=== PATIENT | female | born 1940 | race Caucasian/White ===

== ENCOUNTER 2018-01-11 10:55 | Emergency (ER) | payer MEDICARE, BC ==
[~2018-01-11] VITALS: Ht 160 cm; Wt 69.4 kg
[~2018-01-11 10:55] MED LIST: ADVAIR 250-501 EACH INH; ADVAIR 500/501 EA INH; AMLODIPINE-VALSARTAN PO; ARAVA20 MG PO; AZOR 5-40 MG T1 EACH PO; BABY ASPIRIN81 MG PO; CALCIUM 1,0001 EACH PO; CRESTOR10 MG PO; CRESTOR20 MG PO; DIOVAN160 MG PO; HYDROCHLOROTH12.5 MG PO; LEFLUNOMIDE20 MG PO; MICROZIDE12.5 MG PO; SPIRIVA18 MCG INH; TOPROL XL100 MG PO; VITAMIN C500 M1 PO
--- OUTSIDE RECORDS SUMMARY | 2018-01-11 11:00 | XMS REPORT | Clinical Summary ---
Author Author [facility] Organization [facility] Address Unknown Phone Unavailable Care Team Providers Care Airworthiness Inspector Name Role Phone Jelena Cordova MD PCP Allergies Comments Active Allergy Reactions Severity Noted Date rash Penicillins Swelling 06/22/2016 rash Sulfa (Sulfonamide Swelling 06/22/2016 Antibiotics) Medications End Date Status Medication Sig Dispensed Refills Start Date Active rosuvastatin (CRESTOR) 10 Take 10 mg by 0 MG tablet mouth nightly. Active tiotropium (SPIRIVA) 18 Place 1 0 mcg per inhalation capsule into capsule inhaler and inhale once daily. Active cyanocobalamin, vitamin Take 1 tablet 0 B-12, 1,500 mcg by mouth tablet,disintegrating daily. Active insulin DETEMIR (LEVEMIR) Inject 12 15 mL 0 100 unit/mL (3 mL) Units under 7 insulin pen the skin daily before breakfast. 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 Active metoprolol tartrate Take 25 mg by 0 (LOPRESSOR) 25 mg tablet mouth 2 (two) times a day. Active ferrous sulfate (IRON, Take 1 tablet 180 tablet 0 FERROUS SULFATE,) 325 (65 (325 mg 8 FE) MG tablet total) by mouth 2 (two) times a day. Active ipratropium (ATROVENT) Take 2.5 mL 120 mL 0 0.02 % nebulizer solution (0.5 mg 8 total) by nebulization 2 (two) times a day. 12/26/2018 Active furosemide (LASIX) 40 mg Take 1 tablet 360 tablet 0 tablet (40 mg total) 8 by mouth 2 (two) times a day. Patient takes 2 tablets twice daily Active ONETOUCH VERIO strip test TEST 4-5 200 strip 5 strips TIMES A DAY 8 06/22/2017 Discontinued leflunomide (ARAVA) 20 MG Take 20 mg by 0 tablet mouth daily. 02/04/2017 Discontinued ferrous sulfate (IRON, Take 325 mg 0 FERROUS SULFATE,) 325 (65 by mouth FE) MG tablet daily with breakfast. 06/01/2017 Discontinued ipratropium (ATROVENT) Take 500 mcg 0 0.02 % nebulizer solution by nebulization every morning. 06/01/2017 Discontinued budesonide (PULMICORT) Take 0.25 mg 0 0.25 mg/2 mL nebulizer by solution nebulization every evening. 06/22/2017 Discontinued hydrALAZINE (APRESOLINE) Take 25 mg by 0 25 MG tablet mouth 3 (three) times a day. 12/27/2017 Discontinued blood sugar diagnostic Testing 4-5 x 200 strip 6 strips strip test strips daily DM Type 7 2 DX Code:E11.9 06/22/2017 Discontinued furosemide (LASIX) 40 mg 80 mg 2 (two) 0 tablet times a day. 7 06/22/2017 Discontinued metoprolol succinate XL Take 50 mg by 2 (TOPROL-XL) 50 mg 24 hr mouth once 7 tablet daily. 07/14/2017 Discontinued insulin ASPART (NovoLOG) Inject under 0 100 unit/mL injection the skin 3 (three) times a day before meals. 04/30/2017 Discontinued ferrous sulfate (IRON, Take 1 tablet 90 tablet 0 FERROUS SULFATE,) 325 (65 (325 mg 7 FE) MG tablet total) by mouth daily with breakfast. 10/17/2017 Discontinued ferrous sulfate (IRON, Take 1 tablet 180 tablet 0 FERROUS SULFATE,) 325 (65 (325 mg 8 FE) MG tablet total) by mouth 2 (two) times a day. 12/06/2017 Discontinued ipratropium (ATROVENT) Take 2.5 mL 120 mL 3 0.02 % nebulizer solution (0.5 mg 8 total) by nebulization 2 (two) times a day. 06/06/2017 Discontinued budesonide (PULMICORT) Take 2 mL 60 mL 3 0.25 mg/2 mL nebulizer (0.25 mg 8 solution total) by nebulization every evening for 90 days. 09/04/2017 budesonide (PULMICORT) Take 2 mL 180 mL 1 0.5 mg/2 mL nebulizer (0.5 mg 8 solution total) by nebulization once daily for 90 days. 07/06/2017 Discontinued propafenone (RYTHMOL) 150 Take 1 tablet 90 tablet 0 MG tablet (150 mg 8 total) by mouth every 8 (eight) hours for 30 days. 07/22/2017 hydrALAZINE (APRESOLINE) Take 1 tablet 90 tablet 0 50 MG tablet (50 mg total) 8 by mouth 3 (three) times a day for 30 days. 07/22/2017 apixaban (ELIQUIS) 2.5 mg Take 1 tablet 60 tablet 3 tablet (2.5 mg 8 total) by mouth 2 (two) times a day for 30 days. 07/06/2017 Discontinued furosemide (LASIX) 40 mg Take 1 tablet 30 tablet 3 tablet (40 mg total) 8 by mouth daily for 30 days. 07/22/2017 amLODIPine (NORVASC) 5 mg Take 1 tablet 60 tablet 0 tablet (5 mg total) 8 by mouth 2 (two) times a day for 30 days. 08/05/2017 propafenone (RYTHMOL) 225 Take 1 tablet 90 tablet 1 MG tablet (225 mg 8 total) by mouth every 8 (eight) hours for 30 days. 07/12/2017 predniSONE (DELTASONE) 10 Take 2 daily 9 tablet 0 mg tablet for 3 days, 1 8 daily for 3 days then d/c 08/05/2017 furosemide (LASIX) 40 mg Take 2 120 tablet 1 tablet tablets (80 8 mg total) by mouth 2 (two) times a day for 30 days. 07/14/2017 Discontinued leflunomide (ARAVA) 10 MG Take 10 mg by 0 tablet mouth daily. 10/12/2017 leflunomide (ARAVA) 10 MG Take 1 tablet 0 tablet (10 mg total) 8 by mouth daily for 90 days. 12/06/2017 Discontinued furosemide (LASIX) 40 mg Take 1 tablet 90 tablet 0 tablet (40 mg total) 8 by mouth 2 (two) times a day. 12/06/2017 Discontinued budesonide (PULMICORT) USE ONE VIAL 60 mL 2 0.25 mg/2 mL nebulizer VIA NEBULIZER 8 solution BY MOUTH EVERY EVENING 12/08/2017 Discontinued furosemide (LASIX) 40 mg Take 1 tablet 60 tablet 0 tablet (40 mg total) 8 by mouth 2 (two) times a day. 01/06/2018 budesonide (PULMICORT) Take 2 mL 60 mL 0 0.25 mg/2 mL nebulizer (0.25 mg 8 solution total) by nebulization once daily for 30 days. 12/26/2017 Discontinued furosemide (LASIX) 40 mg Take 1 tablet 180 tablet 0 tablet (40 mg total) 8 by mouth 2 (two) times a day. Active Problems Problem Noted Date COPD with acute exacerbation 07/01/2017 CAD (coronary artery disease) 06/19/2017 Fluid overload 06/18/2017 Atrial fibrillation with RVR 06/16/2017 Chest pain 06/14/2017 Anemia of chronic renal failure, stage 4 (severe) 05/02/2017 Hypoglycemia associated with type 2 diabetes mellitus 11/11/2016 Controlled type 2 diabetes mellitus with stage 3 chronic kidney disease, 11/01/2016 with long-term current use of insulin Steroid-induced diabetes mellitus (correct and properly administered) 09/20/2016 Mixed hyperlipidemia 09/20/2016 BMI 27.0-27.9,adult 09/20/2016 Symptomatic anemia 09/16/2016 Hypokalemia 09/16/2016 Iron deficiency anemia 09/16/2016 Rheumatoid arthritis 09/16/2016 Chronic diastolic heart failure 09/16/2016 COPD (chronic obstructive pulmonary disease) 06/23/2016 Essential hypertension 06/23/2016 CKD (chronic kidney disease) stage 3, GFR 30-59 ml/min 06/23/2016 Supplemental oxygen dependent Overview: 2 LNC PAH pap 46mmHg HTN Encounters Care Team Description Date Type Specialty Benny Ruiz MD Symptomatic anemia (Primary Dx) 01/03/2018 Nurse Only Oncology Gumaro Juárez Jr., MD Heart failure, unspecified HF chronicity, unspecified heart failure type (HCC) (Primary Dx) 01/02/2018 Lab Lab Emma Archer MD 12/27/2017 Refill Endocrinology Jelena Cordova MD 12/27/2017 Telephone Internal Medicine Jelena Cordova MD 12/26/2017 Telephone Internal Medicine Emma Archer MD 12/22/2017 Refill Endocrinology Benny Ruiz MD Symptomatic anemia (Primary Dx) 12/20/2017 Nurse Only Oncology Adeola Pitts MA 12/08/2017 Refill Internal Medicine Benny Ruiz MD Symptomatic anemia (Primary Dx) 12/06/2017 Nurse Only Oncology Jelena Cordova MD 12/06/2017 Refill Internal Medicine Jelena Cordova MD 12/06/2017 Refill Internal Medicine Benny Ruiz MD Symptomatic anemia (Primary Dx) 11/22/2017 Nurse Only Oncology Benny Ruiz MD Symptomatic anemia (Primary Dx) 11/08/2017 Nurse Only Oncology Jelena Cordova MD 11/02/2017 Refill Internal Medicine Benny Ruiz MD Symptomatic anemia (Primary Dx) 10/25/2017 Nurse Only Oncology Jelena Cordova MD 10/17/2017 Telephone Internal Medicine Benny Ruiz MD Hypertension, unspecified type (Primary Dx) 10/11/2017 Nurse Only Oncology Adeola Pitts MA 10/10/2017 Orders Only Internal Medicine Valente Biswas RN 10/10/2017 Orders Only Oncology Jelena Cordova MD 10/10/2017 Telephone Internal Medicine Gumaro Juárez Jr., MD Chronic kidney disease, stage III (moderate) (Primary Dx) 09/27/2017 Lab Lab Benny Ruiz MD Symptomatic anemia (Primary Dx) 09/27/2017 Nurse Only Oncology Valente Biswas RN 09/26/2017 Orders Only Oncology Benny Ruiz MD Symptomatic anemia (Primary Dx) 09/13/2017 Nurse Only Oncology Valente Biswas RN 09/12/2017 Orders Only Oncology Benny Ruiz MD Vick, Heather, RN Symptomatic anemia (Primary Dx) 08/30/2017 Nurse Only Oncology Valente Biswas RN 08/29/2017 Orders Only Oncology Benny Ruiz MD Vick, Heather, RN Symptomatic anemia (Primary Dx) 08/16/2017 Nurse Only Oncology Benny Ruiz MD Symptomatic anemia (Primary Dx) 08/03/2017 Nurse Only Oncology Ashanti Boraj, COMFORT 08/03/2017 Orders Only Oncology Benny Ruiz MD Symptomatic anemia (Primary Dx) 07/19/2017 Nurse Only Oncology Jelena Cordova MD Chronic diastolic heart failure (Primary Dx); Essential hypertension; Chronic obstructive pulmonary disease, unspecified COPD type; Supplemental oxygen dependent; Rheumatoid arthritis involving multiple sites, unspecified rheumatoid factor presence; CKD (chronic kidney disease) stage 3, GFR 30-59 ml/min; BMI 27.0-27.9,adult; Mixed hyperlipidemia; Encounter for long-term current use of medication; Hospital discharge follow-up; Controlled type 2 diabetes mellitus with stage 3 chronic kidney disease, with long-term current use of insulin 07/14/2017 Office Visit Internal Medicine Jelena Cordova MD 07/08/2017 Telephone Internal Medicine Jelena Cordova MD 07/06/2017 Telephone Internal Medicine Kahlil Boone MA Appointment 07/04/2017 Telephone Transplant Lisa Bangura MD Neason, Chau L., MD Tran, Tuan Q., MD COPD with acute exacerbation (Primary Dx); Hypoxia 06/30/2017 Hospital Cardiology - Encounter 07/06/2017 Davin Moffett NP Chronic diastolic heart failure (Primary Dx) 06/30/2017 Orders Only Transplant Jelena Cordova MD 06/27/2017 Telephone Internal Medicine Tevin Mukherjee MD Ep cardioversion [03184 (CPT)] 06/21/2017 Surgery Procedural Cardiology Tevin Mukherjee MD Cv selective coronary angiography [76275 (CPT)] 06/16/2017 Surgery Procedural Cardiology Michelet Barnhart MD Kumar, Anushree, MD Kumar, Varun, MD Chest pain, unspecified type (Primary Dx); Coronary artery disease involving platinum coronary artery of platinum heart without angina pectoris; CKD (chronic kidney disease) stage 3, GFR 30-59 ml/min; Atrial fibrillation with RVR; Essential hypertension 06/13/2017 Hospital Cardiology - Encounter 06/22/2017 Benny Ruiz MD Vick, Heather, RN Symptomatic anemia (Primary Dx) 06/07/2017 Nurse Only Oncology Jelena Cordova MD 06/06/2017 Telephone Internal Medicine Val Juarez MA 06/01/2017 Orders Only Internal Medicine Jelena Cordova MD 06/01/2017 Refill Internal Medicine Benny Ruiz MD Symptomatic anemia (Primary Dx) 05/24/2017 Nurse Only Oncology Benny Ruiz MD Symptomatic anemia (Primary Dx) 05/10/2017 Nurse Only Oncology Donna Montgomery PA 05/03/2017 Orders Only Oncology Sofia Black MD Controlled type 2 diabetes mellitus with hyperglycemia, with long-term current use of insulin; Other specified diseases of blood and blood-forming organs 05/02/2017 Lab Lab Benny Ruiz MD Anemia of chronic renal failure, stage 4 (severe) (Primary Dx) 05/02/2017 Office Visit Hematology Jelena Cordova MD 04/30/2017 Refill Internal Medicine Toshia Parks MA Other specified diseases of blood and blood-forming organs (Primary Dx) 04/28/2017 Orders Only Hematology Emma Archer MD Controlled type 2 diabetes mellitus with hyperglycemia, with long-term current use of insulin (Primary Dx); Essential hypertension; Mixed hyperlipidemia; Controlled type 1 diabetes mellitus with complication, with long-term current use of insulin; Chronic kidney disease, stage III (moderate) 03/01/2017 Office Visit Endocrinology Emma Archer MD Controlled type 2 diabetes mellitus with stage 3 chronic kidney disease, with long-term current use of insulin; Mixed hyperlipidemia 03/01/2017 Lab Lab José Miguel Jean-Baptiste MA 02/04/2017 Refill Internal Medicine after 01/10/2017 Family History Medical History Relation Name Comments Heart attack Father Heart attack Mother Relation Name Status Comments Father Mother Social History Date Tobacco Use Types Packs/Day Years Used Former Smoker Cigarettes Smokeless Tobacco: Never Used Comments: quit 33 years ago Alcohol Use Drinks/Week oz/Week Comments No Sex Assigned at Date Recorded Not on file Industry Job Start Date Occupation Not on file Not on file Not on file Travel End Travel History Travel Start No recent travel history available. Last Filed Vital Signs Time Taken Vital Sign Reading 01/03/2018 9:45 AM FLOW MANAGER Blood Pressure 127/58 01/03/2018 9:45 AM FLOW MANAGER Pulse 73 01/03/2018 9:45 AM FLOW MANAGER Temperature 35.8 C (96.5 F) 01/03/2018 9:45 AM FLOW MANAGER Respiratory Rate 18 01/03/2018 9:45 AM FLOW MANAGER Oxygen Saturation 92% - Inhaled Oxygen - Concentration 01/03/2018 9:45 AM FLOW MANAGER Weight 69.7 kg (153 lb 10.6 oz) 01/03/2018 9:45 AM FLOW MANAGER Height 160 cm (5' 3") 01/03/2018 9:45 AM FLOW MANAGER Body Mass Index 27.22 Plan of Treatment Care Team Description Date Type Specialty Benny Ruiz MD [address] [place] [id number] [phone] 01/17/2018 Nurse Only Oncology Benny Ruiz MD [address] [place] [address] [phone] 01/31/2018 Nurse Only Oncology Benny Ruiz MD [address] [place] [address] [phone] 02/15/2018 Nurse Only Oncology [facility] Ruiz [facility] [address] [facility] [address] [place] [address] [phone] 02/28/2018 Nurse Only Oncology Jelena Cordova MD [address] [facility] [address] [place] [address] [phone] 03/10/2018 Office Visit Internal Medicine Benny Ruiz MD [address] [place] [address] [phone] 03/14/2018 Nurse Only Oncology Health Maintenance Due Date Last Done Comments DIABETIC RETINAL EYE EXAM 1940 SHINGRIX VACCINE (1 of 2) 1990 ZOSTER VACCINE 2000 PNEUMOCOCCAL 2005 POLYSACCHARIDE VACCINE AGE 65 AND OVER PNEUMOCOCCAL-13 2005 INFLUENZA VACCINE 09/21/2017 DIABETIC FOOT EXAM 11/01/2017 11/01/2016, 11/01/2016 Goals Goal Patient Associated Recent Progress Patient-Stat Author Goal Type Problems ed? HM WM Nutrition General No Alona Oswald RD Note: 11/17/16 Active Eat no more than 30 grams carb per meal and 15 grams per snack. Procedures Comments Procedure Name Priority Date/Time Associated Diagnosis HEMOGLOBIN & HEMATOCRIT STAT 01/03/2018 Symptomatic anemia 10:06 AM FLOW MANAGER ESTIMATED GFR Routine 01/02/2018 10:55 AM FLOW MANAGER HC COMPLETE BLD COUNT Routine 01/02/2018 Heart failure, W/AUTO DIFF 10:55 AM FLOW MANAGER unspecified HF chronicity, unspecified heart failure type (HCC) COMPREHENSIVE METABOLIC Routine 01/02/2018 Heart failure, PANEL 10:55 AM FLOW MANAGER unspecified HF chronicity, unspecified heart failure type (HCC) HEMOGLOBIN & HEMATOCRIT STAT 12/20/2017 Symptomatic anemia 10:30 AM CDT HEMOGLOBIN & HEMATOCRIT STAT 12/06/2017 Symptomatic anemia 9:50 AM CDT HEMOGLOBIN & HEMATOCRIT STAT 11/22/2017 Symptomatic anemia 10:47 AM CDT HEMOGLOBIN & HEMATOCRIT STAT 11/08/2017 Symptomatic anemia 10:34 AM CDT HEMOGLOBIN & HEMATOCRIT STAT 10/25/2017 Symptomatic anemia 10:20 AM CDT HEMOGLOBIN & HEMATOCRIT STAT 10/11/2017 Hypertension, unspecified 10:15 AM CDT type ZZESTIMATED GFR Routine 09/27/2017 12:13 PM CDT HC COMPLETE BLD COUNT Routine 09/27/2017 Chronic kidney disease, W/AUTO DIFF 12:13 PM CDT stage III (moderate) COMPREHENSIVE METABOLIC Routine 09/27/2017 Chronic kidney disease, PANEL 12:13 PM CDT stage III (moderate) HEMOGLOBIN & HEMATOCRIT STAT 09/27/2017 Symptomatic anemia 10:15 AM CDT HEMOGLOBIN & HEMATOCRIT STAT 09/13/2017 Symptomatic anemia 10:15 AM CDT HEMOGLOBIN & HEMATOCRIT STAT 08/30/2017 Symptomatic anemia 10:06 AM CDT HEMOGLOBIN & HEMATOCRIT STAT 08/16/2017 Symptomatic anemia 10:07 AM CDT HEMOGLOBIN & HEMATOCRIT STAT 08/03/2017 Symptomatic anemia 10:13 AM CDT HEMOGLOBIN & HEMATOCRIT STAT 07/19/2017 Symptomatic anemia 10:11 AM CDT MAGNESIUM LEVEL Routine 07/14/2017 Chronic diastolic heart 11:24 AM CDT failure Essential hypertension Chronic obstructive pulmonary disease, unspecified COPD type Supplemental oxygen dependent Rheumatoid arthritis involving multiple sites, unspecified rheumatoid factor presence CKD (chronic kidney disease) stage 3, GFR 30-59 ml/min BMI 27.0-27.9,adult Mixed hyperlipidemia Encounter for long-term current use of medication Hospital discharge follow-up B NATRIURETIC PEPTIDE Routine 07/14/2017 Chronic diastolic heart 11:24 AM CDT failure Essential hypertension Chronic obstructive pulmonary disease, unspecified COPD type Supplemental oxygen dependent Rheumatoid arthritis involving multiple sites, unspecified rheumatoid factor presence CKD (chronic kidney disease) stage 3, GFR 30-59 ml/min BMI 27.0-27.9,adult Mixed hyperlipidemia Encounter for long-term current use of medication Hospital discharge follow-up COMPREHENSIVE METABOLIC Routine 07/14/2017 Chronic diastolic heart PANEL 11:24 AM CDT failure Essential hypertension Chronic obstructive pulmonary disease, unspecified COPD type Supplemental oxygen dependent Rheumatoid arthritis involving multiple sites, unspecified rheumatoid factor presence CKD (chronic kidney disease) stage 3, GFR 30-59 ml/min BMI 27.0-27.9,adult Mixed hyperlipidemia Encounter for long-term current use of medication Hospital discharge follow-up CBC WITH PLATELET AND Routine 07/14/2017 Chronic diastolic heart DIFFERENTIAL 11:24 AM CDT failure Essential hypertension Chronic obstructive pulmonary disease, unspecified COPD type Supplemental oxygen dependent Rheumatoid arthritis involving multiple sites, unspecified rheumatoid factor presence CKD (chronic kidney disease) stage 3, GFR 30-59 ml/min BMI 27.0-27.9,adult Mixed hyperlipidemia Encounter for long-term current use of medication Hospital discharge follow-up POC GLUCOSE Routine 07/06/2017 11:48 AM CDT POC GLUCOSE Routine 07/06/2017 7:51 AM CDT HC COMPLETE BLD COUNT Routine 07/06/2017 W/AUTO DIFF 4:56 AM CDT ZZESTIMATED GFR Routine 07/06/2017 4:00 AM CDT BASIC METABOLIC PANEL Routine 07/06/2017 4:00 AM CDT POC GLUCOSE Routine 07/05/2017 9:12 PM CDT POC GLUCOSE Routine 07/05/2017 5:49 PM CDT POC GLUCOSE Routine 07/05/2017 11:52 AM CDT POC GLUCOSE Routine 07/05/2017 7:45 AM CDT ZZESTIMATED GFR Routine 07/05/2017 5:57 AM CDT BASIC METABOLIC PANEL Routine 07/05/2017 5:57 AM CDT HC COMPLETE BLD COUNT Routine 07/05/2017 W/AUTO DIFF 5:57 AM CDT POC GLUCOSE Routine 07/04/2017 8:44 PM CDT POC GLUCOSE Routine 07/04/2017 5:49 PM CDT ECHOCARDIOGRAM 2D Routine 07/04/2017 COMPLETE W MMODE SPECTRAL 2:35 PM CDT COLOR DOPPLER (25282) POC GLUCOSE Routine 07/04/2017 12:04 PM CDT POC GLUCOSE Routine 07/04/2017 7:33 AM CDT HC COMPLETE BLD COUNT Routine 07/04/2017 W/AUTO DIFF 6:10 AM CDT ZZESTIMATED GFR Routine 07/04/2017 4:00 AM CDT BASIC METABOLIC PANEL Routine 07/04/2017 4:00 AM CDT POC GLUCOSE Routine 07/03/2017 9:13 PM CDT POC GLUCOSE Routine 07/03/2017 4:39 PM CDT POC GLUCOSE Routine 07/03/2017 11:56 AM CDT POC GLUCOSE Routine 07/03/2017 7:28 AM CDT ZZESTIMATED GFR Routine 07/03/2017 4:42 AM CDT BASIC METABOLIC PANEL Routine 07/03/2017 4:42 AM CDT HC COMPLETE BLD COUNT Routine 07/03/2017 W/AUTO DIFF 4:42 AM CDT POC GLUCOSE Routine 07/02/2017 9:11 PM CDT POC GLUCOSE Routine 07/02/2017 5:14 PM CDT POC GLUCOSE Routine 07/02/2017 12:16 PM CDT POC GLUCOSE Routine 07/02/2017 7:50 AM CDT HC COMPLETE BLD COUNT Routine 07/02/2017 W/AUTO DIFF 5:00 AM CDT ZZESTIMATED GFR Routine 07/02/2017 4:00 AM CDT BASIC METABOLIC PANEL Routine 07/02/2017 4:00 AM CDT POC GLUCOSE Routine 07/01/2017 9:13 PM CDT POC GLUCOSE Routine 07/01/2017 6:02 PM CDT GRAM STAIN Routine 07/01/2017 5:45 PM CDT SPUTUM CULTURE Routine 07/01/2017 5:45 PM CDT RESPIRATORY PATHOGEN Routine 07/01/2017 PANEL 5:45 PM CDT POC GLUCOSE Routine 07/01/2017 4:20 PM CDT US DUPLEX VENOUS LOWER Routine 07/01/2017 EXTREMITY BILATERAL 3:30 PM CDT NM LUNG VENTILATION Routine 07/01/2017 PERFUSION 1:31 PM CDT POC GLUCOSE Routine 07/01/2017 7:28 AM CDT HEMOGLOBIN A1C Routine 07/01/2017 5:20 AM CDT HC COMPLETE BLD COUNT Routine 07/01/2017 W/AUTO DIFF 5:20 AM CDT ZZESTIMATED GFR Routine 07/01/2017 4:00 AM CDT BASIC METABOLIC PANEL Routine 07/01/2017 4:00 AM CDT BLOOD CULTURE, AEROBIC & Routine 07/01/2017 ANAEROBIC 12:01 AM CDT BLOOD CULTURE, AEROBIC & Routine 07/01/2017 ANAEROBIC 12:00 AM CDT VENOUS BLOOD GAS STAT 06/30/2017 11:50 PM CDT MAGNESIUM LEVEL STAT 06/30/2017 11:25 PM CDT PHOSPHORUS LEVEL STAT 06/30/2017 11:25 PM CDT ECG ED PRELIMINARY Routine 06/30/2017 INTERPRETATION 11:19 PM CDT ZZESTIMATED GFR STAT 06/30/2017 8:30 PM CDT B NATRIURETIC PEPTIDE STAT 06/30/2017 8:30 PM CDT TROPONIN STAT 06/30/2017 8:30 PM CDT COMPREHENSIVE METABOLIC STAT 06/30/2017 PANEL 8:30 PM CDT HC COMPLETE BLD COUNT STAT 06/30/2017 W/AUTO DIFF 8:30 PM CDT XR CHEST 1 VW PORTABLE STAT 06/30/2017 8:10 PM CDT ECG 12-LEAD STAT 06/30/2017 7:39 PM CDT POC GLUCOSE Routine 06/22/2017 7:12 AM CDT ZZESTIMATED GFR Routine 06/22/2017 5:12 AM CDT HC COMPLETE BLD COUNT Routine 06/22/2017 W/AUTO DIFF 5:12 AM CDT BASIC METABOLIC PANEL Routine 06/22/2017 5:12 AM CDT POC GLUCOSE Routine 06/21/2017 9:31 PM CDT POC GLUCOSE Routine 06/21/2017 5:06 PM CDT POC GLUCOSE Routine 06/21/2017 3:29 PM CDT ECG 12-LEAD STAT 06/21/2017 2:17 PM CDT EP CARDIOVERSION Routine 06/21/2017 1:58 PM CDT POC GLUCOSE Routine 06/21/2017 11:55 AM CDT POC GLUCOSE Routine 06/21/2017 7:24 AM CDT ZZESTIMATED GFR Routine 06/21/2017 5:56 AM CDT BASIC METABOLIC PANEL Routine 06/21/2017 5:56 AM CDT POC GLUCOSE Routine 06/20/2017 5:25 PM CDT POC GLUCOSE Routine 06/20/2017 11:41 AM CDT POC GLUCOSE Routine 06/20/2017 7:15 AM CDT ZZESTIMATED GFR Routine 06/20/2017 4:00 AM CDT BASIC METABOLIC PANEL Routine 06/20/2017 4:00 AM CDT POC GLUCOSE Routine 06/19/2017 4:22 PM CDT POC GLUCOSE Routine 06/19/2017 12:55 PM CDT POC GLUCOSE Routine 06/19/2017 7:50 AM CDT BASIC METABOLIC PANEL Routine 06/19/2017 6:50 AM CDT ZZESTIMATED GFR Routine 06/19/2017 6:50 AM CDT ZZESTIMATED GFR Routine 06/19/2017 3:50 AM CDT BASIC METABOLIC PANEL Routine 06/19/2017 3:50 AM CDT POC GLUCOSE Routine 06/18/2017 9:46 PM CDT POC GLUCOSE Routine 06/18/2017 6:08 PM CDT POC GLUCOSE Routine 06/18/2017 11:54 AM CDT POC GLUCOSE Routine 06/18/2017 10:15 AM CDT POC GLUCOSE Routine 06/18/2017 8:01 AM CDT HC COMPLETE BLD COUNT Routine 06/18/2017 W/AUTO DIFF 5:45 AM CDT ZZESTIMATED GFR Routine 06/18/2017 4:00 AM CDT BASIC METABOLIC PANEL Routine 06/18/2017 4:00 AM CDT POC GLUCOSE Routine 06/17/2017 9:34 PM CDT POC GLUCOSE Routine 06/17/2017 5:05 PM CDT POC GLUCOSE Routine 06/17/2017 11:49 AM CDT POC GLUCOSE Routine 06/17/2017 7:27 AM CDT CBC WITH PLATELET AND Routine 06/17/2017 DIFFERENTIAL 5:35 AM CDT BASIC METABOLIC PANEL Routine 06/17/2017 4:00 AM CDT ZZESTIMATED GFR Routine 06/17/2017 4:00 AM CDT MAGNESIUM LEVEL Routine 06/17/2017 4:00 AM CDT POC GLUCOSE Routine 06/16/2017 8:53 PM CDT ECG 12-LEAD STAT 06/16/2017 6:39 PM CDT POC GLUCOSE Routine 06/16/2017 6:24 PM CDT POC GLUCOSE Routine 06/16/2017 3:19 PM CDT CV SELECTIVE CORONARY Routine 06/16/2017 Coronary artery disease ANGIOGRAPHY 2:45 PM CDT involving platinum coronary artery of platinum heart without angina pectoris POC GLUCOSE Routine 06/16/2017 1:24 PM CDT POC GLUCOSE Routine 06/16/2017 8:23 AM CDT PARTIAL THROMBOPLASTIN Routine 06/16/2017 TIME (PTT) 4:50 AM CDT PROTHROMBIN TIME WITH INR Routine 06/16/2017 4:50 AM CDT ZZESTIMATED GFR Routine 06/16/2017 4:50 AM CDT BASIC METABOLIC PANEL Routine 06/16/2017 4:50 AM CDT HC COMPLETE BLD COUNT Routine 06/16/2017 W/AUTO DIFF 4:50 AM CDT POC GLUCOSE Routine 06/15/2017 9:07 PM CDT POC GLUCOSE Routine 06/15/2017 5:21 PM CDT POC GLUCOSE Routine 06/15/2017 2:01 PM CDT CV STRESS TEST NUCLEAR Routine 06/15/2017 CARDIO 11:56 AM CDT NM MYOCARDIAL PERFUSION Routine 06/15/2017 STRESS REST 2 DAY 9:51 AM CDT ZZESTIMATED GFR Routine 06/15/2017 4:00 AM CDT HC COMPLETE BLD COUNT Routine 06/15/2017 W/AUTO DIFF 4:00 AM CDT BASIC METABOLIC PANEL Routine 06/15/2017 4:00 AM CDT POC GLUCOSE Routine 06/14/2017 8:45 PM CDT POC GLUCOSE Routine 06/14/2017 5:51 PM CDT ECHOCARDIOGRAM 2D Routine 06/14/2017 COMPLETE W MMODE SPECTRAL 2:21 PM CDT COLOR DOPPLER ([id number]) TROPONIN Routine 06/14/2017 4:35 AM CDT ZZESTIMATED GFR Routine 06/14/2017 4:35 AM CDT BASIC METABOLIC PANEL Routine 06/14/2017 4:35 AM CDT HC COMPLETE BLD COUNT Routine 06/14/2017 W/AUTO DIFF 4:35 AM CDT XR CHEST 1 VW STAT 06/13/2017 11:50 PM CDT ZZESTIMATED GFR STAT 06/13/2017 8:50 PM CDT B NATRIURETIC PEPTIDE STAT 06/13/2017 8:50 PM CDT TROPONIN STAT 06/13/2017 8:50 PM CDT COMPREHENSIVE METABOLIC STAT 06/13/2017 PANEL 8:50 PM CDT HC COMPLETE BLD COUNT STAT 06/13/2017 W/AUTO DIFF 8:50 PM CDT ECG 12-LEAD STAT 06/13/2017 8:22 PM CDT HEMOGLOBIN & HEMATOCRIT STAT 06/07/2017 Symptomatic anemia 10:35 AM CDT HEMOGLOBIN & HEMATOCRIT STAT 05/24/2017 Symptomatic anemia 10:15 AM CDT HEMOGLOBIN & HEMATOCRIT STAT 05/10/2017 Symptomatic anemia 8:08 AM CDT POC GLYCOSYLATED Routine 03/01/2017 Controlled type 2 HEMOGLOBIN (HGB A1C) 9:54 AM FLOW MANAGER diabetes mellitus with hyperglycemia, with long-term current use of insulin POC GLUCOSE Routine 03/01/2017 Controlled type 2 9:54 AM FLOW MANAGER diabetes mellitus with hyperglycemia, with long-term current use of insulin ZZESTIMATED GFR Routine 03/01/2017 8:07 AM FLOW MANAGER THYROID STIMULATING Routine 03/01/2017 Controlled type 2 HORMONE 8:07 AM FLOW MANAGER diabetes mellitus with stage 3 chronic kidney disease, with long-term current use of insulin T4, FREE Routine 03/01/2017 Controlled type 2 8:07 AM FLOW MANAGER diabetes mellitus with stage 3 chronic kidney disease, with long-term current use of insulin LIPID PANEL Routine 03/01/2017 Mixed hyperlipidemia 8:07 AM FLOW MANAGER CBC HEMOGRAM Routine 03/01/2017 Controlled type 2 8:07 AM FLOW MANAGER diabetes mellitus with stage 3 chronic kidney disease, with long-term current use of insulin COMPREHENSIVE METABOLIC Routine 03/01/2017 Controlled type 2 PANEL 8:07 AM FLOW MANAGER diabetes mellitus with stage 3 chronic kidney disease, with long-term current use of insulin HEMOGLOBIN A1C Routine 03/01/2017 Controlled type 2 8:07 AM FLOW MANAGER diabetes mellitus with stage 3 chronic kidney disease, with long-term current use of insulin after 01/10/2017 Results * Hemoglobin & hematocrit (01/03/2018 10:06 AM FLOW MANAGER) Only the most recent of 16 results within the time period is included. HGB 9.5 (L) 12.0 - 16.0 g/dL [facility] HCT 31.6 (L) 37.0 - 47.0 % [facility] Specimen Blood Performing Organization Address City/[facility]/Zipcode Phone Number [facility]PARTMENT OF [address] [place] [address] PATHOLOGY AND GENOMIC MEDICINE [facility] [address] * Estimated GFR (01/02/2018 10:55 AM FLOW MANAGER) Estimated GFR 24 (A) mL/min/1.73 m2 [facility] Comment: HOSPITAL CatergoryUnitsInte rpretation G1 >=90 Normal or high G2 60-89Mildly decreased [id number] Mildly to moderately decreased [id number] Moderately to severely decreased G4 15-29Severely decreased G5 <15Kidney failure The eGFR was calculated using the Chronic Kidney Disease Epidemiology Collaboration (CKD-EPI) equation. Interpretation is based on recommendations of the National Kidney Foundation-Kidney Disease Outcomes Quality Initiative (NKF-KDOQI) published in 2014. Specimen Plasma specimen Performing Organization Address City/[facility] Phone Number [facility] OF [address] [place] [address] PATHOLOGY AND GENOMIC MEDICINE [address] * CBC with platelet and differential (01/02/2018 10:55 AM FLOW MANAGER) Only the most recent of 17 results within the time period is included. WBC 6.51 4.50 - 11.00 k/uL [facility] RBC 3.37 (L) 4.20 - 5.50 m/uL [facility] HGB 9.8 (L) 12.0 - 16.0 g/dL [facility] HCT 33.4 (L) 37.0 - 47.0 % [facility] MCV 99.1 82.0 - 100.0 fL [facility] MCH 29.1 27.0 - 34.0 pg [facility] MCHC 29.3 (L) 31.0 - 37.0 g/dL [facility] RDW - SD 53.3 37.0 - 55.0 fL [facility] MPV 10.6 8.8 - 13.2 fL [facility] Platelet count 239 150 - 400 k/uL [facility] Nucleated RBC 0.00 /100 WBC [facility] Neutrophils 69.5 (H) 39.0 - 69.0 % [facility] Lymphocytes 17.4 (L) 25.0 - 45.0 % [facility] Monocytes 10.0 0.0 - 10.0 % [facility] Eosinophils 2.5 0.0 - 5.0 % [facility] Basophils 0.3 0.0 - 1.0 % [facility] Immature granulocytes 0.3Comment: "Immature 0.0 - 1.0 % [facility] granulocytes" (promyelocytes, HOSPITAL myelocytes, metamyelocytes) Specimen Blood Performing Organization Address City/State/Zipcode Phone Number [facility] DEPARTMENT OF [address] [place] [address] PATHOLOGY AND GENOMIC MEDICINE [address] * Comprehensive metabolic panel (01/02/2018 10:55 AM FLOW MANAGER) Only the most recent of 6 results within the time period is included. Sodium 142 135 - 148 mEq/L [facility] Potassium 4.4 3.5 - 5.0 mEq/L [facility] Chloride 98 98 - 112 mEq/L [facility] CO2 33 (H) 24 - 31 mEq/L [facility] Anion gap 11@ANIO 7 - 15 mEq/L [facility] BUN 68 (H) 8 - 23 mg/dL [facility] Creatinine 1.93 (H) 0.50 - 0.90 mg/dL [facility] Glucose 184 (H) 65 - 99 mg/dL [facility] Calcium 9.1 8.8 - 10.2 mg/dL [facility] Protein 6.8 6.3 - 8.3 g/dL [facility] Comment: HOSPITAL [place] 4.6-7.0 g/dL 1 week 4.4-7.6 g/dL 7 months-1year 5.1-7.3 g/dL 1-2 years5.6-7 .5 g/dL >3 years6.0-8 .0 g/dL 18-150 6.3-8.3 g/dL Albumin 3.2 (L) 3.5 - 5.0 g/dL [facility] A/G ratio 0.9 0.7 - 3.8 [facility] Alkaline phosphatase 68 35 - 104 U/L [facility] AST 17 10 - 35 U/L [facility] ALT 15 5 - 50 U/L [facility] Total bilirubin 0.3 0.0 - 1.2 mg/dL [facility] Specimen Plasma specimen Performing Organization Address City/State/[place] [address] PATHOLOGY AND GENOMIC MEDICINE [address] * Estimated GFR (09/27/2017 12:13 PM CDT) Only the most recent of 20 results within the time period is included. GFR Non Af Amer 23 (A) mL/min/1.73 m2 [facility] OF PATHOLOGY AND GENOMIC MEDICINE GFR Af Amer 28 (A) mL/min/1.73 m2 [facility] OF Comment: PATHOLOGY AND Chronic kidney disease: <60 GENOMIC MEDICINE mL/min/1.73m2 Kidney failure: <15 mL/min/1.73m2 The estimated GFR is calculated from the IDMS-traceable Modification of Diet in Renal Disease Equation. The accuracy of the calculation is poor when the creatinine is normal. Calculated values >90 mL/min/1.73m2 are not reported. This equation has not been validated in children (<18 years), women, the elderly (>70 years), or ethnic groups other than Caucasians and Americans. Specimen Plasma specimen Performing Organization Address City/[facility] [place] [address] PATHOLOGY AND GENOMIC MEDICINE * B natriuretic peptide (07/14/2017 11:24 AM CDT) Only the most recent of 3 results within the time period is included. BNP 395 (H) <100 pg/mL [facility] Comment: [place] BNP levels increase with age in the general population with the highest values seen in individuals greater than 75 years of age. Reference: J. Am. Darius. Cardiol. 2002; 40:976-982. Specimen Blood Resulting Agency Comment Performing Organization Information: Site ID: [id number] Name: [facility] Address: [address] [place] [id number] Director: Haley Phillips Performing Organization Address City/State/Zipcode Phone Number [email or web address] [place] [address] [place] [address] * Magnesium level (07/14/2017 11:24 AM CDT) Only the most recent of 3 results within the time period is included. Magnesium 2.4 1.5 - 2.5 mg/dL [facility] [place] Specimen Blood Resulting Agency Comment Performing Organization Information: Site ID: RGA Name: [facility] Address: [address] [place] [id number] Director: Haley Phillips Performing Organization Address [facility] Facility[facility] Phone Number [facility] [address] [place] [phone] * POC glucose (07/06/2017 11:48 AM CDT) Only the most recent of 54 results within the time period is included. POC glucose 165 (H) 65 - 99 mg/dL [facility] OF Comment: PATHOLOGY AND [facility] Notified RN GENOMIC MEDICINE Meter ID: [id number] Supervisor Electronics Assembly: Efraín Kitchen Performing Organization Address [facility] Facility[facility] Phone Number [facility] [address] [address] PATHOLOGY AND GENOMIC MEDICINE * Basic metabolic panel (07/06/2017 4:00 AM CDT) Only the most recent of 16 results within the time period is included. Sodium 145 135 - 148 mEq/L [facility] DE[facility]MENT OF PATHOLOGY AND GENOMIC MEDICINE Potassium 4.5 3.5 - 5.0 mEq/L [facility] OF PATHOLOGY AND GENOMIC MEDICINE Chloride 102 98 - 112 mEq/L [facility] DE[facility]MENT OF PATHOLOGY AND GENOMIC MEDICINE CO2 32 (H) 24 - 31 mEq/L [facility] DE[facility]MENT OF PATHOLOGY AND GENOMIC MEDICINE Anion gap 11@ANIO 7 - 15 mEq/L [facility] DEPARTMENT OF PATHOLOGY AND GENOMIC MEDICINE BUN 93 (H) 8 - 23 mg/dL [facility] DE[facility]MENT OF PATHOLOGY AND GENOMIC MEDICINE Creatinine 2.1 (H) 0.5 - 0.9 mg/dL [facility] DE[facility]MENT OF PATHOLOGY AND GENOMIC MEDICINE Glucose 114 (H) 65 - 99 mg/dL [facility] DE[facility]MENT OF PATHOLOGY AND GENOMIC MEDICINE Calcium 8.2 (L) 8.8 - 10.2 mg/dL [facility] DE[facility] OF PATHOLOGY AND GENOMIC MEDICINE Specimen Plasma specimen Performing Organization Address City/[facility]/Zipcode Phone Number [facility] DEPARTMENT OF [address] [place] [address] PATHOLOGY AND GENOMIC MEDICINE * Echocardiogram complete w contrast and 3D if needed (07/04/2017 2:35 PM CDT) Narrative Performed At [facility] Echocardiography Report [address] [place], [facility] [address], [place] [address] Pat.Name:JAMES BLANCHARD.ID:[id number] .Date: 07/04/2017 Refer.MD:AROLDO FRANK MD Exam Time: 2:09:00 PMStudy Type:Routine Echo Height:64.17in Weight:166lb BSA: 1.81 m2 DOBAge:1940,76Y Sex: FEMALEBP:148/67 HR:75 bpmSonogrphr: DEVYN Parker Pat. Stat.:Inpatient Room:[facility] Study Status:Final Echo Event ID:[id number] Order ID:[id number] Reason for Study:HF; initial eval with symptoms History / Clinical:Congestive Heart Failure, Hyperlipidemia, Hypertension Procedures:2D Echo, Colorflow Doppler Race:C SUMMARY: Combined AR and MR. Recommend CMR to better assess severity of both lesions. LV size is mildly enlarged. Estimated EF is 55-59%. LA volume is moderately enlarged. LV filling pressure is elevated. Estimated PA systolic pressure is 65 mmHg, assuming a mean RAP of 15 mmHg. FINDINGS: LV: LV size is mildly enlarged. LV EF is normal. Overall wall motionis lower limits of normal. Estimated EF is 55-59%. RV: RV size is normal. RV systolic function is normal. LA: LA volume is moderately enlarged. RA: RA size is normal. AO: Aortic root diameter is normal. CLIFF: No pericardial effusion. AV: Mild thickening and calcification of AV leaflets. Moderate aorticregurgitation. MV: Severe focal calcification of mitral leaflets. Mild mitral regurgitation. PV: No structural PV abnormalities noted. TV: No structural TV abnormalities noted. Mild tricuspid regurgitation Ramos: LV relaxation is impaired. LV filling pressure is elevated. Other:Estimated PA systolic pressure is 65 mmHg, assuming a mean RAPof 15 mmHg. MEASUREMENTS: 2D Parasternal [place] LVOT 2 cmLA Ds4.8 cm LVIDd5.8 cmIndex3.2 cm/m Ao An1.6 cm LVIDs3.8 cmAo Rtd 3.4 cm Index1.9 cm/m LV%fs 34.5 % LV Zthm492.4 g(87-129) IVSd 1.1 cmLVM Glghb575.9 g/m2 LVPWd1.2 cmRWT0.4 LA Sng Plane LA Area 26.6 cm2(8.8-23.4) LA Vol81.5 ml Index45 ml/m LA LngAx 6.9 cm RA Sng Plane RA Area 20.7 cm2(8.3-19.5) RA Vol57.9 ml Index32 ml/m RA LngAx 6.1 cm DOPPLER AV For Flow/REYNA AV pkVel 246.8 cm/s (100-170) AV AC/ET 0.2 AV mnVel 149.4 cm/Richy TVI52.8 cm AV pkPG 24.4 mmHgAVpkAcRt 8346.2 cm/s2 AV Mean G 11.4 mmHgAV LdBv548.8 cm/s2 AV AC 88 msec (83-118) AV Area1.8 cm2(3-5) AV ET354 msec AV Pressure Half Time AV P1/2t 294 msec LVOT For Flow LVOT Area3.1 cm2 LVOT SV 95.8 ml JKPCyvSmv501.1 cm/sHR61.5 bpm LVOTpkPG 6.9 mmHgLVOT CO5.9 l/min LVOTmnPG 3.2 mmHgLVOT CI3.3 l/m/m2 LVOT TVI30.5 cm Signed 07/04/2017 05:27 PM Randolph Chavez M.D. Procedure Note Interface, Radiology Results In - 07/04/2017 5:27 PM CDT Echocardiography Report [address] [place] [address] Pat.Name: JAMES BLANCHARD Pat.ID: [id number] .Date: 07/04/2017 Refer.MD: AROLDO FRANK MD Exam Time: 2:09:00 PM Study Type:Routine Echo Height: 64.17in Weight: 166lb BSA: 1.81 m2 Age: 7 1940,76Y Sex: FEMALE BP: 148/67 HR: 75 bpm Sonogrphr: DEVYN Parker Pat. Stat.:Inpatient Room: [facility] Study Status:Final Echo Event ID:[id number] Order ID: [id number] Reason for Study:HF; initial eval with symptoms History / Clinical:Congestive Heart Failure, Hyperlipidemia, Hypertension Procedures:2D Echo, Colorflow Doppler Race: C SUMMARY: Combined AR and MR. Recommend CMR to better assess severity of both lesions. LV size is mildly enlarged. Estimated EF is 55-59%. LA volume is moderately enlarged. LV filling pressure is elevated. Estimated PA systolic pressure is 65 mmHg, assuming a mean RAP of 15 mmHg. FINDINGS: LV: LV size is mildly enlarged. LV EF is normal. Overall wall motion is lower limits of normal. Estimated EF is 55-59%. RV: RV size is normal. RV systolic function is normal. LA: LA volume is moderately enlarged. RA: RA size is normal. AO: Aortic root diameter is normal. CLIFF: No pericardial effusion. AV: Mild thickening and calcification of AV leaflets. Moderate aortic regurgitation. MV: Severe focal calcification of mitral leaflets. Mild mitral regurgitation. PV: No structural PV abnormalities noted. TV: No structural TV abnormalities noted. Mild tricuspid regurgitation Ramos: LV relaxation is impaired. LV filling pressure is elevated. Other: Estimated PA systolic pressure is 65 mmHg, assuming a mean RAP of 15 mmHg. MEASUREMENTS: 2D Parasternal [place] LVOT 2 cm LA Ds 4.8 cm LVIDd 5.8 cm Index 3.2 cm/m Ao An 1.6 cm LVIDs 3.8 cm Ao Rtd 3.4 cm Index 1.9 cm/m LV%fs 34.5 % LV Mass 280.4 g (87-129) IVSd 1.1 cm LVM Index 154.9 g/m2 LVPWd 1.2 cm RWT 0.4 LA Sng Plane LA Area 26.6 cm2 (8.8-23.4) LA Vol 81.5 ml Index 45 ml/m LA LngAx 6.9 cm RA Sng Plane RA Area 20.7 cm2 (8.3-19.5) RA Vol 57.9 ml Index 32 ml/m RA LngAx 6.1 cm DOPPLER AV For Flow/REYNA AV pkVel 246.8 cm/s (100-170) AV AC/ET 0.2 AV mnVel 149.4 cm/s AV TVI 52.8 cm AV pkPG 24.4 mmHg AVpkAcRt 8346.2 cm/s2 AV Mean G 11.4 mmHg AV DeRt 697.8 cm/s2 AV AC 88 msec (83-118) AV Area 1.8 cm2 (3-5) AV ET 354 msec AV Pressure Half Time AV P1/2t 294 msec LVOT For Flow LVOT Area 3.1 cm2 LVOT SV 95.8 ml LVOTpkVel 131.1 cm/s HR 61.5 bpm LVOTpkPG 6.9 mmHg LVOT CO 5.9 l/min LVOTmnPG 3.2 mmHg LVOT CI 3.3 l/m/m2 LVOT TVI 30.5 cm Signed 07/04/2017 05:27 PM Randolph Chavez M.D. Performing Organization Address City/[facility] Phone Number [facility] [address] [place] [address] * Respiratory pathogen panel (07/01/2017 5:45 PM CDT) Respiratory pathogen Negative for all pathogens [facility] DEPARTMENT OF panel tested: PATHOLOGY AND Negative for Adenovirus GENOMIC MEDICINE Negative for Coronavirus HKU1 Negative for Coronavirus NL63 Negative for Coronavirus 229E Negative for Coronavirus OC43 Negative for Human Metapneumovirus Negative for Rhinovirus/Enterovirus Negative for Influenza A Negative for Influenza A/H1 Negative for Influenza A/H3 Negative for Influenza A/H1-2009 Negative for Influenza B Negative for Parainfluenza Virus 1 Negative for Parainfluenza Virus 2 Negative for Parainfluenza Virus 3 Negative for Parainfluenza Virus 4 Negative for Respiratory Syncytial Virus Negative for Bordetella pertussis Negative for Chlamydophila pneumoniae Negative for Mycoplasma pneumoniae This real-time PCR assay detects the presence of nucleic acids (RNA or DNA) for the respiratory pathogens listed. A result of "Not-detected" does not exclude the possibility of the presence of one or more pathogens at concentrations less than the detectable limits of the assay. Comment: Specimen Information Specimen Source: Nares Specimen Site: Not otherwise specified Specimen Nares - Not otherwise specified Performing Organization Address [facility] Phone Number [facility] DEPART[facility] OF [address] [place] [phone] PATHOLOGY AND GENOMIC MEDICINE * Sputum culture (07/01/2017 5:45 PM CDT) Sputum culture isolate Normal oral diane isolated. [facility] OF Comment: PATHOLOGY AND Specimen Information GENOMIC MEDICINE Specimen Source: Sputum Specimen Site: Expectorated Specimen Sputum - Expectorated Performing Organization Address [facility] Phone Number [facility] DE[facility] OF [address] [place] [phone] PATHOLOGY AND GENOMIC MEDICINE * Gram stain (07/01/2017 5:45 PM CDT) Gram stain isolate Few WBC's [facility] DE[facility] OF Few Gram positive rods PATHOLOGY AND Many Gram positive cocci in GENOMIC MEDICINE pairs Comment: Specimen Information Specimen Source: Sputum Specimen Site: Expectorated Specimen Sputum - Expectorated Performing Organization Address City/State/Zipcode Phone Number [facility] DEPARTMENT OF [address] [place] [address] PATHOLOGY AND GENOMIC MEDICINE * Pv duplex venous lower extremity (07/01/2017 3:30 PM CDT) Narrative Performed At [facility] Vascular Ultrasound Laboratory Lower Extremity Venous Report [address] [facility] [address], [place] [address] Pat.Name:JAMES BLANCHARD.ID:[id number] .Date: 07/01/2017 Refer.MD:AROLDO FRANK MD Exam Time: 3:01:00 PMStudy Type:LE Venous Height:64inDOBAge: [birth year][age]Y Sex: FEMALESonogrphr: Alejandro Ludwig RVT Pat. Stat.:Inpatient Room:[address] TapeVol: LEN, CPT - 4: [address] Echo Event ID:[id number] Order ID:[id number] Reason for Study:Bilateral leg swelling and acute hypoxemic respiratory failure Procedures:Colorflow, Grayscale/2D, Pulsed wave Doppler Race:C SUMMARY: DUPLEX SCAN OBSERVATIONS Deep VeinsSuperficial Veins RightLeft RightLeft GSV (prox) NormalNormal CFV Normal Normal (above knee) Femoral Normal Normal GSV (dist) Normal Normal Profunda Normal Normal (below knee) Popliteal Normal Normal PT (prox) Normal NormalSSV CalcificationCalcification PT (dist) Normal Normal Peroneal Normal Normal RIGHT: There is normal compressibility with no evidence of soft echogenic material noted within the lumen of the visualized veins. Colorflow and Doppler signals are pulsatile. LEFT: There is normal compressibility with no evidence of soft echogenic material noted within the lumen of the visualized veins. Colorflow and Doppler signals are pulsatile. PRELIMINARY FINDINGS 1. No evidence of thrombus in the visualized veins 2. Colorflow and Doppler signals are pulsatile. PHYSICIAN INTERPRETATION 1.Venous examination of the both lower extremities demonstrates no evidence of venous thrombosis. Signed 07/01/2017 04:17 PM Pravin Motley MD Procedure Note Interface, Radiology Results In - 07/01/2017 4:18 PM CDT Vascular Ultrasound Laboratory Lower Extremity Venous Report [address] [place] [address] Pat.Name: JAMES BLANCHARD Pat.ID: [id number] .Date: 07/01/2017 Refer.MD: AROLDO FRANK MD Exam Time: 3:01:00 PM Study Type:LE Venous Height: 64in Age: 7 1940,76Y Sex: FEMALE Sonogrphr: Alejandro Ludwig RVT Pat. Stat.:Inpatient Room: [address] Vol: , CPT - 4: [address] Echo Event ID:[id number] Order ID: [id number] Reason for Study:Bilateral leg swelling and acute hypoxemic respiratory failure Procedures:Colorflow, Grayscale/2D, Pulsed wave Doppler Race: C SUMMARY: DUPLEX SCAN OBSERVATIONS Deep Veins Superficial Veins Right Left Right Left GSV (prox) Normal Normal CFV Normal Normal (above knee) Femoral Normal Normal GSV (dist) Normal Normal Profunda Normal Normal (below knee) Popliteal Normal Normal PT (prox) Normal Normal SSV Calcification Calcification PT (dist) Normal Normal Peroneal Normal Normal RIGHT: There is normal compressibility with no evidence of soft echogenic material noted within the lumen of the visualized veins. Colorflow and Doppler signals are pulsatile. LEFT: There is normal compressibility with no evidence of soft echogenic material noted within the lumen of the visualized veins. Colorflow and Doppler signals are pulsatile. PRELIMINARY FINDINGS 1. No evidence of thrombus in the visualized veins 2. Colorflow and Doppler signals are pulsatile. PHYSICIAN INTERPRETATION 1. Venous examination of the both lower extremities demonstrates no evidence of venous thrombosis. Signed 07/01/2017 04:17 PM Pravin Motley MD Performing Organization Address [facility] Phone Number [facility] [address] [place] [address] * [place] Lung Ventilation Perfusion (07/01/2017 1:31 PM CDT) Narrative Performed At CLINICAL HISTORY: hypoxia RADIANT TECHNIQUE: The patient breathed 15-20 mCi of xenon-133 gas through a closed ventilation system while dynamic imaging of the lungs was performed in the posterior and anterior projections. The patient was then injected with 5 mCi of [id number] intravenously, followed by imaging of the lungs in anterior, posterior, and oblique projections. FINDINGS: Mildly heterogeneous perfusion bilaterally with attenuation artifacts on the oblique views. Mild, patchy air trapping on ventilation. IMPRESSION: Very Low Probability for pulmonary embolism. [facility]-[id number] Procedure Note Interface, Radiology Results Incoming - 07/01/2017 1:49 PM CDT CLINICAL HISTORY: hypoxia TECHNIQUE: The patient breathed 15-20 mCi of xenon-133 gas through a closed ventilation system while dynamic imaging of the lungs was performed in the posterior and anterior projections. The patient was then injected with 5 mCi of [id number] intravenously, followed by imaging of the lungs in anterior, posterior, and oblique projections. FINDINGS: Mildly heterogeneous perfusion bilaterally with attenuation artifacts on the oblique views. Mild, patchy air trapping on ventilation. IMPRESSION: Very Low Probability for pulmonary embolism. [facility]-[id number] Performing Organization Address [facility] Facility[facility] Phone Number [facility] [address] [place] [address] * Hemoglobin A1c (07/01/2017 5:20 AM CDT) Only the most recent of 2 results within the time period is included. Hemoglobin A1C 5.9 (H) 4.0 - 5.6 % [facility] OF Comment: PATHOLOGY AND HbA1c cutoffs for diagnosing GENOMIC MEDICINE diabetes: 4.0% - 5.6%=normal 5.7% - 6.4%=increased risk for diabetes (prediabetes) >=6.5%=diabetes Goals for glycemic control (ADA 2016) < 7.0%Target for non adults with diabetes. More or less stringent targets may be appropriate for individual patients. <7.5% Target for Children and adolescents with type 1 diabetes. Specimen Blood Performing Organization Address City/[facility]/[place] [address] PATHOLOGY AND GENOMIC MEDICINE * Blood culture, aerobic & anaerobic (07/01/2017 12:01 AM CDT) Only the most recent of 2 results within the time period is included. Blood culture isolate No growth after 5 days of [facility] DEPARTMENT OF incubation. PATHOLOGY AND Comment: GENOMIC MEDICINE Specimen Information Specimen Source: Blood Specimen Site: Unspecified Specimen Blood - Antecubital, left Performing Organization Address [facility] Facility[facility] Phone Number [place] [id number] PATHOLOGY AND GENOMIC MEDICINE * Venous blood gas (06/30/2017 11:50 PM CDT) pH, venous 7.36 7.32 - 7.42 [facility] DEPARTMENT OF PATHOLOGY AND GENOMIC MEDICINE pCO2, venous 64 (H) 45 - 51 mmHg [facility]PART[facility] OF PATHOLOGY AND GENOMIC MEDICINE pO2, venous 49 (H) 25 - 40 mmHg [facility] DEPARTMENT OF PATHOLOGY AND GENOMIC MEDICINE Base excess, venous 9 (H) -2 - 2 meq/L [facility] DEPARTMENT OF PATHOLOGY AND GENOMIC MEDICINE O2 saturation, venous 81 (H) 40 - 70 % [facility] DEPARTMENT OF PATHOLOGY AND GENOMIC MEDICINE Bicarbonate, venous 35.1 (H) 21.0 - 28.0 mmol/L [facility] DEPARTMENT OF PATHOLOGY AND GENOMIC MEDICINE Specimen Blood Performing Organization Address [facility] [place] [address] PATHOLOGY [facility] GENOMIC MEDICINE * Phosphorus level (06/30/2017 11:25 PM CDT) Phosphorus 4.3 2.4 - 4.5 mg/dL [facility] DEPARTMENT PATHOLOGY AND GENOMIC MEDICINE Specimen Plasma specimen Performing Organization Address City/[facility] [place] [address] PATHOLOGY AND GENOMIC MEDICINE * ECG ED Preliminary Interpretation - NOT AN ORDER (06/30/2017 11:19 PM CDT) Narrative Performed At iLsa Bangura MD 07/01/20179:30 AM ECG ED Preliminary Interpretation - Not an Order Performed by: LISA BANGURA Authorized by: LISA BANGURA ECG reviewed by ED Physician in the absence of a lpn instructor: yes Previous ECG: Previous ECG:Unavailable Interpretation: Interpretation: abnormal Rate: ECG rate:62 ECG rate assessment: normal Rhythm: Rhythm: sinus rhythm Ectopy: Ectopy: PAC QRS: QRS axis:Left QRS intervals:Normal Conduction: Conduction: normal ST segments: ST segments:Normal T waves: T waves: normal * Troponin (06/30/2017 8:30 PM CDT) Only the most recent of 3 results within the time period is included. Troponin <0.30 0.00 - 0.30 ng/mL [facility] DEPARTMENT OF Comment: PATHOLOGY AND 0.30 - 1.49 GENOMIC MEDICINE ng/mlMay indicate increased risk of acute coronary syndrome. >=1.5 ng/ml Consistent with acute myocardial infarction. The diagnostic value of a single normal or non-diagnostic result is questionable.Serial samples at 2-6 hour intervals are required to rule out acute myocardial injury. Specimen Plasma specimen Performing Organization Address City/State/Zipcode Phone Number [facility] DEPARTMENT OF [address] [place] [address] PATHOLOGY AND GENOMIC MEDICINE * XR Chest 1 Vw Portable (06/30/2017 8:10 PM CDT) Narrative Performed At EXAMINATION:XR CHEST 1 VW PORTABLE [facility] CLINICAL HISTORY:SHORTNESS OF BREATH COMPARISON:June 13, 2017 at 2343 hours IMPRESSION: Stable Mild cardiomegaly. Mitral annulus is heavily calcified. Aorta is tortuous. Stable diffuse interstitial prominence and left upper lobe perihilar scarring. Mild interval increase in size of the small right basal pleural effusion. There may be a tiny left basal pleural effusion as well. No pneumothorax. Bones are severely demineralized. Healed fracture deformity the left proximal humerus. [facility]-[id number] Procedure Note Interface, Radiology Results Incoming - 06/30/2017 8:31 PM CDT EXAMINATION: XR CHEST 1 VW PORTABLE CLINICAL HISTORY: SHORTNESS OF BREATH COMPARISON: June 13, 2017 at 2343 hours IMPRESSION: Stable Mild cardiomegaly. Mitral annulus is heavily calcified. Aorta is tortuous. Stable diffuse interstitial prominence and left upper lobe perihilar scarring. Mild interval increase in size of the small right basal pleural effusion. There may be a tiny left basal pleural effusion as well. No pneumothorax. Bones are severely demineralized. Healed fracture deformity the left proximal humerus. [facility]-[id number] Performing Organization Address [facility] Phone Number [facility] [address] [place] [address] * ECG 12 lead (06/30/2017 7:39 PM CDT) Only the most recent of 4 results within the time period is included. Ventricular rate 62 [facility] Atrial rate 62 [facility] MD interval 176 [facility] QRSD interval 118 [facility] QT interval 484 [facility] QTC interval 491 [facility] P axis 1 30 [facility] QRS axis 1 -16 [facility] T wave axis 50 [facility] EKG impression Sinus rhythm with premature [facility] atrial complexes with aberrant conduction-Incomplete right bundle branch block-Septal infarct , age undetermined-Abnormal ECG-In automated comparison with ECG of 30-JUN-2017 19:38,-Septal infarct is now present- Performing Organization Address [facility] Phone Number [facility] [address] [place] [address] * Cv electrophysiology procedure (06/21/2017 1:58 PM CDT) Narrative Performed At [facility] Successful cardioversion of atrial fibrillation to sinus rhythm with a single application of 300 Joules Performing Organization Address [facility] Phone Number [facility] [address] [place] [address] * Cv chemical lab technician procedure (06/16/2017 2:45 PM CDT) Narrative Performed At [facility] Mild coronary atherosclerosis Proximal LAD and mid RCA plaguing of 30% No LV done Performing Organization Address [facility] Phone Number [facility] [address] [place] [address] * Partial thromboplastin time, activated (06/16/2017 4:50 AM CDT) PTT 40.3 (H) 23.0 - 36.0 sec [facility] DEPARTMENT OF Comment: PATHOLOGY AND PTT therapeutic range for GENOMIC MEDICINE unfractionated heparin is 61.0-112.0 seconds which corresponds to Anti-Xa 0.3-0.7 U/ml. Specimen Blood Performing Organization Address [facility] Phone Number [facility] DEPARTMENT OF [address] [place] [address] PATHOLOGY AND GENOMIC MEDICINE * Prothrombin time with INR (06/16/2017 4:50 AM CDT) Prothrombin time 13.9 12.0 - 15.0 sec [facility] DEPARTMENT OF PATHOLOGY AND GENOMIC MEDICINE INR 1.1 [facility] DEPARTMENT OF Comment: PATHOLOGY AND The International Normalized GENOMIC MEDICINE Ratio (INR) is a therapeutic monitoring tool for patients who are stable on oral anticoagulant therapy. An INR of 2.0-3.0 is suggested for deep vein thrombosis/pulmonary embolism. Specimen Blood Performing Organization Address [facility] Phone Number [facility] DEPARTMENT OF [address] [place] [address] PATHOLOGY AND GENOMIC MEDICINE * CV stress test (06/15/2017 11:56 AM CDT) Resting HR 76 [facility] Resting BP 184 [facility] Peak MET Achieved 1.0 [facility] Protocol Name ALTAF [facility] Time in Exercise Phase 00:01:00 [facility] Max Systolic BP 184 [facility] Max Diastolic BP 76 [facility] Max Heart Rate 116 [facility] Max Predicted Heart Rate 144 [facility] Target HR Formula (220 - Age)*100% [facility] Test Indication SYMPTOMATIC WITH CHEST PAIN [facility] Stress Test Impression -Waveform interpreted in [facility] report associated with image study. No interpretation is provided as part of this Stress ECG report.-Electronically Signed By Yon TORREZ, Son Varghese ([id number]), movie editor Pam Ruiz ([id number]) on 06/14/2017 3:16:10 PM Target HR 122.40 bpm [facility] Performing Organization Address [facility] Phone Number [facility] [address] [place] [address] * Nm myocardial perfusion (06/15/2017 9:51 AM CDT) Narrative Performed At [facility] Card[facility] CT [address] [place] [address] Myocardial Perfusion Imaging Report Stress ECG tracings are available in MUSE, [facility] and [employer] Web All ECG interpretations are included in this report Pat.Name:JAMES BLANCHARD.ID:[id number] St.Date: 06/14/2017 Refer.MD:PHYSICIAN, EMERGENCY, Exam Time: 12:13:00 PM Study Type:Myocardial Perfusion Imaging Height:63inWeight:155lb BSA: 1.74 m2 DOBAge:1940,76Y Sex: FEMALEBP:187/76 HR:85 bpmHCT: 36.2 % Nuclear Tech:GUS MinorMT, ARRT/Betty WEBERMT,ARRT Pat. Stat.:Outpatient Room:[address] Event ID:[id number] Order ID:[id number] Reason for Study:Chest pain, unspecified* History / Clinical:Arrhythmia, PPM, AICD -PAF,, Congestive heart failure, COPD, Family history of premature CAD, Renal insufficiency/failure - CKD 3, RA, Cholecystectomy, Joint replacement, Chronic respiratory failure, Pulmonary hypertension, Former smoker Procedures:Single Day Stress / Rest Risk Factors:Family History Premature, Hyperlipidemia, Hypertension Clinical Symptoms:Regadenoson Physical Exam:S1, S2 Surgery: Troponin Negativex 1 - 06/13/17, Troponin Negativex 1 - 06/14/17, K+ - 3.9 - 06/14/17, Bun/Cr - 57/1.7 - 06/14/17 Medications:Cardura, Crestor, Hydralazine, Insulin, Lasix, Metoprolol, Atrovent, Spiriva, Pulmicort, Heparin SUMMARY: SCINTIGRAPHIC RESULTS Perfusion Defect Size (% LV) 5 % Total Left Ventricular Perfusion Results There is a mild apical perfusion defect during stress. Gated SPECT Results The post-stress left ventricular ejection fraction is 41 % with mild-moderate global hypokinesis.Left ventricular end-diastolic volume is 185 ml; end-systolic volume is109 ml. The left ventricle is severely enlarged at stress.The right ventricle is of normal size with normal wall motion. Moderate-severe left and right ventricular hypertrophy are present. Conclusion Abnormal regadenoson Tc-99m tetrofosmin myocardial perfusion study in the apex.The left ventricular ejection fraction is mild to moderately depressed with severe LV dilation. Comments The patient refused rest imaging, limiting accurate interpretation regarding the observed apical defect. Study Quality/Artifacts The study quality is poor. Comparison to Previous Study None available. STRESS: Baseline Vital Signs:Intervention: Regadenoson 0.4mg/5ml IV over 10 seconds followed by radiotracer injection and 5ml saline flush ECG: Normal Sinus Rhythm, Incomplete right bundle branch block, Left Beaver Deviation, Premature supraventricular complexes HR:85 BP:184/76 Stress Test Results: Target HR: 122 Symptoms and Complications: Arrhythmias: None Terminated: As per Regadenoson protocol Symptoms:Flushing, GI discomfort, Shortness of breath Complications: None Conclusions: Normal heart rate response to pharmacological stress, Normal blood pressure response to pharmacological stress Stress ECG Interp: No ischemic ST segment change occurred with stress. Signed 06/15/2017 01:32 PM Son Marvin MD Procedure Note Interface, Radiology Results In - 06/15/2017 1:32 PM CDT Nuclear Cardiology and Cardiac CT [address] [place] [address] Myocardial Perfusion Imaging Report Stress ECG tracings are available in [facility] [employer] [facility], [facility] and [employer] All ECG interpretations are included in this report Pat.Name: JAMES BLANCHARD Pat.ID: [id number] St.Date: 06/14/2017 Refer.MD: PHYSICIAN, EMERGENCY, MD Exam Time: 12:13:00 PM Study Type:Myocardial Perfusion Imaging Height: 63in Weight: 155lb BSA: 1.74 m2 Age: 7 1940,76Y Sex: FEMALE BP: 187/76 HR: 85 bpm HCT: 36.2 % Nuclear Tech:MORRIS Minor, ARRT/Betty CACERES,ARRT Pat. Stat.:Outpatient Room: [facility] Nuclear Event ID:[id number] Order ID: [id number] Reason for Study:Chest pain, unspecified* History / Clinical:Arrhythmia, PPM, AICD -PAF,, Congestive heart failure, COPD, Family history of premature CAD, Renal insufficiency/failure - CKD 3, RA, Cholecystectomy, Joint replacement, Chronic respiratory failure, Pulmonary hypertension, Former smoker Procedures:Single Day Stress / Rest Risk Factors:Family History Premature, Hyperlipidemia, Hypertension Clinical Symptoms:Regadenoson Physical Exam:S1, S2 Surgery: Troponin Negative x 1 - 06/13/17, Troponin Negative x - 06/14/17, K+ - 3.9 - 06/14/17, Bun/Cr - 57/1.7 - 06/14/17 Medications:Cardura, Crestor, Hydralazine, Insulin, Lasix, Metoprolol, Atrovent, Spiriva, Pulmicort, Heparin SUMMARY: SCINTIGRAPHIC RESULTS Perfusion Defect Size (% LV) 5 % Total Left Ventricular Perfusion Results There is a mild apical perfusion defect during stress. Gated SPECT Results The post-stress left ventricular ejection fraction is 41 % with mild-moderate global hypokinesis. Left ventricular end-diastolic volume is 185 ml; end-systolic volume is 109 ml. The left ventricle is severely enlarged at stress. The right ventricle is of normal size with normal wall motion. Moderate-severe left and right ventricular hypertrophy are present. Conclusion Abnormal regadenoson Tc-99m tetrofosmin myocardial perfusion study in the apex. The left ventricular ejection fraction is mild to moderately depressed with severe LV dilation. Comments The patient refused rest imaging, limiting accurate interpretation regarding the observed apical defect. Study Quality/Artifacts The study quality is poor. Comparison to Previous Study None available. STRESS: Baseline Vital Signs: Intervention: Regadenoson 0.4mg/5ml IV over 10 seconds followed by radiotracer injection and 5ml saline flush ECG: Normal Sinus Rhythm, Incomplete right bundle branch block, Left Beaver Deviation, Premature supraventricular complexes HR: 85 BP: 184/76 Stress Test Results: Target HR: 122 Symptoms and Complications: Arrhythmias: None Terminated: As per Regadenoson protocol Symptoms: Flushing, GI discomfort, Shortness of breath Complications: None Conclusions: Normal heart rate response to pharmacological stress, Normal blood pressure response to pharmacological stress Stress ECG Interp: No ischemic ST segment change occurred with stress. Signed 06/15/2017 01:32 PM Son Marvin MD Performing Organization Address City/State/Zipcode Phone Number [facility] [address] [place] [id number] * Echocardiogram complete w contrast and 3D if needed (06/14/2017 2:21 PM CDT) Narrative Performed At [facility] Echocardiography Report [address] [place] [address] Pat.Name:JAMES BLANCHARD.ID:[id number] .Date: 06/14/2017 Refer.MD:MICHELET BARNHART MD Exam Time: 1:31:00 PMStudy Type:Routine Echo Height:64.17in Weight:155lb BSA: 1.76 m2 DOBAge:1940,76Y Sex: FEMALEBP:184/76 HR:75 bpmSonogrphr: Bossman Glover RDCS Pat. Stat.:Inpatient Room:[address] Study Status:Final Echo Event ID:[id number] Order ID:[id number] Reason for Study:Chest Pain; chest pain/ syncope roule out CAD Procedures:2D Echo, Colorflow Doppler, Intravenous Definity Contrast Race:C SUMMARY: LV size is moderately enlarged. Estimated EF is 40-44%. LA volume is severely enlarged. Mild to moderate aortic regurgitation. LV filling pressure is elevated. Insufficient TR jet to estimate PA systolic pressure. FINDINGS: LV: LV size is moderately enlarged. LV EF is mild to moderately depressed.Estimated EF is 40-44%. RV: RV size is normal. RV systolic function is normal. LA: LA volume is severely enlarged. RA: RA size is normal. AO: Ascending aorta diameter is upper limits of normal. CLIFF: No pericardial effusion. AV: No structural AV abnormalities noted. Mild to moderate aorticregurgitation. MV: Severe mitral annular calcification. Mild mitral regurgitation. PV: No structural PV abnormalities noted. TV: No structural TV abnormalities noted. Ramos: LV relaxation is impaired. LV filling pressure is elevated. Other:Insufficient TR jet to estimate PA systolic pressure. MEASUREMENTS: 2D Parasternal Long Beaver Ao Rtd 3.3 cmIndex1.9 cm/m LA Ds5.1 cm LVIDd6.3 cmIndex3.6 cm/m LV Crhr648.3 g(87-129) LVIDs5.2 cmLVM Jlcsr499.8 g/m2 LV%fs 16.5 % RWT0.3 IVSd 1.3 cmLVOT 2 cm LVPWd0.9 cmAo An2.5 cm LA Sng Plane LA Area 26.6 cm2(8.8-23.4) LA Vol92.3 ml Index52.5 ml/m LA LngAx 6.5 cm RA Sng Plane RA Area 17.4 cm2(8.3-19.5) RA Vol50.2 ml Index28.5 ml/m RA LngAx 5.2 cm Ascending Aorta Asce Dim 3.8 cm DOPPLER LVOT For Flow LVOT Area3.1 cm2 LVOTmnPG 3 mmHg YPEAobHmo640.9 cm/sLVOT TVI28.3 cm LVOTpkPG 6.6 mmHgLVOT SV 88.8 ml RVOT Stroke Vol ann2.7 cmCO 6.4 l/min TVI 11.6 cmCI 3.6 l/m/m2 Tm 250 pxuiZN03 bpm SV67.2 ml WALL MOTION: RESTING WALL MOTION: Basal Inferior, Basal Inferolateral kinney are hypokinetic.Basal Anterior, Basal Anteroseptal, Basal Inferoseptal, Basal Anterolateral, Mid Anterior, Mid Anteroseptal, Mid Inferoseptal, Mid Inferior, Mid Inferolateral, Mid Anterolateral, Apical Anterior, Apical Septal, Apical Inferior, Apical Lateral, Apical kinney are mildly hypokinetic. Wall Index=1.6 Signed 06/14/2017 06:52 PM Randolph Chavez M.D. Procedure Note Interface, Radiology Results In - 06/14/2017 6:53 PM CDT Echocardiography Report [address] [place] [address] Pat.Name: JAMES BLANCAHRD Pat.ID: [id number] .Date: 06/14/2017 Refer.MD: MICHELET BARNHART MD Exam Time: 1:31:00 PM Study Type:Routine Echo Height: 64.17in Weight: 155lb BSA: 1.76 m2 Age: 7 1940,76Y Sex: FEMALE BP: 184/76 HR: 75 bpm Sonogrphr: Bossman Glover RDCS Pat. Stat.:Inpatient Room: [address] Study Status:Final Echo Event ID:[id number] Order ID: [id number] Reason for Study:Chest Pain; chest pain/ syncope roule out CAD Procedures:2D Echo, Colorflow Doppler, Intravenous Definity Contrast Race: C SUMMARY: LV size is moderately enlarged. Estimated EF is 40-44%. LA volume is severely enlarged. Mild to moderate aortic regurgitation. LV filling pressure is elevated. Insufficient TR jet to estimate PA systolic pressure. FINDINGS: LV: LV size is moderately enlarged. LV EF is mild to moderately depressed. Estimated EF is 40-44%. RV: RV size is normal. RV systolic function is normal. LA: LA volume is severely enlarged. RA: RA size is normal. AO: Ascending aorta diameter is upper limits of normal. CLIFF: No pericardial effusion. AV: No structural AV abnormalities noted. Mild to moderate aortic regurgitation. MV: Severe mitral annular calcification. Mild mitral regurgitation. PV: No structural PV abnormalities noted. TV: No structural TV abnormalities noted. Ramos: LV relaxation is impaired. LV filling pressure is elevated. Other: Insufficient TR jet to estimate PA systolic pressure. MEASUREMENTS: 2D Parasternal Long Beaver Ao Rtd 3.3 cm Index 1.9 cm/m LA Ds 5.1 cm LVIDd 6.3 cm Index 3.6 cm/m LV Mass 295.3 g (87-129) LVIDs 5.2 cm LVM Index 167.8 g/m2 LV%fs 16.5 % RWT 0.3 IVSd 1.3 cm LVOT 2 cm LVPWd 0.9 cm Ao An 2.5 cm LA Sng Plane LA Area 26.6 cm2 (8.8-23.4) LA Vol 92.3 ml Index 52.5 ml/m LA LngAx 6.5 cm RA Sng Plane RA Area 17.4 cm2 (8.3-19.5) RA Vol 50.2 ml Index 28.5 ml/m RA LngAx 5.2 cm Ascending Aorta Asce Dim 3.8 cm DOPPLER LVOT For Flow LVOT Area 3.1 cm2 LVOTmnPG 3 mmHg LVOTpkVel 128.9 cm/s LVOT TVI 28.3 cm LVOTpkPG 6.6 mmHg LVOT SV 88.8 ml RVOT Stroke Vol johnnie 2.7 cm CO 6.4 l/min TVI 11.6 cm CI 3.6 l/m/m2 Tm 250 msec HR 95 bpm SV 67.2 ml WALL MOTION: RESTING WALL MOTION: Basal Inferior, Basal Inferolateral kinney are hypokinetic. Basal Anterior, Basal Anteroseptal, Basal Inferoseptal, Basal Anterolateral, Mid Anterior, Mid Anteroseptal, Mid Inferoseptal, Mid Inferior, Mid Inferolateral, Mid Anterolateral, Apical Anterior, Apical Septal, Apical Inferior, Apical Lateral, Apical kinney are mildly hypokinetic. Wall Index=1.6 Signed 06/14/2017 06:52 PM Randolph Chavez M.D. Performing Organization Address City/State/Zipcode Phone Number [facility] [address] [place] [address] * XR Chest 1 Vw (06/13/2017 11:50 PM CDT) Narrative Performed At EXAMINATION: XR CHEST 1 VW [facility] CLINICAL HISTORY: Chest Pain COMPARISON:09/27/2016 chest x-ray. IMPRESSION: Mild vascular congestion. No focal consolidations. No pleural effusion or pneumothorax. Mildly enlarged cardiac silhouette. Tortuous thoracic aorta. No acute osseous abnormalities. Remote traumatic deformity of the left proximal humerus. [facility]-[id number] Procedure Note Interface, Radiology Results Incoming - 06/13/2017 11:57 PM CDT EXAMINATION: XR CHEST 1 VW CLINICAL HISTORY: Chest Pain COMPARISON: 09/27/2016 chest x-ray. IMPRESSION: Mild vascular congestion. No focal consolidations. No pleural effusion or pneumothorax. Mildly enlarged cardiac silhouette. Tortuous thoracic aorta. No acute osseous abnormalities. Remote traumatic deformity of the left proximal humerus. [facility]-[id number] Performing Organization Address [facility] Phone Number [address] [address] * POC glycosylated hemoglobin (Hb A1C) (03/01/2017 9:54 AM FLOW MANAGER) POC Hemoglobin A1C 5.6Comment: Non fasting % Specimen Blood * CBC hemogram (03/01/2017 8:07 AM FLOW MANAGER) WBC 6.22 4.50 - 11.00 k/uL [facility] DEPARTMENT OF PATHOLOGY AND GENOMIC MEDICINE RBC 3.21 (L) 4.20 - 5.50 m/uL [facility] DEPARTMENT OF PATHOLOGY AND GENOMIC MEDICINE HGB 9.1 (L) 12.0 - 16.0 g/dL [facility] DEPARTMENT OF PATHOLOGY AND GENOMIC MEDICINE HCT 30.5 (L) 37.0 - 47.0 % [facility] DEPARTMENT OF PATHOLOGY AND GENOMIC MEDICINE MCV 95.0 82.0 - 100.0 fL [facility] DEPARTMENT OF PATHOLOGY AND GENOMIC MEDICINE MCH 28.3 27.0 - 34.0 pg [facility] DEPARTMENT OF PATHOLOGY AND GENOMIC MEDICINE MCHC 29.8 (L) 31.0 - 37.0 g/dL [facility] DEPARTMENT OF PATHOLOGY AND GENOMIC MEDICINE RDW - SD 49.1 37.0 - 55.0 fL [facility] DEPARTMENT OF PATHOLOGY AND GENOMIC MEDICINE MPV 11.2 8.8 - 13.2 fL [facility] DEPARTMENT OF PATHOLOGY AND GENOMIC MEDICINE Platelet count 209 150 - 400 k/uL [facility] DEPARTMENT OF PATHOLOGY AND GENOMIC MEDICINE Nucleated RBC 0.00 /100 WBC [facility] DEPARTMENT OF PATHOLOGY AND GENOMIC MEDICINE Specimen Blood Performing Organization Address [facility] [place] [address] PATHOLOGY AND GENOMIC MEDICINE * Thyroid stimulating hormone (03/01/2017 8:07 AM FLOW MANAGER) TSH 3.61 0.27 - 4.20 uIU/mL [facility] DEPARTMENT OF PATHOLOGY AND GENOMIC MEDICINE Specimen Plasma specimen Performing Organization Address [facility] [place] [address] PATHOLOGY AND GENOMIC MEDICINE * T4, free (03/01/2017 8:07 AM FLOW MANAGER) T4, free 1.3 0.9 - 1.7 ng/dL [facility] DEPARTMENT OF PATHOLOGY AND GENOMIC MEDICINE Specimen Plasma specimen Performing Organization Address [facility]/Zipcode Phone Number [facility] DEPARTMENT OF [address] [place] [address] PATHOLOGY AND GENOMIC MEDICINE * Lipid panel (03/01/2017 8:07 AM FLOW MANAGER) Cholesterol 150 <200 mg/dL [facility] DEPARTMENT OF PATHOLOGY AND GENOMIC MEDICINE Triglycerides 100 <150 mg/dL [facility] DEPARTMENT OF PATHOLOGY AND GENOMIC MEDICINE HDL cholesterol 57 >40 mg/dL [facility] DEPARTMENT OF PATHOLOGY AND GENOMIC MEDICINE LDL cholesterol 73Comment: Result obtained by <100 mg/dL [facility] DEPARTMENT OF direct LDL measurement PATHOLOGY AND GENOMIC MEDICINE Lipid panel SeeBelow [facility] DEPARTMENT OF interpretation Comment: PATHOLOGY AND Total Cholesterol GENOMIC MEDICINE (mg/dL) <200 Desirable 200-239Borderline -high >=240High Triglycerides (mg/dL) <150 Normal 150-199Borderline -high 200-499High >=500Very high HDL Cholesterol (mg/dL) <40Low (male) <40Low (female) LDL Cholesterol (mg/dL) <100 Optimal 100-129Near or above optimal 130-159Borderline -high 160-189High >=190Very high Risk Catergories that modify LDL goals. Risk Catergories LDL goal (mg/dL) CHD and CHD risk equivalent<100 (10-year risk >20%) Multiple (2+) risk factors <130 (10-year risk=<20%) 0-1 risk factors <160 (<10-year risk) Defining levels of lipids in metabolic syndrome Triglycerides >=150 mg/dL HDL Cholesterol Men <40 mg/dL Women <40 mg/dL Non-HDL cholesterol is a second target for therapy in persons with high triglycerides (>=200 mg/dL) Specimen Plasma specimen Performing Organization Address [facility] Phone Number [facility] DEPARTMENT OF [address] [place] [address] PATHOLOGY AND GENOMIC MEDICINE after 01/10/2017 Insurance Payer Benefit Subscriber ID Type Phone Address Plan / Group MEDICARE MEDICARE xxxxxxxxxx Medicare [place] PART A AND B BCBS BCBS xxxxxxxxxxxx Indemnity PAR/TRAD PLAN Advance Directives Patient has advance care planning documents on file. For more information, kenny ruby contact: [place] [address] SinclairFormerly [place] [address]
--- OUTSIDE RECORDS SUMMARY | 2018-01-11 11:01 | XMS REPORT ---
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
--- OUTSIDE RECORDS SUMMARY | 2018-01-11 11:01 | XMS REPORT | Summary of Care ---
Author Author [facility] Organization [facility] Address Unknown Phone Unavailable Encounter MIGDALIA Barahona(TRISTIAN) [id number] Date(s): 08/09/16 - 09/02/16 [facility] [address] [place] [address]- [phone] Discharge Disposition: Home or Self Care Attending Physician: Priyanka Haq MD Admitting Physician: Priyanka Haq MD Vital Signs 1 2 3 Most recent to oldest [Reference Range]: 162.56 cm (08/09/16 5:44 PM) 162.56 cm (08/09/16 11:52 AM) Height 97.7 DegF (09/02/16 11:50 AM) 98.1 DegF (09/02/16 8:05 AM) 97.9 DegF (09/02/16 4:00 AM) Temperature Oral [96.4-99.1 DegF] 118/57 mmHg (09/02/16 11:50 AM) 134/62 mmHg (09/02/16 8:05 AM) 129/59 mmHg (09/02/16 4:00 AM) Blood Pressure [90-140/60-90 mmHg] 17 BRMIN (09/02/16 11:50 AM) 17 BRMIN (09/02/16 8:05 AM) 18 BRMIN (09/02/16 7:01 AM) Respiratory Rate [14-20 BRMIN] 78 bpm (09/02/16 11:50 AM) 70 bpm (09/02/16 8:05 AM) 70 bpm (09/02/16 4:00 AM) Peripheral Pulse Rate [60-100 bpm] 90 kg (08/09/16 5:44 PM) 86.364 kg (08/09/16 11:52 AM) Weight 34.06 m2 (08/09/16 5:44 PM) 32.68 m2 (08/09/16 11:52 AM) Body Mass Index Problem List Condition Effective Dates Status Health Status Informant Anemia(Confirmed) Active Chronic Active bronchitis(Confirmed ) Chronic respiratory Resolved failure with hypoxia(Confirmed) CKD (chronic kidney Active disease)(Confirmed) COPD (chronic Active obstructive pulmonary disease)(Confirmed) DM (diabetes Active mellitus)(Confirmed) Hyperlipemia(Confirm Active ed) HTN Active (hypertension)(Confi rmed) Proteus(Confirmed)1 Active RA (rheumatoid Active arthritis)(Confirmed ) 1Problem added by Discern Expert. Allergies, Adverse Reactions, Alerts Substance Reaction Severity Status penicillins Active sulfa drugs Active Medications acetaminophen-hydrocodone 325 mg-5 mg oral tablet 1 tab, Route: PO, Drug Form: TAB, Dosing Weight 86.364, kg, Q4H, PRN Pain Score 4-6, Start date: 08/09/16 16:54:00 CDT, Duration: 30 day, Stop date: 10/08/16 16 :53:00 CDT Notes: (Same as: [place] 325/5) Do not exceed 4gm/day of acetaminophen. Start Date: 08/09/16 Stop Date: 09/02/16 Status: Discontinued acetaZOLAMIDE 250 mg, Route: IVP, Drug form: PDR/INJ, BID, Dosing Weight 90, kg, Start date: 0 09/01/16 17:00:00 CDT, Duration: 30 day, Stop date: 10/01/16 9:00:00 CDT Notes: (Same as: Diamox) Start Date: 09/01/16 Stop Date: 09/02/16 Status: Discontinued acetaZOLAMIDE 250 mg, Route: IVP, Drug form: PDR/INJ, Daily, Dosing Weight 90, kg, Start date: 08/17/16 9:00:00 CDT, Duration: 30 day, Stop date: 09/15/16 9:00:00 CDT Notes: (Same as: Diamox) Start Date: 08/17/16 Stop Date: 09/01/16 Status: Discontinued acetylcysteine 20% inhalation solution 0.8 gm=4 mL, NEB, BID, 0 Refill(s) Start Date: 08/09/16 Stop Date: 09/02/16 Status: Discontinued acetylcysteine 20% inhalation solution 400 mg, 2 mL, Route: NEB, Drug Form: SOLN, Dosing Weight 90, kg, RBID, Start louise e: 08/19/16 9:30:00 CDT, Stop date: 09/18/16 8:00:00 CDT Start Date: 08/19/16 Stop Date: 08/21/16 Status: Discontinued albuterol 0.083% inhalation solution 2.49 mg, 3 mL, Route: INHALATION, Drug form: SOLN, PRN, Dosing Weight 90, kg, MO N Respiratory Protocol, Start date: 08/13/16 16:03:00 CDT, Duration: 30 day, Sto p date: 09/12/16 16:02:00 CDT Notes: SEE RT DOCUMENTATION (Same as: Andrew) Start Date: 08/13/16 Stop Date: 09/02/16 Status: Discontinued albuterol 0.083% inhalation solution 2.49 mg, 3 mL, Route: INHALATION, Drug form: SOLN, RQ4H, Dosing Weight 90, kg, S tart date: 08/10/16 19:00:00 CDT, Duration: 30 day, Stop date: 09/09/16 15:00:00 CDT Notes: SEE RT DOCUMENTATION (Same as: Andrew) Start Date: 08/10/16 Stop Date: 08/13/16 Status: Discontinued amLODIPine 10 mg, 2 tab, Route: PO, Drug form: TAB, Daily, Dosing Weight 90, kg, Start date : 08/10/16 9:00:00 CDT, Duration: 30 day, Stop date: 09/08/16 9:00:00 CDT Notes: (Same as: Sandy) Start Date: 08/10/16 Stop Date: 08/28/16 Status: Discontinued amLODIPine 10 mg oral tablet 10 mg=1 tab, PO, Daily, 0 Refill(s) Start Date: 08/09/16 Stop Date: 09/02/16 Status: Discontinued bisacodyl 10 mg, 2 tab, Route: PO, Drug form: ECTAB, Daily, Dosing Weight 90, kg, PRN Cons tipation, Start date: 08/09/16 19:08:00 CDT, Duration: 30 day, Stop date: 19:07:00 CDT Notes: (Same As: Dulcolax, Correctol) (Do Not Crush) "Do Not Crush" Start Date: 08/09/16 Stop Date: 09/02/16 Status: Discontinued bisacodyl 5 mg oral enteric coated tablet 10 mg=2 tab, PO, Daily, PRN Constipation, 0 Refill(s) Start Date: 08/09/16 Status: Ordered Brovana 15 microgram, 2 mL, Route: NEB, Drug form: SOLN, BID, Dosing Weight 90, kg, Star t date: 08/10/16 9:00:00 CDT, Duration: 30 day, Stop date: 09/08/16 17:00:00 CDT Start Date: 08/10/16 Stop Date: 08/10/16 Status: Deleted Brovana 15 mcg/2 mL inhalation solution 15 microgram=2 mL, NEB, BID, # 60 ea, 0 Refill(s) Start Date: 08/09/16 Stop Date: 09/02/16 Status: Discontinued Brovana 15 microgram neb Brovana 15 microgram neb, 15 microgram, 2 mL, Drug form: MISC, Route: NEB, BID, 08/10/16 9:00:00 CDT, Stop date: 08/18/16 20:00:00 CDT Start Date: 08/10/16 Stop Date: 08/18/16 Status: Completed budesonide 0.5 mg, 2 mL, Route: NEB, Drug form: SUSP, RBID, Dosing Weight 90, kg, Start louise e: 08/18/16 8:37:00 CDT, Duration: 30 day, Stop date: 09/17/16 8:00:00 CDT Notes: (Same As: Pulmicort) Start Date: 08/18/16 Stop Date: 08/21/16 Status: Discontinued budesonide 0.5 mg/2 mL inhalation suspension 0.5 mg, 2 mL, Route: NEB, Drug form: SUSP, BID, Dosing Weight 90, kg, Start date : 08/10/16 9:00:00 CDT, Stop date: 08/18/16 20:00:00 CDT Notes: (Same As: Pulmicort) Start Date: 08/10/16 Stop Date: 08/18/16 Status: Discontinued budesonide 0.5 mg/2 mL inhalation suspension 0.5 mg=2 mL, NEB, BID, 0 Refill(s) Start Date: 08/09/16 Stop Date: 09/02/16 Status: Discontinued budesonide-formoterol 160 mcg-4.5 mcg/inh inhalation aerosol with adapter 2 inhalation, INHALATION, BID, 0 Refill(s) Start Date: 09/02/16 Status: Ordered budesonide-formoterol 160 mcg-4.5 mcg/inh inhalation aerosol with adapter 2 inhalation, Route: INHALATION, Drug Form: AERO/A, BID, Start date: 08/19/16 9: 00:00 CDT, Duration: 30 day, Stop date: 09/17/16 17:00:00 CDT Notes: (Same as: Symbicort)WASTE: Aerosol - Return to Pharmacy Start Date: 08/19/16 Stop Date: 09/02/16 Status: Discontinued calcium gluconate + sodium chloride 0.9% INJ 100 mL 2 gm, 20 mL, Route: IVPB, PRN, Dosing Weight 90, kg, PRN Abnormal Lab Result, Fo r NON-ICU Patients Only., Start date: 08/28/16 8:14:00 CDT, Duration: 30 day, St op date: 09/27/16 8:13:00 CDT Notes: WASTE: F/P - Sink; E - Municipal Trash Bin Start Date: 08/28/16 Stop Date: 09/02/16 Status: Discontinued calcium gluconate + sodium chloride 0.9% INJ 100 mL 3 gm, 30 mL, Route: IVPB, PRN, Dosing Weight 90, kg, PRN Abnormal Lab Result, Fo r NON-ICU Patients Only., Start date: 08/28/16 8:14:00 CDT, Duration: 30 day, St op date: 09/27/16 8:13:00 CDT Notes: WASTE: F/P - Sink; E - Municipal Trash Bin Start Date: 08/28/16 Stop Date: 09/02/16 Status: Discontinued Crestor 10 mg, 2 tab, Route: PO, Drug form: TAB, Bedtime, Dosing Weight 90, kg, Start da te: 08/09/16 21:00:00 CDT, Duration: 30 day, Stop date: 10/07/16 21:00:00 CDT Notes: Same as Crestor Start Date: 08/09/16 Stop Date: 09/02/16 Status: Discontinued Crestor 10 mg oral tablet 10 mg=1 tab, PO, Bedtime, 0 Refill(s) Start Date: 08/09/16 Status: Ordered cyanocobalamin 1,500 microgram, 3 tab, Route: PO, Drug form: TAB, Daily, Dosing Weight 90, kg, Start date: 08/10/16 9:00:00 CDT, Duration: 30 day, Stop date: 10/08/16 9:00:00 CDT Notes: (Same As: Vitamin B12) Start Date: 08/10/16 Stop Date: 09/02/16 Status: Discontinued cyanocobalamin 1000 mcg sublingual tablet 1,500 microgram=1.5 tab, SL, Daily, 0 Refill(s) Start Date: 08/09/16 Status: Ordered cyanocobalamin 500 mcg sublingual tablet 500 microgram=1 tab, SL, Daily, 0 Refill(s) Start Date: 08/09/16 Stop Date: 08/09/16 Status: Deleted d50 syringe 25 gm, 50 mL, Route: INJ, Drug Form: INJ, Dosing Weight 90, kg, ONCE, Start date : 08/13/16 19:56:00 CDT, Stop date: 08/13/16 19:56:00 CDT Start Date: 08/13/16 Stop Date: 08/13/16 Status: Completed Dextrose 50% Syringe 12.5 gm, 25 mL, Route: IVP, Drug Form: INJ, Dosing Weight 90, kg, PRN, PRN Blood Glucose Results, Start date: 08/09/16 19:50:00 CDT, Duration: 30 day, Stop date: 10/08/16 19:49:00 CDT Start Date: 08/09/16 Stop Date: 09/02/16 Status: Discontinued Dextrose 50% Syringe 25 gm, 50 mL, Route: IVP, Drug Form: INJ, Dosing Weight 90, kg, PRN, PRN Blood G lucose Results, Start date: 08/09/16 19:50:00 CDT, Duration: 30 day, Stop date: 10/08/16 19:49:00 CDT Start Date: 08/09/16 Stop Date: 09/02/16 Status: Discontinued diltiazem 30 mg, 1 tab, Route: PO, Drug form: TAB, Q8H, Dosing Weight 90, kg, Start date: 08/27/16 0:00:00 CDT, Duration: 30 day, Stop date: 09/25/16 16:00:00 CDT Notes: (Same as: Cardizem) Before meals Start Date: 08/27/16 Stop Date: 09/02/16 Status: Discontinued diltiazem 30 mg oral tablet 30 mg=1 tab, PO, Q8H, 0 Refill(s) Start Date: 09/02/16 Status: Ordered diltiazem INJ 125 mg + sodium chloride 0.9% INJ 100 mL 125 mg, 25 mL, Rate: Titrate, Start Dose: 5 mg/hr, Titration: 5 mg/hr every hour , Goal(s): Maintain HR < 100, Max Dose: 15 mg/hr, Route: IV, Dosing Weight 90 kg, Total Volume: 125, Start date: 08/26/16 8:42:00 CDT, Duration: 30 day, Stop date: ... Notes: (Same as: Cardizem) Start Date: 08/26/16 Stop Date: 08/28/16 Status: Discontinued Diovan 160 mg, 1 tab, Route: PO, Drug form: TAB, Daily, Dosing Weight 90, kg, Start louise e: 08/10/16 9:00:00 CDT, Duration: 30 day, Stop date: 09/08/16 9:00:00 CDT Notes: Same as Diovan Start Date: 08/10/16 Stop Date: 08/13/16 Status: Discontinued Diovan 160 mg oral tablet 160 mg=1 tab, PO, Daily, 0 Refill(s) Start Date: 08/09/16 Stop Date: 09/02/16 Status: Discontinued doxazosin 2 mg, 2 tab, Route: PO, Drug form: TAB, Daily, Dosing Weight 90, kg, Start date: 08/10/16 9:00:00 CDT, Duration: 30 day, Stop date: 10/08/16 9:00:00 CDT Notes: (Same as: Lola) Start Date: 08/10/16 Stop Date: 09/02/16 Status: Discontinued doxazosin 2 mg oral tablet 2 mg=1 tab, PO, Daily, 0 Refill(s) Start Date: 08/09/16 Status: Ordered DuoNeb inhalation solution 3 mL, NEB, PRN, PRN Respiratory Protocol, 0 Refill(s) Start Date: 09/02/16 Status: Ordered DuoNeb inhalation solution 3 ml, Route: NEB, Drug Form: SOLN, Dosing Weight 90, kg, PRN, PRN Respiratory Pr otocol, Start date: 08/10/16 1:19:00 CDT, Duration: 30 day, Stop date: 10/09/16 1:18:00 CDT Notes: (Same as: Duoneb) Start Date: 08/10/16 Stop Date: 09/02/16 Status: Discontinued ertapenem + sodium chloride 0.9% INJ 100 mL 500 mg, Route: IVPB, [id number], Dosing Weight 90, kg, Start date: 08/17/16 22:00:0 0 CDT, Duration: 7 day, Stop date: 08/23/16 22:00:00 CDT, ABX Indication: Urinar y Tract Infection Notes: (Same as: Claudia) Refrigerate. NOT COMPATIBLE WITH D5W.Stable in refrige rator for 24 hours MEDICATION WASTE Product Size: 1000 mgProduct Wasted : ___ mg Start Date: 08/17/16 Stop Date: 08/23/16 Status: Completed Florastor 250 mg oral capsule 250 mg=1 cap, PO, Daily, PRN for loose stool, 0 Refill(s) Start Date: 08/09/16 Stop Date: 09/02/16 Status: Discontinued furosemide 40 mg oral tablet 80 mg=2 tab, PO, Q12H, 0 Refill(s) Start Date: 09/02/16 Status: Ordered furosemide 40 mg oral tablet 80 mg, 2 tab, Route: PO, Drug form: TAB, Q12H, Dosing Weight 90, kg, Start date: 08/26/16 21:00:00 CDT, Duration: 30 day, Stop date: 09/25/16 9:00:00 CDT Notes: (Same as: Lasix) May cause GI upset. Give with food or milk. Start Date: 08/26/16 Stop Date: 09/02/16 Status: Discontinued glucagon 1 mg, Route: IM, Drug form: PDR/INJ, PRN, Dosing Weight 90, kg, PRN Blood Glucos e Results, Start date: 08/09/16 19:50:00 CDT, Duration: 30 day, Stop date: 10/08 19:49:00 CDT Start Date: 08/09/16 Stop Date: 09/02/16 Status: Discontinued heparin 5,000 unit, 1 mL, Route: SUB-Q, Drug form: INJ, Q12H, Dosing Weight 90, kg, Star t date: 08/16/16 21:00:00 CDT, Duration: 30 day, Stop date: 09/15/16 9:00:00 CDT Notes: porcine heparin Start Date: 08/16/16 Stop Date: 08/24/16 Status: Discontinued Humalog 100 units/mL 1 unit, SUB-Q, Daily, 0 Refill(s) Start Date: 08/09/16 Stop Date: 09/02/16 Status: Discontinued insulin aspart 4 unit, SUB-Q, TID-Before Meals, 0 Refill(s) Start Date: 09/02/16 Status: Ordered insulin aspart 15 unit, SUB-Q, TID-Before Meals, PRN Blood Glucose Results, 0 Refill(s) Start Date: 09/02/16 Status: Ordered insulin aspart 12 unit, SUB-Q, TID-Before Meals, PRN Blood Glucose Results, 0 Refill(s) Start Date: 09/02/16 Status: Ordered insulin aspart 9 unit, SUB-Q, TID-Before Meals, PRN Blood Glucose Results, 0 Refill(s) Start Date: 09/02/16 Status: Ordered insulin aspart 6 unit, SUB-Q, TID-Before Meals, PRN Blood Glucose Results, 0 Refill(s) Start Date: 09/02/16 Status: Ordered insulin aspart 3 unit, SUB-Q, TID-Before Meals, PRN Blood Glucose Results, 0 Refill(s) Start Date: 09/02/16 Status: Ordered insulin aspart 4 unit, SUB-Q, Bedtime, PRN Blood Glucose Results, 0 Refill(s) Start Date: 09/02/16 Status: Ordered insulin aspart 3 unit, SUB-Q, Bedtime, PRN Blood Glucose Results, 0 Refill(s) Start Date: 09/02/16 Status: Ordered insulin aspart 2 unit, SUB-Q, Bedtime, PRN Blood Glucose Results, 0 Refill(s) Start Date: 09/02/16 Status: Ordered insulin aspart 1 unit, SUB-Q, Bedtime, PRN Blood Glucose Results, 0 Refill(s) Start Date: 09/02/16 Status: Ordered insulin aspart 15 unit, 0.15 mL, Route: SUB-Q, Drug form: SOLN, TID-Before Meals, Dosing Weight 90, kg, PRN Blood Glucose Results, Start date: 08/11/16 15:02:00 CDT, Duration: 30 day, Stop date: 09/10/16 15:01:00 CDT Notes: Roll in palms of hands gently; Do not shake vigorously. (Same as: Jodie Wolf)"single patient use only"WASTE: F/P - Black; E - Municipal Trash Bin Stable f or 28 days at room temperature.Expires in days from Date Start Date: 08/11/16 Stop Date: 09/02/16 Status: Discontinued insulin aspart 12 unit, 0.12 mL, Route: SUB-Q, Drug form: SOLN, TID-Before Meals, Dosing Weight 90, kg, PRN Blood Glucose Results, Start date: 08/11/16 15:02:00 CDT, Duration: 30 day, Stop date: 09/10/16 15:01:00 CDT Notes: Roll in palms of hands gently; Do not shake vigorously. (Same as: Jodie Wolf)"single patient use only"WASTE: F/P - Black; E - Municipal Trash Bin Stable f or 28 days at room temperature.Expires in days from Date Start Date: 08/11/16 Stop Date: 09/02/16 Status: Discontinued insulin aspart 9 unit, 0.09 mL, Route: SUB-Q, Drug form: SOLN, TID-Before Meals, Dosing Weight 90, kg, PRN Blood Glucose Results, Start date: 08/11/16 15:02:00 CDT, Duration: 30 day, Stop date: 09/10/16 15:01:00 CDT Notes: Roll in palms of hands gently; Do not shake vigorously. (Same as: Jodie Wolf)"single patient use only"WASTE: F/P - Black; E - Municipal Trash Bin Stable f or 28 days at room temperature.Expires in days from Date Start Date: 08/11/16 Stop Date: 09/02/16 Status: Discontinued insulin aspart 6 unit, 0.06 mL, Route: SUB-Q, Drug form: SOLN, TID-Before Meals, Dosing Weight 90, kg, PRN Blood Glucose Results, Start date: 08/11/16 15:02:00 CDT, Duration: 30 day, Stop date: 09/10/16 15:01:00 CDT Notes: Roll in palms of hands gently; Do not shake vigorously. (Same as: Jodie Wolf)"single patient use only"WASTE: F/P - Black; E - Municipal Trash Bin Stable f or 28 days at room temperature.Expires in days from Date Start Date: 08/11/16 Stop Date: 09/02/16 Status: Discontinued insulin aspart 3 unit, 0.03 mL, Route: SUB-Q, Drug form: SOLN, TID-Before Meals, Dosing Weight 90, kg, PRN Blood Glucose Results, Start date: 08/11/16 15:02:00 CDT, Duration: 30 day, Stop date: 09/10/16 15:01:00 CDT Notes: Roll in palms of hands gently; Do not shake vigorously. (Same as: Jodie Wolf)"single patient use only"WASTE: F/P - Black; E - Municipal Trash Bin Stable f or 28 days at room temperature.Expires in days from Date Start Date: 08/11/16 Stop Date: 09/02/16 Status: Discontinued insulin aspart 4 unit, 0.04 mL, Route: SUB-Q, Drug form: SOLN, Bedtime, Dosing Weight 90, kg, P RN Blood Glucose Results, Start date: 08/09/16 19:50:00 CDT, Duration: 30 day, S top date: 10/08/16 19:49:00 CDT Notes: Roll in palms of hands gently; Do not shake vigorously. (Same as: NovoCOY Wolf)"single patient use only"WASTE: F/P - Black; E - Municipal Trash Bin Stable f or 28 days at room temperature.Expires in days from Date Start Date: 08/09/16 Stop Date: 09/02/16 Status: Discontinued insulin aspart 1 unit, 0.01 mL, Route: SUB-Q, Drug form: SOLN, Bedtime, Dosing Weight 90, kg, P RN Blood Glucose Results, Start date: 08/09/16 19:50:00 CDT, Duration: 30 day, S top date: 10/08/16 19:49:00 CDT Notes: Roll in palms of hands gently; Do not shake vigorously. (Same as: NovoCOY Wolf)"single patient use only"WASTE: F/P - Black; E - Municipal Trash Bin Stable f or 28 days at room temperature.Expires in days from Date Start Date: 08/09/16 Stop Date: 09/02/16 Status: Discontinued insulin aspart 2 unit, 0.02 mL, Route: SUB-Q, Drug form: SOLN, Bedtime, Dosing Weight 90, kg, P RN Blood Glucose Results, Start date: 08/09/16 19:50:00 CDT, Duration: 30 day, S top date: 10/08/16 19:49:00 CDT Notes: Roll in palms of hands gently; Do not shake vigorously. (Same as: Jodie Wolf)"single patient use only"WASTE: F/P - Black; E - Municipal Trash Bin Stable f or 28 days at room temperature.Expires in days from Date Start Date: 08/09/16 Stop Date: 09/02/16 Status: Discontinued insulin aspart 3 unit, 0.03 mL, Route: SUB-Q, Drug form: SOLN, Bedtime, Dosing Weight 90, kg, P RN Blood Glucose Results, Start date: 08/09/16 19:50:00 CDT, Duration: 30 day, S top date: 10/08/16 19:49:00 CDT Notes: Roll in palms of hands gently; Do not shake vigorously. (Same as: NovoCOY Wolf)"single patient use only"WASTE: F/P - Black; E - Municipal Trash Bin Stable f or 28 days at room temperature.Expires in days from Date Start Date: 08/09/16 Stop Date: 09/02/16 Status: Discontinued insulin aspart 4 unit, 0.04 mL, Route: SUB-Q, Drug form: SOLN, TID-Before Meals, Dosing Weight 90, kg, PRN Blood Glucose Results, Start date: 08/09/16 19:50:00 CDT, Duration: 30 day, Stop date: 09/08/16 19:49:00 CDT Notes: Roll in palms of hands gently; Do not shake vigorously. (Same as: Jodie Wolf)"single patient use only"WASTE: F/P - Black; E - Municipal Trash Bin Stable f or 28 days at room temperature.Expires in days from Date Start Date: 08/09/16 Stop Date: 08/11/16 Status: Discontinued insulin aspart 2 unit, 0.02 mL, Route: SUB-Q, Drug form: SOLN, TID-Before Meals, Dosing Weight 90, kg, PRN Blood Glucose Results, Start date: 08/09/16 19:50:00 CDT, Duration: 30 day, Stop date: 09/08/16 19:49:00 CDT Notes: Roll in palms of hands gently; Do not shake vigorously. (Same as: NovoCOY Wolf)"single patient use only"WASTE: F/P - Black; E - Municipal Trash Bin Stable f or 28 days at room temperature.Expires in days from Date Start Date: 08/09/16 Stop Date: 08/11/16 Status: Discontinued insulin aspart 8 unit, 0.08 mL, Route: SUB-Q, Drug form: SOLN, TID-Before Meals, Dosing Weight 90, kg, PRN Blood Glucose Results, Start date: 08/09/16 19:50:00 CDT, Duration: 30 day, Stop date: 09/08/16 19:49:00 CDT Notes: Roll in palms of hands gently; Do not shake vigorously. (Same as: Jodie Wolf)"single patient use only"WASTE: F/P - Black; E - Municipal Trash Bin Stable f or 28 days at room temperature.Expires in days from Date Start Date: 08/09/16 Stop Date: 08/11/16 Status: Discontinued insulin aspart 10 unit, 0.1 mL, Route: SUB-Q, Drug form: SOLN, TID-Before Meals, Dosing Weight 90, kg, PRN Blood Glucose Results, Start date: 08/09/16 19:50:00 CDT, Duration: 30 day, Stop date: 09/08/16 19:49:00 CDT Notes: Roll in palms of hands gently; Do not shake vigorously. (Same as: Jodie Wolf)"single patient use only"WASTE: F/P - Black; E - Municipal Trash Bin Stable f or 28 days at room temperature.Expires in days from Date Start Date: 08/09/16 Stop Date: 08/11/16 Status: Discontinued insulin aspart 6 unit, 0.06 mL, Route: SUB-Q, Drug form: SOLN, TID-Before Meals, Dosing Weight 90, kg, PRN Blood Glucose Results, Start date: 08/09/16 19:50:00 CDT, Duration: 30 day, Stop date: 09/08/16 19:49:00 CDT Notes: Roll in palms of hands gently; Do not shake vigorously. (Same as: Jodie Wolf)"single patient use only"WASTE: F/P - Black; E - Municipal Trash Bin Stable f or 28 days at room temperature.Expires in days from Date Start Date: 08/09/16 Stop Date: 08/11/16 Status: Discontinued insulin detemir 25 unit, 0.25 mL, Route: SUB-Q, Drug form: SOLN, Daily, Start date: 08/10/16 9:0 0:00 CDT, Duration: 30 day, Stop date: 10/08/16 9:00:00 CDT Notes: Same as LevemirDo not hold insulin without contacting prescriberWASTE: F/ P - Black; E - Municipal Trash Bin "single patient use only" Start Date: 08/10/16 Stop Date: 09/02/16 Status: Discontinued insulin detemir 100 units/mL subcutaneous solution 25 unit, SUB-Q, Daily, 0 Refill(s) Start Date: 09/02/16 Status: Ordered Insulin regular 5 unit, 0.05 mL, Route: IV, Drug form: INJ, ONCE, Dosing Weight 90, kg, Start da te: 08/13/16 19:55:00 CDT, Stop date: 08/13/16 19:55:00 CDT Notes: (Same as: Humulin R and NovoLIN R)WASTE: F/P - Black; E - Municipal Trash Bin (Do not shake) Start Date: 08/13/16 Stop Date: 08/13/16 Status: Completed ipratropium 0.02% inhalation solution 500 microgram, 2.5 mL, Route: NEB, Drug form: SOLN, QID, Dosing Weight 90, kg, P RN Wheezing, Start date: 08/09/16 19:08:00 CDT, Duration: 30 day, Stop date: 19:07:00 CDT Notes: SEE RT DOCUMENTATION(Same as:Atrovent) Start Date: 08/09/16 Stop Date: 09/02/16 Status: Discontinued ipratropium 0.02% inhalation solution 500 microgram=2.5 mL, NEB, QID, PRN Wheezing, 0 Refill(s) Start Date: 08/09/16 Status: Ordered Kayexalate 30 gm, 120 mL, Route: PO, Drug form: SUSP, ONCE, Dosing Weight 90, kg, Priority: STAT, Start date: 08/13/16 15:35:00 CDT, Stop date: 08/13/16 15:35:00 CDT Notes: (sodium polystyrene sulfonate 15 gm/60 ml TIMOTHY) Shake well before use. (Same as: Kayexalate, SPS) Start Date: 08/13/16 Stop Date: 08/13/16 Status: Completed lactulose 10 g/15 mL oral syrup 10 gm, 15 mL, Route: PO, Drug form: SYRP, BID, Dosing Weight 90, kg, Priority: S TAT, Start date: 08/24/16 13:28:00 CDT, Duration: 30 day, Stop date: 09/23/16 9: 00:00 CDT Notes: (Same as:Chronulac) Start Date: 08/24/16 Stop Date: 08/25/16 Status: Discontinued Lantus Solostar Pen 100 units/mL subcutaneous solution 20 unit, Route: SUB-Q, Drug form: SOLN, Daily, Dosing Weight 90, kg, Start date: 08/10/16 9:00:00 CDT, Duration: 30 day, Stop date: 09/08/16 9:00:00 CDT Start Date: 08/10/16 Stop Date: 08/09/16 Status: Deleted Lantus Solostar Pen 100 units/mL subcutaneous solution 20 unit, SUB-Q, Daily, 0 Refill(s) Start Date: 08/09/16 Stop Date: 09/02/16 Status: Discontinued Lasix 20 mg, 2 mL, Route: IVP, Drug form: INJ, Daily, Dosing Weight 90, kg, Start date : 08/09/16 20:54:00 CDT, Stop date: 09/08/16 23:00:00 CDT Notes: (Same as: Lasix) Start Date: 08/09/16 Stop Date: 08/16/16 Status: Discontinued Lasix 20 mg, 2 mL, Route: IVP, Drug form: INJ, ONCE, Dosing Weight 90, kg, Start date: 08/10/16 1:19:00 CDT, Stop date: 08/10/16 1:19:00 CDT Notes: (Same as: Lasix) Start Date: 08/10/16 Stop Date: 08/10/16 Status: Completed Lasix 80 mg, 8 mL, Route: IV, Drug form: INJ, Q8H, Dosing Weight 90, kg, Start date: 0 08/23/16 16:00:00 CDT, Duration: 30 day, Stop date: 09/22/16 8:00:00 CDT Notes: (Same as: Lasix) MEDICATION WASTE Product Size: 40 mgProduct Was valdez: ___ mg Start Date: 08/23/16 Stop Date: 08/26/16 Status: Discontinued Lasix 20 mg, 2 mL, Route: IVP, Drug form: INJ, Daily, Dosing Weight 90, kg, Start date : 08/16/16 9:29:00 CDT, Duration: 30 day, Stop date: 09/15/16 9:00:00 CDT Notes: (Same as: Lasix) Start Date: 08/16/16 Stop Date: 08/26/16 Status: Voided With Results leflunomide 20 mg, Route: PO, Drug form: TAB, Daily, Dosing Weight 90, kg, Start date: 08/10 9:00:00 CDT, Duration: 30 day, Stop date: 09/08/16 9:00:00 CDT Start Date: 08/10/16 Stop Date: 08/10/16 Status: Deleted leflunomide 20 mg oral tablet 20 mg=1 tab, PO, Daily, 0 Refill(s) Start Date: 08/09/16 Stop Date: 09/02/16 Status: Discontinued Leflunomide 20mg Leflunomide 20mg, 1 tab, Drug form: MISC, Route: PO, Daily, 08/10/16 9:00:00 CDT , Duration: 30 day, Stop date: 10/08/16 9:00:00 CDT Start Date: 08/10/16 Stop Date: 09/02/16 Status: Discontinued LORazepam 0.25 mg, 0.5 tab, Route: PO, Drug form: TAB, Q8H, Dosing Weight 90, kg, PRN Anxi ety, Start date: 08/10/16 20:54:00 CDT, Stop date: 09/09/16 20:53:00 CDT Notes: (Same as: Ativan) Start Date: 08/10/16 Stop Date: 09/02/16 Status: Discontinued magnesium oxide 800 mg, 2 tab, Route: PO, Drug form: TAB, PRN, Dosing Weight 90, kg, PRN Abnorma l Lab Result, For NON-ICU Patients Only., Start date: 08/28/16 8:14:00 CDT, Dura tion: 30 day, Stop date: 09/27/16 8:13:00 CDT Notes: (Same as: Mag-Ox 400)Magnesium oxide [id number] elemental magnesiumDose= ____mg magnesium oxide (___mg elemental magnesium) Start Date: 08/28/16 Stop Date: 09/02/16 Status: Discontinued magnesium sulfate 1 gm, 100 mL, Route: IVPB, Drug form: INJ, PRN, Dosing Weight 90, kg, PRN Abnorm al Lab Result, For NON-ICU Patients Only., Start date: 08/28/16 8:14:00 CDT, Dur ation: 30 day, Stop date: 09/27/16 8:13:00 CDT Notes: WASTE: F/P - Sink; E - Municipal Trash Bin Start Date: 08/28/16 Stop Date: 09/02/16 Status: Discontinued magnesium sulfate 2 gm, 50 mL, Route: IVPB, Drug form: INJ, PRN, Dosing Weight 90, kg, PRN Abnorma l Lab Result, For NON-ICU Patients Only., Start date: 08/28/16 8:14:00 CDT, Dura tion: 30 day, Stop date: 09/27/16 8:13:00 CDT Notes: WASTE: F/P - Sink; E - Municipal Trash Bin Start Date: 08/28/16 Stop Date: 09/02/16 Status: Discontinued meropenem + sodium chloride 0.9% INJ 100 mL 500 mg, Route: IVPB, ABXQ8H, Dosing Weight 90, kg, CrCL=26 -49 ml/min, Extended infusion, infuse over 3 hours, Start date: 08/17/16 9:00:00 CDT, Duration: 7 da y, Stop date: 08/24/16 1:00:00 CDT, ABX Indication: Urinary Tract Infection Notes: Same as Merrem MEDICATION WASTE Product Size: 500 mgProduct Wast ed: _0__ mg Start Date: 08/17/16 Stop Date: 08/17/16 Status: Discontinued Merrem + sodium chloride 0.9% INJ 100 mL 500 mg, Route: IVPB, Drug form: PDR/INJ, ABXQ8H, Dosing Weight 90, kg, CrCL > =50ml/min, Extended infusion, infuse over 3 hours, Start date: 08/27/16 10:00:00 CDT, Duration: 10 day, Stop date: 09/06/16 2:00:00 CDT, ABX Indication: Pneumon ia Notes: Same as Merrem MEDICATION WASTE Product Size: 500 mgProduct Wast ed: ___ mg Start Date: 08/27/16 Stop Date: 08/30/16 Status: Discontinued metoprolol 100 mg oral tablet, extended release 100 mg=1 tab, PO, Daily, 0 Refill(s) Start Date: 08/09/16 Status: Ordered Microzide 12.5 mg oral capsule 12.5 mg=1 cap, PO, Daily, 0 Refill(s) Start Date: 08/09/16 Stop Date: 09/02/16 Status: Discontinued NovoLOG 4 unit, 0.04 mL, Route: SUB-Q, Drug form: SOLN, TID-Before Meals, Dosing Weight 90, kg, Start date: 08/12/16 11:30:00 CDT, Duration: 30 day, Stop date: 09/11/16 7:30:00 CDT Notes: Roll in palms of hands gently; Do not shake vigorously. (Same as: Jodie Wolf)"single patient use only"WASTE: F/P - Black; E - Municipal Trash Bin Stable f or 28 days at room temperature.Expires in days from Date Start Date: 08/12/16 Stop Date: 09/02/16 Status: Discontinued pantoprazole 40 mg, 1 tab, Route: PO, Drug form: ECTAB, BID, Dosing Weight 90, kg, Start date : 08/13/16 9:00:00 CDT, Duration: 30 day, Stop date: 09/11/16 17:00:00 CDT Notes: Tablet should not be chewed or crushed.(Same as: Protonix) Start Date: 08/13/16 Stop Date: 09/02/16 Status: Discontinued pantoprazole 40 mg oral granule =1 Pack, PO, Bedtime, # 30 ea, 0 Refill(s) Start Date: 08/09/16 Stop Date: 08/09/16 Status: Deleted potassium chloride 40 mEq, 2 tab, Route: PO, Drug form: ERTAB, ONCE, Dosing Weight 90, kg, Start da te: 09/02/16 7:24:00 CDT, Stop date: 09/02/16 7:24:00 CDT Notes: (Same as: K-Dur 20)"Do Not Crush" With food and full glass of water Start Date: 09/02/16 Stop Date: 09/02/16 Status: Completed potassium chloride 10 mEq, 100 mL, Route: IVPB, Drug form: INJ, PRN, Dosing Weight 90, kg, PRN Abno rmal Lab Result, For NON-ICU Patients Only, Start date: 08/28/16 8:14:00 CDT, Du ration: 30 day, Stop date: 09/27/16 8:13:00 CDT Notes: Infuse at a rate of 10 mEq/hr.(Same as: KCL) Start Date: 08/28/16 Stop Date: 09/02/16 Status: Discontinued potassium chloride 20 mEq, 1 tab, Route: PO, Drug form: ERTAB, PRN, Dosing Weight 90, kg, PRN Abnor mal Lab Result, For NON-ICU Patients Only, Start date: 08/28/16 8:14:00 CDT, Dur ation: 30 day, Stop date: 09/27/16 8:13:00 CDT Notes: (Same as: K-Dur 20)"Do Not Crush" With food and full glass of water Start Date: 08/28/16 Stop Date: 09/02/16 Status: Discontinued potassium chloride 20 mEq, 1 tab, Route: NJ, Drug form: ERTAB, PRN, Dosing Weight 90, kg, PRN Abnor mal Lab Result, For NON-ICU Patients Only, Start date: 08/28/16 8:14:00 CDT, Dur ation: 30 day, Stop date: 09/27/16 8:13:00 CDT Notes: (Same as: K-Dur 20)"Do Not Crush" With food and full glass of water Start Date: 08/28/16 Stop Date: 09/02/16 Status: Discontinued potassium chloride 40 mEq, 2 tab, Route: PO, Drug form: ERTAB, ONCE, Dosing Weight 90, kg, Start da te: 08/09/16 21:31:00 CDT, Stop date: 08/09/16 21:31:00 CDT Notes: (Same as: K-Dur 20)"Do Not Crush" With food and full glass of water Start Date: 08/09/16 Stop Date: 08/09/16 Status: Discontinued potassium phosphate + sodium chloride 0.9% INJ 250 mL 30 mmol, 10 mL, Route: IVPB, PRN, Dosing Weight 90, kg, PRN Abnormal Lab Result, For NON-ICU Patients Only., Start date: 08/28/16 8:14:00 CDT, Duration: 30 day, Stop date: 09/27/16 8:13:00 CDT Notes: (Same as: K Phosphate.) 1 mMol phoshate has 1.47 mEq potassium Infuse o bill 4 hours Start Date: 08/28/16 Stop Date: 09/02/16 Status: Discontinued potassium phosphate + sodium chloride 0.9% INJ 250 mL 15 mmol, 5 mL, Route: IVPB, PRN, Dosing Weight 90, kg, PRN Abnormal Lab Result, For NON-ICU Patients Only., Start date: 08/28/16 8:14:00 CDT, Duration: 30 day, Stop date: 09/27/16 8:13:00 CDT Notes: (Same as: K Phosphate.) 1 mMol phoshate has 1.47 mEq potassium Infuse o bill 4 hours Start Date: 08/28/16 Stop Date: 09/02/16 Status: Discontinued potassium phosphate-sodium phosphate 250 mg-280 mg-160 mg oral powder for recons titution 2 pkt, Route: PO, Drug Form: PDR/REC, Dosing Weight 90, kg, PRN, PRN Abnormal La b Result, For NON-ICU Patients Only, Start date: 08/28/16 8:14:00 CDT, Duration: 30 day, Stop date: 09/27/16 8:13:00 CDT Notes: (Same as: Phos-NaK) Each 1.5 gm pkt has 250mg phosphorous. Mix w/2.5oz w ater and stir. Start Date: 08/28/16 Stop Date: 09/02/16 Status: Discontinued predniSONE 20 mg, 1 tab, Route: PO, Drug form: TAB, Daily, Dosing Weight 90, kg, Start date : 08/22/16 9:00:00 CDT, Duration: 30 day, Stop date: 09/20/16 9:00:00 CDT Notes: Take with food. Start Date: 08/22/16 Stop Date: 09/02/16 Status: Discontinued predniSONE 20 mg oral tablet 20 mg=1 tab, PO, Daily, 0 Refill(s) Start Date: 09/02/16 Status: Ordered Protonix 40 mg, 1 tab, Route: PO, Drug form: ECTAB, Bedtime, Dosing Weight 90, kg, Start date: 08/09/16 21:00:00 CDT, Duration: 30 day, Stop date: 09/07/16 21:00:00 CDT Notes: Tablet should not be chewed or crushed.(Same as: Protonix) Start Date: 08/09/16 Stop Date: 08/10/16 Status: Discontinued Protonix 40 mg, 1 tab, Route: PO, Drug form: ECTAB, Before Dinner, Dosing Weight 90, kg, Start date: 08/10/16 16:30:00 CDT, Duration: 30 day, Stop date: 09/08/16 16:30:0 0 CDT Notes: Tablet should not be chewed or crushed.(Same as: Protonix) Start Date: 08/10/16 Stop Date: 08/12/16 Status: Discontinued Protonix 40 mg, Route: IVP, Drug form: INJ, BID, Dosing Weight 90, kg, Start date: 9:00:00 CDT, Duration: 30 day, Stop date: 09/11/16 17:00:00 CDT Notes: For IV push reconstitute with 10 ml 0.9% sodium chloride and push over 2 minutes. (Same as: Protonix) Start Date: 08/13/16 Stop Date: 08/13/16 Status: Canceled Protonix 40 mg oral enteric coated tablet 40 mg=1 tab, PO, Bedtime, 0 Refill(s) Start Date: 08/09/16 Status: Ordered Saline Flush 0.9% 10 ml, Route: IVP, Drug Form: INJ, Dosing Weight 86.364, kg, PRN, PRN Line Flush , Start date: 08/09/16 16:54:00 CDT, Duration: 30 day, Stop date: 10/08/16 16:53 :00 CDT Notes: (Same as: BD Posiflush) Start Date: 08/09/16 Stop Date: 09/02/16 Status: Discontinued sodium chloride 0.9% INJ 250 mL 250 mL, Rate: Service Desk Analyst for use with blood product administration., Dosing Weight 86.364, kg, Route: IV, Total Volume: 250, Priority: Routine, Start Date: 7 16:05:00 CDT, Duration: 30 day, Stop date: 09/08/16 16:04:00 CDT, Replace Ever y: 24 hr Start Date: 08/09/16 Stop Date: 08/12/16 Status: Discontinued Sodium Chloride 0.9% IV 1000 mL 1,000 mL, Rate: 25 ml/hr, Infuse over: 40 hr, Route: IV, Dosing Weight 90 kg, To ingrid Volume: 1,000, Start date: 08/10/16 11:57:00 CDT, Duration: 30 day, Stop louise e: 09/09/16 11:56:00 CDT Start Date: 08/10/16 Stop Date: 08/10/16 Status: Discontinued sodium phosphate + D5W 250 mL 15 mmol, 5 mL, Route: IVPB, PRN, Dosing Weight 90, kg, PRN Abnormal Lab Result, For NON-ICU Patients Only., Start date: 08/28/16 8:14:00 CDT, Duration: 30 day, Stop date: 09/27/16 8:13:00 CDT Start Date: 08/28/16 Stop Date: 09/02/16 Status: Discontinued sodium phosphate + D5W 250 mL 30 mmol, 10 mL, Route: IVPB, PRN, Dosing Weight 90, kg, PRN Abnormal Lab Result, For NON-ICU Patients Only., Start date: 08/28/16 8:14:00 CDT, Duration: 30 day, Stop date: 09/27/16 8:13:00 CDT Start Date: 08/28/16 Stop Date: 09/02/16 Status: Discontinued Solu-MEDROL 40 mg, 1 mL, Route: IVP, Drug form: INJ, Q12H, Dosing Weight 90, kg, Start date: 08/17/16 9:00:00 CDT, Duration: 30 day, Stop date: 09/15/16 21:00:00 CDT Notes: (Same as:Solu-MEDROL, A-Methapred) Start Date: 08/17/16 Stop Date: 08/21/16 Status: Discontinued Solu-MEDROL 40 mg, 1 mL, Route: IVP, Drug form: INJ, Q8H, Dosing Weight 90, kg, Priority: ST AT, Start date: 08/10/16 17:13:00 CDT, Duration: 30 day, Stop date: 09/09/16 16: 00:00 CDT Notes: (Same as:Solu-MEDROL, A-Methapred) Start Date: 08/10/16 Stop Date: 08/17/16 Status: Discontinued Spiriva 18 mcg inhalation capsule 18 microgram, 1 inhalation, Route: INHALATION, Drug form: CAP, Daily, Dosing Yoandy ght 90, kg, Start date: 08/10/16 9:00:00 CDT, Duration: 30 day, Stop date: 10/08 9:00:00 CDT Notes: (Same As: Spiriva). Start Date: 08/10/16 Stop Date: 09/02/16 Status: Discontinued Spiriva 18 mcg inhalation capsule 18 microgram=1 cap, INHALATION, Daily, 0 Refill(s) Start Date: 08/09/16 Status: Ordered sterile water Route: IV, Drug Form: INJ, Daily, Start date: 08/17/16 9:00:00 CDT, Duration: 30 day, Stop date: 09/15/16 9:00:00 CDT Notes: For reconstitution of drugs only Start Date: 08/17/16 Stop Date: 08/17/16 Status: Discontinued sterile water 5 mL, Route: MISC, Drug Form: INJ, Daily, Start date: 08/17/16 9:00:00 CDT, Dura tion: 30 day, Stop date: 09/15/16 9:00:00 CDT Notes: For reconstitution of drugs only Start Date: 08/17/16 Stop Date: 09/02/16 Status: Discontinued sucralfate 1 gm, 1 tab, Route: PO, Drug form: TAB, QID, Dosing Weight 90, kg, Start date: 0 08/12/16 21:00:00 CDT, Duration: 30 day, Stop date: 09/11/16 17:00:00 CDT Notes: May interfere w/enteral feeds - Take 1 hr before or 2 hr after antacids, dairy pdt, meals & minerals - On empty stomach.For patients unable to swallow tablet, dissolve in 10mL - 30mL of water or juice and stir before giving. (Same As: Carafate) Start Date: 08/12/16 Stop Date: 09/02/16 Status: Discontinued Toprol-XL 100 mg oral tablet, extended release 100 mg, 1 tab, Route: PO, Drug form: ERTAB, Daily, Start date: 08/10/16 9:00:00 CDT, Duration: 30 day, Stop date: 10/08/16 9:00:00 CDT Notes: (Same as: Toprol XL) May split tab, but do not crush. Start Date: 08/10/16 Stop Date: 09/02/16 Status: Discontinued Zofran 4 mg, 2 mL, Route: IV, Drug form: INJ, Q6H, Dosing Weight 90, kg, PRN Nausea & Vomiting, Start date: 08/26/16 6:27:00 CDT, Duration: 30 day, Stop date: 6:26:00 CDT Notes: (Same as: Zofran) MEDICATION WASTE Product Size: 4 mgProduct Was valdez: ___ mg Start Date: 08/26/16 Stop Date: 09/02/16 Status: Discontinued Results BLOOD BANK RESULTS 1 2 3 Most recent to oldest [Reference Range]: B POS *Unknown* (08/09/16 2:03 PM) ABO/Rh Negative (08/09/16 2:03 PM) Antibody Scrn Product available 1 (08/09/16 4:05 PM) RBC product 1Result Comment: 08/09/2016 16:55 [id number] KLS notified Lisseth 08/09/2016 16:55 ELECTROLYTES 1 2 3 Most recent to oldest [Reference Range]: 143 mEq/L (09/02/16 3:56 AM) 143 mEq/L (09/01/16 6:27 AM) 141 mEq/L (08/29/16 11:36 AM) Sodium Lvl [135-145 mEq/L] 3.0 mEq/L 1 *CRIT* (09/02/16 3:56 AM) 3.5 mEq/L (09/01/16 6:27 AM) 3.8 mEq/L (08/29/16 11:36 AM) Potassium Lvl [3.5-5.1 mEq/L] 91 mEq/L *LOW* (09/02/16 3:56 AM) 91 mEq/L *LOW* (09/01/16 6:27 AM) 91 mEq/L *LOW* (08/29/16 11:36 AM) Chloride Lvl [95-109 mEq/L] >45 mEq/L 2 *CRIT* (09/02/16 3:56 AM) >45 mEq/L 3 *CRIT* (09/01/16 6:27 AM) >45 mEq/L 4 *CRIT* (08/29/16 11:36 AM) CO2 [24-32 mEq/L] 5.2 mEq/L *LOW* (08/24/16 4:00 PM) 6.3 mEq/L *LOW* (08/22/16 4:21 AM) 7.8 mEq/L *LOW* (08/19/16 5:49 AM) AGAP [10.0-20.0 mEq/L] 1Result Comment: Critical Result(s) called to _mase ty at 09/02/2016 05:06 by hp. Read back OK. 2Result Comment: Critical Result(s) called to _mase ty at 09/02/2016 05:06 by hp. Read back OK. 3Result Comment: Critical Result(s) called to Kaur Louise at 09/01/2016 09:13 by yue. Read back OK. 4Result Comment: Critical Result(s) called to Tiesha Curry at 08/29/2016 12:40 by Nilda Allred. Read back OK. CHEM PANEL 1 2 3 Most recent to oldest [Reference Range]: 1.50 mg/dL *HI* (09/02/16 3:56 AM) 1.50 mg/dL *HI* (09/01/16 6:27 AM) 1.40 mg/dL (08/29/16 11:36 AM) Creatinine Lvl [0.50-1.40 mg/dL] 34 mL/min/1.73m2 1 *NA* (09/02/16 3:56 AM) 34 mL/min/1.73m2 2 *NA* (09/01/16 6:27 AM) 37 mL/min/1.73m2 3 *NA* (08/29/16 11:36 AM) eGFR 76 mg/dL *HI* (09/02/16 3:56 AM) 74 mg/dL *HI* (09/01/16 6:27 AM) 60 mg/dL *HI* (08/29/16 11:36 AM) BUN [7-22 mg/dL] 41 *HI* (08/24/16 4:00 PM) 25 (08/11/16 4:03 AM) 24 (08/09/16 2:03 PM) B/C Ratio [6-25] 94 mg/dL (09/02/16 3:56 AM) 100 mg/dL *HI* (09/01/16 6:27 AM) 170 mg/dL *HI* (08/29/16 11:36 AM) Glucose Lvl [70-99 mg/dL] 5.4 g/dL *LOW* (08/24/16 4:00 PM) 5.9 g/dL *LOW* (08/11/16 4:03 AM) 6.3 g/dL *LOW* (08/09/16 2:03 PM) Total Protein [6.4-8.4 g/dL] 2.6 g/dL *LOW* (08/24/16 4:00 PM) 2.4 g/dL *LOW* (08/11/16 4:03 AM) 2.8 g/dL *LOW* (08/09/16 2:03 PM) Albumin Lvl [3.5-5.0 g/dL] 2.8 g/dL (08/24/16 4:00 PM) 3.5 g/dL (08/11/16 4:03 AM) 3.5 g/dL (08/09/16 2:03 PM) Globulin [2.7-4.2 g/dL] 0.9 (08/24/16 4:00 PM) 0.7 (08/11/16 4:03 AM) 0.8 (08/09/16 2:03 PM) A/G Ratio [0.7-1.6] 8.1 mg/dL *LOW* (09/02/16 3:56 AM) 8.5 mg/dL (09/01/16 6:27 AM) 8.2 mg/dL *LOW* (08/29/16 11:36 AM) Calcium Lvl [8.5-10.5 mg/dL] 3.8 mg/dL (08/24/16 4:00 PM) 3.2 mg/dL (08/16/16 4:13 AM) 3.4 mg/dL (08/12/16 9:49 AM) Phosphorus [2.5-4.5 mg/dL] 2.0 mg/dL (08/29/16 11:36 AM) 2.2 mg/dL (08/24/16 4:00 PM) 2.3 mg/dL (08/19/16 5:49 AM) Magnesium Lvl [1.8-2.4 mg/dL] 23 unit/L (08/24/16 4:00 PM) 13 unit/L (08/11/16 4:03 AM) 12 unit/L (08/09/16 2:03 PM) ALT [0-65 unit/L] 17 unit/L (08/24/16 4:00 PM) 13 unit/L (08/11/16 4:03 AM) 14 unit/L (08/09/16 2:03 PM) AST [0-37 unit/L] 41 unit/L (08/24/16 4:00 PM) 50 unit/L (08/11/16 4:03 AM) 55 unit/L (08/09/16 2:03 PM) Alk Phos [39-136 unit/L] 0.4 mg/dL (08/24/16 4:00 PM) 0.4 mg/dL (08/11/16 4:03 AM) 0.2 mg/dL (08/09/16 2:03 PM) Bili Total [0.2-1.3 mg/dL] 60 unit/L *LOW* (08/09/16 2:03 PM) Lipase Lvl [73-393 unit/L] 34.0 uMol/L (08/24/16 4:00 PM) Ammonia [<=45.0 uMol/L] 1Result Comment: The eGFR is calculated using the CKD-EPI formula. In most young, healthy individuals the eGFR will be >90 mL/min/1.73m2. The eGFR declines with age. An eGFR of 60-89 may be normal in some populations, particularly the elderly, for whom the CKD-EPI formula has not been extensively validated. Use of the eGFR is not recommended in the following populations: Individuals with unstable creatinine concentrations, including patients and those with serious co-morbid conditions. Patients with extremes in muscle mass or diet. The data above are obtained from the National Kid[employer] Disease Education Program ( [employer]) which additionally recommends that when the eGFR is used in patients with extremes of body mass index for purposes of drug dosing, the eGFR should be mul tiplied by the estimated BMI. 2Result Comment: The eGFR is calculated using the CKD-EPI formula. In most young, healthy individuals the eGFR will be >90 mL/min/1.73m2. The eGFR declines with age. An eGFR of 60-89 may be normal in some populations, particularly the elderly, for whom the CKD-EPI formula has not been extensively validated. Use of the eGFR is not recommended in the following populations: Individuals with unstable creatinine concentrations, including patients and those with serious co-morbid conditions. Patients with extremes in muscle mass or diet. The data above are obtained from the National Kid[employer] Disease Education Program ( [employer]) which additionally recommends that when the eGFR is used in patients with extremes of body mass index for purposes of drug dosing, the eGFR should be mul tiplied by the estimated BMI. 3Result Comment: The eGFR is calculated using the CKD-EPI formula. In most young, healthy individuals the eGFR will be >90 mL/min/1.73m2. The eGFR declines with age. An eGFR of 60-89 may be normal in some populations, particularly the elderly, for whom the CKD-EPI formula has not been extensively validated. Use of the eGFR is not recommended in the following populations: Individuals with unstable creatinine concentrations, including patients and those with serious co-morbid conditions. Patients with extremes in muscle mass or diet. The data above are obtained from the National Kid[employer] Disease Education Program ( [employer]) which additionally recommends that when the eGFR is used in patients with extremes of body mass index for purposes of drug dosing, the eGFR should be mul tiplied by the estimated BMI. CARDIAC ENZYMES 1 2 3 Most recent to oldest [Reference Range]: 41 unit/L (08/26/16 10:38 AM) 58 unit/L (08/09/16 2:03 PM) Total CK [12-191 unit/L] 2.0 ng/mL (08/12/16 4:24 AM) 1.0 ng/mL (08/09/16 2:03 PM) CK MB [0.5-3.6 ng/mL] 1.7 (08/09/16 2:03 PM) CK MB Index [0.0-2.5] 0.23 ng/mL (08/26/16 10:38 AM) 0.03 ng/mL (08/12/16 4:24 AM) 0.03 ng/mL (08/09/16 2:03 PM) Troponin-I [0.00-0.40 ng/mL] 244 pg/mL *HI* (08/15/16 7:18 AM) 198 pg/mL *HI* (08/09/16 2:03 PM) BNP [<=100 pg/mL] ANEMIA STUDY 1 2 3 Most recent to oldest [Reference Range]: 34 ug/dl (08/10/16 8:02 AM) Iron [30-160 ug/dl] 334 ng/mL *HI* (08/10/16 8:02 AM) Ferritin Lvl [5-204 ng/mL] 13 % (08/10/16 8:02 AM) % Satur Fe [12-57 %] 231 ug/dl (08/10/16 8:02 AM) UIBC [110-370 ug/dl] 265 ug/dl (08/10/16 8:02 AM) TIBC [228-428 ug/dl] URINE CHEM 1 2 3 Most recent to oldest [Reference Range]: 52.00 mg/dL *NA* (08/14/16 9:08 PM) U Creatinine 83.0 mg/dL *NA* (08/14/16 9:08 PM) U Protein 1.6 *NA* (08/14/16 9:08 PM) U Prot/Creat 638 mg/dL *NA* (08/14/16 9:08 PM) U Urea 6 mEq/L *NA* (08/14/16 9:08 PM) U Sodium None Seen (08/14/16 9:08 PM) U Eos [None Seen] URINE AND STOOL 1 2 3 Most recent to oldest [Reference Range]: Clear (08/12/16 8:55 PM) Clear (08/09/16 2:03 PM) UA Turbidity [Clear] Yellow *NA* (08/12/16 8:55 PM) UA Color [Yellow] Ltyellow *NA* (08/09/16 2:03 PM) UA Color 6.0 (08/12/16 8:55 PM) UA pH [5.0-8.0] 6.0 (08/09/16 2:03 PM) UA pH [5.0-8.0] 1.020 (08/12/16 8:55 PM) UA Spec Grav [<=1.030] 1.010 (08/09/16 2:03 PM) UA Spec Grav [<=1.030] Negative (08/12/16 8:55 PM) UA Glucose [Negative] Negative mg/dL *NA* (08/09/16 2:03 PM) UA Glucose [Negative mg/dL] Small *ABN* (08/12/16 8:55 PM) Negative (08/09/16 2:03 PM) UA Blood [Negative] Negative *NA* (08/12/16 8:55 PM) UA Ketones [Negative] Negative mg/dL *NA* (08/09/16 2:03 PM) UA Ketones [Negative mg/dL] 100 mg/dL *ABN* (08/12/16 8:55 PM) 100 mg/dL *ABN* (08/09/16 2:03 PM) UA Protein [Negative mg/dL] 0.2 EU/dL (08/12/16 8:55 PM) UA Urobilinogen [0.1-1.0 EU/dL] <=1.0 mg/dL *NA* (08/09/16 2:03 PM) UA Urobilinogen [0.1-1.0 mg/dL] Negative *NA* (08/12/16 8:55 PM) Negative *NA* (08/09/16 2:03 PM) UA Bili [Negative] Negative (08/12/16 8:55 PM) Negative (08/09/16 2:03 PM) UA Leuk Est [Negative] Negative (08/12/16 8:55 PM) Negative (08/09/16 2:03 PM) UA Nitrite [Negative] 1 /HPF (08/09/16 2:03 PM) UA WBC [0-5 /HPF] 3 /HPF *HI* (08/09/16 2:03 PM) UA RBC [0-2 /HPF] Occasional /HPF *NA* (08/09/16 2:03 PM) UA Bacteria [None Seen /HPF] Occasional /LPF *NA* (08/09/16 2:03 PM) UA Sq Epi [Few /LPF] 4 /LPF *HI* (08/09/16 2:03 PM) UA Hyal Cast [0-2 /LPF] Negative (08/11/16 3:14 PM) Occult Bld Stl [Negative] HEMATOLOGY 1 2 3 Most recent to oldest [Reference Range]: 5.8 K/CMM (09/02/16 3:56 AM) 5.5 K/CMM (09/01/16 6:27 AM) 7.9 K/CMM (08/28/16 5:10 AM) WBC [3.7-10.4 K/CMM] 2.84 M/CMM *LOW* (09/02/16 3:56 AM) 2.88 M/CMM *LOW* (09/01/16 6:27 AM) 2.84 M/CMM *LOW* (08/28/16 5:10 AM) RBC [4.20-5.40 M/CMM] 8.5 g/dL *LOW* (09/02/16 3:56 AM) 8.5 g/dL *LOW* (09/01/16 6:27 AM) 8.4 g/dL *LOW* (08/28/16 5:10 AM) Hgb [12.0-16.0 g/dL] 26.1 % *LOW* (09/02/16 3:56 AM) 26.6 % *LOW* (09/01/16 6:27 AM) 26.7 % *LOW* (08/28/16 5:10 AM) Hct [36.0-48.0 %] 92.1 fL (09/02/16 3:56 AM) 92.3 fL (09/01/16 6:27 AM) 94.1 fL (08/28/16 5:10 AM) MCV [80.0-98.0 fL] 29.8 pg (09/02/16 3:56 AM) 29.6 pg (09/01/16 6:27 AM) 29.5 pg (08/28/16 5:10 AM) MCH [27.0-31.0 pg] 32.3 g/dL (09/02/16 3:56 AM) 32.1 g/dL (09/01/16 6:27 AM) 31.4 g/dL *LOW* (08/28/16 5:10 AM) MCHC [32.0-36.0 g/dL] 14.8 % *HI* (09/02/16 3:56 AM) 14.8 % *HI* (09/01/16 6:27 AM) 14.7 % *HI* (08/28/16 5:10 AM) RDW [11.5-14.5 %] 128 K/CMM *LOW* (09/02/16 3:56 AM) 129 K/CMM *LOW* (09/01/16 6:27 AM) 95 K/CMM *LOW* (08/28/16 5:10 AM) Platelet [133-450 K/CMM] 9.5 fL (09/02/16 3:56 AM) 9.6 fL (09/01/16 6:27 AM) 11.2 fL *HI* (08/28/16 5:10 AM) MPV [7.4-10.4 fL] 71.8 % (09/01/16 6:27 AM) 78.1 % *HI* (08/28/16 5:10 AM) 85.1 % *HI* (08/27/16 5:27 AM) Segs [45.0-75.0 %] 17.3 % *LOW* (09/01/16 6:27 AM) 10.4 % *LOW* (08/28/16 5:10 AM) 5.8 % *LOW* (08/27/16 5:27 AM) Lymphocytes [20.0-40.0 %] 8.2 % (09/01/16 6:27 AM) 9.6 % (08/28/16 5:10 AM) 8.1 % (08/27/16 5:27 AM) Monocytes [2.0-12.0 %] 2.4 % (09/01/16 6:27 AM) 1.5 % (08/28/16 5:10 AM) 0.8 % (08/27/16 5:27 AM) Eosinophils [0.0-4.0 %] 0.3 % (09/01/16 6:27 AM) 0.4 % (08/28/16 5:10 AM) 0.2 % (08/27/16 5:27 AM) Basophils [0.0-1.0 %] 3.9 K/CMM (09/01/16 6:27 AM) 6.2 K/CMM (08/28/16 5:10 AM) 11.9 K/CMM *HI* (08/27/16 5:27 AM) Segs-Bands # [1.5-8.1 K/CMM] 0.9 K/CMM *LOW* (09/01/16 6:27 AM) 0.8 K/CMM *LOW* (08/28/16 5:10 AM) 0.8 K/CMM *LOW* (08/27/16 5:27 AM) Lymphocytes # [1.0-5.5 K/CMM] 0.4 K/CMM (09/01/16 6:27 AM) 0.8 K/CMM (08/28/16 5:10 AM) 1.1 K/CMM *HI* (08/27/16 5:27 AM) Monocytes # [0.0-0.8 K/CMM] 0.1 K/CMM (09/01/16 6:27 AM) 0.1 K/CMM (08/28/16 5:10 AM) 0.1 K/CMM (08/27/16 5:27 AM) Eosinophils # [0.0-0.5 K/CMM] 1+ *ABN* (08/12/16 9:49 AM) Anisocyte [None Seen] 1+ (08/24/16 4:00 PM) 1+ (08/12/16 9:49 AM) Hypochrom [None Seen] Moderate *ABN* (08/12/16 9:49 AM) Baso Stipplin [None Seen] Moderate *ABN* (08/24/16 4:00 PM) Moderate *ABN* (08/12/16 9:49 AM) Stomatocyte [None Seen] Clumped (08/24/16 4:00 PM) Normal (08/12/16 9:49 AM) Plt Morph 14.3 seconds (08/11/16 4:03 AM) 13.2 seconds (08/09/16 2:03 PM) PT [12.0-14.7 seconds] 1.09 (08/11/16 4:03 AM) 0.98 (08/09/16 2:03 PM) INR [0.85-1.17] 41.0 seconds *HI* (08/11/16 4:03 AM) PTT [22.9-35.8 seconds] Negative (08/27/16 5:27 AM) Heparin Ab(CESARIO) [Negative] .072 *NA* (08/27/16 5:27 AM) Pat Od Value .448 *NA* (08/27/16 5:27 AM) Pos CO Value Immunizations No data available for this section Procedures Procedure Date Related Diagnosis Body Site section Cholecystectomy Procedure on knee1 1Total knee replacement 2009 Social History Social History Type Response Substance Abuse Use: None. Alcohol Never Smoking Status Former smoker; Exposure to Tobacco Smoke None; Cigarette Smoking Last 365 Days No; Reg Smoking Cessation Counseling No Assessment and Plan Extracted from: Title: Clinical Document Author: Sarah Mackay MD Date: 09/02/16 Progress Note [facility] Sarah Mackay M.D. [facility] SUBJECTIVE better OBJECTIVE Vitals and Temp: VitalsTmp(F)[id number] 09/02 11:[id number]--- 09/02 08:[id number]--- 09/02 07:01 1896 3.0L/m 09/02 04:[id number]--- 09/02 02:19 98 50% 24 Hr Tmax: 98.2F (36.78c) at 09/01 19:37Vital Signs are the last 5 in the past 48 hours. Labs (Last four charted values) WBC 5.8(SEP 02)5.5(SEP 01)7.9(AUG 28)H 14.0(AUG 27) Hgb L 8.5(SEP 02)L 8.5(SEP 01)L 8.4(AUG 28)L 8.2(AUG 27) Hct L 26.1(SEP 02)L 26.6(SEP 01)L 26.7(AUG 28)L 25.9(AUG 27) Plt L 128(SEP 02)L 129(SEP 01)L 95(AUG 28)L 97(AUG 27) Na 143(SEP 02)143(SEP 01)141(AUG 29)139(AUG 28) K C 3.0(SEP 02)3.5(SEP 01)3.8(AUG 29)4.6(AUG 28) CO2 C >45(SEP 02)C >45(SEP 01)C >45(AUG 29)C >45(AUG 28) Cl L 91(SEP 02)L 91(SEP 01)L 91(AUG 29)L 88(AUG 28) Cr H 1.50(SEP 02)H 1.50(SEP 01)1.40(AUG 29)1.30(AUG 28) BUN H 76(SEP 02)H 74(SEP 01)H 60(AUG 29)H 63(AUG 28) Glucose Random 94(SEP 02)H 100(SEP 01)H 170(AUG 29)75(AUG 28) Mg 2.0(AUG 29)2.2(AUG 24)2.3(AUG 19)2.4(AUG 17) Phos 3.8(AUG 24)3.2(AUG 16)3.4(AUG 12)3.3(AUG 09) Ca L 8.1(SEP 02)8.5(SEP 01)L 8.2(AUG 29)L 8.1(AUG 28) PT 14.3(AUG 11)13.2(AUG 09) INR 1.09(AUG 11)0.98(AUG 09) PTT H 41.0(AUG 11) Troponin 0.23(AUG 26)0.03(AUG 12)0.03(AUG 09) CK MB 2.0(AUG 12)1.0(AUG 09) Total CK 41(AUG 26)58(AUG 09) Medications Scheduled Meds (16):acetaZOLAMIDE, budesonide-formoterol (budesonide-formoterol 160 mcg-4.5 mcg/inh inhalation aerosol with adapter), cyanocobalamin, diltiazem, doxazosin, furosemide (furosemide 40 mg oral tablet), insulin aspart (NovoLOG), insulin detemir, metoprolol (Toprol-XL 100 mg oral tablet, extended release), non-formulary (Leflunomide 20mg), pantoprazole, predniSONE, rosuvastatin (Crestor), sterile water, sucralfate, tiotropium (Spiriva 18 mcg inhalation capsule) Unscheduled Meds: None PRN Meds (33):Dextrose 50% in Water IV (Dextrose 50% Syringe), Dextrose 50% in Water IV (Dextrose 50% Syringe), LORazepam, acetaminophen-hydrocodone (acetaminophen-hydrocodone 325 mg-5 mg oral tablet), albuterol-ipratropium (DuoNeb inhalation solution), albuterol (albuterol 0.083% inhalation solution), bisacodyl, calcium gluconate + sodium chloride 0.9% INJ 100 mL, calcium gluconate + sodium chloride 0.9% INJ 100 mL, glucagon, insulin aspart, insulin aspart, insulin aspart, insulin aspart, insulin aspart, insulin aspart, insulin aspart, insulin aspart, insulin aspart, ipratropium (ipratropium 0.02% inhalation solution), magnesium oxide, magnesium sulfate, magnesium sulfate, ondansetron (Zofran), potassium chloride, potassium chloride, potassium chloride, potassium phosphate + sodium chloride 0.9% INJ 250 mL, potassium phosphate + sodium chloride 0.9% INJ 250 mL, potassium phosphate-sodium phosphate (potassium phosphate-sodium phosphate 250 mg-280 mg-160 mg oral powder for reconstitution), sodium chloride (Saline Flush 0.9%), sodium phosphate + D5W 250 mL, sodium phosphate + D5W 250 mL One Time Meds (1):(Completed) potassium chloride Continuous Infusions: None Head: normocephalic and atraumatic Neck: no carotid bruit; no JVD CV: Irregular; -S3; no significant murmurs Lungs: Clear; no wheezing; good air entry Abd: soft; + bowel sounds Ext: No edema Neuro: No focal neuro deficit Tele: SR, PACs occ pVC AFib convereted to SR Echo EF 50% ASSESSMENT: Parox AFib now in SR SOB possibly Ramos CHF COPD Ch anemia Rhd arthitis PLAN: Not a candidate for therapeutic anticoagulation because of severe anemia Cardiac stable DC home Extracted from: Title: Clinical Document Author: Sarah Mackay MD Date: 08/26/16 Cardiology Consult [facility] Malcom Mackay M.D. [facility] HPI Pt went in to AFib RVR and SOB with drop in O 2 sta; Was placed on Bipap and moed to ICU I saw pt in ICU Now in SR, with freq PACs and is on Cardiazem drip at 10 mg/ Hr Daughter, nurse at bed side Now HR stabel Less SOB Sats 98% PMH PMHx: anemia, COPD, HTN, HLD, DM, RA PSHx: C sec, cholecystectomy FHx: breast CA SocHx: former smoker, no etoh or drugs Meds/allergies: all reviewed and documented ROS 14 pt ROS done h/o Chronic anemia Pt [facility] in [facility] for about 2 months OBJECTIVE Vitals and Temp: VitalsTmp(F)[id number] 08/26 11:38 97 30% 08/26 11:30----[id number]--- 08/26 11:00----[id number]--- 08/26 10:30----[id number]--- 08/26 10:00----147-----[id number]--- 24 Hr Tmax: 98.3F (36.83c) at 08/26 08:35Vital Signs are the last 5 in the past 48 hours. Labs (Last four charted values) WBC 9.6(AUG 25)H 13.5(AUG 24)9.1(AUG 17)6.9(AUG 16) Hgb L 9.1(AUG 25)L 9.0(AUG 24)L 10.3(AUG 17)L 9.7(AUG 16) Hct L 28.6(AUG 25)L 29.7(AUG 24)L 31.8(AUG 17)L 30.2(AUG 16) Plt L 88(AUG 25)L 89(AUG 24)244(AUG 17)241(AUG 16) Na 142(AUG 25)140(AUG 24)140(AUG 22)140(AUG 19) K 3.8(AUG 25)4.2(AUG 24)4.3(AUG 22)4.8(AUG 19) CO2 C >45(AUG 25)C 45(AUG 24)H 39(AUG 22)C 40(AUG 19) Cl L 93(AUG 25)L 94(AUG 24)99(AUG 22)97(AUG 19) Cr 1.40(AUG 25)H 1.50(AUG 24)H 1.50(AUG 22)H 1.60(AUG 19) BUN H 64(AUG 25)H 61(AUG 24)H 76(AUG 22)H 74(AUG 19) Glucose Random H 100(AUG 25)H 186(AUG 24)H 129(AUG 22)H 202(AUG 19) Mg 2.2(AUG 24)2.3(AUG 19)2.4(AUG 17)2.4(AUG 16) Phos 3.8(AUG 24)3.2(AUG 16)3.4(AUG 12)3.3(AUG 09) Ca 8.9(AUG 25)8.8(AUG 24)L 8.3(AUG 22)L 8.2(AUG 19) PT 14.3(AUG 11)13.2(AUG 09) INR 1.09(AUG 11)0.98(AUG 09) PTT H 41.0(AUG 11) Troponin 0.23(AUG 26)0.03(AUG 12)0.03(AUG 09) CK MB 2.0(AUG 12)1.0(AUG 09) Total CK 41(AUG 26)58(AUG 09) Medications Scheduled Meds (16):acetaZOLAMIDE, amLODIPine, budesonide-formoterol (budesonide-formoterol 160 mcg-4.5 mcg/inh inhalation aerosol with adapter), cyanocobalamin, doxazosin, furosemide (Lasix), insulin aspart (NovoLOG), insulin detemir, metoprolol (Toprol-XL 100 mg oral tablet, extended release), non- formulary (Leflunomide 20mg), pantoprazole, predniSONE, rosuvastatin (Crestor), sterile water, sucralfate, tiotropium (Spiriva 18 mcg inhalation capsule) Unscheduled Meds: None PRN Meds (20):Dextrose 50% in Water IV (Dextrose 50% Syringe), Dextrose 50% in Water IV (Dextrose 50% Syringe), LORazepam, acetaminophen-hydrocodone (acetaminophen-hydrocodone 325 mg-5 mg oral tablet), albuterol-ipratropium (DuoNeb inhalation solution), albuterol (albuterol 0.083% inhalation solution), bisacodyl, glucagon, insulin aspart, insulin aspart, insulin aspart, insulin aspart, insulin aspart, insulin aspart, insulin aspart, insulin aspart, insulin aspart, ipratropium (ipratropium 0.02% inhalation solution), ondansetron (Zofran), sodium chloride (Saline Flush 0.9%) One Time Meds: None Continuous Infusions (1):diltiazem INJ 125 mg + sodium chloride 0.9% INJ 100 mL EXAM: Head: normocephalic and atraumatic Neck: no carotid bruit; no JVD CV: Irregular; -S3; no significant murmurs Lungs: Clear; no wheezing; good air entry Abd: soft; + bowel sounds Ext: No edema Neuro: No focal neuro deficit Tele: SR, PACs occ pVC Earlier AFib RVR convereted to SR ASSESSMENT: Parox AFib SOB possibly Ramos CHF COPD Ch anemia Rhd arthitis PLAN: Not a candidate for therapeutic anticoagulation because of severe anemia Check Echo IV Cardizem for now will wean off as tolerated d/w nurse and daughter
--- OUTSIDE RECORDS SUMMARY | 2018-01-11 11:01 | XMS REPORT ---
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
--- OUTSIDE RECORDS SUMMARY | 2018-01-11 11:01 | XMS REPORT | Continuity of Care Document ---
Author Author [facility] Interface Address Unknown Phone Unavailable Problems Problem Status Onset Date Classification Date Reported Comments Source ABNORMAL LABS Active 08/09/2016 [facility] SYMPTOMATIC ANEMAI Active 08/09/2016 [facility] Anemia Active Problem 09/05/2016 [facility] Chronic bronchitis Active Problem 09/05/2016 [facility] Chronic respiratory failure with hypoxia Resolved Problem 09/05/2016 [facility] CKD (<span ID="[id number]">Confirmed</span>) Active Problem 09/05/2016 [facility] COPD (<span ID="[id number]">Confirmed</span>) Active Problem 09/05/2016 [facility] DM (<span ID="[id number]">Confirmed</span>) Active Problem 09/05/2016 [facility] Hyperlipemia Active Problem 09/05/2016 [facility] HTN (<span ID="[id number]">Confirmed</span>) Active Problem 09/05/2016 [facility] Proteus<sup>1</sup> Active Problem 09/05/2016 Problem added by Discern Expert. 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 07/01/2017 Jose Rojas Osteopenia Active Problem 07/01/2017 Jose Rojas Rheumatoid arthritis 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 factor Active Problem 07/01/2017 Jose Rojas ANEMIA, UNSPECIFIED Active [facility] Medications Medication Details Route Status Patient Instructions Ordering Provider Order Date Source Leflunomide 1 tablet Orally Active 20 MG Orally Once a day Rojas 06/06/2017 Josekiet Rojas Insulin, Aspart, Human 4 unit, SUB-Q, TID-Before Meals, 0 Refill(s) Active 09/02/2016 [facility] Furosemide 40 MG Oral Tablet 80 mg=2 tab, PO, Q12H, 0 Refill(s) Active 09/02/2016 [facility] diltiazem 30 mg oral tablet 30 mg=1 tab, PO, Q8H, 0 Refill(s) Active 09/02/2016 [facility] Budesonide 0.16 MG/ACTUAT / formoterol fumarate 0.0045 MG/ACTUAT Metered Dose Inhaler 2 inhalation, INHALATION, BID, 0 Refill(s) Active 09/02/2016 [facility] Albuterol 0.833 MG/ML / Ipratropium Upper Tract 0.167 MG/ML Inhalant Solution [DuoNeb] 3 mL, NEB, PRN, PRN Respiratory Protocol, 0 Refill(s) Active 09/02/2016 [facility] predniSONE 20 mg oral tablet 20 mg=1 tab, PO, Daily, 0 Refill(s) Active 09/02/2016 [facility] insulin detemir 100 units/mL subcutaneous solution 25 unit, SUB-Q, Daily, 0 Refill(s) Active 09/02/2016 [facility] potassium chloride 40 mEq, 2 tab, Route: PO, Drug form: ERTAB, ONCE, Dosing Weight 90, kg, Start date: 09/02/16 7:24:00 CDT, Stop date: 09/02/16 7:24:00 CDTNotes: (Same as: K-Dur 20) "Do Not Crush" With food and full glass of water Inactive 09/02/2016 [facility] Acetazolamide 250 mg, Route: IVP, Drug form: PDR/INJ, BID, Dosing Weight 90, kg, Start date: 09/01/16 17:00:00 CDT, Duration: 30 day, Stop date: 10/01/16 9:00:00 CDTNotes: (Same as: Diamox) No Longer Active 09/01/2016 [facility] Magnesium Sulfate 1 gm, 100 mL, Route: IVPB, Drug form: INJ, PRN, Dosing Weight 90, kg, PRN Abnormal Lab Result, For NON-ICU Patients Only., Start date: 08/28/16 8:14:00 CDT, Duration: 30 day, Stop date: 09/27/16 8:13:00 CDTNotes: WASTE: F/P - Sink; E - Municipal Trash Bin No Longer Active 08/28/2016 [facility] Calcium Gluconate 2 gm, 20 mL, Route: IVPB, PRN, Dosing Weight 90, kg, PRN Abnormal Lab Result, For NON-ICU Patients Only., Start date: 08/28/16 8:14:00 CDT, Duration: 30 day, Stop date: 09/27/16 8:13:00 CDTNotes: WASTE: F/P - Sink; E - Municipal Trash Bin No Longer Active 08/28/2016 [facility] Magnesium Oxide 800 mg, 2 tab, Route: PO, Drug form: TAB, PRN, Dosing Weight 90, kg, PRN Abnormal Lab Result, For NON-ICU Patients Only., Start date: 08/28/16 8:14:00 CDT, Duration: 30 day, Stop date: 09/27/16 8:13:00 CDTNotes: (Same as: Mag-Ox 400) Magnesium oxide [id number] elemental magnesium Dose=____mg magnesium oxide (___mg elemental magnesium) No Longer Active 08/28/2016 [facility] potassium chloride 10 mEq, 100 mL, Route: IVPB, Drug form: INJ, PRN, Dosing Weight 90, kg, PRN Abnormal Lab Result, For NON-ICU Patients Only, Start date: 08/28/16 8:14:00 CDT, Duration: 30 day, Stop date: 09/27/16 8:13:00 CDTNotes: Infuse at a rate of 10 mEq/hr. (Same as: KCL) No Longer Active 08/28/2016 [facility] potassium phosphate + sodium chloride 0.9% INJ 250 mL 30 mmol, 10 mL, Route: IVPB, PRN, Dosing Weight 90, kg, PRN Abnormal Lab Result, For NON-ICU Patients Only., Start date: 08/28/16 8:14:00 CDT, Duration: 30 day, Stop date: 09/27/16 8:13:00 CDTNotes: (Same as: K Phosphate.) 1 mMol phoshate has 1.47 mEq potassium Infuse over 4 hours No Longer Active 08/28/2016 [facility] sodium phosphate + D5W 250 mL 15 mmol, 5 mL, Route: IVPB, PRN, Dosing Weight 90, kg, PRN Abnormal Lab Result, For NON-ICU Patients Only., Start date: 08/28/16 8:14:00 CDT, Duration: 30 day, Stop date: 09/27/16 8:13:00 CDT No Longer Active 08/28/2016 [facility] potassium phosphate-sodium phosphate 250 mg-280 mg-160 mg oral powder for reconstitution 2 pkt, Route: PO, Drug Form: PDR/REC, Dosing Weight 90, kg, PRN, PRN Abnormal Lab Result, For NON-ICU Patients Only, Start date: 08/28/16 8:14:00 CDT, Duration: 30 day, Stop date: 09/27/16 8:13:00 CDTNotes: (Same as: Phos-NaK) Each 1.5 gm pkt has 250mg phosphorous. Mix w/2.5oz water and stir. No Longer Active 08/28/2016 [facility] Merrem 500 mg, Route: IVPB, Drug form: PDR/INJ, ABXQ8H, Dosing Weight 90, kg, CrCL >=50ml/min, Extended infusion, infuse over 3 hours, Start date: 08/27/16 10:00:00 CDT, Duration: 10 day, Stop date: 09/06/16 2:00:00 CDT, ABX Indication: PneumoniaNotes: Same as Merrem MEDICATION WASTE Product Size: 500 mg Product Wasted: ___ mg No Longer Active 08/27/2016 [facility] Diltiazem 30 mg, 1 tab, Route: PO, Drug form: TAB, Q8H, Dosing Weight 90, kg, Start date: 08/27/16 0:00:00 CDT, Duration: 30 day, Stop date: 09/25/16 16:00:00 CDTNotes: (Same as: Cardizem) Before meals No Longer Active 08/27/2016 [facility] Furosemide 40 MG Oral Tablet 80 mg, 2 tab, Route: PO, Drug form: TAB, Q12H, Dosing Weight 90, kg, Start date: 08/26/16 21:00:00 CDT, Duration: 30 day, Stop date: 09/25/16 9:00:00 CDTNotes: (Same as: Lasix) May cause GI upset. Give with food or milk. No Longer Active 08/27/2016 [facility] Diltiazem 125 mg, 25 mL, Rate: Titrate, Start Dose: 5 mg/hr, Titration: 5 mg/hr every hour, Goal(s): Maintain HR Notes: (Same as: Cardizem) No Longer Active 08/26/2016 [facility] Zofran 4 mg, 2 mL, Route: IV, Drug form: INJ, Q6H, Dosing Weight 90, kg, PRN Nausea & Vomiting, Start date: 08/26/16 6:27:00 CDT, Duration: 30 day, Stop date: 09/25/16 6:26:00 CDTNotes: (Same as: Zofran) MEDICATION WASTE Product Size: 4 mg Product Wasted: ___ mg No Longer Active 08/26/2016 [facility] Lactulose 667 MG/ML Oral Solution 10 gm, 15 mL, Route: PO, Drug form: SYRP, BID, Dosing Weight 90, kg, Priority: STAT, Start date: 08/24/16 13:28:00 CDT, Duration: 30 day, Stop date: 09/23/16 9:00:00 CDTNotes: (Same as:Chronulac) No Longer Active 08/24/2016 [facility] Lasix 80 mg, 8 mL, Route: IV, Drug form: INJ, Q8H, Dosing Weight 90, kg, Start date: 08/23/16 16:00:00 CDT, Duration: 30 day, Stop date: 09/22/16 8:00:00 CDTNotes: (Same as: Lasix) MEDICATION WASTE Product Size: 40 mg Product Wasted: ___ mg No Longer Active 08/23/2016 [facility] Prednisone 20 mg, 1 tab, Route: PO, Drug form: TAB, Daily, Dosing Weight 90, kg, Start date: 08/22/16 9:00:00 CDT, Duration: 30 day, Stop date: 09/20/16 9:00:00 CDTNotes: Take with food. No Longer Active 08/22/2016 [facility] Acetylcysteine 200 MG/ML Inhalant Solution 400 mg, 2 mL, Route: NEB, Drug Form: SOLN, Dosing Weight 90, kg, RBID, Start date: 08/19/16 9:30:00 CDT, Stop date: 09/18/16 8:00:00 CDT No Longer Active 08/19/2016 [facility] budesonide-formoterol 160 mcg-4.5 mcg/inh inhalation aerosol with adapter 2 inhalation, Route: INHALATION, Drug Form: AERO/A, BID, Start date: 08/19/16 9:00:00 CDT, Duration: 30 day, Stop date: 09/17/16 17:00:00 CDTNotes: (Same as: Symbicort) WASTE: Aerosol - Return to Pharmacy No Longer Active 08/19/2016 [facility] Budesonide 0.5 mg, 2 mL, Route: NEB, Drug form: SUSP, RBID, Dosing Weight 90, kg, Start date: 08/18/16 8:37:00 CDT, Duration: 30 day, Stop date: 09/17/16 8:00:00 CDTNotes: (Same As: Pulmicort) No Longer Active 08/18/2016 [facility] ertapenem 500 mg, Route: IVPB, [id number], Dosing Weight 90, kg, Start date: 08/17/16 22:00:00 CDT, Duration: 7 day, Stop date: 08/23/16 22:00:00 CDT, ABX Indication: Urinary Tract InfectionNotes: (Same as: INVanz) Refrigerate. NOT COMPATIBLE WITH D5W. Stable in refrigerator for 24 hours MEDICATION WASTE Product Size: 1000 mg Product Wasted: ___ mg No Longer Active 08/18/2016 [facility] meropenem 500 mg, Route: IVPB, ABXQ8H, Dosing Weight 90, kg, CrCL=26 -49 ml/min, Extended infusion, infuse over 3 hours, Start date: 08/17/16 9:00:00 CDT, Duration: 7 day, Stop date: 08/24/16 1:00:00 CDT, ABX In dication: Urinary Tract InfectionNotes: Same as Merrem MEDICATION WASTE Product Size: 500 mg Product Wasted: _0__ mg Inactive 08/17/2016 [facility] sterile water Route: IV, Drug Form: INJ, Daily, Start date: 08/17/16 9:00:00 CDT, Duration: 30 day, Stop date: 09/15/16 9:00:00 CDTNotes: For reconstitution of drugs only Inactive 08/17/2016 [facility] Solu-Medrol 40 mg, 1 mL, Route: IVP, Drug form: INJ, Q12H, Dosing Weight 90, kg, Start date: 08/17/16 9:00:00 CDT, Duration: 30 day, Stop date: 09/15/16 21:00:00 CDTNotes: (Same as:Solu-MEDROL, A-Methapred) No Longer Active 08/17/2016 [facility] Acetazolamide 250 mg, Route: IVP, Drug form: PDR/INJ, Daily, Dosing Weight 90, kg, Start date: 08/17/16 9:00:00 CDT, Duration: 30 day, Stop date: 09/15/16 9:00:00 CDTNotes: (Same as: Diamox) No Longer Active 08/17/2016 [facility] heparin 5,000 unit, 1 mL, Route: SUB-Q, Drug form: INJ, Q12H, Dosing Weight 90, kg, Start date: 08/16/16 21:00:00 CDT, Duration: 30 day, Stop date: 09/15/16 9:00:00 CDTNotes: porcine heparin No Longer Active 08/17/2016 [facility] Lasix 20 mg, 2 mL, Route: IVP, Drug form: INJ, Daily, Dosing Weight 90, kg, Start date: 08/16/16 9:29:00 CDT, Duration: 30 day, Stop date: 09/15/16 9:00:00 CDTNotes: (Same as: Lasix) No Longer Active 08/16/2016 [facility] d50 syringe 25 gm, 50 mL, Route: INJ, Drug Form: INJ, Dosing Weight 90, kg, ONCE, Start date: 08/13/16 19:56:00 CDT, Stop date: 08/13/16 19:56:00 CDT Inactive 08/14/2016 [facility] Insulin regular 5 unit, 0.05 mL, Route: IV, Drug form: INJ, ONCE, Dosing Weight 90, kg, Start date: 08/13/16 19:55:00 CDT, Stop date: 08/13/16 19:55:00 CDTNotes: (Same as: Humulin R and NovoLIN R) WASTE: F/P - Black; E - Municipal Trash Bin (Do not shake) Inactive 08/14/2016 [facility] Albuterol 0.83 MG/ML Inhalant Solution 2.49 mg, 3 mL, Route: INHALATION, Drug form: SOLN, PRN, Dosing Weight 90, kg, PRN Respiratory Protocol, Start date: 08/13/16 16:03:00 CDT, Duration: 30 day, Stop date: 09/12/16 16:02:00 CDTNotes: SEE RT DOCUMENTATION (Same as: Proventil) No Longer Active 08/13/2016 [facility] Kayexalate 30 gm, 120 mL, Route: PO, Drug form: SUSP, ONCE, Dosing Weight 90, kg, Priority: STAT, Start date: 08/13/16 15:35:00 CDT, Stop date: 08/13/16 15:35:00 CDTNotes: (sodium polystyrene sulfonate 15 gm/60 ml TIMOTHY) Shake well before use. (Same as: Kayexalate, SPS) Inactive 08/13/2016 [facility] pantoprazole 40 mg, 1 tab, Route: PO, Drug form: ECTAB, BID, Dosing Weight 90, kg, Start date: 08/13/16 9:00:00 CDT, Duration: 30 day, Stop date: 09/11/16 17:00:00 CDTNotes: Tablet should not be chewed or crushed. (Same as: Protonix) No Longer Active 08/13/2016 [facility] Protonix 40 mg, Route: IVP, Drug form: INJ, BID, Dosing Weight 90, kg, Start date: 08/13/16 9:00:00 CDT, Duration: 30 day, Stop date: 09/11/16 17:00:00 CDTNotes: For IV push reconstitute with 10 ml 0.9% sodium c hloride and push over 2 minutes. (Same as: Protonix) Inactive 08/13/2016 [facility] Sucralfate 100 MG/ML Oral Suspension [Carafate] 1 gm, 1 tab, Route: PO, Drug form: TAB, QID, Dosing Weight 90, kg, Start date: 08/12/16 21:00:00 CDT, Duration: 30 day, Stop date: 09/11/16 17:00:00 CDTNotes: May interfere w/enteral feeds - Take 1 hr before or 2 hr after antacids, dairy pdt, meals & minerals - On empty stomach. For patients unable to swallow tablet, dissolve in 10mL - 30mL of water or juice and stir before giving. (Same As: Vishal jung) No Longer Active 08/13/2016 [facility] NovoLog 4 unit, 0.04 mL, Route: SUB-Q, Drug form: SOLN, TID-Before Meals, Dosing Weight 90, kg, Start date: 08/12/16 11:30:00 CDT, Duration: 30 day, Stop date: 09/11/16 7:30:00 CDTNotes: Roll in palms of hands gently; Do not shake vigorously. (Same as: NovoLOG) "single patient use only" WASTE: F/P - Black; E - Municipal Trash Bin Stable for 28 days at room temperature. Expires in days from Date No Longer Active 08/12/2016 [facility] Insulin, Aspart, Human 15 unit, 0.15 mL, Route: SUB-Q, Drug form: SOLN, TID-Before Meals, Dosing Weight 90, kg, PRN Blood Glucose Results, Start date: 08/11/16 15:02:00 CDT, Duration: 30 day, Stop date: 09/10/16 15:01:00 CDTNotes: Roll in palms of hands gently; Do not shake vigorously. (Same as: NovoLOG) "single patient use only" WASTE: F/P - Black; E - Municipal Trash Bin Stable for 28 days at room temperature. Expires in days from Date No Longer Active 08/11/2016 [facility] Lorazepam 0.25 mg, 0.5 tab, Route: PO, Drug form: TAB, Q8H, Dosing Weight 90, kg, PRN Anxiety, Start date: 08/10/16 20:54:00 CDT, Stop date: 09/09/16 20:53:00 CDTNotes: (Same as: Ativan) No Longer Active 08/11/2016 [facility] Albuterol 0.83 MG/ML Inhalant Solution 2.49 mg, 3 mL, Route: INHALATION, Drug form: SOLN, RQ4H, Dosing Weight 90, kg, Start date: 08/10/16 19:00:00 CDT, Duration: 30 day, Stop date: 09/09/16 15:00:00 CDTNotes: SEE RT DOCUMENTATION (Same as: Proventil) No Longer Active 08/11/2016 [facility] Solu-Medrol 40 mg, 1 mL, Route: IVP, Drug form: INJ, Q8H, Dosing Weight 90, kg, Priority: STAT, Start date: 08/10/16 17:13:00 CDT, Duration: 30 day, Stop date: 09/09/16 16:00:00 CDTNotes: (Same as:Solu-MEDROL, A -Methapred) No Longer Active 08/10/2016 [facility] Protonix 40 mg, 1 tab, Route: PO, Drug form: ECTAB, Before Dinner, Dosing Weight 90, kg, Start date: 08/10/16 16:30:00 CDT, Duration: 30 day, Stop date: 09/08/16 16:30:00 CDTNotes: Tablet should not be chewed or crushed. (Same as: Protonix) No Longer Active 08/10/2016 [facility] Sodium Chloride 0.154 MEQ/ML Injectable Solution 1,000 mL, Rate: 25 ml/hr, Infuse over: 40 hr, Route: IV, Dosing Weight 90 kg, Total Volume: 1,000, Start date: 08/10/16 11:57:00 CDT, Duration: 30 day, Stop date: 09/09/16 11:56:00 CDT Inactive 08/10/2016 [facility] tiotropium 0.018 MG/ACTUAT Inhalant Powder [Spiriva] 18 microgram, 1 inhalation, Route: INHALATION, Drug form: CAP, Daily, Dosing Weight 90, kg, Start date: 08/10/16 9:00:00 CDT, Duration: 30 day, Stop date: 10/08/16 9:00:00 CDTNotes: (Same As: Spiriva). No Longer Active 08/10/2016 [facility] Diovan 160 mg, 1 tab, Route: PO, Drug form: TAB, Daily, Dosing Weight 90, kg, Start date: 08/10/16 9:00:00 CDT, Duration: 30 day, Stop date: 09/08/16 9:00:00 CDTNotes: Same as Diovan No Longer Active 08/10/2016 [facility] Brovana 15 microgram neb Brovana 15 microgram neb, 15 microgram, 2 mL, Drug form: MISC, Route: NEB, BID, 08/10/16 9:00:00 CDT, Stop date: 08/18/16 20:00:00 CDT No Longer Active 08/10/2016 [facility] 24 HR Metoprolol Tartrate 100 MG Extended Release Tablet [Toprol] 100 mg, 1 tab, Route: PO, Drug form: ERTAB, Daily, Start date: 08/10/16 9:00:00 CDT, Duration: 30 day, Stop date: 10/08/16 9:00:00 CDTNotes: (Same as: Toprol XL) May split tab, but do not crush. No Longer Active 08/10/2016 [facility] insulin detemir 25 unit, 0.25 mL, Route: SUB-Q, Drug form: SOLN, Daily, Start date: 08/10/16 9:00:00 CDT, Duration: 30 day, Stop date: 10/08/16 9:00:00 CDTNotes: Same as Levemir Do not hold insulin without contactin g prescriber WASTE: F/P - Black; E - Municipal Trash Bin "single patient use only" No Longer Active 08/10/2016 [facility] 3 ML Insulin Glargine 100 UNT/ML Prefilled Syringe [Lantus] 20 unit, Route: SUB-Q, Drug form: SOLN, Daily, Dosing Weight 90, kg, Start date: 08/10/16 9:00:00 CDT, Duration: 30 day, Stop date: 09/08/16 9:00:00 CDT No Longer Active 08/10/2016 [facility] Doxazosin 2 mg, 2 tab, Route: PO, Drug form: TAB, Daily, Dosing Weight 90, kg, Start date: 08/10/16 9:00:00 CDT, Duration: 30 day, Stop date: 10/08/16 9:00:00 CDTNotes: (Same as: Cardura) No Longer Active 08/10/2016 [facility] Budesonide 0.25 MG/ML Inhalant Solution 0.5 mg, 2 mL, Route: NEB, Drug form: SUSP, BID, Dosing Weight 90, kg, Start date: 08/10/16 9:00:00 CDT, Stop date: 08/18/16 20:00:00 CDTNotes: (Same As: Pulmicort) No Longer Active 08/10/2016 [facility] Vitamin B 12 1,500 microgram, 3 tab, Route: PO, Drug form: TAB, Daily, Dosing Weight 90, kg, Start date: 08/10/16 9:00:00 CDT, Duration: 30 day, Stop date: 10/08/16 9:00:00 CDTNotes: (Same As: Vitamin B12) No Longer Active 08/10/2016 [facility] Brovana 15 microgram, 2 mL, Route: NEB, Drug form: SOLN, BID, Dosing Weight 90, kg, Start date: 08/10/16 9:00:00 CDT, Duration: 30 day, Stop date: 09/08/16 17:00:00 CDT Inactive 08/10/2016 [facility] Amlodipine 10 mg, 2 tab, Route: PO, Drug form: TAB, Daily, Dosing Weight 90, kg, Start date: 08/10/16 9:00:00 CDT, Duration: 30 day, Stop date: 09/08/16 9:00:00 CDTNotes: (Same as: Norvasc) No Longer Active 08/10/2016 [facility] Leflunomide 20mg Leflunomide 20mg, 1 tab, Drug form: MISC, Route: PO, Daily, 08/10/16 9:00:00 CDT, Duration: 30 day, Stop date: 10/08/16 9:00:00 CDT No Longer Active 08/10/2016 [facility] leflunomide 20 mg, Route: PO, Drug form: TAB, Daily, Dosing Weight 90, kg, Start date: 08/10/16 9:00:00 CDT, Duration: 30 day, Stop date: 09/08/16 9:00:00 CDT Inactive 08/10/2016 [facility] Albuterol 0.833 MG/ML / Ipratropium Upper Tract 0.167 MG/ML Inhalant Solution [DuoNeb] 3 ml, Route: NEB, Drug Form: SOLN, Dosing Weight 90, kg, PRN, PRN Respiratory Protocol, Start date: 08/10/16 1:19:00 CDT, Duration: 30 day, Stop date: 10/09/16 1:18:00 CDTNotes: (Same as: Duoneb) No Longer Active 08/10/2016 [facility] Lasix 20 mg, 2 mL, Route: IVP, Drug form: INJ, ONCE, Dosing Weight 90, kg, Start date: 08/10/16 1:19:00 CDT, Stop date: 08/10/16 1:19:00 CDTNotes: (Same as: Lasix) Inactive 08/10/2016 [facility] potassium chloride 40 mEq, 2 tab, Route: PO, Drug form: ERTAB, ONCE, Dosing Weight 90, kg, Start date: 08/09/16 21:31:00 CDT, Stop date: 08/09/16 21:31:00 CDTNotes: (Same as: K-Dur 20) "Do Not Crush" With food and full glass of water Inactive 08/10/2016 [facility] Protonix 40 mg, 1 tab, Route: PO, Drug form: ECTAB, Bedtime, Dosing Weight 90, kg, Start date: 08/09/16 21:00:00 CDT, Duration: 30 day, Stop date: 09/07/16 21:00:00 CDTNotes: Tablet should not be chewed or crushed. (Same as: Protonix) No Longer Active 08/10/2016 [facility] Crestor 10 mg, 2 tab, Route: PO, Drug form: TAB, Bedtime, Dosing Weight 90, kg, Start date: 08/09/16 21:00:00 CDT, Duration: 30 day, Stop date: 10/07/16 21:00:00 CDTNotes: Same as Crestor No Longer Active 08/10/2016 [facility] Lasix 20 mg, 2 mL, Route: IVP, Drug form: INJ, Daily, Dosing Weight 90, kg, Start date: 08/09/16 20:54:00 CDT, Stop date: 09/08/16 23:00:00 CDTNotes: (Same as: Lasix) No Longer Active 08/10/2016 [facility] Insulin, Aspart, Human 4 unit, 0.04 mL, Route: SUB-Q, Drug form: SOLN, Bedtime, Dosing Weight 90, kg, PRN Blood Glucose Results, Start date: 08/09/16 19:50:00 CDT, Duration: 30 day, Stop date: 10/08/16 19:49:00 CDTNotes: Roll in palms of hands gently; Do not shake vigorously. (Same as: NovoLOG) "single patient use only" WASTE: F/P - Black; E - Municipal Trash Bin Stable for 28 days at room temperature. Expires in days from Date No Longer Active 08/10/2016 [facility] Glucagon 1 mg, Route: IM, Drug form: PDR/INJ, PRN, Dosing Weight 90, kg, PRN Blood Glucose Results, Start date: 08/09/16 19:50:00 CDT, Duration: 30 day, Stop date: 10/08/16 19:49:00 CDT No Longer Active 08/10/2016 [facility] Dextrose 50% Syringe 12.5 gm, 25 mL, Route: IVP, Drug Form: INJ, Dosing Weight 90, kg, PRN, PRN Blood Glucose Results, Start date: 08/09/16 19:50:00 CDT, Duration: 30 day, Stop date: 10/08/16 19:49:00 CDT No Longer Active 08/10/2016 [facility] Ipratropium Upper Tract 0.2 MG/ML Inhalant Solution 500 microgram, 2.5 mL, Route: NEB, Drug form: SOLN, QID, Dosing Weight 90, kg, PRN Wheezing, Start date: 08/09/16 19:08:00 CDT, Duration: 30 day, Stop date: 10/08/16 19:07:00 CDTNotes: SEE RT DOCUMENTATION (Same as:Atrovent) No Longer Active 08/10/2016 [facility] Bisacodyl 10 mg, 2 tab, Route: PO, Drug form: ECTAB, Daily, Dosing Weight 90, kg, PRN Constipation, Start date: 08/09/16 19:08:00 CDT, Duration: 30 day, Stop date: 10/08/16 19:07:00 CDTNotes: (Same As: Dulcolax, Correctol) (Do Not Crush) "Do Not Crush" No Longer Active 08/10/2016 [facility] pantoprazole 40 MG Enteric Coated Tablet [Protonix] 40 mg=1 tab, PO, Bedtime, 0 Refill(s) Active 08/09/2016 [facility] Acetylcysteine 200 MG/ML Inhalant Solution 0.8 gm=4 mL, NEB, BID, 0 Refill(s) No Longer Active 08/09/2016 [facility] valsartan 160 MG Oral Tablet [Diovan] 160 mg=1 tab, PO, Daily, 0 Refill(s) No Longer Active 08/09/2016 [facility] Hydrochlorothiazide 12.5 MG Oral Capsule [Microzide] 12.5 mg=1 cap, PO, Daily, 0 Refill(s) No Longer Active 08/09/2016 [facility] leflunomide 20 mg oral tablet 20 mg=1 tab, PO, Daily, 0 Refill(s) No Longer Active 08/09/2016 [facility] 3 ML Insulin Glargine 100 UNT/ML Prefilled Syringe [Lantus] 20 unit, SUB-Q, Daily, 0 Refill(s) No Longer Active 08/09/2016 [facility] Ipratropium Upper Tract 0.2 MG/ML Inhalant Solution 500 microgram=2.5 mL, NEB, QID, PRN Wheezing, 0 Refill(s) Active 08/09/2016 [facility] pantoprazole 40 mg oral granule =1 Pack, PO, Bedtime, # 30 ea, 0 Refill(s) Inactive 08/09/2016 [facility] Humalog 100 units/mL 1 unit, SUB-Q, Daily, 0 Refill(s) No Longer Active 08/09/2016 [facility] Budesonide 0.25 MG/ML Inhalant Solution 0.5 mg=2 mL, NEB, BID, 0 Refill(s) No Longer Active 08/09/2016 [facility] bisacodyl 5 mg oral enteric coated tablet 10 mg=2 tab, PO, Daily, PRN Constipation, 0 Refill(s) Active 08/09/2016 [facility] arformoterol 0.0075 MG/ML Inhalant Solution [Brovana] 15 microgram=2 mL, NEB, BID, # 60 ea, 0 Refill(s) No Longer Active 08/09/2016 [facility] Rosuvastatin calcium 10 MG Oral Tablet [Crestor] 10 mg=1 tab, PO, Bedtime, 0 Refill(s) Active 08/09/2016 [facility] Saccharomyces boulardii lyo 250 MG Oral Capsule [Florastor] 250 mg=1 cap, PO, Daily, PRN for loose stool, 0 Refill(s) No Longer Active 08/09/2016 [facility] metoprolol 100 mg oral tablet, extended release 100 mg=1 tab, PO, Daily, 0 Refill(s) Active 08/09/2016 [facility] cyanocobalamin 500 mcg sublingual tablet 500 microgram=1 tab, SL, Daily, 0 Refill(s) Inactive 08/09/2016 [facility] cyanocobalamin 1000 mcg sublingual tablet 1,500 microgram=1.5 tab, SL, Daily, 0 Refill(s) Active 08/09/2016 [facility] tiotropium 0.018 MG/ACTUAT Inhalant Powder [Spiriva] 18 microgram=1 cap, INHALATION, Daily, 0 Refill(s) Active 08/09/2016 [facility] doxazosin 2 mg oral tablet 2 mg=1 tab, PO, Daily, 0 Refill(s) Active 08/09/2016 [facility] amLODIPine 10 mg oral tablet 10 mg=1 tab, PO, Daily, 0 Refill(s) No Longer Active 08/09/2016 [facility] Saline Flush 0.9% 10 ml, Route: IVP, Drug Form: INJ, Dosing Weight 86.364, kg, PRN, PRN Line Flush, Start date: 08/09/16 16:54:00 CDT, Duration: 30 day, Stop date: 10/08/16 16:53:00 CDTNotes: (Same as: BD Posiflush) No Longer Active 08/09/2016 [facility] Acetaminophen 325 MG / Hydrocodone Bitartrate 5 MG Oral Tablet 1 tab, Route: PO, Drug Form: TAB, Dosing Weight 86.364, kg, Q4H, PRN Pain Score 4-6, Start date: 08/09/16 16:54:00 CDT, Duration: 30 day, Stop date: 10/08/16 16:53:00 CDTNotes: (Same as: Edwards 325/5) Do not exceed 4gm/day of acetaminophen. No Longer Active 08/09/2016 [facility] sodium chloride 0.9% INJ 250 mL 250 mL, Rate: Clinical Project Coordinator for use with blood product administration., Dosing Weight 86.364, kg, Route: IV, Total Volume: 250, Priority: Routine, Start Date: 08/09/16 16:05:00 CDT, Duration: 30 day, Stop date: 09/08/16 16:04:00 CDT, Replace Every: 24 hr No Longer Active 08/09/2016 [facility] Aranesp (Albumin Free) 1 ml Injection Active 300 MCG/ML Injection [place] [facility] Rojas Multivitamins 1 Tablet Orally Active Orally Once a day [place] Jose Rojas Crestor 1 tablet Orally Active 10 MG Orally Once a day [facility] Jose Rojas Spiriva HandiHaler 1 capsule by mouth Inhalation Active 18 MCG Inhalation Once a day [facility] Jose Rojas Vitamin B12 1 tablet Orally Active 100 MCG Orally Once a day Rojas Joes Rojas Rosuvastatin Calcium 1 tablet Orally Active 10 MG Orally Once a day [facility] Jose Rojas Iron 1 tablet Orally Active 25 MG Orally once a day [facility] Jose Rojas Ipratropium-Albuterol 1 puff Inhalation Active 500 mcg Inhalation Four times a day Ro[facility] Jose Rojas Metoprolol & Diet Manage Prod 1 Tablet Orally Active 100 MG Orally Once a day [facility] Jose Rojas Levemir as directed Subcutaneous Active 100 UNIT/ML Subcutaneous [place] Jose Rojas Humalog as directed Subcutaneous Active 100 UNIT/ML Subcutaneous once a day [facility] Jose Rojas Ferrous Sulfate as directed Orally Active 325 MG Orally twice a day [facility] Jose Rojas Furosemide 1 tablet Orally Active 40 MG Orally Once a day [facility] Jose Rojas Amlodipine Besylate-Valsartan 1 tablet Orally Active 5-160 MG Orally Once a day [facility] Jose Rojas Vitamin C 1 Tablet Orally Active 500 MG Orally Once a day Rojas Jose Rjoas Budesonide-Formoterol Fumarate 2 puffs Inhalation Active 0.25- 2ml Inhalation Twice a day [facility] Jose Rojas HydrALAZINE HCl 1 tablet with food Orally Active 25 MG Orally Three times a day Ro[facility] Jose Rojas Advair Diskus 1 puff Inhalation Active 100-50 MCG/DOSE Inhalation every 12 hrs [facility] Jose Rojas Baby Aspirin 1 tablet Orally Active 81 MG Orally Once a day [facility] Jose Rojas Doxazosin Mesylate 1 tablet Orally Active 4 MG Orally Once a day Crystal Rojas Allergies, Adverse Reactions, Alerts Substance Category Reaction Severity Reaction type Status Date Reported Comments Source sulfa Adverse Reaction hives and swelling Adverse Reaction Active 06/06/2017 [facility] penicillin Adverse Reaction hives and swelling Adverse Reaction Active 06/06/2017 [facility] enbrel Adverse Reaction rash Adverse Reaction Active 06/06/2017 [facility] vioxx other anti-inflammatories Adverse Reaction not effective Adverse Reaction Active 06/06/2017 [facility] Methotrexate Adverse Reaction not effective Adverse Reaction Active 06/06/2017 [facility] penicillins Assertion Drug allergy Active [facility] sulfa drugs Assertion Drug allergy Active [facility] Immunizations Immunization Date Given Site Status Last Updated Comments Source Results Order Name Results Value Reference Range Date Interpretation Comments Source CHEM PANEL eGFR 34 mL/min/1.73m2 09/02/2016 Result Comment: The eGFR is calculated using the [...] from the National Kidney Disease Education Program (NKDEP) which additionally recommends that when the eGFR is used in patients with extremes of body mass index for purposes of drug dosing, the eGFR should be multiplied by the estimated BMI. [facility] CHEM PANEL Potassium Lvl 3.0 meq/L 3.5 - 5.1 09/02/2016 Result Comment: Critical Result(s) called to _mase ty at 09/02/2016 05:06 by hp. Read back OK. [facility] CHEM PANEL Chloride Lvl 91 meq/L 95 - 109 09/02/2016 [facility] CHEM PANEL CO2 >45 mEq/L 24 - 32 09/02/2016 Result Comment: Critical Result(s) called to _mase ty at 09/02/2016 05:06 by hp. Read back OK. [facility] CHEM PANEL Calcium Lvl 8.1 mg/dL 8.5 - 10.5 09/02/2016 [facility] CHEM PANEL Creatinine Lvl 1.50 mg/dL 0.50 - 1.40 09/02/2016 [facility] CHEM PANEL Sodium Lvl 143 meq/L 135 - 145 09/02/2016 [facility] CHEM PANEL BUN 76 mg/dL 7 - 22 09/02/2016 [facility] CHEM PANEL Glucose Lvl 94 mg/dL 70 - 99 09/02/2016 [facility] HEMATOLOGY MPV 9.5 fL 7.4 - 10.4 09/02/2016 [facility] HEMATOLOGY Platelet 128 K/CMM 133 - 450 09/02/2016 [facility] HEMATOLOGY RDW 14.8 % 11.5 - 14.5 09/02/2016 [facility] HEMATOLOGY MCHC 32.3 g/dL 32.0 - 36.0 09/02/[address] [facility] MCH 29.8 pg 27.0 - 31.0 09/02/[address] [facility] MCV 92.1 fL 80.0 - 98.0 09/02/[address] [facility] Hct 26.1 % 36.0 - 48.0 09/02/[address] [facility] Hgb 8.5 g/dL 12.0 - 16.0 09/02/[address] [facility] RBC 2.84 M/CMM 4.20 - 5.40 09/02/2016 [facility] HEMATOLOGY WBC 5.8 K/CMM 3.7 - 10.4 09/02/2016 [facility] ELECTROLYTES CO2 >45 mEq/L 24 - 32 09/01/2016 Result Comment: Critical Result(s) called to Kaur Louise at 09/01/2016 09:13 by ka. Read back OK. [facility] ELECTROLYTES eGFR 34 mL/min/1.73m2 09/01/2016 Result Comment: The eGFR is calculated using the [...] from the National Kidney Disease Education Program (NKDEP) which additionally recommends that when the eGFR is used in patients with extremes of body mass index for purposes of drug dosing, the eGFR should be multiplied by the estimated BMI. [facility] ELECTROLYTES Calcium Lvl 8.5 mg/dL 8.5 - 10.5 09/01/2016 [facility] ELECTROLYTES Chloride Lvl 91 meq/L 95 - 109 09/01/2016 [facility] ELECTROLYTES Potassium Lvl 3.5 meq/L 3.5 - 5.1 09/01/2016 [facility] ELECTROLYTES Sodium Lvl 143 meq/L 135 - 145 09/01/2016 [facility] ELECTROLYTES Creatinine Lvl 1.50 mg/dL 0.50 - 1.40 09/01/2016 [facility] ELECTROLYTES BUN 74 mg/dL 7 - 22 09/01/2016 [facility] ELECTROLYTES Glucose Lvl 100 mg/dL 70 - 99 09/01/[address] [facility] MPV 9.6 fL 7.4 - 10.4 09/01/[address] [facility] RBC 2.88 M/CMM 4.20 - 5.40 09/01/[address] [facility] Hct 26.6 % 36.0 - 48.0 09/01/[address] [facility] Hgb 8.5 g/dL 12.0 - 16.0 09/01/[address] [facility] MCHC 32.1 g/dL 32.0 - 36.0 09/01/[address] [facility] MCH 29.6 pg 27.0 - 31.0 09/01/[address] [facility] MCV 92.3 fL 80.0 - 98.0 09/01/[address] [facility] RDW 14.8 % 11.5 - 14.5 09/01/[address] [facility] Platelet 129 K/CMM 133 - 450 09/01/[address] [facility] WBC 5.5 K/CMM 3.7 - 10.4 09/01/[address] [facility] Segs-Bands # 3.9 K/CMM 1.5 - 8.1 09/01/[address] [facility] Basophils 0.3 % 0.0 - 1.0 09/01/[address] [facility] Lymphocytes # 0.9 K/CMM 1.0 - 5.5 09/01/[address] [facility] Segs 71.8 % 45.0 - 75.0 09/01/[address] [facility] Eosinophils 2.4 % 0.0 - 4.0 09/01/[address] [facility] Monocytes 8.2 % 2.0 - 12.0 09/01/2016 [facility] HEMATOLOGY Monocytes # 0.4 K/CMM 0.0 - 0.8 09/01/2016 [facility] HEMATOLOGY Lymphocytes 17.3 % 20.0 - 40.0 09/01/2016 [facility] HEMATOLOGY Eosinophils # 0.1 K/CMM 0.0 - 0.5 09/01/2016 [facility] CHEM PANEL eGFR 37 mL/min/1.73m2 08/29/2016 Result Comment: The eGFR is calculated using the [...] from the National Kidney Disease Education Program (NKDEP) which additionally recommends that when the eGFR is used in patients with extremes of body mass index for purposes of drug dosing, the eGFR should be multiplied by the estimated BMI. [facility] CHEM PANEL Chloride Lvl 91 meq/L 95 - 109 08/29/2016 [facility] CHEM PANEL Potassium Lvl 3.8 meq/L 3.5 - 5.1 08/29/2016 [facility] CHEM PANEL Calcium Lvl 8.2 mg/dL 8.5 - 10.5 08/29/2016 [facility] CHEM PANEL Creatinine Lvl 1.40 mg/dL 0.50 - 1.40 08/29/2016 [facility] CHEM PANEL Sodium Lvl 141 meq/L 135 - 145 08/29/2016 [facility] CHEM PANEL Glucose Lvl 170 mg/dL 70 - 99 08/29/2016 [facility] CHEM PANEL BUN 60 mg/dL 7 - 22 08/29/2016 [facility] CHEM PANEL CO2 >45 mEq/L 24 - 32 08/29/2016 Result Comment: Critical Result(s) called to Tiesha Curry at 08/29/2016 12:40 by Nilda Allred. Read back OK. [facility] CHEM PANEL Magnesium Lvl 2.0 mg/dL 1.8 - 2.4 08/29/2016 [facility] HEMATOLOGY RDW 14.7 % 11.5 - 14.5 08/28/2016 [facility] HEMATOLOGY MPV 11.2 fL 7.4 - 10.4 08/28/2016 [facility] HEMATOLOGY Platelet 95 K/CMM 133 - 450 08/28/2016 [facility] HEMATOLOGY RBC 2.84 M/CMM 4.20 - 5.40 08/28/[address] [facility] MCHC 31.4 g/dL 32.0 - 36.0 08/28/[address] [facility] MCH 29.5 pg 27.0 - 31.0 08/28/[address] [facility] Hgb 8.4 g/dL 12.0 - 16.0 08/28/[address] [facility] MCV 94.1 fL 80.0 - 98.0 08/28/2016 [facility] HEMATOLOGY Hct 26.7 % 36.0 - 48.0 08/28/2016 [facility] HEMATOLOGY WBC 7.9 K/CMM 3.7 - 10.4 08/28/2016 [facility] HEMATOLOGY Eosinophils 1.5 % 0.0 - 4.0 08/28/2016 [facility] HEMATOLOGY Basophils 0.4 % 0.0 - 1.0 08/28/2016 [facility] HEMATOLOGY Monocytes 9.6 % 2.0 - 12.0 08/28/[address] [facility] Monocytes # 0.8 K/CMM 0.0 - 0.8 08/28/2016 [facility] HEMATOLOGY Lymphocytes # 0.8 K/CMM 1.0 - 5.5 08/28/2016 [facility] HEMATOLOGY Segs-Bands # 6.2 K/CMM 1.5 - 8.1 08/28/[address] [facility] Eosinophils # 0.1 K/CMM 0.0 - 0.5 08/28/2016 [facility] HEMATOLOGY Segs 78.1 % 45.0 - 75.0 08/28/2016 [facility] HEMATOLOGY Lymphocytes 10.4 % 20.0 - 40.0 08/28/2016 [facility] HEMATOLOGY Lymphocytes 5.8 % 20.0 - 40.0 08/27/2016 [facility] HEMATOLOGY Segs 85.1 % 45.0 - 75.0 08/27/2016 [facility] HEMATOLOGY Segs-Bands # 11.9 K/CMM 1.5 - 8.1 08/27/2016 [facility] HEMATOLOGY Monocytes # 1.1 K/CMM 0.0 - 0.8 08/27/2016 [facility] HEMATOLOGY Lymphocytes # 0.8 K/CMM 1.0 - 5.5 08/27/2016 [facility] HEMATOLOGY Basophils 0.2 % 0.0 - 1.0 08/27/2016 [facility] HEMATOLOGY Eosinophils 0.8 % 0.0 - 4.0 08/27/2016 [facility] HEMATOLOGY Monocytes 8.1 % 2.0 - 12.0 08/27/[address] [facility] Eosinophils # 0.1 K/CMM 0.0 - 0.5 08/27/[address] [facility] Heparin Ab(CESARIO) Negative (08/27/16 5:27 AM) Negative 08/27/2016 [facility] HEMATOLOGY Pos CO Value 0.448 08/27/[address] [facility] Pat Od Value 0.072 08/27/2016 [facility] CARDIAC ENZYMES Total CK 41 unit/L 12 - 191 08/26/2016 [facility] CARDIAC ENZYMES Troponin-I 0.23 ng/mL 0.00 - 0.40 08/26/2016 [facility] CHEM PANEL Phosphorus 3.8 mg/dL 2.5 - 4.5 08/24/2016 [facility] CHEM PANEL Magnesium Lvl 2.2 mg/dL 1.8 - 2.4 08/24/2016 [facility] CHEM PANEL Alk Phos 41 unit/L 39 - 136 08/24/2016 [facility] CHEM PANEL AST 17 unit/L 0 - 37 08/24/2016 [facility] CHEM PANEL ALT 23 unit/L 0 - 65 08/24/2016 [facility] CHEM PANEL A/G Ratio 0.9 0.7 - 1.6 08/24/2016 [facility] CHEM PANEL Globulin 2.8 g/dL 2.7 - 4.2 08/24/2016 [facility] CHEM PANEL Bili Total 0.4 mg/dL 0.2 - 1.3 08/24/2016 [facility] CHEM PANEL Total Protein 5.4 g/dL 6.4 - 8.4 08/24/2016 [facility] CHEM PANEL Albumin Lvl 2.6 g/dL 3.5 - 5.0 08/24/2016 [facility] CHEM PANEL B/C Ratio 41 6 - 25 08/24/2016 [facility] CHEM PANEL AGAP 5.2 meq/L 10.0 - 20.0 08/24/2016 [facility] CHEM PANEL Ammonia 34.0 umol/L <=45.0 uMol/L 08/24/[address] [facility] Stomatocyte Moderate *ABN* (08/24/16 4:00 PM) None Seen 08/24/2016 [facility] HEMATOLOGY Hypochrom 1+ (08/24/16 4:00 PM) None Seen 08/24/2016 [facility] HEMATOLOGY Plt Morph Clumped (08/24/16 4:00 PM) 08/24/2016 [facility] Chest wo contrast CT Chest wo contrast CT EXAM: CT chest HISTORY: Worsening hypoxemia COMPARISON: Chest radiograph 08/23/2016 TECHNIQUE: Axial images of the chest with sagittal and coronal reformats. No contrast. DLP: [id number] FINDINGS: Motion artifact. Patchy airspace disease throughout both lungs may reflect pulmonary edema or pneumonia. Small - moderate pleural effusion on the right and small effusion on the left with compressive atelectasis of the adjacent lower lungs. Moderate cardiomegaly, coronary artery calcifications and calcification of the mitral annulus. Correlate for heart failure. Few mildly prominent mediastinal lymph nodes are nonspecific. SL: [id number] 08/23/2016 - - Read by: Boogie Maldonado MD Dictated Date/time: 08/23/16 13:07 Electronically Signed by: Boogie Maldonado MD 08/23/16 13:19 FINAL REPORT [facility] Chest 1view DX Chest 1view DX PROCEDURE: Chest, 1 view on 08/23/2016 at 0945 hours. INDICATION: Absent breath sounds. Hypoxemia. COMPARISON: Chest radiographs dated 08/18/2016 and 08/13/2016. FINDINGS: Minimal left pleural effusion. Small right pleural effusion. Minimal left pleural effusion appears stable and small right pleural effusion has increased since most recent chest radiograph. Right basilar density has increased. There is diffuse interstitial prominence. Interstitial density is most prominent in the right perihilar midlung and left base. There is mixed interstitial alveolar density in the right lower chest. Pulmonary opacities have progressed. Linear left perihilar atelectasis has developed. Cardiac silhouette is enlarged. Mild aortic calcifications. IMPRESSION: 1. Stable enlarged cardiac silhouette with progression of bilateral interstitial and alveolar pulmonary opacities and progression of pleural effusions, more so on the right side. The appearance and distribution is most compatible with progression of pulmonary edema. Acute infiltrates not excluded. SL: [id number] 08/23/2016 - - Read by: Zeferino Montero MD Dictated Date/time: 08/23/16 10:05 Electronically Signed by: Zeferino Montero MD 08/23/16 10:07 FINAL REPORT [facility] ELECTROLYTES AGAP 6.3 meq/L 10.0 - 20.0 08/22/2016 [facility] CHEM PANEL Magnesium Lvl 2.3 mg/dL 1.8 - 2.4 08/19/2016 [facility] ELECTROLYTES AGAP 7.8 meq/L 10.0 - 20.0 08/19/2016 [facility] Chest 1view DX Chest 1view DX Patient Name: JAMES BLANCHARD : 1940; Age: 75 years y/o Female MR: [id number] * CHEST, portable, 1 view HISTORY: Hypoxia. COMPARISON: 08/13/2016. Studies of 08/10/2016 and 02/24/2007 were reviewed. IMPRESSION: 1. Slightly improved aeration in the lung bases, otherwise, no significant change the prior study. 2. Mild to moderate cardiomegaly and mild pulmonary vascular redistribution, probable mild congestive changes. 3. Mild bibasilar atelectasis and probable very small pleural effusions. 4. The regional skeleton is unremarkable. SL: [id number] 08/18/2016 - - Read by: Jesus Paulino MD Dictated Date/time: 08/18/16 08:56 Electronically Signed by: Jesus Paulino MD 08/18/16 08:58 FINAL REPORT [facility] CHEM PANEL Phosphorus 3.2 mg/dL 2.5 - 4.5 08/16/2016 [facility] CARDIAC ENZYMES BNP 244 pg/mL <=100 pg/mL 08/15/2016 [facility] URINE CHEM U Sodium 6 meq/L 08/15/2016 [facility] URINE CHEM U Urea 638 mg/dL 08/15/2016 [facility] URINE CHEM U Prot/Creat 1.6 08/15/2016 [facility] URINE CHEM U Eos None Seen (08/14/16 9:08 PM) None Seen 08/15/2016 [facility] URINE CHEM U Creatinine 52.00 mg/dL 08/15/2016 [facility] URINE CHEM U Protein 83.0 mg/dL 08/15/2016 [facility] Retroperitoneal Complete US Retroperitoneal Complete US BILATERAL RENAL ULTRASOUND: HISTORY: Acute kidney injury. FINDINGS: The right kidney is 10.2 cm in length and 4.2 x 4.2 cm in transverse dimension. The left kidney is 9.5 cm in length and 5.2 x 5.0 cm in transverse dimension. There is normal thickness and echogenicity of the renal parenchyma. There is a 1.5 cm cyst in the lower pole of the right kidney. Mild perinephric edema is noted. There is no evidence of mass, hydronephrosis, or calculi. Satisfactory qualitative color-flow is demonstrated bilaterally. There is small volume urine in the bladder with mild thickening of the bladder wall. IMPRESSION: 1. Mild perinephric edema. 2. No other significant ultrasound abnormalities of the kidneys. [id number] 08/13/2016 - - Read by: Fred Saab MD Dictated Date/time: 08/13/16 15:54 Electronically Signed by: Fred Saab MD 08/13/16 15:57 FINAL REPORT [facility] Chest 1view DX Chest 1view DX Portable chest: The cardiac silhouette is enlarged. The pulmonary vasculature appears normal. There are stable nonspecific interstitial changes in the lungs and left suprahilar subsegmental atelectasis or scarring, unchanged from the recent exams. There is mild right basilar subsegmental atelectasis or fluid. There are no other significant pleural abnormalities. There is no other significant change. [id number] 08/13/2016 - - Read by: Fred Saab MD Dictated Date/time: 08/13/16 07:36 Electronically Signed by: Fred Saab MD 08/13/16 07:37 FINAL REPORT [facility] URINE AND STOOL UA Leuk Est Negative (08/12/16 8:55 PM) Negative 08/13/2016 [facility] URINE AND STOOL UA Urobilinogen 0.2 EU/dL 0.1 - 1.0 08/13/2016 [facility] URINE AND STOOL UA Nitrite Negative (08/12/16 8:55 PM) Negative 08/13/2016 [facility] URINE AND STOOL UA Blood Small *ABN* (08/12/16 8:55 PM) Negative 08/13/2016 [facility] URINE AND STOOL UA Bili Negative *NA* (08/12/16 8:55 PM) Negative 08/13/2016 [facility] URINE AND STOOL UA Glucose Negative (08/12/16 8:55 PM) Negative 08/13/2016 [facility] URINE AND STOOL UA Protein 100 mg/dL Negative mg/dL 08/13/2016 [facility] URINE AND STOOL UA pH 6.0 5.0 - 8.0 08/13/2016 [facility] URINE AND STOOL UA Spec Grav 1.020 <=1.030 08/13/2016 [facility] URINE AND STOOL UA Ketones Negative *NA* (08/12/16 8:55 PM) Negative 08/13/2016 [facility] URINE AND STOOL UA Color Yellow *NA* (08/12/16 8:55 PM) Yellow 08/13/2016 [facility] URINE AND STOOL UA Turbidity Clear (08/12/16 8:55 PM) Clear 08/13/2016 [facility] CHEM PANEL Phosphorus 3.4 mg/dL 2.5 - 4.5 08/12/2016 [facility] HEMATOLOGY Baso Stipplin Moderate *ABN* (08/12/16 9:49 AM) None Seen 08/12/2016 [facility] HEMATOLOGY Stomatocyte Moderate *ABN* (08/12/16 9:49 AM) None Seen 08/12/2016 [facility] HEMATOLOGY Anisocyte 1+ *ABN* (08/12/16 9:49 AM) None Seen 08/12/2016 [facility] HEMATOLOGY Plt Morph Normal (08/12/16 9:49 AM) 08/12/2016 [facility] HEMATOLOGY Hypochrom 1+ (08/12/16 9:49 AM) None Seen 08/12/2016 [facility] CARDIAC ENZYMES Troponin-I 0.03 ng/mL 0.00 - 0.40 08/12/2016 [facility] CARDIAC ENZYMES CK MB 2.0 ng/mL 0.5 - 3.6 08/12/2016 [facility] Chest 1view DX Chest 1view DX Study: Chest 1view DX Clinical Indication: Heart failure - respiartory distress Comparison: Chest x-ray from 08/10/2016 FINDINGS: Cardiac silhouette is mildly enlarged. Left suprahilar scarring is stable. Coarse interstitial markings throughout the remaining lungs are again seen. Trace pleural effusions are suspected. No pneumothorax is noted. The osseous structures are unremarkable. IMPRESSION: Stable exam of the chest SL: [id number] 08/12/2016 - - Read by: Michelet Padgett MD Dictated Date/time: 08/12/16 09:57 Electronically Signed by: Michelet Padgett MD 08/12/16 09:58 FINAL REPORT [facility] URINE AND STOOL Occult Bld Stl Negative (08/11/16 3:14 PM) Negative 08/11/2016 [facility] CHEM PANEL Globulin 3.5 g/dL 2.7 - 4.2 08/11/2016 [facility] CHEM PANEL Total Protein 5.9 g/dL 6.4 - 8.4 08/11/2016 [facility] CHEM PANEL Albumin Lvl 2.4 g/dL 3.5 - 5.0 08/11/2016 [facility] CHEM PANEL Bili Total 0.4 mg/dL 0.2 - 1.3 08/11/2016 [facility] CHEM PANEL Alk Phos 50 unit/L 39 - 136 08/11/2016 [facility] CHEM PANEL AST 13 unit/L 0 - 37 08/11/2016 [facility] CHEM PANEL A/G Ratio 0.7 0.7 - 1.6 08/11/2016 [facility] CHEM PANEL ALT 13 unit/L 0 - 65 08/11/2016 [facility] CHEM PANEL B/C Ratio 25 6 - 25 08/11/2016 [facility] HEMATOLOGY PT 14.3 s 12.0 - 14.7 08/11/2016 [facility] HEMATOLOGY PTT 41.0 s 22.9 - 35.8 08/11/2016 [facility] HEMATOLOGY INR 1.09 0.85 - 1.17 08/11/2016 [facility] Chest 1view DX Chest 1view DX Chest 1view DX CLINICAL HISTORY: - [facility] - dyspnea COMPARISON: [id number] FINDINGS/IMPRESSION: Limited AP portable study. Support Lines/Devices: none Lungs: There is mild increase in reticular opacities throughout both lungs more prominent at the lung bases. There is likely superimposed bibasilar scarring and/or atelectasis. There is mild blunting of the costophrenic sulci unchanged from previous study. No large effusion is present on either side. Cardiomediastinum: Stable enlargement of cardiac silhouette. Bone and Soft Tissues: No acute bony abnormality is evident. Multiple EKG leads and other wires project over the patient's chest. SL: [id number] 08/10/2016 - - Read by: Robby Magdaleno MD Dictated Date/time: 08/10/16 17:54 Electronically Signed by: Robby Magdaleno MD 08/10/16 17:56 FINAL REPORT [facility] ANEMIA STUDY UIBC 231 ug/dl 110 - 370 08/10/2016 [facility] ANEMIA STUDY % [place] Fe 13 % 12 - 57 08/10/2016 [facility] ANEMIA STUDY Iron 34 ug/dl 30 - 160 08/10/2016 [facility] ANEMIA STUDY TIBC 265 ug/dl 228 - 428 08/10/2016 [facility] ANEMIA STUDY Ferritin Lvl 334 ng/mL 5 - 204 08/10/2016 [facility] BLOOD BANK RESULTS RBC product Product available 1 (08/09/16 4:05 PM) 08/09/2016 Result Comment: 08/09/2016 16:55 [id number] KLS notified Lisseth 08/09/2016 16:55 [facility] BLOOD BANK RESULTS ABO/Rh B POS 08/09/2016 [facility] BLOOD BANK RESULTS Antibody Scrn Negative (08/09/16 2:03 PM) 08/09/2016 [facility] CARDIAC ENZYMES CK MB Index 1.7 0.0 - 2.5 08/09/2016 [facility] CARDIAC ENZYMES BNP 198 pg/mL <=100 pg/mL 08/09/2016 [facility] CARDIAC ENZYMES CK MB 1.0 ng/mL 0.5 - 3.6 08/09/2016 [facility] CARDIAC ENZYMES Troponin-I 0.03 ng/mL 0.00 - 0.40 08/09/2016 [facility] CARDIAC ENZYMES Total CK 58 unit/L 12 - 191 08/09/2016 [facility] CHEM PANEL Lipase Lvl 60 unit/L 73 - 393 08/09/2016 [facility] CHEM PANEL Albumin Lvl 2.8 g/dL 3.5 - 5.0 08/09/2016 [facility] CHEM PANEL AST 14 unit/L 0 - 37 08/09/2016 [facility] CHEM PANEL Bili Total 0.2 mg/dL 0.2 - 1.3 08/09/2016 [facility] CHEM PANEL Alk Phos 55 unit/L 39 - 136 08/09/2016 [facility] CHEM PANEL Total Protein 6.3 g/dL 6.4 - 8.4 08/09/2016 [facility] CHEM PANEL ALT 12 unit/L 0 - 65 08/09/2016 [facility] CHEM PANEL A/G Ratio 0.8 0.7 - 1.6 08/09/2016 [facility] CHEM PANEL Globulin 3.5 g/dL 2.7 - 4.2 08/09/2016 [facility] CHEM PANEL B/C Ratio 24 6 - 25 08/09/2016 [facility] HEMATOLOGY INR 0.98 0.85 - 1.17 08/09/2016 [facility] HEMATOLOGY PT 13.2 s 12.0 - 14.7 08/09/2016 [facility] URINE AND STOOL UA Urobilinogen <=1.0 mg/dL 0.1 - 1.0 08/09/2016 [facility] URINE AND STOOL UA Color Ltyellow 08/09/2016 [facility] URINE AND STOOL UA Sq Epi Occasional /LPF Few /LPF 08/09/2016 [facility] URINE AND STOOL UA RBC 3 /HPF 0 - 2 08/09/2016 [facility] URINE AND STOOL UA WBC 1 /HPF 0 - 5 08/09/2016 [facility] URINE AND STOOL UA Hyal Cast 4 /LPF 0 - 2 08/09/2016 [facility] URINE AND STOOL UA Bacteria Occasional /HPF None Seen /HPF 08/09/2016 [facility] URINE AND STOOL UA Leuk Est Negative (08/09/16 2:03 PM) Negative 08/09/2016 [facility] URINE AND STOOL UA Nitrite Negative (08/09/16 2:03 PM) Negative 08/09/2016 [facility] URINE AND STOOL UA Ketones Negative mg/dL Negative mg/dL 08/09/2016 [facility] URINE AND STOOL UA Blood Negative (08/09/16 2:03 PM) Negative 08/09/2016 [facility] URINE AND STOOL UA Bili Negative *NA* (08/09/16 2:03 PM) Negative 08/09/2016 [facility] URINE AND STOOL UA Glucose Negative mg/dL Negative mg/dL 08/09/2016 [facility] URINE AND STOOL UA Protein 100 mg/dL Negative mg/dL 08/09/2016 [facility] URINE AND STOOL UA Turbidity Clear (08/09/16 2:03 PM) Clear 08/09/2016 [facility] URINE AND STOOL UA Spec Grav 1.010 <=1.030 08/09/2016 [facility] URINE AND STOOL UA pH 6.0 5.0 - 8.0 08/09/2016 [facility] Chest 1view DX Chest 1view DX Chest 1view DX CLINICAL HISTORY: - weak COMPARISON: 02/24/2007 FINDINGS/IMPRESSION: Limited AP portable study. Support Lines/Devices: none Lungs: Mild pulmonary hyperinflation. Generalized prominence of the interstitium. Bibasilar scarring. No consolidation. Blunting of right costophrenic sulcus is likely related to pleural parenchymal scarring. No large effusion is evident on either side. Cardiomediastinum: Mild enlargement of cardiac silhouette. No pulmonary edema. Bone and Soft Tissues: No acute bony abnormality is evident. Multiple EKG leads and other wires project over the patient's chest. SL: [id number] 08/09/2016 - - Read by: Robby Magdaleno MD Dictated Date/time: 08/09/16 14:27 Electronically Signed by: Robby Magdaleno MD 08/09/16 14:29 FINAL REPORT [facility] Vital Signs Vital Sign Value Date Comments Source Weight 155 06/06/2017 [facility] Height 63 06/06/2017 [facility] Temperature Oral (F) 98.1 F 06/06/2017 [facility] Heart Rate 72 06/06/2017 [facility] Diastolic (mm Hg) 68 06/06/2017 [facility] Systolic (mm Hg) 130 06/06/2017 [facility] Temperature Oral (F) 97.7 F 09/02/2016 [facility] Respitory Rate 17 09/02/2016 [facility] Heart Rate 78 09/02/2016 [facility] Systolic (mm Hg) 118 09/02/2016 [facility] Diastolic (mm Hg) 57 09/02/2016 [facility] Respitory Rate 17 09/02/2016 [facility] Temperature Oral (F) 98.1 F 09/02/2016 [facility] Heart Rate 70 09/02/2016 [facility] Systolic (mm Hg) 134 09/02/2016 [facility] Diastolic (mm Hg) 62 09/02/2016 [facility] Respitory Rate 18 09/02/2016 [facility] Temperature Oral (F) 97.9 F 09/02/2016 [facility] Heart Rate 70 09/02/2016 [facility] Systolic (mm Hg) 129 09/02/2016 [facility] Diastolic (mm Hg) 59 09/02/2016 [facility] BMI Calculated 34.06 08/09/2016 [facility] Weight 90 08/09/2016 [facility] Height 162.56 cm 08/09/2016 [facility] Weight 86.364 08/09/2016 [facility] BMI Calculated 32.68 08/09/2016 [facility] Height 162.56 cm 08/09/2016 [facility] Encounters Location Location Details Encounter Type Encounter Number Reason For Visit Attending Provider ADM Date DC Date Status Source [facility] Inpatient [id number] Priyanka Mcdonalddaniele 08/09/2016 09/02/2016 [facility] Procedures Procedure Code Date Perfomer Comments Source section [id number] [facility] Cholecystectomy [id number] [facility] Procedure on knee<sup>1</sup> [id number] Total knee replacement 2009 [facility]
--- OUTSIDE RECORDS SUMMARY | 2018-01-11 11:01 | XMS REPORT ---
Author Lencho Reyes [facility] [place] eClinicalWorks Address Unknown Phone Unavailable Care Team Providers Care Manager People Name Role Phone Lencho Rojas CP Unavailable Allergies, Adverse Reactions, Alerts Substance Reaction Event Type sulfa hives and swelling Drug Allergy penicillin hives and swelling Drug Allergy enbrel rash Non Drug Allergy vioxx other anti-inflammatories not effective Non Drug Allergy Methotrexate not effective Non Drug Allergy Problems Problem Type Condition Code Onset Dates Condition Status Assessment Chronic respiratory failure with hypoxia J96.11 Active Assessment Other assisted (current) drug therapy Z79.899 Active Assessment Chronic obstructive pulmonary disease, unspecified COPD type J44.9 Active Problem Chronic obstructive pulmonary disease, unspecified COPD type J44.9 Active Problem Trochanteric bursitis of right hip M70.61 Active Problem Chronic respiratory failure with hypoxia J96.11 Active Problem 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.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 Active Assessment 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 Active Problem Osteopenia M85.80 Active Problem 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 Active Medications Medication Code System Code Instructions Start Date End Date Status Dosage Aranesp (Albumin Free) [facility] 03782036758 300 MCG/ML Injection Active 1 ml Multivitamins [facility] 68896908779 Orally Once a day Active 1 Tablet Crestor [facility] 96458383779 10 MG Orally Once a day Active 1 tablet Spiriva HandiHaler [facility] 56153897885 18 MCG Inhalation Once a day Active 1 capsule by mouth Vitamin B12 [facility] 26545770432 100 MCG Orally Once a day Active 1 tablet Leflunomide [facility] 79660510002 20 MG Orally Once a day June 06, 2017 Active 1 tablet Rosuvastatin Calcium [facility] 46435739054 10 MG Orally Once a day Active 1 tablet Iron [facility] [address]-37 25 MG Orally once a day Active 1 tablet Ipratropium-Albuterol [facility] [address]-98 500 mcg Inhalation Four times a day Active 1 puff Metoprolol & Diet Manage Prod NDC 0 100 MG Orally Once a day Active 1 Tablet Levemir [facility] 28998202974 100 UNIT/ML Subcutaneous Active as directed Humalog [facility] 93452209517 100 UNIT/ML Subcutaneous once a day Active as directed Ferrous Sulfate [facility] [address]-41 325 MG Orally twice a day Active as directed Furosemide [facility] 40076831865 40 MG Orally Once a day Active 1 tablet Amlodipine Besylate-Valsartan [facility] 49864621100 5-160 MG Orally Once a day Active 1 tablet Vitamin C [facility] 70377811781 500 MG Orally Once a day Active 1 Tablet Budesonide-Formoterol Fumarate [facility] [address]-32 0.25-2ml Inhalation Twice a day Active 2 puffs HydrALAZINE HCl [facility] 28615448013 25 MG Orally Three times a day Active 1 tablet with food Advair Diskus [facility] 45961213819 100-50 MCG/DOSE Inhalation every 12 hrs Active 1 puff Baby Aspirin [facility] 43264100605 81 MG Orally Once a day Active 1 tablet Doxazosin Mesylate [facility] 19445478826 4 MG Orally Once a day Active 1 tablet Vital Signs Date/Time: June 06, 2017 BMI 27.45 Index Weight 155 lbs Height 63 in Temperature 98.1 F Cardiac Monitoring Heart Rate 72 /min Blood Pressure Diastolic 68 mm Hg Blood Pressure Systolic 130 mm Hg Results No Known Results Summary Purpose eClinicalWorks Submission
--- NOTE | 2018-01-11 11:22 | Diagnostic Imaging Report ---
PROCEDURE:FINGER LT - HOPD COMPARISON:None. INDICATIONS:s/p fall, deformity FINDINGS:Complete dorsal dislocation of the fifth proximal interphalangeal joint. No associated displaced fracture. Remaining osseous structures are intact. Overlying soft tissue swelling. CONCLUSION: Acute dorsal dislocation fifth proximal interphalangeal joint. Dictated by: Fred De Santiago M.D. on 01/11/2018 at 11:31 Electronically approved by: Fred De Santiago M.D. on 01/11/2018 at 11:31
--- NOTE | 2018-01-11 12:05 | Diagnostic Imaging Report ---
Radiographs of the left fifth finger - 3 views 01/11/2018 at 1142 hours HISTORY: Pain. Status post reduction. COMPARISON: 01/11/2018 at 1107 hours FINDINGS: Bones: Questionable punctate avulsion fracture along the proximal palmar side of the left fifth finger middle phalanx. Osseous alignment is within normal limits. Status post reduction of the previously seen left fifth finger dislocation at the proximal interphalangeal joint. Joints: Scattered degenerative change. No osseous erosion. Soft tissues: Soft tissue swelling about the left fifth finger. IMPRESSION: Status post reduction of the previously seen left fifth finger dislocation at the proximal interphalangeal joint. Questionable punctate avulsion fracture along the proximal palmar side of the left fifth finger middle phalanx. Signed by: Dr. Pernell Szymanski M.D. on 01/11/2018 12:01 PM
[2018-01-11 12:12] VITALS: BP 140/70
== END 2018-01-11 12:14 | disposition home or self-care (01) ==
LOC: FSED 10:55
DX: S63.287A Dislocation of proximal interphalangeal joint of left little finger, initial encounter (principal); W01.0XXA Fall on same level from slipping, tripping and stumbling without subsequent striking against object, initial encounter; E11.9 Type 2 diabetes mellitus without complications; I10 Essential (primary) hypertension; J44.9 Chronic obstructive pulmonary disease, unspecified; Z99.81 Dependence on supplemental oxygen
CPT/HCPCS: 99283

== ENCOUNTER 2018-03-02 12:23 | Emergency (ER) | payer MEDICARE, BC ==
[~2018-03-02] VITALS: Ht 160 cm; Wt 64.0 kg
--- OUTSIDE RECORDS SUMMARY | 2018-03-02 12:28 | XMS REPORT | Continuity of Care Document ---
Author Author [facility] Interface Address Unknown Phone Unavailable Problems Problem Status Onset Date Classification Date Reported Comments Source ABNORMAL LABS Active 08/09/2016 [facility] SYMPTOMATIC ANEMAI Active 08/09/2016 [facility] Anemia Active Problem 09/05/2016 [facility] Chronic bronchitis Active Problem 09/05/2016 [facility] Chronic respiratory failure with hypoxia Resolved Problem 09/05/2016 [facility] CKD (<span [id number]">Confirmed</span>) Active Problem 09/05/2016 [facility] COPD (<span ID="[id number]">Confirmed</span>) Active Problem 09/05/2016 [facility] DM (<span ID="[id number]">Confirmed</span>) Active Problem 09/05/2016 [facility] Hyperlipemia Active Problem 09/05/2016 [facility] HTN (<span ID="[id number]">Confirmed</span>) Active Problem 09/05/2016 [facility] Proteus<sup>1</sup> Active Problem 09/05/2016 Problem added by Discern Expert. [facility] RA (<span ID="[id number]">Confirmed</span>) Active Problem 09/05/2016 [facility] Chronic obstructive pulmonary disease, unspecified COPD type Active Diagnosis 02/02/2018 Jose Rojas Trochanteric bursitis of right hip Active Problem 02/02/2018 Jose Rojas Chronic respiratory failure with hypoxia Active Problem 02/02/2018 Jose Rojas Other special procedures nurse drug therapy Active Diagnosis 02/02/2018 Jose Rojas Osteopenia Active Problem 02/02/2018 Jose Rojas Rheumatoid arthritis 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 factor Active Diagnosis 02/02/2018 Jose Rojas Age-related osteoporosis without current pathological fracture Active Diagnosis 02/02/2018 Jose Rojas ANEMIA, UNSPECIFIED Active [facility] Medications Medication Details Route Status Patient Instructions Ordering Provider Order Date Source Leflunomide 1 tablet Orally Active 20 MG Orally Once a day Rojas 06/06/2017 Jose Rojas Insulin, Aspart, Human 4 unit, SUB-Q, TID-Before Meals, 0 Refill(s) Active 09/02/2016 [facility] Furosemide 40 MG Oral Tablet 80 mg=2 tab, PO, Q12H, 0 Refill(s) Active 09/02/2016 [facility] diltiazem 30 mg oral tablet 30 mg=1 tab, PO, Q8H, 0 Refill(s) Active 09/02/2016 [facility] Budesonide 0.16 MG/ACTUAT / formoterol fumarate 0.0045 MG/ACTUAT Metered Dose Inhaler 2 inhalation, INHALATION, BID, 0 Refill(s) Active 09/02/2016 [facility] Albuterol 0.833 MG/ML / Ipratropium [place] 0.167 MG/ML Inhalant Solution [DuoNeb] 3 mL, NEB, PRN, PRN Respiratory Protocol, 0 Refill(s) Active 09/02/2016 [facility] predniSONE 20 mg oral tablet 20 mg=1 tab, PO, Daily, 0 Refill(s) Active 09/02/2016 [facility] insulin detemir 100 units/mL subcutaneous solution 25 unit, SUB-Q, Daily, 0 Refill(s) Active 09/02/2016 [facility] potassium chloride 40 mEq, 2 tab, Route: PO, Drug form: ERTAB, ONCE, Dosing Weight 90, kg, Start date: 09/02/16 7:24:00 CDT, Stop date: 09/02/16 7:24:00 CDTNotes: (Same as: K-Dur 20) "Do Not Crush" With food and full glass of water Inactive 09/02/2016 [facility] Acetazolamide 250 mg, Route: IVP, Drug form: PDR/INJ, BID, Dosing Weight 90, kg, Start date: 09/01/16 17:00:00 CDT, Duration: 30 day, Stop date: 10/01/16 9:00:00 CDTNotes: (Same as: Diamox) No Longer Active 09/01/2016 [facility] Magnesium Sulfate 1 gm, 100 mL, Route: IVPB, Drug form: INJ, PRN, Dosing Weight 90, kg, PRN Abnormal Lab Result, For NON-ICU Patients Only., Start date: 08/28/16 8:14:00 CDT, Duration: 30 day, Stop date: 09/27/16 8:13:00 CDTNotes: WASTE: F/P - Sink; E - Municipal Trash Bin No Longer Active 08/28/2016 [facility] Calcium Gluconate 2 gm, 20 mL, Route: IVPB, PRN, Dosing Weight 90, kg, PRN Abnormal Lab Result, For NON-ICU Patients Only., Start date: 08/28/16 8:14:00 CDT, Duration: 30 day, Stop date: 09/27/16 8:13:00 CDTNotes: WASTE: F/P - Sink; E - Municipal Trash Bin No Longer Active 08/28/2016 [facility] Magnesium Oxide 800 mg, 2 tab, Route: PO, Drug form: TAB, PRN, Dosing Weight 90, kg, PRN Abnormal Lab Result, For NON-ICU Patients Only., Start date: 08/28/16 8:14:00 CDT, Duration: 30 day, Stop date: 09/27/16 8:13:00 CDTNotes: (Same as: Mag-Ox 400) Magnesium oxide [id number] elemental magnesium Dose=____mg magnesium oxide (___mg elemental magnesium) No Longer Active 08/28/2016 [facility] potassium chloride 10 mEq, 100 mL, Route: IVPB, Drug form: INJ, PRN, Dosing Weight 90, kg, PRN Abnormal Lab Result, For NON-ICU Patients Only, Start date: 08/28/16 8:14:00 CDT, Duration: 30 day, Stop date: 09/27/16 8:13:00 CDTNotes: Infuse at a rate of 10 mEq/hr. (Same as: KCL) No Longer Active 08/28/2016 [facility] potassium phosphate + sodium chloride 0.9% INJ 250 mL 30 mmol, 10 mL, Route: IVPB, PRN, Dosing Weight 90, kg, PRN Abnormal Lab Result, For NON-ICU Patients Only., Start date: 08/28/16 8:14:00 CDT, Duration: 30 day, Stop date: 09/27/16 8:13:00 CDTNotes: (Same as: K Phosphate.) 1 mMol phoshate has 1.47 mEq potassium Infuse over 4 hours No Longer Active 08/28/2016 [facility] sodium phosphate + D5W 250 mL 15 mmol, 5 mL, Route: IVPB, PRN, Dosing Weight 90, kg, PRN Abnormal Lab Result, For NON-ICU Patients Only., Start date: 08/28/16 8:14:00 CDT, Duration: 30 day, Stop date: 09/27/16 8:13:00 CDT No Longer Active 08/28/2016 [facility] potassium phosphate-sodium phosphate 250 mg-280 mg-160 [...] water and stir. No Longer Active 08/28/2016 [facility] Merrem 500 mg, Route: IVPB, Drug form: PDR/INJ, ABXQ8H, Dosing Weight 90, kg, CrCL >=50ml/min, Extended infusion, infuse over 3 hours, Start date: 08/27/16 10:00:00 CDT, Duration: 10 day, Stop date: 09/06/16 2:00:00 CDT, ABX Indication: PneumoniaNotes: Same as Merrem MEDICATION WASTE Product Size: 500 mg Product Wasted: ___ mg No Longer Active 08/27/2016 [facility] Diltiazem 30 mg, 1 tab, Route: PO, Drug form: TAB, Q8H, Dosing Weight 90, kg, Start date: 08/27/16 0:00:00 CDT, Duration: 30 day, Stop date: 09/25/16 16:00:00 CDTNotes: (Same as: Cardizem) Before meals No Longer Active 08/27/2016 [facility] Furosemide 40 MG Oral Tablet 80 mg, 2 tab, Route: PO, Drug form: TAB, Q12H, Dosing Weight 90, kg, Start date: 08/26/16 21:00:00 CDT, Duration: 30 day, Stop date: 09/25/16 9:00:00 CDTNotes: (Same as: Lasix) May cause GI upset. Give with food or milk. No Longer Active 08/27/2016 [facility] Diltiazem 125 mg, 25 mL, Rate: Titrate, Start Dose: 5 mg/hr, Titration: 5 mg/hr every hour, Goal(s): Maintain HR Notes: (Same as: Cardizem) No Longer Active 08/26/2016 [facility] Zofran 4 mg, 2 mL, Route: IV, Drug form: INJ, Q6H, Dosing Weight 90, kg, PRN Nausea & Vomiting, Start date: 08/26/16 6:27:00 CDT, Duration: 30 day, Stop date: 09/25/16 6:26:00 CDTNotes: (Same as: Zofran) MEDICATION WASTE Product Size: 4 mg Product Wasted: ___ mg No Longer Active 08/26/2016 [facility] Lactulose 667 MG/ML Oral Solution 10 gm, 15 mL, Route: PO, Drug form: SYRP, BID, Dosing Weight 90, kg, Priority: STAT, Start date: 08/24/16 13:28:00 CDT, Duration: 30 day, Stop date: 09/23/16 9:00:00 CDTNotes: (Same as:Chronulac) No Longer Active 08/24/2016 [facility] Lasix 80 mg, 8 mL, Route: IV, Drug form: INJ, Q8H, Dosing Weight 90, kg, Start date: 08/23/16 16:00:00 CDT, Duration: 30 day, Stop date: 09/22/16 8:00:00 CDTNotes: (Same as: Lasix) MEDICATION WASTE Product Size: 40 mg Product Wasted: ___ mg No Longer Active 08/23/2016 [facility] Prednisone 20 mg, 1 tab, Route: PO, Drug form: TAB, Daily, Dosing Weight 90, kg, Start date: 08/22/16 9:00:00 CDT, Duration: 30 day, Stop date: 09/20/16 9:00:00 CDTNotes: Take with food. No Longer Active 08/22/2016 [facility] Acetylcysteine 200 MG/ML Inhalant Solution 400 mg, 2 mL, Route: NEB, Drug Form: SOLN, Dosing Weight 90, kg, RBID, Start date: 08/19/16 9:30:00 CDT, Stop date: 09/18/16 8:00:00 CDT No Longer Active 08/19/2016 [facility] budesonide-formoterol 160 mcg-4.5 mcg/inh inhalation aerosol with adapter 2 inhalation, Route: INHALATION, Drug Form: AERO/A, BID, Start date: 08/19/16 9:00:00 CDT, Duration: 30 day, Stop date: 09/17/16 17:00:00 CDTNotes: (Same as: Symbicort) WASTE: Aerosol - Return to Pharmacy No Longer Active 08/19/2016 [facility] Budesonide 0.5 mg, 2 mL, Route: NEB, Drug form: SUSP, RBID, Dosing Weight 90, kg, Start date: 08/18/16 8:37:00 CDT, Duration: 30 day, Stop date: 09/17/16 8:00:00 CDTNotes: (Same As: Pulmicort) No Longer Active 08/18/2016 [facility] ertapenem 500 mg, Route: IVPB, [id number], Dosing Weight 90, kg, Start date: 08/17/16 22:00:00 CDT, Duration: 7 day, Stop date: 08/23/16 22:00:00 CDT, ABX Indication: Urinary Tract InfectionNotes: (Same as: INVanz) Refrigerate. NOT COMPATIBLE WITH D5W. Stable in refrigerator for 24 hours MEDICATION WASTE Product Size: 1000 mg Product Wasted: ___ mg No Longer Active 08/18/2016 [facility] meropenem 500 mg, Route: IVPB, ABXQ8H, Dosing Weight 90, kg, CrCL=26 -49 ml/min, Extended infusion, infuse over 3 hours, Start date: 08/17/16 9:00:00 CDT, Duration: 7 day, Stop date: 08/24/16 1:00:00 CDT, ABX In dication: Urinary Tract InfectionNotes: Same as Merrem MEDICATION WASTE Product Size: 500 mg Product Wasted: _0__ mg Inactive 08/17/2016 [facility] sterile water Route: IV, Drug Form: INJ, Daily, Start date: 08/17/16 9:00:00 CDT, Duration: 30 day, Stop date: 09/15/16 9:00:00 CDTNotes: For reconstitution of drugs only Inactive 08/17/2016 [facility] Solu-Medrol 40 mg, 1 mL, Route: IVP, Drug form: INJ, Q12H, Dosing Weight 90, kg, Start date: 08/17/16 9:00:00 CDT, Duration: 30 day, Stop date: 09/15/16 21:00:00 CDTNotes: (Same as:Solu-MEDROL, A-Methapred) No Longer Active 08/17/2016 [facility] Acetazolamide 250 mg, Route: IVP, Drug form: PDR/INJ, Daily, Dosing Weight 90, kg, Start date: 08/17/16 9:00:00 CDT, Duration: 30 day, Stop date: 09/15/16 9:00:00 CDTNotes: (Same as: Diamox) No Longer Active 08/17/2016 [facility] heparin 5,000 unit, 1 mL, Route: SUB-Q, Drug form: INJ, Q12H, Dosing Weight 90, kg, Start date: 08/16/16 21:00:00 CDT, Duration: 30 day, Stop date: 09/15/16 9:00:00 CDTNotes: porcine heparin No Longer Active 08/17/2016 [facility] Lasix 20 mg, 2 mL, Route: IVP, Drug form: INJ, Daily, Dosing Weight 90, kg, Start date: 08/16/16 9:29:00 CDT, Duration: 30 day, Stop date: 09/15/16 9:00:00 CDTNotes: (Same as: Lasix) No Longer Active 08/16/2016 [facility] d50 syringe 25 gm, 50 mL, Route: INJ, Drug Form: INJ, Dosing Weight 90, kg, ONCE, Start date: 08/13/16 19:56:00 CDT, Stop date: 08/13/16 19:56:00 CDT Inactive 08/14/2016 [facility] Insulin regular 5 unit, 0.05 mL, Route: IV, Drug form: INJ, ONCE, Dosing Weight 90, kg, Start date: 08/13/16 19:55:00 CDT, Stop date: 08/13/16 19:55:00 CDTNotes: (Same as: Humulin R and NovoLIN R) WASTE: F/P - Black; E - Municipal Trash Bin (Do not shake) Inactive 08/14/2016 [facility] Albuterol 0.83 MG/ML Inhalant Solution 2.49 mg, 3 mL, Route: INHALATION, Drug form: SOLN, PRN, Dosing Weight 90, kg, PRN Respiratory Protocol, Start date: 08/13/16 16:03:00 CDT, Duration: 30 day, Stop date: 09/12/16 16:02:00 CDTNotes: SEE RT DOCUMENTATION (Same as: Proventil) No Longer Active 08/13/2016 [facility] Kayexalate 30 gm, 120 mL, Route: PO, Drug form: SUSP, ONCE, Dosing Weight 90, kg, Priority: STAT, Start date: 08/13/16 15:35:00 CDT, Stop date: 08/13/16 15:35:00 CDTNotes: (sodium polystyrene sulfonate 15 gm/60 ml TIMOTHY) Shake well before use. (Same as: Kayexalate, SPS) Inactive 08/13/2016 [facility] pantoprazole 40 mg, 1 tab, Route: PO, Drug form: ECTAB, BID, Dosing Weight 90, kg, Start date: 08/13/16 9:00:00 CDT, Duration: 30 day, Stop date: 09/11/16 17:00:00 CDTNotes: Tablet should not be chewed or crushed. (Same as: Protonix) No Longer Active 08/13/2016 [facility] Protonix 40 mg, Route: IVP, Drug form: INJ, BID, Dosing Weight 90, kg, Start date: 08/13/16 9:00:00 CDT, Duration: 30 day, Stop date: 09/11/16 17:00:00 CDTNotes: For IV push reconstitute with 10 ml 0.9% sodium c hloride and push over 2 minutes. (Same as: Protonix) Inactive 08/13/2016 [facility] Sucralfate 100 MG/ML Oral Suspension [Carafate] [...] As: Vishal jung) No Longer Active 08/13/2016 [facility] NovoLog 4 unit, 0.04 mL, Route: [...] days from Date No Longer Active 08/12/2016 [facility] Insulin, Aspart, Human 15 unit, 0.15 [...] days from Date No Longer Active 08/11/2016 [facility] Lorazepam 0.25 mg, 0.5 tab, Route: PO, Drug form: TAB, Q8H, Dosing Weight 90, kg, PRN Anxiety, Start date: 08/10/16 20:54:00 CDT, Stop date: 09/09/16 20:53:00 CDTNotes: (Same as: Ativan) No Longer Active 08/11/2016 [facility] Albuterol 0.83 MG/ML Inhalant Solution 2.49 mg, 3 mL, Route: INHALATION, Drug form: SOLN, RQ4H, Dosing Weight 90, kg, Start date: 08/10/16 19:00:00 CDT, Duration: 30 day, Stop date: 09/09/16 15:00:00 CDTNotes: SEE RT DOCUMENTATION (Same as: Proventil) No Longer Active 08/11/2016 [facility] Solu-Medrol 40 mg, 1 mL, Route: IVP, Drug form: INJ, Q8H, Dosing Weight 90, kg, Priority: STAT, Start date: 08/10/16 17:13:00 CDT, Duration: 30 day, Stop date: 09/09/16 16:00:00 CDTNotes: (Same as:Solu-MEDROL, A -Methapred) No Longer Active 08/10/2016 [facility] Protonix 40 mg, 1 tab, Route: PO, Drug form: ECTAB, Before Dinner, Dosing Weight 90, kg, Start date: 08/10/16 16:30:00 CDT, Duration: 30 day, Stop date: 09/08/16 16:30:00 CDTNotes: Tablet should not be chewed or crushed. (Same as: Protonix) No Longer Active 08/10/2016 [facility] Sodium Chloride 0.154 MEQ/ML Injectable Solution 1,000 mL, Rate: 25 ml/hr, Infuse over: 40 hr, Route: IV, Dosing Weight 90 kg, Total Volume: 1,000, Start date: 08/10/16 11:57:00 CDT, Duration: 30 day, Stop date: 09/09/16 11:56:00 CDT Inactive 08/10/2016 [facility] tiotropium 0.018 MG/ACTUAT Inhalant Powder [Spiriva] 18 microgram, 1 inhalation, Route: INHALATION, Drug form: CAP, Daily, Dosing Weight 90, kg, Start date: 08/10/16 9:00:00 CDT, Duration: 30 day, Stop date: 10/08/16 9:00:00 CDTNotes: (Same As: Spiriva). No Longer Active 08/10/2016 [facility] Diovan 160 mg, 1 tab, Route: PO, Drug form: TAB, Daily, Dosing Weight 90, kg, Start date: 08/10/16 9:00:00 CDT, Duration: 30 day, Stop date: 09/08/16 9:00:00 CDTNotes: Same as Diovan No Longer Active 08/10/2016 [facility] Brovana 15 microgram neb Brovana 15 microgram neb, 15 microgram, 2 mL, Drug form: MISC, Route: NEB, BID, 08/10/16 9:00:00 CDT, Stop date: 08/18/16 20:00:00 CDT No Longer Active 08/10/2016 [facility] 24 HR Metoprolol Tartrate 100 MG Extended Release Tablet [Toprol] 100 mg, 1 tab, Route: PO, Drug form: ERTAB, Daily, Start date: 08/10/16 9:00:00 CDT, Duration: 30 day, Stop date: 10/08/16 9:00:00 CDTNotes: (Same as: Toprol XL) May split tab, but do not crush. No Longer Active 08/10/2016 [facility] insulin detemir 25 unit, 0.25 mL, Route: SUB-Q, Drug form: SOLN, Daily, Start date: 08/10/16 9:00:00 CDT, Duration: 30 day, Stop date: 10/08/16 9:00:00 CDTNotes: Same as Levemir Do not hold insulin without contactin g prescriber WASTE: F/P - Black; E - Municipal Trash Bin "single patient use only" No Longer Active 08/10/2016 [facility] 3 ML Insulin Glargine 100 UNT/ML Prefilled Syringe [Lantus] 20 unit, Route: SUB-Q, Drug form: SOLN, Daily, Dosing Weight 90, kg, Start date: 08/10/16 9:00:00 CDT, Duration: 30 day, Stop date: 09/08/16 9:00:00 CDT No Longer Active 08/10/2016 [facility] Doxazosin 2 mg, 2 tab, Route: PO, Drug form: TAB, Daily, Dosing Weight 90, kg, Start date: 08/10/16 9:00:00 CDT, Duration: 30 day, Stop date: 10/08/16 9:00:00 CDTNotes: (Same as: Cardura) No Longer Active 08/10/2016 [facility] Budesonide 0.25 MG/ML Inhalant Solution 0.5 mg, 2 mL, Route: NEB, Drug form: SUSP, BID, Dosing Weight 90, kg, Start date: 08/10/16 9:00:00 CDT, Stop date: 08/18/16 20:00:00 CDTNotes: (Same As: Pulmicort) No Longer Active 08/10/2016 [facility] Vitamin B 12 1,500 microgram, 3 tab, Route: PO, Drug form: TAB, Daily, Dosing Weight 90, kg, Start date: 08/10/16 9:00:00 CDT, Duration: 30 day, Stop date: 10/08/16 9:00:00 CDTNotes: (Same As: Vitamin B12) No Longer Active 08/10/2016 [facility] Brovana 15 microgram, 2 mL, Route: NEB, Drug form: SOLN, BID, Dosing Weight 90, kg, Start date: 08/10/16 9:00:00 CDT, Duration: 30 day, Stop date: 09/08/16 17:00:00 CDT Inactive 08/10/2016 [facility] Amlodipine 10 mg, 2 tab, Route: PO, Drug form: TAB, Daily, Dosing Weight 90, kg, Start date: 08/10/16 9:00:00 CDT, Duration: 30 day, Stop date: 09/08/16 9:00:00 CDTNotes: (Same as: Norvasc) No Longer Active 08/10/2016 [facility] Leflunomide 20mg Leflunomide 20mg, 1 tab, Drug form: MISC, Route: PO, Daily, 08/10/16 9:00:00 CDT, Duration: 30 day, Stop date: 10/08/16 9:00:00 CDT No Longer Active 08/10/2016 [facility] leflunomide 20 mg, Route: PO, Drug form: TAB, Daily, Dosing Weight 90, kg, Start date: 08/10/16 9:00:00 CDT, Duration: 30 day, Stop date: 09/08/16 9:00:00 CDT Inactive 08/10/2016 [facility] Albuterol 0.833 MG/ML / Ipratropium [place] 0.167 MG/ML Inhalant Solution [DuoNeb] 3 ml, Route: NEB, Drug Form: SOLN, Dosing Weight 90, kg, PRN, PRN Respiratory Protocol, Start date: 08/10/16 1:19:00 CDT, Duration: 30 day, Stop date: 10/09/16 1:18:00 CDTNotes: (Same as: Duoneb) No Longer Active 08/10/2016 [facility] Lasix 20 mg, 2 mL, Route: IVP, Drug form: INJ, ONCE, Dosing Weight 90, kg, Start date: 08/10/16 1:19:00 CDT, Stop date: 08/10/16 1:19:00 CDTNotes: (Same as: Lasix) Inactive 08/10/2016 [facility] potassium chloride 40 mEq, 2 tab, Route: PO, Drug form: ERTAB, ONCE, Dosing Weight 90, kg, Start date: 08/09/16 21:31:00 CDT, Stop date: 08/09/16 21:31:00 CDTNotes: (Same as: K-Dur 20) "Do Not Crush" With food and full glass of water Inactive 08/10/2016 [facility] Protonix 40 mg, 1 tab, Route: PO, Drug form: ECTAB, Bedtime, Dosing Weight 90, kg, Start date: 08/09/16 21:00:00 CDT, Duration: 30 day, Stop date: 09/07/16 21:00:00 CDTNotes: Tablet should not be chewed or crushed. (Same as: Protonix) No Longer Active 08/10/2016 [facility] Crestor 10 mg, 2 tab, Route: PO, Drug form: TAB, Bedtime, Dosing Weight 90, kg, Start date: 08/09/16 21:00:00 CDT, Duration: 30 day, Stop date: 10/07/16 21:00:00 CDTNotes: Same as Crestor No Longer Active 08/10/2016 [facility] Lasix 20 mg, 2 mL, Route: IVP, Drug form: INJ, Daily, Dosing Weight 90, kg, Start date: 08/09/16 20:54:00 CDT, Stop date: 09/08/16 23:00:00 CDTNotes: (Same as: Lasix) No Longer Active 08/10/2016 [facility] Insulin, Aspart, Human 4 unit, 0.04 [...] days from Date No Longer Active 08/10/2016 [facility] Glucagon 1 mg, Route: IM, Drug form: PDR/INJ, PRN, Dosing Weight 90, kg, PRN Blood Glucose Results, Start date: 08/09/16 19:50:00 CDT, Duration: 30 day, Stop date: 10/08/16 19:49:00 CDT No Longer Active 08/10/2016 [facility] Dextrose 50% Syringe 12.5 gm, 25 mL, Route: IVP, Drug Form: INJ, Dosing Weight 90, kg, PRN, PRN Blood Glucose Results, Start date: 08/09/16 19:50:00 CDT, Duration: 30 day, Stop date: 10/08/16 19:49:00 CDT No Longer Active 08/10/2016 [facility] Ipratropium [place] 0.2 MG/ML Inhalant Solution 500 microgram, 2.5 mL, Route: NEB, Drug form: SOLN, QID, Dosing Weight 90, kg, PRN Wheezing, Start date: 08/09/16 19:08:00 CDT, Duration: 30 day, Stop date: 10/08/16 19:07:00 CDTNotes: SEE RT DOCUMENTATION (Same as:Atrovent) No Longer Active 08/10/2016 [facility] Bisacodyl 10 mg, 2 tab, Route: PO, Drug form: ECTAB, Daily, Dosing Weight 90, kg, PRN Constipation, Start date: 08/09/16 19:08:00 CDT, Duration: 30 day, Stop date: 08/18/17 19:07:00 CDTNotes: (Same As: Dulcolax, Correctol) (Do Not Crush) "Do Not Crush" No Longer Active 08/10/2016 [facility] pantoprazole 40 MG Enteric Coated Tablet [Protonix] 40 mg=1 tab, PO, Bedtime, 0 Refill(s) Active 08/09/2016 [facility] Acetylcysteine 200 MG/ML Inhalant Solution 0.8 gm=4 mL, NEB, BID, 0 Refill(s) No Longer Active 08/09/2016 [facility] valsartan 160 MG Oral Tablet [Diovan] 160 mg=1 tab, PO, Daily, 0 Refill(s) No Longer Active 08/09/2016 [facility] Hydrochlorothiazide 12.5 MG Oral Capsule [Microzide] 12.5 mg=1 cap, PO, Daily, 0 Refill(s) No Longer Active 08/09/2016 [facility] leflunomide 20 mg oral tablet 20 mg=1 tab, PO, Daily, 0 Refill(s) No Longer Active 08/09/2016 [facility] 3 ML Insulin Glargine 100 UNT/ML Prefilled Syringe [Lantus] 20 unit, SUB-Q, Daily, 0 Refill(s) No Longer Active 08/09/2016 [facility] Ipratropium [place] 0.2 MG/ML Inhalant Solution 500 microgram=2.5 mL, NEB, QID, PRN Wheezing, 0 Refill(s) Active 08/09/2016 [facility] pantoprazole 40 mg oral granule =1 Pack, PO, Bedtime, # 30 ea, 0 Refill(s) Inactive 08/09/2016 [facility] Humalog 100 units/mL 1 unit, SUB-Q, Daily, 0 Refill(s) No Longer Active 08/09/2016 [facility] Budesonide 0.25 MG/ML Inhalant Solution 0.5 mg=2 mL, NEB, BID, 0 Refill(s) No Longer Active 08/09/2016 [facility] bisacodyl 5 mg oral enteric coated tablet 10 mg=2 tab, PO, Daily, PRN Constipation, 0 Refill(s) Active 08/09/2016 [facility] arformoterol 0.0075 MG/ML Inhalant Solution [Brovana] 15 microgram=2 mL, NEB, BID, # 60 ea, 0 Refill(s) No Longer Active 08/09/2016 [facility] Rosuvastatin calcium 10 MG Oral Tablet [Crestor] 10 mg=1 tab, PO, Bedtime, 0 Refill(s) Active 08/09/2016 [facility] Saccharomyces boulardii lyo 250 MG Oral Capsule [Florastor] 250 mg=1 cap, PO, Daily, PRN for loose stool, 0 Refill(s) No Longer Active 08/09/2016 [facility] metoprolol 100 mg oral tablet, extended release 100 mg=1 tab, PO, Daily, 0 Refill(s) Active 08/09/2016 [facility] cyanocobalamin 500 mcg sublingual tablet 500 microgram=1 tab, SL, Daily, 0 Refill(s) Inactive 08/09/2016 [facility] cyanocobalamin 1000 mcg sublingual tablet 1,500 microgram=1.5 tab, SL, Daily, 0 Refill(s) Active 08/09/2016 [facility] tiotropium 0.018 MG/ACTUAT Inhalant Powder [Spiriva] 18 microgram=1 cap, INHALATION, Daily, 0 Refill(s) Active 08/09/2016 [facility] doxazosin 2 mg oral tablet 2 mg=1 tab, PO, Daily, 0 Refill(s) Active 08/09/2016 [facility] amLODIPine 10 mg oral tablet 10 mg=1 tab, PO, Daily, 0 Refill(s) No Longer Active 08/09/2016 [facility] Saline Flush 0.9% 10 ml, Route: IVP, Drug Form: INJ, Dosing Weight 86.364, kg, PRN, PRN Line Flush, Start date: 08/09/16 16:54:00 CDT, Duration: 30 day, Stop date: 10/08/16 16:53:00 CDTNotes: (Same as: BD Posiflush) No Longer Active 08/09/2016 [facility] Acetaminophen 325 MG / Hydrocodone Bitartrate 5 MG Oral Tablet 1 tab, Route: PO, Drug Form: TAB, Dosing Weight 86.364, kg, Q4H, PRN Pain Score 4-6, Start date: 08/09/16 16:54:00 CDT, Duration: 30 day, Stop date: 10/08/16 16:53:00 CDTNotes: (Same as: [place] 325/5) Do not exceed 4gm/day of acetaminophen. No Longer Active 08/09/2016 [facility] sodium chloride 0.9% INJ 250 mL 250 mL, Rate: [employer] for use with blood product administration., Dosing Weight 86.364, kg, Route: IV, Total Volume: 250, Priority: Routine, Start Date: 08/09/16 16:05:00 CDT, Duration: 30 day, Stop date: 09/08/16 16:04:00 CDT, Replace Every: 24 hr No Longer Active 08/09/2016 [facility] Eliquis as directed Orally Active 2.5 MG Orally [place] [facility] Amlodipine Besylate-Valsartan 1 tablet Orally Active 5-160 MG Orally Once a day [place] [facility] Vitamin B12 1 tablet Orally Active 100 MCG Orally Once a day [place] [facility] Humalog as directed Subcutaneous Active 100 UNIT/ML Subcutaneous once a day [place] [facility] Budesonide-Formoterol Fumarate 2 puffs Inhalation Active 0.25- 2ml Inhalation Twice a day [place] [facility] Aranesp (Albumin Free) 1 ml Injection Active 300 MCG/ML Injection [place] [facility] Ipratropium-Albuterol 1 puff Inhalation Active 500 mcg Inhalation Four times a day [facility] Multivitamins 1 Tablet Orally Active Orally Once a day [facility] Levemir as directed Subcutaneous Active 100 UNIT/ML Subcutaneous [facility]jas HydrALAZINE HCl 1 tablet with food Orally Active 25 MG Orally Three times a day Rojas Jose Rojas Doxazosin Mesylate 1 tablet Orally Active 4 MG Orally Once a day [facility]ppa Jose Rojas Spiriva HandiHaler 1 capsule by mouth Inhalation Active 18 MCG Inhalation Once a day Joppa Jose Rojas Crestor 1 tablet Orally Active 10 MG Orally Once a day [facility]ppa Jose Rojas Ferrous Sulfate as directed Orally Active 325 MG Orally twice a day Rojas Jose Rojas Rosuvastatin Calcium 1 tablet Orally Active 10 MG Orally Once a day Rojas Jose Rojas Metoprolol & Diet Manage Prod 1 Tablet Orally Active 100 MG Orally Once a day Rojas Jose Rojas Iron 1 tablet Orally Active 25 MG Orally once a day [facility]ppa Jose Rojas Furosemide 1 tablet Orally Active 40 MG Orally Once a day [facility]ppa Jose Rojas Ferrous Sulfate as directed Orally Active 325 MG Orally twice a day [facility]ppa Jose Rojas Vitamin C 1 Tablet Orally Active 500 MG Orally Once a day Joppa Jose Rojas Advair Diskus 1 puff Inhalation Active 100-50 MCG/DOSE Inhalation every 12 hrs [facility]ppa Jose Rojas Baby Aspirin 1 tablet Orally Active 81 MG Orally Once a day [facility] Rojas Allergies, Adverse Reactions, Alerts Substance Category Reaction Severity Reaction type Status Date Reported Comments Source sulfa Adverse Reaction hives and swelling Adverse Reaction Active 01/16/2018 [facility] penicillin Adverse Reaction hives and swelling Adverse Reaction Active 01/16/2018 [facility] enbrel Adverse Reaction rash Adverse Reaction Active 01/16/2018 [facility] vioxx other anti-inflammatories Adverse Reaction not effective Adverse Reaction Active 01/16/2018 [facility] Methotrexate Adverse Reaction not effective Adverse Reaction Active 01/16/2018 [facility] Rojas penicillins Assertion Drug allergy Active [facility] sulfa drugs Assertion Drug allergy Active [facility] Immunizations Immunization Date Given Site Status [...] should be multiplied by the estimated BMI. [facility] CHEM PANEL Potassium Lvl 3.0 meq/L 3.5 - 5.1 09/02/2016 Result Comment: Critical Result(s) called to yumiko burciaga at 09/02/2016 05:06 by . Read back OK. [facility] CHEM PANEL Chloride Lvl 91 meq/L 95 - 109 09/02/2016 [facility] CHEM PANEL CO2 >45 mEq/L 24 - 32 09/02/2016 Result Comment: Critical Result(s) called to yumiko burciaga at 09/02/2016 05:06 by hp. Read back OK. [facility] CHEM PANEL Calcium Lvl 8.1 mg/dL 8.5 - 10.5 09/02/2016 [facility] CHEM PANEL Creatinine Lvl 1.50 mg/dL 0.50 - 1.40 09/02/2016 [facility] CHEM PANEL Sodium Lvl 143 meq/L 135 - 145 09/02/2016 [facility] CHEM PANEL BUN 76 mg/dL 7 - 22 09/02/2016 [facility] CHEM PANEL Glucose Lvl 94 mg/dL 70 - 99 09/02/2016 [facility] HEMATOLOGY MPV 9.5 fL 7.4 - 10.4 09/02/2016 [facility] HEMATOLOGY Platelet 128 K/CMM 133 - 450 09/02/2016 [facility] HEMATOLOGY RDW 14.8 % 11.5 - 14.5 09/02/2016 [facility] HEMATOLOGY MCHC 32.3 g/dL 32.0 - 36.0 09/02/2016 [facility] MCH 29.8 pg 27.0 - 31.0 09/02/2016 [facility] MCV 92.1 fL 80.0 - 98.0 09/02/2016 [facility] HEMATOLOGY Hct 26.1 % 36.0 - 48.0 09/02/2016 [facility] HEMATOLOGY Hgb 8.5 g/dL 12.0 - 16.0 09/02/2016 [facility] HEMATOLOGY RBC 2.84 M/CMM 4.20 - 5.40 09/02/2016 [facility] HEMATOLOGY WBC 5.8 K/CMM 3.7 - 10.4 09/02/2016 [facility] ELECTROLYTES CO2 >45 mEq/L 24 - 32 09/01/2016 Result Comment: Critical Result(s) called to Kaur Louise at 09/01/2016 09:13 by yue. Read back OK. [facility] ELECTROLYTES eGFR 34 mL/min/1.73m2 09/01/2016 Result Comment: [...] should be multiplied by the estimated BMI. [facility] ELECTROLYTES Calcium Lvl 8.5 mg/dL 8.5 - 10.5 09/01/2016 [facility] ELECTROLYTES Chloride Lvl 91 meq/L 95 - 109 09/01/2016 [facility] ELECTROLYTES Potassium Lvl 3.5 meq/L 3.5 - 5.1 09/01/2016 [facility] ELECTROLYTES Sodium Lvl 143 meq/L 135 - 145 09/01/2016 [facility] ELECTROLYTES Creatinine Lvl 1.50 mg/dL 0.50 - 1.40 09/01/2016 [facility] ELECTROLYTES BUN 74 mg/dL 7 - 22 09/01/2016 [facility] ELECTROLYTES Glucose Lvl 100 mg/dL 70 - 99 09/01/2016 [facility] MPV 9.6 fL 7.4 - 10.4 09/01/2016 [facility] RBC 2.88 M/CMM 4.20 - 5.40 09/01/2016 [facility] Hct 26.6 % 36.0 - 48.0 09/01/2016 [facility] Hgb 8.5 g/dL 12.0 - 16.0 09/01/2016 [facility] MCHC 32.1 g/dL 32.0 - 36.0 09/01/2016 [facility] MCH 29.6 pg 27.0 - 31.0 09/01/2016 [facility] MCV 92.3 fL 80.0 - 98.0 09/01/2016 [facility] RDW 14.8 % 11.5 - 14.5 09/01/2016 [facility] Platelet 129 K/CMM 133 - 450 09/01/2016 [facility] WBC 5.5 K/CMM 3.7 - 10.4 09/01/2016 [facility] Segs-Bands # 3.9 K/CMM 1.5 - 8.1 09/01/2016 [facility] Basophils 0.3 % 0.0 - 1.0 09/01/2016 [facility] Lymphocytes # 0.9 K/CMM 1.0 - 5.5 09/01/2016 [facility] HEMATOLOGY Segs 71.8 % 45.0 - 75.0 09/01/2016 [facility] HEMATOLOGY Eosinophils 2.4 % 0.0 - 4.0 09/01/2016 [facility] HEMATOLOGY Monocytes 8.2 % 2.0 - 12.0 09/01/2016 [facility] HEMATOLOGY Monocytes # 0.4 K/CMM 0.0 - 0.8 09/01/2016 [facility] HEMATOLOGY Lymphocytes 17.3 % 20.0 - 40.0 09/01/2016 [facility] HEMATOLOGY Eosinophils # 0.1 K/CMM 0.0 - 0.5 09/01/2016 [facility] CHEM PANEL eGFR 37 mL/min/1.73m2 08/29/2016 Result [...] should be multiplied by the estimated BMI. [facility] CHEM PANEL Chloride Lvl 91 meq/L 95 - 109 08/29/2016 [facility] CHEM PANEL Potassium Lvl 3.8 meq/L 3.5 - 5.1 08/29/2016 [facility] CHEM PANEL Calcium Lvl 8.2 mg/dL 8.5 - 10.5 08/29/2016 [facility] CHEM PANEL Creatinine Lvl 1.40 mg/dL 0.50 - 1.40 08/29/2016 [facility] CHEM PANEL Sodium Lvl 141 meq/L 135 - 145 08/29/2016 [facility] CHEM PANEL Glucose Lvl 170 mg/dL 70 - 99 08/29/2016 [facility] CHEM PANEL BUN 60 mg/dL 7 - 22 08/29/2016 [facility] CHEM PANEL CO2 >45 mEq/L 24 - 32 08/29/2016 Result Comment: Critical Result(s) called to Tiesha Curry at 08/29/2016 12:40 by Nilda Allred. Read back OK. [facility] CHEM PANEL Magnesium Lvl 2.0 mg/dL 1.8 - 2.4 08/29/2016 [facility] HEMATOLOGY RDW 14.7 % 11.5 - 14.5 08/28/2016 [facility] HEMATOLOGY MPV 11.2 fL 7.4 - 10.4 08/28/2016 [facility] HEMATOLOGY Platelet 95 K/CMM 133 - 450 08/28/2016 [facility] HEMATOLOGY RBC 2.84 M/CMM 4.20 - 5.40 08/28/2016 [facility] HEMATOLOGY MCHC 31.4 g/dL 32.0 - 36.0 08/28/2016 [facility] MCH 29.5 pg 27.0 - 31.0 08/28/2016 [facility] HEMATOLOGY Hgb 8.4 g/dL 12.0 - 16.0 08/28/2016 [facility] HEMATOLOGY MCV 94.1 fL 80.0 - 98.0 08/28/2016 [facility] HEMATOLOGY Hct 26.7 % 36.0 - 48.0 08/28/2016 [facility] HEMATOLOGY WBC 7.9 K/CMM 3.7 - 10.4 08/28/2016 [facility] HEMATOLOGY Eosinophils 1.5 % 0.0 - 4.0 08/28/2016 [facility] HEMATOLOGY Basophils 0.4 % 0.0 - 1.0 08/28/2016 [facility] HEMATOLOGY Monocytes 9.6 % 2.0 - 12.0 08/28/2016 [facility] HEMATOLOGY Monocytes # 0.8 K/CMM 0.0 - 0.8 08/28/2016 [facility] HEMATOLOGY Lymphocytes # 0.8 K/CMM 1.0 - 5.5 08/28/2016 [facility] HEMATOLOGY Segs-Bands # 6.2 K/CMM 1.5 - 8.1 08/28/2016 [facility] HEMATOLOGY Eosinophils # 0.1 K/CMM 0.0 - 0.5 08/28/2016 [facility] HEMATOLOGY Segs 78.1 % 45.0 - 75.0 08/28/2016 [facility] HEMATOLOGY Lymphocytes 10.4 % 20.0 - 40.0 08/28/2016 [facility] HEMATOLOGY Lymphocytes 5.8 % 20.0 - 40.0 08/27/2016 [facility] HEMATOLOGY Segs 85.1 % 45.0 - 75.0 08/27/2016 [facility] HEMATOLOGY Segs-Bands # 11.9 K/CMM 1.5 - 8.1 08/27/2016 [facility] HEMATOLOGY Monocytes # 1.1 K/CMM 0.0 - 0.8 08/27/2016 [facility] HEMATOLOGY Lymphocytes # 0.8 K/CMM 1.0 - 5.5 08/27/2016 [facility] HEMATOLOGY Basophils 0.2 % 0.0 - 1.0 08/27/2016 [facility] HEMATOLOGY Eosinophils 0.8 % 0.0 - 4.0 08/27/2016 [facility] HEMATOLOGY Monocytes 8.1 % 2.0 - 12.0 08/27/2016 [facility] HEMATOLOGY Eosinophils # 0.1 K/CMM 0.0 - 0.5 08/27/2016 [facility] HEMATOLOGY Heparin Ab(CESARIO) Negative (08/27/16 5:27 AM) Negative 08/27/2016 [facility] HEMATOLOGY Pos CO Value 0.448 08/27/2016 [facility] HEMATOLOGY Pat Od Value 0.072 08/27/2016 [facility] CARDIAC ENZYMES Total CK 41 unit/L 12 - 191 08/26/2016 [facility] CARDIAC ENZYMES Troponin-I 0.23 ng/mL 0.00 - 0.40 08/26/2016 [facility] CHEM PANEL Phosphorus 3.8 mg/dL 2.5 - 4.5 08/24/2016 [facility] CHEM PANEL Magnesium Lvl 2.2 mg/dL 1.8 - 2.4 08/24/2016 [facility] CHEM PANEL Alk Phos 41 unit/L 39 - 136 08/24/2016 [facility] CHEM PANEL AST 17 unit/L 0 - 37 08/24/2016 [facility] CHEM PANEL ALT 23 unit/L 0 - 65 08/24/2016 [facility] CHEM PANEL A/G Ratio 0.9 0.7 - 1.6 08/24/2016 [facility] CHEM PANEL Globulin 2.8 g/dL 2.7 - 4.2 08/24/2016 [facility] CHEM PANEL Bili Total 0.4 mg/dL 0.2 - 1.3 08/24/2016 [facility] CHEM PANEL Total Protein 5.4 g/dL 6.4 - 8.4 08/24/2016 [facility] CHEM PANEL Albumin Lvl 2.6 g/dL 3.5 - 5.0 08/24/2016 [facility] CHEM PANEL B/C Ratio 41 6 - 25 08/24/2016 [facility] CHEM PANEL AGAP 5.2 meq/L 10.0 - 20.0 08/24/2016 [facility] CHEM PANEL Ammonia 34.0 umol/L <=45.0 uMol/L 08/24/2016 [facility] HEMATOLOGY Stomatocyte Moderate *ABN* (08/24/16 4:00 PM) None Seen 08/24/2016 [facility] HEMATOLOGY Hypochrom 1+ (08/24/16 4:00 PM) None Seen 08/24/2016 [facility] HEMATOLOGY Plt Morph Clumped (08/24/16 4:00 PM) 08/24/2016 [facility] Chest wo contrast CT Chest wo [...] prominent mediastinal lymph nodes are nonspecific. SL: [id number] 08/23/2016 - - Read by: Boogie Maldonado MD Dictated Date/time: 08/23/16 13:07 Electronically Signed by: Boogie Maldonado MD 08/23/16 13:19 FINAL REPORT [facility] Chest 1view DX Chest 1view DX [...] pulmonary edema. Acute infiltrates not excluded. SL: [id number] 08/23/2016 - - Read by: Zeferino Montero MD Dictated Date/time: 08/23/16 10:05 Electronically Signed by: Zeferino Montero MD 08/23/16 10:07 FINAL REPORT [facility] ELECTROLYTES AGAP 6.3 meq/L 10.0 - 20.0 08/22/2016 [facility] CHEM PANEL Magnesium Lvl 2.3 mg/dL 1.8 - 2.4 08/19/2016 [facility] ELECTROLYTES AGAP 7.8 meq/L 10.0 - 20.0 08/19/2016 [facility] Chest 1view DX Chest 1view DX Patient Name: JAMES BLANCHARD : 1940; Age: 75 years y/o Female MR: [id number] * CHEST, portable, 1 view HISTORY: Hypoxia. COMPARISON: 08/13/2016. Studies of 08/10/2016 and 02/24/2007 were reviewed. IMPRESSION: 1. Slightly improved aeration in the lung bases, otherwise, no significant change the prior study. 2. Mild to moderate cardiomegaly and mild pulmonary vascular redistribution, probable mild congestive changes. 3. Mild bibasilar atelectasis and probable very small pleural effusions. 4. The regional skeleton is unremarkable. SL: [id number] 08/18/2016 - - Read by: Jesus Paulino MD Dictated Date/time: 08/18/16 08:56 Electronically Signed by: Jesus Paulino MD 08/18/16 08:58 FINAL REPORT [facility] CHEM PANEL Phosphorus 3.2 mg/dL 2.5 - 4.5 08/16/2016 [facility] CARDIAC ENZYMES BNP 244 pg/mL <=100 pg/mL 08/15/2016 [facility] URINE CHEM U Sodium 6 meq/L 08/15/2016 [facility] URINE CHEM U Urea 638 mg/dL 08/15/2016 [facility] URINE CHEM U Prot/Creat 1.6 08/15/2016 [facility] URINE CHEM U Eos None Seen (08/14/16 9:08 PM) None Seen 08/15/2016 [facility] URINE CHEM U Creatinine 52.00 mg/dL 08/15/2016 [facility] URINE CHEM U Protein 83.0 mg/dL 08/15/2016 [facility] Retroperitoneal Complete US Retroperitoneal Complete US [...] other significant ultrasound abnormalities of the kidneys. [id number] 08/13/2016 - - Read by: Fred Saab MD Dictated Date/time: 08/13/16 15:54 Electronically Signed by: Fred Saab MD 08/13/16 15:57 FINAL REPORT [facility] Chest 1view DX Chest 1view DX Portable chest: The cardiac silhouette is enlarged. The pulmonary vasculature appears normal. There are stable nonspecific interstitial changes in the lungs and left suprahilar subsegmental atelectasis or scarring, unchanged from the recent exams. There is mild right basilar subsegmental atelectasis or fluid. There are no other significant pleural abnormalities. There is no other significant change. [id number] 08/13/2016 - - Read by: Fred Saab MD Dictated Date/time: 08/13/16 07:36 Electronically Signed by: Fred Saab MD 08/13/16 07:37 FINAL REPORT [facility] URINE AND STOOL UA Leuk Est Negative (08/12/16 8:55 PM) Negative 08/13/2016 [facility] URINE AND STOOL UA Urobilinogen 0.2 EU/dL 0.1 - 1.0 08/13/2016 [facility] URINE AND STOOL UA Nitrite Negative (08/12/16 8:55 PM) Negative 08/13/2016 [facility] URINE AND STOOL UA Blood Small *ABN* (08/12/16 8:55 PM) Negative 08/13/2016 [facility] URINE AND STOOL UA Bili Negative *NA* (08/12/16 8:55 PM) Negative 08/13/2016 [facility] URINE AND STOOL UA Glucose Negative (08/12/16 8:55 PM) Negative 08/13/2016 [facility] URINE AND STOOL UA Protein 100 mg/dL Negative mg/dL 08/13/2016 [facility] URINE AND STOOL UA pH 6.0 5.0 - 8.0 08/13/2016 [facility] URINE AND STOOL UA Spec Grav 1.020 <=1.030 08/13/2016 [facility] URINE AND STOOL UA Ketones Negative *NA* (08/12/16 8:55 PM) Negative 08/13/2016 [facility] URINE AND STOOL UA Color Yellow *NA* (08/12/16 8:55 PM) Yellow 08/13/2016 [facility] URINE AND STOOL UA Turbidity Clear (08/12/16 8:55 PM) Clear 08/13/2016 [facility] CHEM PANEL Phosphorus 3.4 mg/dL 2.5 - 4.5 08/12/2016 [facility] HEMATOLOGY Baso Stipplin Moderate *ABN* (08/12/16 9:49 AM) None Seen 08/12/2016 [facility] HEMATOLOGY Stomatocyte Moderate *ABN* (08/12/16 9:49 AM) None Seen 08/12/2016 [facility] HEMATOLOGY Anisocyte 1+ *ABN* (08/12/16 9:49 AM) None Seen 08/12/2016 [facility] HEMATOLOGY Plt Morph Normal (08/12/16 9:49 AM) 08/12/2016 [facility] HEMATOLOGY Hypochrom 1+ (08/12/16 9:49 AM) None Seen 08/12/2016 [facility] CARDIAC ENZYMES Troponin-I 0.03 ng/mL 0.00 - 0.40 08/12/2016 [facility] CARDIAC ENZYMES CK MB 2.0 ng/mL 0.5 - 3.6 08/12/2016 [facility] Chest 1view DX Chest 1view DX [...] IMPRESSION: Stable exam of the chest SL: [id number] 08/12/2016 - - Read by: Michelet Padgett MD Dictated Date/time: 08/12/16 09:57 Electronically Signed by: Michelet Padgett MD 08/12/16 09:58 FINAL REPORT [facility] URINE AND STOOL Occult Bld Stl Negative (08/11/16 3:14 PM) Negative 08/11/2016 [facility] CHEM PANEL Globulin 3.5 g/dL 2.7 - 4.2 08/11/2016 [facility] CHEM PANEL Total Protein 5.9 g/dL 6.4 - 8.4 08/11/2016 [facility] CHEM PANEL Albumin Lvl 2.4 g/dL 3.5 - 5.0 08/11/2016 [facility] CHEM PANEL Bili Total 0.4 mg/dL 0.2 - 1.3 08/11/2016 [facility] CHEM PANEL Alk Phos 50 unit/L 39 - 136 08/11/2016 [facility] CHEM PANEL AST 13 unit/L 0 - 37 08/11/2016 [facility] CHEM PANEL A/G Ratio 0.7 0.7 - 1.6 08/11/2016 [facility] CHEM PANEL ALT 13 unit/L 0 - 65 08/11/2016 [facility] CHEM PANEL B/C Ratio 25 6 - 25 08/11/2016 [facility] HEMATOLOGY PT 14.3 s 12.0 - 14.7 08/11/2016 [facility] HEMATOLOGY PTT 41.0 s 22.9 - 35.8 08/11/2016 [facility] HEMATOLOGY INR 1.09 0.85 - 1.17 08/11/2016 [facility] Chest 1view DX Chest 1view DX Chest 1view DX 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 MARY: LIZY-ALTA 08/10/2016 - - Read by: Robby Magdaleno MD Dictated Date/time: 08/10/16 17:54 Electronically Signed by: Robby Magdaleno MD 08/10/16 17:56 FINAL REPORT [facility] ANEMIA STUDY UIBC 231 ug/dl 110 - 370 08/10/2016 [facility] ANEMIA STUDY % Satur Fe 13 % 12 - 57 08/10/2016 [facility] ANEMIA STUDY Iron 34 ug/dl 30 - 160 08/10/2016 [facility] ANEMIA STUDY TIBC 265 ug/dl 228 - 428 08/10/2016 [facility] ANEMIA STUDY Ferritin Lvl 334 ng/mL 5 - 204 08/10/2016 [facility] BLOOD BANK RESULTS RBC product Product available 1 (08/09/16 4:05 PM) 08/09/2016 Result Comment: 08/09/2016 16:55 [id number] KLS notified Lisseth 08/09/2016 16:55 [facility] BLOOD BANK RESULTS ABO/Rh B POS 08/09/2016 [facility] BLOOD BANK RESULTS Antibody Scrn Negative (08/09/16 2:03 PM) 08/09/2016 [facility] CARDIAC ENZYMES CK MB Index 1.7 0.0 - 2.5 08/09/2016 [facility] CARDIAC ENZYMES BNP 198 pg/mL <=100 pg/mL 08/09/2016 [facility] CARDIAC ENZYMES CK MB 1.0 ng/mL 0.5 - 3.6 08/09/2016 [facility] CARDIAC ENZYMES Troponin-I 0.03 ng/mL 0.00 - 0.40 08/09/2016 [facility] CARDIAC ENZYMES Total CK 58 unit/L 12 - 191 08/09/2016 [facility] CHEM PANEL Lipase Lvl 60 unit/L 73 - 393 08/09/2016 [facility] CHEM PANEL Albumin Lvl 2.8 g/dL 3.5 - 5.0 08/09/2016 [facility] CHEM PANEL AST 14 unit/L 0 - 37 08/09/2016 [facility] CHEM PANEL Bili Total 0.2 mg/dL 0.2 - 1.3 08/09/2016 [facility] CHEM PANEL Alk Phos 55 unit/L 39 - 136 08/09/2016 [facility] CHEM PANEL Total Protein 6.3 g/dL 6.4 - 8.4 08/09/2016 [facility] CHEM PANEL ALT 12 unit/L 0 - 65 08/09/2016 [facility] CHEM PANEL A/G Ratio 0.8 0.7 - 1.6 08/09/2016 [facility] CHEM PANEL Globulin 3.5 g/dL 2.7 - 4.2 08/09/2016 [facility] CHEM PANEL B/C Ratio 24 6 - 25 08/09/2016 [facility] HEMATOLOGY INR 0.98 0.85 - 1.17 08/09/2016 [facility] HEMATOLOGY PT 13.2 s 12.0 - 14.7 08/09/2016 [facility] URINE AND STOOL UA Urobilinogen <=1.0 mg/dL 0.1 - 1.0 08/09/2016 [facility] URINE AND STOOL UA Color Ltyellow 08/09/2016 [facility] URINE AND STOOL UA Sq Epi Occasional /LPF Few /LPF 08/09/2016 [facility] URINE AND STOOL UA RBC 3 /HPF 0 - 2 08/09/2016 [facility] URINE AND STOOL UA WBC 1 /HPF 0 - 5 08/09/2016 [facility] URINE AND STOOL UA Hyal Cast 4 /LPF 0 - 2 08/09/2016 [facility] URINE AND STOOL UA Bacteria Occasional /HPF None Seen /HPF 08/09/2016 [facility] URINE AND STOOL UA Leuk Est Negative (08/09/16 2:03 PM) Negative 08/09/2016 [facility] URINE AND STOOL UA Nitrite Negative (08/09/16 2:03 PM) Negative 08/09/2016 [facility] URINE AND STOOL UA Ketones Negative mg/dL Negative mg/dL 08/09/2016 [facility] URINE AND STOOL UA Blood Negative (08/09/16 2:03 PM) Negative 08/09/2016 [facility] URINE AND STOOL UA Bili Negative *NA* (08/09/16 2:03 PM) Negative 08/09/2016 [facility] URINE AND STOOL UA Glucose Negative mg/dL Negative mg/dL 08/09/2016 [facility] URINE AND STOOL UA Protein 100 mg/dL Negative mg/dL 08/09/2016 [facility] URINE AND STOOL UA Turbidity Clear (08/09/16 2:03 PM) Clear 08/09/2016 [facility] URINE AND STOOL UA Spec Grav 1.010 <=1.030 08/09/2016 [facility] URINE AND STOOL UA pH 6.0 5.0 - 8.0 08/09/2016 [facility] Chest 1view DX Chest 1view DX [...] wires project over the patient's chest. SL: [id number] 08/09/2016 - - Read by: Robby Magdaleno MD Dictated Date/time: 08/09/16 14:27 Electronically Signed by: Robby Magdaleno MD 08/09/16 14:29 FINAL REPORT [facility] Vital Signs Vital Sign Value Date Comments Source Weight 155.1 01/16/2018 [facility] Height 63 01/16/2018 [facility] Temperature Oral (F) 98.0 F 01/16/2018 [facility] Heart Rate 74 01/16/2018 [facility] Diastolic (mm Hg) 40 01/16/2018 [facility] Systolic (mm Hg) 110 01/16/2018 [facility] Weight 155 06/06/2017 [facility] Height 63 06/06/2017 [facility] Temperature Oral (F) 98.1 F 06/06/2017 [facility] Heart Rate 72 06/06/2017 [facility] Diastolic (mm Hg) 68 06/06/2017 [facility] Systolic (mm Hg) 130 06/06/2017 [facility] Temperature Oral (F) 97.7 F 09/02/2016 [facility] Respitory Rate 17 09/02/2016 [facility] Heart Rate 78 09/02/2016 [facility] Systolic (mm Hg) 118 09/02/2016 [facility] Diastolic (mm Hg) 57 09/02/2016 [facility] Respitory Rate 17 09/02/2016 [facility] Temperature Oral (F) 98.1 F 09/02/2016 [facility] Heart Rate 70 09/02/2016 [facility] Systolic (mm Hg) 134 09/02/2016 [facility] Diastolic (mm Hg) 62 09/02/2016 [facility] Respitory Rate 18 09/02/2016 [facility] Temperature Oral (F) 97.9 F 09/02/2016 [facility] Heart Rate 70 09/02/2016 [facility] Systolic (mm Hg) 129 09/02/2016 [facility] Diastolic (mm Hg) 59 09/02/2016 [facility] BMI Calculated 34.06 08/09/2016 [facility] Weight 90 08/09/2016 [facility] Height 162.56 cm 08/09/2016 [facility] Weight 86.364 08/09/2016 [facility] BMI Calculated 32.68 08/09/2016 [facility] Height 162.56 cm 08/09/2016 [facility] Encounters Location Location Details Encounter Type Encounter Number Reason For Visit Attending Provider ADM Date DC Date Status Source [facility] Inpatient [id number] Priyanka Mcdonalddaniele 08/09/2016 09/02/2016 [facility] Procedures Procedure Code Date Perfomer Comments Source section [id number] [facility] Cholecystectomy [id number] [facility] Procedure on knee<sup>1</sup> [id number] Total knee replacement 2009 [facility]
--- OUTSIDE RECORDS SUMMARY | 2018-03-02 12:28 | XMS REPORT ---
Author Author [facility] Address Unknown Phone Unavailable Care Team Providers Care Ethanol Operator Name Role Phone Sisi BEJARANO Unavailable Unavailable Problems This patient has no known problems. Allergies, Adverse Reactions, Alerts This patient has no known allergies or adverse reactions. Medications This patient has no known medications. Results Test Description Test Time Test Comments Text Results Atomic Results Result Comments FINGER LT - HOPD 2018-01-11 11:57:00 [place] [id number] Patient Name: JAMES BLANCHARD MR #: [id number] : 1940 Age/Sex: 77/F Req #: [id number] Adm Physician: Ordered by: KIMBERLY BEJARANO MD Report #: [id number] Location: [facility] Room/Bed: Procedure: [id number] HOPD/FINGER LT - HOPD Exam Date: 01/11/18 Exam Time: 1140 REPORT STATUS: Signed Radiographs of the left fifth finger - 3 views 01/11/2018 at 1142 hours HISTORY: Pain. Status post reduction. COMPARISON: 01/11/2018 at 1107 hours FINDINGS: Bones: Questionable punctate avulsion fracture along the proximal palmar side of the left fifth finger middle phalanx. Osseous alignment is within normal limits. Status post reduction of the previously seen left fifth finger dislocation at the proximal interphalangeal joint. Joints: Scattered degenerative change. No osseous erosion. Soft tissues: Soft tissue swelling about the left fifth finger. IMPRESSION: Status post reduction of the previously seen left fifth finger dislocation at the proximal interphalangeal joint. Questionable punctate avulsion fracture along the proximal palmar side of the left fifth finger middle phalanx. Signed by: Dr. Pernell Szymanski M.D. on 01/11/2018 12:01 PM Dictated By: PERNELL SZYMANSKI MD, MD 120 Transcribed By: OJ on 01/11/18 120 COPY TO: KIMBERLY BEJARANO MD FINGER LT - HOPD 2018-01-11 11:31:00 [place] [id number] Patient Name: JAMES BLANCHARD MR #: [id number] : 1940 Age/Sex: 77/F Req #: [id number] Adm Physician: Ordered by: KIMBERLY BEJARANO MD Report #: [id number] Location: [facility] Room/Bed: Procedure: [id number] HOPD/FINGER LT - HOPD Exam Date: 01/11/18 Exam Time: 1110 REPORT STATUS: Signed PROCEDURE: FINGER LT - HOPD COMPARISON: None. INDICATIONS: s/p fall, deformity FINDINGS: Complete dorsal dislocation of the fifth proximal interphalangeal joint. No associated displaced fracture. Remaining osseous structures are intact. Overlying soft tissue swelling. CONCLUSION: Acute dorsal dislocation fifth proximal interphalangeal joint. Dictated by: Gerald Rodriguez M.D. on 01/11/2018 at 11:31 Electronically approved by: Gerald Rodriguez M.D. on 01/11/2018 at 11:31 Dictated By: GERALD RODRIGUEZ MD 113 Transcribed By: DANNY on 01/11/18 113 COPY TO: KIMBERLY BEJARANO MD
--- OUTSIDE RECORDS SUMMARY | 2018-03-02 12:28 | XMS REPORT ---
Author Lencho Reyes [facility] e[employer] Address Unknown Phone Unavailable Care Team Providers Care Oracle Adf Consultant Name Role Phone Lencho Rojas Unavailable Allergies, Adverse Reactions, Alerts Substance Reaction Event Type sulfa hives and swelling Drug Allergy penicillin hives and swelling Drug Allergy enbrel rash Non Drug Allergy vioxx other anti-inflammatories not effective Non Drug Allergy Methotrexate not effective Non Drug Allergy Problems Problem Type Condition Code Onset Dates Condition Status Assessment Chronic obstructive pulmonary disease, unspecified COPD type J44.9 Active Assessment 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 Active Assessment Other oysterman (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) drug therapy Z79.899 Active Assessment Age-related osteoporosis without current pathological fracture M81.0 Active Problem Chronic respiratory failure with hypoxia J96.11 Active Problem Chronic obstructive pulmonary disease, unspecified COPD type J44.9 Active Problem Age-related osteoporosis without current pathological fracture M81.0 Active Problem 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 Active Problem Other senior living (current) drug therapy Z79.899 Active Problem Trochanteric bursitis of right hip M70.61 Active Problem Osteopenia M85.80 Active Medications Medication Code System Code Instructions Start Date End Date Status Dosage Eliquis [facility] [place] 15198416617 2.5 MG Orally Active as directed Amlodipine Besylate-Valsartan [facility] [place] 01288547313 5-160 MG Orally Once a day Active 1 tablet Vitamin B12 [facility] [place] 03803651794 100 MCG Orally Once a day Active 1 tablet Humalog [facility] [place] 48919136569 100 UNIT/ML Subcutaneous once a day Active as directed Budesonide-Formoterol Fumarate [facility] [place] [address]-22 0.25-2ml Inhalation Twice a day Active 2 puffs Aranesp (Albumin Free) [facility] [place] 42075722979 300 MCG/ML Injection Active 1 ml Ipratropium-Albuterol [facility] [place] [address]-76 500 mcg Inhalation Four times a day Active 1 puff Multivitamins [facility] [place] 05190226651 Orally Once a day Active 1 Tablet Levemir [facility] [place] 77868365128 100 UNIT/ML Subcutaneous Active as directed HydrALAZINE HCl ND 01608804668 25 MG Orally Three times a day Active 1 tablet with food Doxazosin Mesylate [facility] [place] 41512509155 4 MG Orally Once a day Active 1 tablet Spiriva HandiHaler [facility] [place] 13038622167 18 MCG Inhalation Once a day Active 1 capsule by mouth Leflunomide [facility] [place] 89314837085 20 MG Orally Once a day June 06, 2017 July 15, 2018 Active 1 tablet Crestor [facility] [place] 20575832721 10 MG Orally Once a day Active 1 tablet Ferrous Sulfate [facility] [place] [address]-81 325 MG Orally twice a day Active as directed Rosuvastatin Calcium [facility] [place] 34671408094 10 MG Orally Once a day Active 1 tablet Metoprolol & Diet Manage Prod NDC 0 100 MG Orally Once a day Active 1 Tablet Iron [facility] [place] [address]-87 25 MG Orally once a day Active 1 tablet Furosemide [facility] [place] 45045268798 40 MG Orally Once a day Active 1 tablet Vital Signs Date/Time: Jan 16, 2018 BMI 27.47 Index Weight 155.1 lbs Height 63 in Temperature 98.0 F Cardiac Monitoring Heart Rate 74 /min Blood Pressure Diastolic 40 mm Hg Blood Pressure Systolic 110 mm Hg Results No Known Results Summary Purpose eClinicalWorks Submission
[2018-03-02] MEDS ORDERED: MORPHINE SULFATE INJ 4 MG/ML INJ IV STA (12:39)
[2018-03-02] MEDS ORDERED: SODIUM CHLORIDE 0.9% 500ML 500 ML IV STA (12:39)
[2018-03-02] MEDS ORDERED: ONDANSETRON HCL INJ 2 MG/ML VIAL IV ONE (12:45)
[2018-03-02] MEDS ORDERED: FAMOTIDINE 20 MG/2 ML VIAL IV ONE (12:45)
--- NOTE | 2018-03-02 13:49 | Diagnostic Imaging Report ---
EXAMINATION: CT of the abdomen and pelvis without contrast. TECHNIQUE: Spiral CT images of the abdomen and pelvis were performed from the lung bases to the lesser trochanters. No intravenous contrast was given per ordering physician request. Coronal and sagittal reformatted images were obtained. COMPARISON: None. CLINICAL HISTORY:Abdominal pain, mid abdominal DISCUSSION: ABSENCE OF INTRAVENOUS CONTRAST DECREASES SENSITIVITY FOR DETECTION OF FOCAL LESIONS AND VASCULAR PATHOLOGY. ABDOMEN/PELVIS: LOWER THORAX: Linear opacity in the right middle lobe and bilateral lower lobes compatible with scar or subsegmental atelectasis. Mild aneurysmal dilatation of the descending thoracic aorta to a caliber of 3.4 cm. HEPATOBILIARY:No focal hepatic lesion or intrahepatic biliary dilatation. Status post cholecystectomy with metallic clips in the gallbladder fossa. SPLEEN: No splenomegaly. PANCREAS: No focal masses or ductal dilatation. ADRENALS: Fullness of the bilateral adrenal glands without discrete nodule. KIDNEYS/URETERS: 1.6 cm exophytic cyst projecting from the lower pole of the right kidney. Punctate right renal cortical calcifications in the upper pole. Lobulated bilateral renal contours may be congenital or postinflammatory. Punctate nonobstructing calculus in the lower pole of the left kidney seen on series 2 image 34. No hydronephrosis. No gross mass lesion. PELVIC ORGANS/BLADDER: The urinary bladder is incompletely distended but otherwise unremarkable. The uterus is neutral in position and appears normal. No adnexal mass. PERITONEUM/RETROPERITONEUM: No free air or fluid. LYMPH NODES: No pelvic sidewall, retroperitoneal, or mesenteric lymphadenopathy. VESSELS: Extensive atherosclerotic calcification of the abdominal aorta. Borderline aneurysmal dilatation of the infrarenal abdominal aorta (2.9 cm) as seen on series 2 image 33. Evaluation is otherwise limited in the absence of intravenous contrast. GI TRACT: The large bowel shows no evidence of distention or wall thickening. There are scattered sigmoid diverticula without wall thickening or inflammatory change. No small bowel dilatation to suggest obstruction. BONES AND SOFT TISSUES: No focal soft tissue abnormalities.. 2.7 cm hemangioma in the T11 vertebral body. No osseous destructive lesions. IMPRESSION: No acute intra-abdominal or pelvic CT abnormality. Punctate nonobstructing left lower pole renal calculus. Advanced atherosclerotic vascular disease with mild aneurysmal dilatation (3.4 cm) of the descending thoracic aorta and borderline aneurysmal dilatation (2.9 cm) of the infrarenal abdominal aorta. Sigmoid diverticulosis without findings of diverticulitis. Signed by: Dr. Fred De Santiago M.D. on 03/02/2018 1:45 PM
[2018-03-02 14:25] VITALS: BP 129/64
== END 2018-03-02 14:30 | disposition home or self-care (01) ==
LOC: FSED 12:23
DX: R10.33 Periumbilical pain (principal); R10.13 Epigastric pain; R11.0 Nausea; K29.00 Acute gastritis without bleeding
CPT/HCPCS: 36415; 74176; 80048; 80076; 81003; 83690; 85025; 99284; J2270; J2405; J7040

== ENCOUNTER 2018-04-09 08:14 | Emergency (ER) | payer MEDICARE, BC ==
[~2018-04-09] VITALS: Ht 160 cm; Wt 65.3 kg
--- OUTSIDE RECORDS SUMMARY | 2018-04-09 08:19 | XMS REPORT | Continuity of Care Document ---
Author Author [facility] Interface Address Unknown Phone Unavailable Problems Problem Status Onset Date Classification Date Reported Comments Source ABNORMAL LABS Active 08/09/2016 [facility] SYMPTOMATIC ANEMAI Active 08/09/2016 [facility] Anemia Active Problem 09/05/2016 [facility] Chronic bronchitis Active Problem 09/05/2016 [facility] Chronic respiratory failure with hypoxia Resolved Problem 09/05/2016 [facility] CKD (<span ID="[id number]">Confirmed</span>) Active Problem 09/05/2016 [facility] COPD (<span [id number]">Confirmed</span>) Active Problem 09/05/2016 [facility] DM (<span ID="[id number]">Confirmed</span>) Active Problem 09/05/2016 [facility] Hyperlipemia Active Problem 09/05/2016 [facility] HTN (<span [id number]">Confirmed</span>) Active Problem 09/05/2016 [facility] Proteus<sup>1</sup> Active Problem 09/05/2016 Problem added by Discern Expert. 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 02/02/2018 Jose Rojas Osteopenia Active Problem 02/02/2018 Jose Rojas Rheumatoid arthritis 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 factor Active Diagnosis 02/02/2018 Jose Rojas Age-related osteoporosis without current pathological fracture Active Diagnosis 02/02/2018 Jose Rojas ANEMIA, UNSPECIFIED Active [facility] Medications Medication Details Route Status Patient Instructions Ordering Provider Order Date Source Leflunomide 1 tablet Orally Active 20 MG Orally Once a day Rojas 06/06/2017 Jose Orjas Insulin, Aspart, Human 4 unit, SUB-Q, TID-Before Meals, 0 Refill(s) Active 09/02/2016 [facility] Furosemide 40 MG Oral Tablet 80 mg=2 tab, PO, Q12H, 0 Refill(s) Active 09/02/2016 [facility] diltiazem 30 mg oral tablet 30 mg=1 tab, PO, Q8H, 0 Refill(s) Active 09/02/2016 [facility] Budesonide 0.16 MG/ACTUAT / formoterol fumarate 0.0045 MG/ACTUAT Metered Dose Inhaler 2 inhalation, INHALATION, BID, 0 Refill(s) Active 09/02/2016 [facility] Albuterol 0.833 MG/ML / Ipratropium Pomer[place] 0.167 MG/ML Inhalant Solution [DuoNeb] 3 mL, NEB, PRN, PRN Respiratory Protocol, 0 Refill(s) Active 09/02/2016 [facility] predniSONE 20 mg oral tablet 20 mg=1 tab, PO, Daily, 0 Refill(s) Active 09/02/2016 [facility] insulin detemir 100 units/mL subcutaneous solution 25 unit, SUB-Q, Daily, 0 Refill(s) Active 09/02/2016 [facility] potassium chloride 40 mEq, 2 tab, Route: PO, Drug form: ERTAB, ONCE, Dosing Weight 90, kg, Start date: 09/02/16 7:24:00 CDT, Stop date: 09/02/16 7:24:00 CDTNotes: (Same as: K-Dur 20) "Do Not Crush" With food and full glass of water Inactive 09/02/2016 [facility] Acetazolamide 250 mg, Route: IVP, Drug form: PDR/INJ, BID, Dosing Weight 90, kg, Start date: 09/01/16 17:00:00 CDT, Duration: 30 day, Stop date: 10/01/16 9:00:00 CDTNotes: (Same as: Diamox) No Longer Active 09/01/2016 [facility] Magnesium Sulfate 1 gm, 100 mL, Route: IVPB, Drug form: INJ, PRN, Dosing Weight 90, kg, PRN Abnormal Lab Result, For NON-ICU Patients Only., Start date: 08/28/16 8:14:00 CDT, Duration: 30 day, Stop date: 09/27/16 8:13:00 CDTNotes: WASTE: F/P - Sink; E - Municipal Trash Bin No Longer Active 08/28/2016 [facility] Calcium Gluconate 2 gm, 20 mL, Route: IVPB, PRN, Dosing Weight 90, kg, PRN Abnormal Lab Result, For NON-ICU Patients Only., Start date: 08/28/16 8:14:00 CDT, Duration: 30 day, Stop date: 09/27/16 8:13:00 CDTNotes: WASTE: F/P - Sink; E - Municipal Trash Bin No Longer Active 08/28/2016 [facility] Magnesium Oxide 800 mg, 2 tab, Route: PO, Drug form: TAB, PRN, Dosing Weight 90, kg, PRN Abnormal Lab Result, For NON-ICU Patients Only., Start date: 08/28/16 8:14:00 CDT, Duration: 30 day, Stop date: 09/27/16 8:13:00 CDTNotes: (Same as: Mag-Ox 400) Magnesium oxide 482ol=353km elemental magnesium Dose=____mg magnesium oxide (___mg elemental magnesium) No Longer Active 08/28/2016 [facility] potassium chloride 10 mEq, 100 mL, Route: IVPB, Drug form: INJ, PRN, Dosing Weight 90, kg, PRN Abnormal Lab Result, For NON-ICU Patients Only, Start date: 08/28/16 8:14:00 CDT, Duration: 30 day, Stop date: 09/27/16 8:13:00 CDTNotes: Infuse at a rate of 10 mEq/hr. (Same as: KCL) No Longer Active 08/28/2016 [facility] potassium phosphate + sodium chloride 0.9% INJ 250 mL 30 mmol, 10 mL, Route: IVPB, PRN, Dosing Weight 90, kg, PRN Abnormal Lab Result, For NON-ICU Patients Only., Start date: 08/28/16 8:14:00 CDT, Duration: 30 day, Stop date: 09/27/16 8:13:00 CDTNotes: (Same as: K Phosphate.) 1 mMol phoshate has 1.47 mEq potassium Infuse over 4 hours No Longer Active 08/28/2016 [facility] sodium phosphate + D5W 250 mL 15 mmol, 5 mL, Route: IVPB, PRN, Dosing Weight 90, kg, PRN Abnormal Lab Result, For NON-ICU Patients Only., Start date: 08/28/16 8:14:00 CDT, Duration: 30 day, Stop date: 09/27/16 8:13:00 CDT No Longer Active 08/28/2016 [facility] potassium phosphate-sodium phosphate 250 mg-280 mg-160 mg oral powder for reconstitution 2 pkt, Route: PO, Drug Form: PDR/REC, Dosing Weight 90, kg, PRN, PRN Abnormal Lab Result, For NON-ICU Patients Only, Start date: 08/28/16 8:14:00 CDT, Duration: 30 day, Stop date: 09/27/16 8:13:00 CDTNotes: (Same as: Phos-NaK) Each 1.5 gm pkt has 250mg phosphorous. Mix w/2.5oz water and stir. No Longer Active 08/28/2016 [facility] Merrem 500 mg, Route: IVPB, Drug form: PDR/INJ, ABXQ8H, Dosing Weight 90, kg, CrCL >=50ml/min, Extended infusion, infuse over 3 hours, Start date: 08/27/16 10:00:00 CDT, Duration: 10 day, Stop date: 09/06/16 2:00:00 CDT, ABX Indication: PneumoniaNotes: Same as Merrem MEDICATION WASTE Product Size: 500 mg Product Wasted: ___ mg No Longer Active 08/27/2016 [facility] Diltiazem 30 mg, 1 tab, Route: PO, Drug form: TAB, Q8H, Dosing Weight 90, kg, Start date: 08/27/16 0:00:00 CDT, Duration: 30 day, Stop date: 09/25/16 16:00:00 CDTNotes: (Same as: Cardizem) Before meals No Longer Active 08/27/2016 [facility] Furosemide 40 MG Oral Tablet 80 mg, 2 tab, Route: PO, Drug form: TAB, Q12H, Dosing Weight 90, kg, Start date: 08/26/16 21:00:00 CDT, Duration: 30 day, Stop date: 09/25/16 9:00:00 CDTNotes: (Same as: Lasix) May cause GI upset. Give with food or milk. No Longer Active 08/27/2016 [facility] Diltiazem 125 mg, 25 mL, Rate: Titrate, Start Dose: 5 mg/hr, Titration: 5 mg/hr every hour, Goal(s): Maintain HR Notes: (Same as: Cardizem) No Longer Active 08/26/2016 [facility] Zofran 4 mg, 2 mL, Route: IV, Drug form: INJ, Q6H, Dosing Weight 90, kg, PRN Nausea & Vomiting, Start date: 08/26/16 6:27:00 CDT, Duration: 30 day, Stop date: 09/25/16 6:26:00 CDTNotes: (Same as: Zofran) MEDICATION WASTE Product Size: 4 mg Product Wasted: ___ mg No Longer Active 08/26/2016 [facility] Lactulose 667 MG/ML Oral Solution 10 gm, 15 mL, Route: PO, Drug form: SYRP, BID, Dosing Weight 90, kg, Priority: STAT, Start date: 08/24/16 13:28:00 CDT, Duration: 30 day, Stop date: 09/23/16 9:00:00 CDTNotes: (Same as:Chronulac) No Longer Active 08/24/2016 [facility] Lasix 80 mg, 8 mL, Route: IV, Drug form: INJ, Q8H, Dosing Weight 90, kg, Start date: 08/23/16 16:00:00 CDT, Duration: 30 day, Stop date: 09/22/16 8:00:00 CDTNotes: (Same as: Lasix) MEDICATION WASTE Product Size: 40 mg Product Wasted: ___ mg No Longer Active 08/23/2016 [facility] Prednisone 20 mg, 1 tab, Route: PO, Drug form: TAB, Daily, Dosing Weight 90, kg, Start date: 08/22/16 9:00:00 CDT, Duration: 30 day, Stop date: 09/20/16 9:00:00 CDTNotes: Take with food. No Longer Active 08/22/2016 [facility] Acetylcysteine 200 MG/ML Inhalant Solution 400 mg, 2 mL, Route: NEB, Drug Form: SOLN, Dosing Weight 90, kg, RBID, Start date: 08/19/16 9:30:00 CDT, Stop date: 09/18/16 8:00:00 CDT No Longer Active 08/19/2016 [facility] budesonide-formoterol 160 mcg-4.5 mcg/inh inhalation aerosol with adapter 2 inhalation, Route: INHALATION, Drug Form: AERO/A, BID, Start date: 08/19/16 9:00:00 CDT, Duration: 30 day, Stop date: 09/17/16 17:00:00 CDTNotes: (Same as: Symbicort) WASTE: Aerosol - Return to Pharmacy No Longer Active 08/19/2016 [facility] Budesonide 0.5 mg, 2 mL, Route: NEB, Drug form: SUSP, RBID, Dosing Weight 90, kg, Start date: 08/18/16 8:37:00 CDT, Duration: 30 day, Stop date: 09/17/16 8:00:00 CDTNotes: (Same As: Pulmicort) No Longer Active 08/18/2016 [facility] ertapenem 500 mg, Route: IVPB, [id number], Dosing Weight 90, kg, Start date: 08/17/16 22:00:00 CDT, Duration: 7 day, Stop date: 08/23/16 22:00:00 CDT, ABX Indication: Urinary Tract InfectionNotes: (Same as: INVanz) Refrigerate. NOT COMPATIBLE WITH D5W. Stable in refrigerator for 24 hours MEDICATION WASTE Product Size: 1000 mg Product Wasted: ___ mg No Longer Active 08/18/2016 [facility] meropenem 500 mg, Route: IVPB, ABXQ8H, Dosing Weight 90, kg, CrCL=26 -49 ml/min, Extended infusion, infuse over 3 hours, Start date: 08/17/16 9:00:00 CDT, Duration: 7 day, Stop date: 08/24/16 1:00:00 CDT, ABX In dication: Urinary Tract InfectionNotes: Same as Merrem MEDICATION WASTE Product Size: 500 mg Product Wasted: _0__ mg Inactive 08/17/2016 [facility] sterile water Route: IV, Drug Form: INJ, Daily, Start date: 08/17/16 9:00:00 CDT, Duration: 30 day, Stop date: 09/15/16 9:00:00 CDTNotes: For reconstitution of drugs only Inactive 08/17/2016 [facility] Solu-Medrol 40 mg, 1 mL, Route: IVP, Drug form: INJ, Q12H, Dosing Weight 90, kg, Start date: 08/17/16 9:00:00 CDT, Duration: 30 day, Stop date: 09/15/16 21:00:00 CDTNotes: (Same as:Solu-MEDROL, A-Methapred) No Longer Active 08/17/2016 [facility] Acetazolamide 250 mg, Route: IVP, Drug form: PDR/INJ, Daily, Dosing Weight 90, kg, Start date: 08/17/16 9:00:00 CDT, Duration: 30 day, Stop date: 09/15/16 9:00:00 CDTNotes: (Same as: Diamox) No Longer Active 08/17/2016 [facility] heparin 5,000 unit, 1 mL, Route: SUB-Q, Drug form: INJ, Q12H, Dosing Weight 90, kg, Start date: 08/16/16 21:00:00 CDT, Duration: 30 day, Stop date: 09/15/16 9:00:00 CDTNotes: porcine heparin No Longer Active 08/17/2016 [facility] Lasix 20 mg, 2 mL, Route: IVP, Drug form: INJ, Daily, Dosing Weight 90, kg, Start date: 08/16/16 9:29:00 CDT, Duration: 30 day, Stop date: 09/15/16 9:00:00 CDTNotes: (Same as: Lasix) No Longer Active 08/16/2016 [facility] d50 syringe 25 gm, 50 mL, Route: INJ, Drug Form: INJ, Dosing Weight 90, kg, ONCE, Start date: 08/13/16 19:56:00 CDT, Stop date: 08/13/16 19:56:00 CDT Inactive 08/14/2016 [facility] Insulin regular 5 unit, 0.05 mL, Route: IV, Drug form: INJ, ONCE, Dosing Weight 90, kg, Start date: 08/13/16 19:55:00 CDT, Stop date: 08/13/16 19:55:00 CDTNotes: (Same as: Humulin R and NovoLIN R) WASTE: F/P - Black; E - Municipal Trash Bin (Do not shake) Inactive 08/14/2016 [facility] Albuterol 0.83 MG/ML Inhalant Solution 2.49 mg, 3 mL, Route: INHALATION, Drug form: SOLN, PRN, Dosing Weight 90, kg, PRN Respiratory Protocol, Start date: 08/13/16 16:03:00 CDT, Duration: 30 day, Stop date: 09/12/16 16:02:00 CDTNotes: SEE RT DOCUMENTATION (Same as: Proventil) No Longer Active 08/13/2016 [facility] Kayexalate 30 gm, 120 mL, Route: PO, Drug form: SUSP, ONCE, Dosing Weight 90, kg, Priority: STAT, Start date: 08/13/16 15:35:00 CDT, Stop date: 08/13/16 15:35:00 CDTNotes: (sodium polystyrene sulfonate 15 gm/60 ml TIMOTHY) Shake well before use. (Same as: Kayexalate, SPS) Inactive 08/13/2016 [facility] pantoprazole 40 mg, 1 tab, Route: PO, Drug form: ECTAB, BID, Dosing Weight 90, kg, Start date: 08/13/16 9:00:00 CDT, Duration: 30 day, Stop date: 09/11/16 17:00:00 CDTNotes: Tablet should not be chewed or crushed. (Same as: Protonix) No Longer Active 08/13/2016 [facility] Protonix 40 mg, Route: IVP, Drug form: INJ, BID, Dosing Weight 90, kg, Start date: 08/13/16 9:00:00 CDT, Duration: 30 day, Stop date: 09/11/16 17:00:00 CDTNotes: For IV push reconstitute with 10 ml 0.9% sodium c hloride and push over 2 minutes. (Same as: Protonix) Inactive 08/13/2016 [facility] Sucralfate 100 MG/ML Oral Suspension [Carafate] 1 [...] As: Vishal jung) No Longer Active 08/13/2016 [facility] NovoLog 4 unit, 0.04 mL, Route: SUB-Q, [...] days from Date No Longer Active 08/12/2016 [facility] Insulin, Aspart, Human 15 unit, 0.15 mL, [...] days from Date No Longer Active 08/11/2016 [facility] Lorazepam 0.25 mg, 0.5 tab, Route: PO, Drug form: TAB, Q8H, Dosing Weight 90, kg, PRN Anxiety, Start date: 08/10/16 20:54:00 CDT, Stop date: 09/09/16 20:53:00 CDTNotes: (Same as: Ativan) No Longer Active 08/11/2016 [facility] Albuterol 0.83 MG/ML Inhalant Solution 2.49 mg, 3 mL, Route: INHALATION, Drug form: SOLN, RQ4H, Dosing Weight 90, kg, Start date: 08/10/16 19:00:00 CDT, Duration: 30 day, Stop date: 09/09/16 15:00:00 CDTNotes: SEE RT DOCUMENTATION (Same as: Proventil) No Longer Active 08/11/2016 [facility] Solu-Medrol 40 mg, 1 mL, Route: IVP, Drug form: INJ, Q8H, Dosing Weight 90, kg, Priority: STAT, Start date: 08/10/16 17:13:00 CDT, Duration: 30 day, Stop date: 09/09/16 16:00:00 CDTNotes: (Same as:Solu-MEDROL, A -Methapred) No Longer Active 08/10/2016 [facility] Protonix 40 mg, 1 tab, Route: PO, Drug form: ECTAB, Before Dinner, Dosing Weight 90, kg, Start date: 08/10/16 16:30:00 CDT, Duration: 30 day, Stop date: 09/08/16 16:30:00 CDTNotes: Tablet should not be chewed or crushed. (Same as: Protonix) No Longer Active 08/10/2016 [facility] Sodium Chloride 0.154 MEQ/ML Injectable Solution 1,000 mL, Rate: 25 ml/hr, Infuse over: 40 hr, Route: IV, Dosing Weight 90 kg, Total Volume: 1,000, Start date: 08/10/16 11:57:00 CDT, Duration: 30 day, Stop date: 09/09/16 11:56:00 CDT Inactive 08/10/2016 [facility] tiotropium 0.018 MG/ACTUAT Inhalant Powder [Spiriva] 18 microgram, 1 inhalation, Route: INHALATION, Drug form: CAP, Daily, Dosing Weight 90, kg, Start date: 08/10/16 9:00:00 CDT, Duration: 30 day, Stop date: 10/08/16 9:00:00 CDTNotes: (Same As: Spiriva). No Longer Active 08/10/2016 [facility] Diovan 160 mg, 1 tab, Route: PO, Drug form: TAB, Daily, Dosing Weight 90, kg, Start date: 08/10/16 9:00:00 CDT, Duration: 30 day, Stop date: 09/08/16 9:00:00 CDTNotes: Same as Diovan No Longer Active 08/10/2016 [facility] Brovana 15 microgram neb Brovana 15 microgram neb, 15 microgram, 2 mL, Drug form: MISC, Route: NEB, BID, 08/10/16 9:00:00 CDT, Stop date: 08/18/16 20:00:00 CDT No Longer Active 08/10/2016 [facility] 24 HR Metoprolol Tartrate 100 MG Extended Release Tablet [Toprol] 100 mg, 1 tab, Route: PO, Drug form: ERTAB, Daily, Start date: 08/10/16 9:00:00 CDT, Duration: 30 day, Stop date: 10/08/16 9:00:00 CDTNotes: (Same as: Toprol XL) May split tab, but do not crush. No Longer Active 08/10/2016 [facility] insulin detemir 25 unit, 0.25 mL, Route: SUB-Q, Drug form: SOLN, Daily, Start date: 08/10/16 9:00:00 CDT, Duration: 30 day, Stop date: 10/08/16 9:00:00 CDTNotes: Same as Levemir Do not hold insulin without contactin g prescriber WASTE: F/P - Black; E - Municipal Trash Bin "single patient use only" No Longer Active 08/10/2016 [facility] 3 ML Insulin Glargine 100 UNT/ML Prefilled Syringe [Lantus] 20 unit, Route: SUB-Q, Drug form: SOLN, Daily, Dosing Weight 90, kg, Start date: 08/10/16 9:00:00 CDT, Duration: 30 day, Stop date: 09/08/16 9:00:00 CDT No Longer Active 08/10/2016 [facility] Doxazosin 2 mg, 2 tab, Route: PO, Drug form: TAB, Daily, Dosing Weight 90, kg, Start date: 08/10/16 9:00:00 CDT, Duration: 30 day, Stop date: 10/08/16 9:00:00 CDTNotes: (Same as: Cardura) No Longer Active 08/10/2016 [facility] Budesonide 0.25 MG/ML Inhalant Solution 0.5 mg, 2 mL, Route: NEB, Drug form: SUSP, BID, Dosing Weight 90, kg, Start date: 08/10/16 9:00:00 CDT, Stop date: 08/18/16 20:00:00 CDTNotes: (Same As: Pulmicort) No Longer Active 08/10/2016 [facility] Vitamin B 12 1,500 microgram, 3 tab, Route: PO, Drug form: TAB, Daily, Dosing Weight 90, kg, Start date: 08/10/16 9:00:00 CDT, Duration: 30 day, Stop date: 10/08/16 9:00:00 CDTNotes: (Same As: Vitamin B12) No Longer Active 08/10/2016 [facility] Brovana 15 microgram, 2 mL, Route: NEB, Drug form: SOLN, BID, Dosing Weight 90, kg, Start date: 08/10/16 9:00:00 CDT, Duration: 30 day, Stop date: 09/08/16 17:00:00 CDT Inactive 08/10/2016 [facility] Amlodipine 10 mg, 2 tab, Route: PO, Drug form: TAB, Daily, Dosing Weight 90, kg, Start date: 08/10/16 9:00:00 CDT, Duration: 30 day, Stop date: 09/08/16 9:00:00 CDTNotes: (Same as: Norvasc) No Longer Active 08/10/2016 [facility] Leflunomide 20mg Leflunomide 20mg, 1 tab, Drug form: MISC, Route: PO, Daily, 08/10/16 9:00:00 CDT, Duration: 30 day, Stop date: 10/08/16 9:00:00 CDT No Longer Active 08/10/2016 [facility] leflunomide 20 mg, Route: PO, Drug form: TAB, Daily, Dosing Weight 90, kg, Start date: 08/10/16 9:00:00 CDT, Duration: 30 day, Stop date: 09/08/16 9:00:00 CDT Inactive 08/10/2016 [facility] Albuterol 0.833 MG/ML / Ipratropium [place] 0.167 MG/ML Inhalant Solution [DuoNeb] 3 ml, Route: NEB, Drug Form: SOLN, Dosing Weight 90, kg, PRN, PRN Respiratory Protocol, Start date: 08/10/16 1:19:00 CDT, Duration: 30 day, Stop date: 10/09/16 1:18:00 CDTNotes: (Same as: Duoneb) No Longer Active 08/10/2016 [facility] Lasix 20 mg, 2 mL, Route: IVP, Drug form: INJ, ONCE, Dosing Weight 90, kg, Start date: 08/10/16 1:19:00 CDT, Stop date: 08/10/16 1:19:00 CDTNotes: (Same as: Lasix) Inactive 08/10/2016 [facility] potassium chloride 40 mEq, 2 tab, Route: PO, Drug form: ERTAB, ONCE, Dosing Weight 90, kg, Start date: 08/09/16 21:31:00 CDT, Stop date: 08/09/16 21:31:00 CDTNotes: (Same as: K-Dur 20) "Do Not Crush" With food and full glass of water Inactive 08/10/2016 [facility] Protonix 40 mg, 1 tab, Route: PO, Drug form: ECTAB, Bedtime, Dosing Weight 90, kg, Start date: 08/09/16 21:00:00 CDT, Duration: 30 day, Stop date: 09/07/16 21:00:00 CDTNotes: Tablet should not be chewed or crushed. (Same as: Protonix) No Longer Active 08/10/2016 [facility] Crestor 10 mg, 2 tab, Route: PO, Drug form: TAB, Bedtime, Dosing Weight 90, kg, Start date: 08/09/16 21:00:00 CDT, Duration: 30 day, Stop date: 10/07/16 21:00:00 CDTNotes: Same as Crestor No Longer Active 08/10/2016 [facility] Lasix 20 mg, 2 mL, Route: IVP, Drug form: INJ, Daily, Dosing Weight 90, kg, Start date: 08/09/16 20:54:00 CDT, Stop date: 09/08/16 23:00:00 CDTNotes: (Same as: Lasix) No Longer Active 08/10/2016 [facility] Insulin, Aspart, Human 4 unit, 0.04 mL, [...] days from Date No Longer Active 08/10/2016 [facility] Glucagon 1 mg, Route: IM, Drug form: PDR/INJ, PRN, Dosing Weight 90, kg, PRN Blood Glucose Results, Start date: 08/09/16 19:50:00 CDT, Duration: 30 day, Stop date: 10/08/16 19:49:00 CDT No Longer Active 08/10/2016 [facility] Dextrose 50% Syringe 12.5 gm, 25 mL, Route: IVP, Drug Form: INJ, Dosing Weight 90, kg, PRN, PRN Blood Glucose Results, Start date: 08/09/16 19:50:00 CDT, Duration: 30 day, Stop date: 10/08/16 19:49:00 CDT No Longer Active 08/10/2016 [facility] Ipratropium [place] 0.2 MG/ML Inhalant Solution 500 microgram, 2.5 mL, Route: NEB, Drug form: SOLN, QID, Dosing Weight 90, kg, PRN Wheezing, Start date: 08/09/16 19:08:00 CDT, Duration: 30 day, Stop date: 10/08/16 19:07:00 CDTNotes: SEE RT DOCUMENTATION (Same as:Atrovent) No Longer Active 08/10/2016 [facility] Bisacodyl 10 mg, 2 tab, Route: PO, Drug form: ECTAB, Daily, Dosing Weight 90, kg, PRN Constipation, Start date: 08/09/16 19:08:00 CDT, Duration: 30 day, Stop date: 08/18/17 19:07:00 CDTNotes: (Same As: Dulcolax, Correctol) (Do Not Crush) "Do Not Crush" No Longer Active 08/10/2016 [facility] pantoprazole 40 MG Enteric Coated Tablet [Protonix] 40 mg=1 tab, PO, Bedtime, 0 Refill(s) Active 08/09/2016 [facility] Acetylcysteine 200 MG/ML Inhalant Solution 0.8 gm=4 mL, NEB, BID, 0 Refill(s) No Longer Active 08/09/2016 [facility] valsartan 160 MG Oral Tablet [Diovan] 160 mg=1 tab, PO, Daily, 0 Refill(s) No Longer Active 08/09/2016 [facility] Hydrochlorothiazide 12.5 MG Oral Capsule [Microzide] 12.5 mg=1 cap, PO, Daily, 0 Refill(s) No Longer Active 08/09/2016 [facility] leflunomide 20 mg oral tablet 20 mg=1 tab, PO, Daily, 0 Refill(s) No Longer Active 08/09/2016 [facility] 3 ML Insulin Glargine 100 UNT/ML Prefilled Syringe [Lantus] 20 unit, SUB-Q, Daily, 0 Refill(s) No Longer Active 08/09/2016 [facility] Ipratropium [place] 0.2 MG/ML Inhalant Solution 500 microgram=2.5 mL, NEB, QID, PRN Wheezing, 0 Refill(s) Active 08/09/2016 [facility] pantoprazole 40 mg oral granule =1 Pack, PO, Bedtime, # 30 ea, 0 Refill(s) Inactive 08/09/2016 [facility] Humalog 100 units/mL 1 unit, SUB-Q, Daily, 0 Refill(s) No Longer Active 08/09/2016 [facility] Budesonide 0.25 MG/ML Inhalant Solution 0.5 mg=2 mL, NEB, BID, 0 Refill(s) No Longer Active 08/09/2016 [facility] bisacodyl 5 mg oral enteric coated tablet 10 mg=2 tab, PO, Daily, PRN Constipation, 0 Refill(s) Active 08/09/2016 [facility] arformoterol 0.0075 MG/ML Inhalant Solution [Brovana] 15 microgram=2 mL, NEB, BID, # 60 ea, 0 Refill(s) No Longer Active 08/09/2016 [facility] Rosuvastatin calcium 10 MG Oral Tablet [Crestor] 10 mg=1 tab, PO, Bedtime, 0 Refill(s) Active 08/09/2016 [facility] Saccharomyces boulardii lyo 250 MG Oral Capsule [Florastor] 250 mg=1 cap, PO, Daily, PRN for loose stool, 0 Refill(s) No Longer Active 08/09/2016 [facility] metoprolol 100 mg oral tablet, extended release 100 mg=1 tab, PO, Daily, 0 Refill(s) Active 08/09/2016 [facility] cyanocobalamin 500 mcg sublingual tablet 500 microgram=1 tab, SL, Daily, 0 Refill(s) Inactive 08/09/2016 [facility] cyanocobalamin 1000 mcg sublingual tablet 1,500 microgram=1.5 tab, SL, Daily, 0 Refill(s) Active 08/09/2016 [facility] tiotropium 0.018 MG/ACTUAT Inhalant Powder [Spiriva] 18 microgram=1 cap, INHALATION, Daily, 0 Refill(s) Active 08/09/2016 [facility] doxazosin 2 mg oral tablet 2 mg=1 tab, PO, Daily, 0 Refill(s) Active 08/09/2016 [facility] amLODIPine 10 mg oral tablet 10 mg=1 tab, PO, Daily, 0 Refill(s) No Longer Active 08/09/2016 [facility] Saline Flush 0.9% 10 ml, Route: IVP, Drug Form: INJ, Dosing Weight 86.364, kg, PRN, PRN Line Flush, Start date: 08/09/16 16:54:00 CDT, Duration: 30 day, Stop date: 10/08/16 16:53:00 CDTNotes: (Same as: BD Posiflush) No Longer Active 08/09/2016 [facility] Acetaminophen 325 MG / Hydrocodone Bitartrate 5 MG Oral Tablet 1 tab, Route: PO, Drug Form: TAB, Dosing Weight 86.364, kg, Q4H, PRN Pain Score 4-6, Start date: 08/09/16 16:54:00 CDT, Duration: 30 day, Stop date: 10/08/16 16:53:00 CDTNotes: (Same as: [place] 325/5) Do not exceed 4gm/day of acetaminophen. No Longer Active 08/09/2016 [facility] sodium chloride 0.9% INJ 250 mL 250 mL, Rate: Configuration Manager for use with blood product administration., Dosing Weight 86.364, kg, Route: IV, Total Volume: 250, Priority: Routine, Start Date: 08/09/16 16:05:00 CDT, Duration: 30 day, Stop date: 09/08/16 16:04:00 CDT, Replace Every: 24 hr No Longer Active 08/09/2016 [facility] Eliquis as directed Orally Active 2.5 MG Orally [place] Jose Rojas Amlodipine Besylate-Valsartan 1 tablet Orally Active 5-160 MG Orally Once a day [place] Jose Rojas Vitamin B12 1 tablet Orally Active 100 MCG Orally Once a day [place] Jose Rojas Humalog as directed Subcutaneous Active 100 UNIT/ML Subcutaneous once a day [place] Jose Rojas Budesonide-Formoterol Fumarate 2 puffs Inhalation Active 0.25- 2ml Inhalation Twice a day [place] Jose Rojas Aranesp (Albumin Free) 1 ml Injection Active 300 MCG/ML Injection [place] Jose Rojas Ipratropium-Albuterol 1 puff Inhalation Active 500 mcg Inhalation Four times a day [place] Jose Rojas Multivitamins 1 Tablet Orally Active Orally Once a day [place] Jose Rojas Levemir as directed Subcutaneous Active 100 UNIT/ML Subcutaneous [place] Jose Rojas HydrALAZINE HCl 1 tablet with food Orally Active 25 MG Orally Three times a day [place] Jose Rojas Doxazosin Mesylate 1 tablet Orally Active 4 MG Orally Once a day [place] Jsoe Rojas Spiriva HandiHaler 1 capsule by mouth Inhalation Active 18 MCG Inhalation Once a day [place] Jose Rojas Crestor 1 tablet Orally Active 10 MG Orally Once a day [place] Jose Rojas Ferrous Sulfate as directed Orally Active 325 MG Orally twice a day [place] Jose Rojas Rosuvastatin Calcium 1 tablet Orally Active 10 MG Orally Once a day [place] Jose Rojas Metoprolol & Diet Manage Prod 1 Tablet Orally Active 100 MG Orally Once a day [place] Jose Rojas Iron 1 tablet Orally Active 25 MG Orally once a day [place] Jose Rojas Furosemide 1 tablet Orally Active 40 MG Orally Once a day [place] Jose Rojas Ferrous Sulfate as directed Orally Active 325 MG Orally twice a day [place] Jose Rojas Vitamin C 1 Tablet Orally Active 500 MG Orally Once a day [place] Jose Rojas Advair Diskus 1 puff Inhalation Active 100-50 MCG/DOSE Inhalation every 12 hrs [place] Jose Rojas Baby Aspirin 1 tablet Orally Active 81 MG Orally Once a day [place] Jose Rojas Allergies, Adverse Reactions, Alerts Substance [...] Jose Rojas penicillins Assertion Drug allergy Active [facility] sulfa drugs Assertion Drug allergy Active [facility] Immunizations Immunization Date Given Site Status Last [...] should be multiplied by the estimated BMI. [facility] CHEM PANEL Potassium Lvl 3.0 meq/L 3.5 - 5.1 09/02/2016 Result Comment: Critical Result(s) called to yumiko burciaga at 09/02/2016 05:06 by . Read back OK. [facility] CHEM PANEL Chloride Lvl 91 meq/L 95 - 109 09/02/2016 [facility] CHEM PANEL CO2 >45 mEq/L 24 - 32 09/02/2016 Result Comment: Critical Result(s) called to yumiko burciaga at 09/02/2016 05:06 by hp. Read back OK. [facility] CHEM PANEL Calcium Lvl 8.1 mg/dL 8.5 - 10.5 09/02/2016 [facility] CHEM PANEL Creatinine Lvl 1.50 mg/dL 0.50 - 1.40 09/02/2016 [facility] CHEM PANEL Sodium Lvl 143 meq/L 135 - 145 09/02/2016 [facility] CHEM PANEL BUN 76 mg/dL 7 - 22 09/02/2016 [facility] CHEM PANEL Glucose Lvl 94 mg/dL 70 - 99 09/02/2016 [facility] HEMATOLOGY MPV 9.5 fL 7.4 - 10.4 09/02/2016 [facility] HEMATOLOGY Platelet 128 K/CMM 133 - 450 09/02/2016 [facility] HEMATOLOGY RDW 14.8 % 11.5 - 14.5 09/02/2016 [facility] HEMATOLOGY MCHC 32.3 g/dL 32.0 - 36.0 09/02/2016 [facility] MCH 29.8 pg 27.0 - 31.0 09/02/2016 [facility] MCV 92.1 fL 80.0 - 98.0 09/02/2016 [facility] HEMATOLOGY Hct 26.1 % 36.0 - 48.0 09/02/2016 [facility] HEMATOLOGY Hgb 8.5 g/dL 12.0 - 16.0 09/02/2016 [facility] HEMATOLOGY RBC 2.84 M/CMM 4.20 - 5.40 09/02/2016 [facility] HEMATOLOGY WBC 5.8 K/CMM 3.7 - 10.4 09/02/2016 [facility] ELECTROLYTES CO2 >45 mEq/L 24 - 32 [...] should be multiplied by the estimated BMI. [facility] ELECTROLYTES Calcium Lvl 8.5 mg/dL 8.5 - 10.5 09/01/2016 [facility] ELECTROLYTES Chloride Lvl 91 meq/L 95 - 109 09/01/2016 [facility] ELECTROLYTES Potassium Lvl 3.5 meq/L 3.5 - 5.1 09/01/2016 [facility] ELECTROLYTES Sodium Lvl 143 meq/L 135 - 145 09/01/2016 [facility] ELECTROLYTES Creatinine Lvl 1.50 mg/dL 0.50 - 1.40 09/01/2016 [facility] ELECTROLYTES BUN 74 mg/dL 7 - 22 09/01/2016 [facility] ELECTROLYTES Glucose Lvl 100 mg/dL 70 - 99 09/01/2016 [facility] MPV 9.6 fL 7.4 - 10.4 09/01/2016 [facility] RBC 2.88 M/CMM 4.20 - 5.40 09/01/2016 [facility] Hct 26.6 % 36.0 - 48.0 09/01/2016 [facility] Hgb 8.5 g/dL 12.0 - 16.0 09/01/2016 [facility] MCHC 32.1 g/dL 32.0 - 36.0 09/01/2016 [facility] MCH 29.6 pg 27.0 - 31.0 09/01/2016 [facility] MCV 92.3 fL 80.0 - 98.0 09/01/2016 [facility] RDW 14.8 % 11.5 - 14.5 09/01/2016 [facility] Platelet 129 K/CMM 133 - 450 09/01/2016 [facility] WBC 5.5 K/CMM 3.7 - 10.4 09/01/2016 [facility] Segs-Bands # 3.9 K/CMM 1.5 - 8.1 09/01/2016 [facility] Basophils 0.3 % 0.0 - 1.0 09/01/2016 [facility] Lymphocytes # 0.9 K/CMM 1.0 - 5.5 09/01/2016 [facility] HEMATOLOGY Segs 71.8 % 45.0 - 75.0 09/01/2016 [facility] HEMATOLOGY Eosinophils 2.4 % 0.0 - 4.0 09/01/2016 [facility] HEMATOLOGY Monocytes 8.2 % 2.0 - 12.0 09/01/2016 [facility] HEMATOLOGY Monocytes # 0.4 K/CMM 0.0 - 0.8 09/01/2016 [facility] HEMATOLOGY Lymphocytes 17.3 % 20.0 - 40.0 09/01/2016 [facility] HEMATOLOGY Eosinophils # 0.1 K/CMM 0.0 - 0.5 09/01/2016 [facility] CHEM PANEL eGFR 37 mL/min/1.73m2 08/29/2016 Result [...] should be multiplied by the estimated BMI. [facility] CHEM PANEL Chloride Lvl 91 meq/L 95 - 109 08/29/2016 [facility] CHEM PANEL Potassium Lvl 3.8 meq/L 3.5 - 5.1 08/29/2016 [facility] CHEM PANEL Calcium Lvl 8.2 mg/dL 8.5 - 10.5 08/29/2016 [facility] CHEM PANEL Creatinine Lvl 1.40 mg/dL 0.50 - 1.40 08/29/2016 [facility] CHEM PANEL Sodium Lvl 141 meq/L 135 - 145 08/29/2016 [facility] CHEM PANEL Glucose Lvl 170 mg/dL 70 - 99 08/29/2016 [facility] CHEM PANEL BUN 60 mg/dL 7 - 22 08/29/2016 [facility] CHEM PANEL CO2 >45 mEq/L 24 - 32 08/29/2016 Result Comment: Critical Result(s) called to Tiesha Curry at 08/29/2016 12:40 by Nilda Allred. Read back OK. [facility] CHEM PANEL Magnesium Lvl 2.0 mg/dL 1.8 - 2.4 08/29/2016 [facility] HEMATOLOGY RDW 14.7 % 11.5 - 14.5 08/28/2016 [facility] HEMATOLOGY MPV 11.2 fL 7.4 - 10.4 08/28/2016 [facility] HEMATOLOGY Platelet 95 K/CMM 133 - 450 08/28/2016 [facility] HEMATOLOGY RBC 2.84 M/CMM 4.20 - 5.40 08/28/2016 [facility] HEMATOLOGY MCHC 31.4 g/dL 32.0 - 36.0 08/28/2016 [facility] MCH 29.5 pg 27.0 - 31.0 08/28/2016 [facility] HEMATOLOGY Hgb 8.4 g/dL 12.0 - 16.0 08/28/2016 [facility] HEMATOLOGY MCV 94.1 fL 80.0 - 98.0 08/28/2016 [facility] HEMATOLOGY Hct 26.7 % 36.0 - 48.0 08/28/2016 [facility] HEMATOLOGY WBC 7.9 K/CMM 3.7 - 10.4 08/28/2016 [facility] HEMATOLOGY Eosinophils 1.5 % 0.0 - 4.0 08/28/2016 [facility] HEMATOLOGY Basophils 0.4 % 0.0 - 1.0 08/28/2016 [facility] HEMATOLOGY Monocytes 9.6 % 2.0 - 12.0 08/28/2016 [facility] HEMATOLOGY Monocytes # 0.8 K/CMM 0.0 - 0.8 08/28/2016 [facility] HEMATOLOGY Lymphocytes # 0.8 K/CMM 1.0 - 5.5 08/28/2016 [facility] HEMATOLOGY Segs-Bands # 6.2 K/CMM 1.5 - 8.1 08/28/2016 [facility] HEMATOLOGY Eosinophils # 0.1 K/CMM 0.0 - 0.5 08/28/2016 [facility] HEMATOLOGY Segs 78.1 % 45.0 - 75.0 08/28/2016 [facility] HEMATOLOGY Lymphocytes 10.4 % 20.0 - 40.0 08/28/2016 [facility] HEMATOLOGY Lymphocytes 5.8 % 20.0 - 40.0 08/27/2016 [facility] HEMATOLOGY Segs 85.1 % 45.0 - 75.0 08/27/2016 [facility] HEMATOLOGY Segs-Bands # 11.9 K/CMM 1.5 - 8.1 08/27/2016 [facility] HEMATOLOGY Monocytes # 1.1 K/CMM 0.0 - 0.8 08/27/2016 [facility] HEMATOLOGY Lymphocytes # 0.8 K/CMM 1.0 - 5.5 08/27/2016 [facility] HEMATOLOGY Basophils 0.2 % 0.0 - 1.0 08/27/2016 [facility] HEMATOLOGY Eosinophils 0.8 % 0.0 - 4.0 08/27/2016 [facility] HEMATOLOGY Monocytes 8.1 % 2.0 - 12.0 08/27/2016 [facility] HEMATOLOGY Eosinophils # 0.1 K/CMM 0.0 - 0.5 08/27/2016 [facility] HEMATOLOGY Heparin Ab(CESARIO) Negative (08/27/16 5:27 AM) Negative 08/27/2016 [facility] HEMATOLOGY Pos CO Value 0.448 08/27/2016 [facility] HEMATOLOGY Pat Od Value 0.072 08/27/2016 [facility] CARDIAC ENZYMES Total CK 41 unit/L 12 - 191 08/26/2016 [facility] CARDIAC ENZYMES Troponin-I 0.23 ng/mL 0.00 - 0.40 08/26/2016 [facility] CHEM PANEL Phosphorus 3.8 mg/dL 2.5 - 4.5 08/24/2016 [facility] CHEM PANEL Magnesium Lvl 2.2 mg/dL 1.8 - 2.4 08/24/2016 [facility] CHEM PANEL Alk Phos 41 unit/L 39 - 136 08/24/2016 [facility] CHEM PANEL AST 17 unit/L 0 - 37 08/24/2016 [facility] CHEM PANEL ALT 23 unit/L 0 - 65 08/24/2016 [facility] CHEM PANEL A/G Ratio 0.9 0.7 - 1.6 08/24/2016 [facility] CHEM PANEL Globulin 2.8 g/dL 2.7 - 4.2 08/24/2016 [facility] CHEM PANEL Bili Total 0.4 mg/dL 0.2 - 1.3 08/24/2016 [facility] CHEM PANEL Total Protein 5.4 g/dL 6.4 - 8.4 08/24/2016 [facility] CHEM PANEL Albumin Lvl 2.6 g/dL 3.5 - 5.0 08/24/2016 [facility] CHEM PANEL B/C Ratio 41 6 - 25 08/24/2016 [facility] CHEM PANEL AGAP 5.2 meq/L 10.0 - 20.0 08/24/2016 [facility] CHEM PANEL Ammonia 34.0 umol/L <=45.0 uMol/L 08/24/2016 [facility] HEMATOLOGY Stomatocyte Moderate *ABN* (08/24/16 4:00 PM) None Seen 08/24/2016 [facility] HEMATOLOGY Hypochrom 1+ (08/24/16 4:00 PM) None Seen 08/24/2016 [facility] HEMATOLOGY Plt Morph Clumped (08/24/16 4:00 PM) 08/24/2016 [facility] Chest wo contrast CT Chest wo contrast [...] prominent mediastinal lymph nodes are nonspecific. SL: [id number] 08/23/2016 - - Read by: Boogie Maldonado MD Dictated Date/time: 08/23/16 13:07 Electronically Signed by: Boogie Maldonado MD 08/23/16 13:19 FINAL REPORT [facility] Chest 1view DX Chest 1view DX PROCEDURE: [...] pulmonary edema. Acute infiltrates not excluded. SL: [id number] 08/23/2016 - - Read by: Zeferino Montero MD Dictated Date/time: 08/23/16 10:05 Electronically Signed by: Zeferino Montero MD 08/23/16 10:07 FINAL REPORT [facility] ELECTROLYTES AGAP 6.3 meq/L 10.0 - 20.0 08/22/2016 [facility] CHEM PANEL Magnesium Lvl 2.3 mg/dL 1.8 - 2.4 08/19/2016 [facility] ELECTROLYTES AGAP 7.8 meq/L 10.0 - 20.0 08/19/2016 [facility] Chest 1view DX Chest 1view DX Patient Name: JAMES BLANCHARD : 1940; Age: 75 years y/o Female MR: [id number] * CHEST, portable, 1 view HISTORY: Hypoxia. COMPARISON: 08/13/2016. Studies of 08/10/2016 and 02/24/2007 were reviewed. IMPRESSION: 1. Slightly improved aeration in the lung bases, otherwise, no significant change the prior study. 2. Mild to moderate cardiomegaly and mild pulmonary vascular redistribution, probable mild congestive changes. 3. Mild bibasilar atelectasis and probable very small pleural effusions. 4. The regional skeleton is unremarkable. SL: [id number] 08/18/2016 - - Read by: Jesus Paulino MD Dictated Date/time: 08/18/16 08:56 Electronically Signed by: Jesus Paulino MD 08/18/16 08:58 FINAL REPORT [facility] CHEM PANEL Phosphorus 3.2 mg/dL 2.5 - 4.5 08/16/2016 [facility] CARDIAC ENZYMES BNP 244 pg/mL <=100 pg/mL 08/15/2016 [facility] URINE CHEM U Sodium 6 meq/L 08/15/2016 [facility] URINE CHEM U Urea 638 mg/dL 08/15/2016 [facility] URINE CHEM U Prot/Creat 1.6 08/15/2016 [facility] URINE CHEM U Eos None Seen (08/14/16 9:08 PM) None Seen 08/15/2016 [facility] URINE CHEM U Creatinine 52.00 mg/dL 08/15/2016 [facility] URINE CHEM U Protein 83.0 mg/dL 08/15/2016 [facility] Retroperitoneal Complete US Retroperitoneal Complete US BILATERAL [...] other significant ultrasound abnormalities of the kidneys. [id number] 08/13/2016 - - Read by: Fred Saab MD Dictated Date/time: 08/13/16 15:54 Electronically Signed by: Fred Saab MD 08/13/16 15:57 FINAL REPORT [facility] Chest 1view DX Chest 1view DX Portable chest: The cardiac silhouette is enlarged. The pulmonary vasculature appears normal. There are stable nonspecific interstitial changes in the lungs and left suprahilar subsegmental atelectasis or scarring, unchanged from the recent exams. There is mild right basilar subsegmental atelectasis or fluid. There are no other significant pleural abnormalities. There is no other significant change. [id number] 08/13/2016 - - Read by: Fred Saab MD Dictated Date/time: 08/13/16 07:36 Electronically Signed by: Fred Saab MD 08/13/16 07:37 FINAL REPORT [facility] URINE AND STOOL UA Leuk Est Negative (08/12/16 8:55 PM) Negative 08/13/2016 [facility] URINE AND STOOL UA Urobilinogen 0.2 EU/dL 0.1 - 1.0 08/13/2016 [facility] URINE AND STOOL UA Nitrite Negative (08/12/16 8:55 PM) Negative 08/13/2016 [facility] URINE AND STOOL UA Blood Small *ABN* (08/12/16 8:55 PM) Negative 08/13/2016 [facility] URINE AND STOOL UA Bili Negative *NA* (08/12/16 8:55 PM) Negative 08/13/2016 [facility] URINE AND STOOL UA Glucose Negative (08/12/16 8:55 PM) Negative 08/13/2016 [facility] URINE AND STOOL UA Protein 100 mg/dL Negative mg/dL 08/13/2016 [facility] URINE AND STOOL UA pH 6.0 5.0 - 8.0 08/13/2016 [facility] URINE AND STOOL UA Spec Grav 1.020 <=1.030 08/13/2016 [facility] URINE AND STOOL UA Ketones Negative *NA* (08/12/16 8:55 PM) Negative 08/13/2016 [facility] URINE AND STOOL UA Color Yellow *NA* (08/12/16 8:55 PM) Yellow 08/13/2016 [facility] URINE AND STOOL UA Turbidity Clear (08/12/16 8:55 PM) Clear 08/13/2016 [facility] CHEM PANEL Phosphorus 3.4 mg/dL 2.5 - 4.5 08/12/2016 [facility] HEMATOLOGY Baso Stipplin Moderate *ABN* (08/12/16 9:49 AM) None Seen 08/12/2016 [facility] HEMATOLOGY Stomatocyte Moderate *ABN* (08/12/16 9:49 AM) None Seen 08/12/2016 [facility] HEMATOLOGY Anisocyte 1+ *ABN* (08/12/16 9:49 AM) None Seen 08/12/2016 [facility] HEMATOLOGY Plt Morph Normal (08/12/16 9:49 AM) 08/12/2016 [facility] HEMATOLOGY Hypochrom 1+ (08/12/16 9:49 AM) None Seen 08/12/2016 [facility] CARDIAC ENZYMES Troponin-I 0.03 ng/mL 0.00 - 0.40 08/12/2016 [facility] CARDIAC ENZYMES CK MB 2.0 ng/mL 0.5 - 3.6 08/12/2016 [facility] Chest 1view DX Chest 1view DX Study: [...] IMPRESSION: Stable exam of the chest SL: [id number] 08/12/2016 - - Read by: Michelet Padgett MD Dictated Date/time: 08/12/16 09:57 Electronically Signed by: Michelet Padgett MD 08/12/16 09:58 FINAL REPORT [facility] URINE AND STOOL Occult Bld Stl Negative (08/11/16 3:14 PM) Negative 08/11/2016 [facility] CHEM PANEL Globulin 3.5 g/dL 2.7 - 4.2 08/11/2016 [facility] CHEM PANEL Total Protein 5.9 g/dL 6.4 - 8.4 08/11/2016 [facility] CHEM PANEL Albumin Lvl 2.4 g/dL 3.5 - 5.0 08/11/2016 [facility] CHEM PANEL Bili Total 0.4 mg/dL 0.2 - 1.3 08/11/2016 [facility] CHEM PANEL Alk Phos 50 unit/L 39 - 136 08/11/2016 [facility] CHEM PANEL AST 13 unit/L 0 - 37 08/11/2016 [facility] CHEM PANEL A/G Ratio 0.7 0.7 - 1.6 08/11/2016 [facility] CHEM PANEL ALT 13 unit/L 0 - 65 08/11/2016 [facility] CHEM PANEL B/C Ratio 25 6 - 25 08/11/2016 [facility] HEMATOLOGY PT 14.3 s 12.0 - 14.7 08/11/2016 [facility] HEMATOLOGY PTT 41.0 s 22.9 - 35.8 08/11/2016 [facility] HEMATOLOGY INR 1.09 0.85 - 1.17 08/11/2016 [facility] Chest 1view DX Chest 1view DX Chest 1view DX CLINICAL HISTORY: - [employer] - dyspnea COMPARISON: 619 FINDINGS/IMPRESSION: Limited AP [...] Robby Magdaleno MD 08/10/16 17:56 FINAL REPORT [facility] ANEMIA STUDY UIBC 231 ug/dl 110 - 370 08/10/2016 [facility] ANEMIA STUDY % Satur Fe 13 % 12 - 57 08/10/2016 [facility] ANEMIA STUDY Iron 34 ug/dl 30 - 160 08/10/2016 [facility] ANEMIA STUDY TIBC 265 ug/dl 228 - 428 08/10/2016 [facility] ANEMIA STUDY Ferritin Lvl 334 ng/mL 5 - 204 08/10/2016 [facility] BLOOD BANK RESULTS RBC product Product available 1 (08/09/16 4:05 PM) 08/09/2016 Result Comment: 08/09/2016 16:55 [id number] KLS notified Lisseth 08/09/2016 16:55 [facility] BLOOD BANK RESULTS ABO/Rh B POS 08/09/2016 [facility] BLOOD BANK RESULTS Antibody Scrn Negative (08/09/16 2:03 PM) 08/09/2016 [facility] CARDIAC ENZYMES CK MB Index 1.7 0.0 - 2.5 08/09/2016 [facility] CARDIAC ENZYMES BNP 198 pg/mL <=100 pg/mL 08/09/2016 [facility] CARDIAC ENZYMES CK MB 1.0 ng/mL 0.5 - 3.6 08/09/2016 [facility] CARDIAC ENZYMES Troponin-I 0.03 ng/mL 0.00 - 0.40 08/09/2016 [facility] CARDIAC ENZYMES Total CK 58 unit/L 12 - 191 08/09/2016 [facility] CHEM PANEL Lipase Lvl 60 unit/L 73 - 393 08/09/2016 [facility] CHEM PANEL Albumin Lvl 2.8 g/dL 3.5 - 5.0 08/09/2016 [facility] CHEM PANEL AST 14 unit/L 0 - 37 08/09/2016 [facility] CHEM PANEL Bili Total 0.2 mg/dL 0.2 - 1.3 08/09/2016 [facility] CHEM PANEL Alk Phos 55 unit/L 39 - 136 08/09/2016 [facility] CHEM PANEL Total Protein 6.3 g/dL 6.4 - 8.4 08/09/2016 [facility] CHEM PANEL ALT 12 unit/L 0 - 65 08/09/2016 [facility] CHEM PANEL A/G Ratio 0.8 0.7 - 1.6 08/09/2016 [facility] CHEM PANEL Globulin 3.5 g/dL 2.7 - 4.2 08/09/2016 [facility] CHEM PANEL B/C Ratio 24 6 - 25 08/09/2016 [facility] HEMATOLOGY INR 0.98 0.85 - 1.17 08/09/2016 [facility] HEMATOLOGY PT 13.2 s 12.0 - 14.7 08/09/2016 [facility] URINE AND STOOL UA Urobilinogen <=1.0 mg/dL 0.1 - 1.0 08/09/2016 [facility] URINE AND STOOL UA Color Ltyellow 08/09/2016 [facility] URINE AND STOOL UA Sq Epi Occasional /LPF Few /LPF 08/09/2016 [facility] URINE AND STOOL UA RBC 3 /HPF 0 - 2 08/09/2016 [facility] URINE AND STOOL UA WBC 1 /HPF 0 - 5 08/09/2016 [facility] URINE AND STOOL UA Hyal Cast 4 /LPF 0 - 2 08/09/2016 [facility] URINE AND STOOL UA Bacteria Occasional /HPF None Seen /HPF 08/09/2016 [facility] URINE AND STOOL UA Leuk Est Negative (08/09/16 2:03 PM) Negative 08/09/2016 [facility] URINE AND STOOL UA Nitrite Negative (08/09/16 2:03 PM) Negative 08/09/2016 [facility] URINE AND STOOL UA Ketones Negative mg/dL Negative mg/dL 08/09/2016 [facility] URINE AND STOOL UA Blood Negative (08/09/16 2:03 PM) Negative 08/09/2016 [facility] URINE AND STOOL UA Bili Negative *NA* (08/09/16 2:03 PM) Negative 08/09/2016 [facility] URINE AND STOOL UA Glucose Negative mg/dL Negative mg/dL 08/09/2016 [facility] URINE AND STOOL UA Protein 100 mg/dL Negative mg/dL 08/09/2016 [facility] URINE AND STOOL UA Turbidity Clear (08/09/16 2:03 PM) Clear 08/09/2016 [facility] URINE AND STOOL UA Spec Grav 1.010 <=1.030 08/09/2016 [facility] URINE AND STOOL UA pH 6.0 5.0 - 8.0 08/09/2016 [facility] Chest 1view DX Chest 1view DX Chest [...] wires project over the patient's chest. SL: [id number] 08/09/2016 - - Read by: Robby Magdaleno MD Dictated Date/time: 08/09/16 14:27 Electronically Signed by: Robby Magdaleno MD 08/09/16 14:29 FINAL REPORT [facility] Vital Signs Vital Sign Value Date Comments [...] Jose Rojas Systolic (mm Hg) 130 06/06/2017 [facility] Rojas Temperature Oral (F) 97.7 F 09/02/2016 [facility] Respitory Rate 17 09/02/2016 [facility] Heart Rate 78 09/02/2016 [facility] Systolic (mm Hg) 118 09/02/2016 [facility] Diastolic (mm Hg) 57 09/02/2016 [facility] Respitory Rate 17 09/02/2016 [facility] Temperature Oral (F) 98.1 F 09/02/2016 [facility] Heart Rate 70 09/02/2016 [facility] Systolic (mm Hg) 134 09/02/2016 [facility] Diastolic (mm Hg) 62 09/02/2016 [facility] Respitory Rate 18 09/02/2016 [facility] Temperature Oral (F) 97.9 F 09/02/2016 [facility] Heart Rate 70 09/02/2016 [facility] Systolic (mm Hg) 129 09/02/2016 [facility] Diastolic (mm Hg) 59 09/02/2016 [facility] BMI Calculated 34.06 08/09/2016 [facility] Weight 90 08/09/2016 [facility] Height 162.56 cm 08/09/2016 [facility] Weight 86.364 08/09/2016 [facility] BMI Calculated 32.68 08/09/2016 [facility] Height 162.56 cm 08/09/2016 [facility] Encounters Location Location Details Encounter Type Encounter Number Reason For Visit Attending Provider ADM Date DC Date Status Source [facility] Inpatient [id number] Priyanka Mcdonalddaniele 08/09/2016 09/02/2016 [facility] Procedures Procedure Code Date Perfomer Comments Source section [id number] [facility] Cholecystectomy [id number] [facility] Procedure on knee<sup>1</sup> [id number] Total knee replacement 2009 [facility]
[2018-04-09] MEDS ORDERED: ACETAMINOPHEN 325 MG TAB PO ONE (09:30)
--- NOTE | 2018-04-09 09:46 | Diagnostic Imaging Report ---
Exam: Right ankle radiographs-3 views History: Ankle pain and swelling. Comparison: None. Findings: There is diffuse osteopenia. No evidence of acute fracture or malalignment. The ankle mortise is preserved. There is diffuse soft tissue edema. No radiographic evidence of erosion or bony destructive changes. There are mild degenerative changes within the hindfoot. There is a plantar calcaneal spur. Impression: No evidence of fracture or malalignment. Soft tissue edema in the ankle. Signed by: Dr. Oseas Pruett MD on 04/09/2018 9:42 AM
[2018-04-09] MEDS ORDERED: CLINDAMYCIN PHOS 900MG/ 50ML 50 ML IV STA (10:28)
[2018-04-09 11:03] VITALS: BP 129/69
== END 2018-04-09 11:08 | disposition home or self-care (01) ==
LOC: FSED 08:14
DX: M25.571 Pain in right ankle and joints of right foot (principal); L03.115 Cellulitis of right lower limb; R60.0 Localized edema; I10 Essential (primary) hypertension; E11.9 Type 2 diabetes mellitus without complications; I48.91 Unspecified atrial fibrillation; J44.9 Chronic obstructive pulmonary disease, unspecified; M06.9 Rheumatoid arthritis, unspecified
CPT/HCPCS: 80053; 81003; 83880; 85025; 85610; 99284

== ENCOUNTER 2018-04-26 07:30 | Emergency (ER) | payer MEDICARE, BC ==
[~2018-04-26] VITALS: Ht 162.6 cm; Wt 65.8 kg
--- OUTSIDE RECORDS SUMMARY | 2018-04-26 07:35 | XMS REPORT | Continuity of Care Document ---
Author Author Formerly [facility] Interface Address Unknown Phone Unavailable Problems Problem Status Onset Date Classification Date Reported Comments Source ABNORMAL LABS Active 08/09/2016 [facility] SYMPTOMATIC ANEMAI Active 08/09/2016 [facility] Anemia Active Problem 09/05/2016 [facility] Chronic bronchitis Active Problem 09/05/2016 [facility] Chronic respiratory failure with hypoxia Resolved Problem 09/05/2016 [facility] CKD (<span [id number]">Confirmed</span>) Active Problem 09/05/2016 [facility] COPD (<span ID="[id number]">Confirmed</span>) Active Problem 09/05/2016 [facility] DM (<span ID="[id number]">Confirmed</span>) Active Problem 09/05/2016 [facility] Hyperlipemia Active Problem 09/05/2016 [facility] HTN (<span ID="[id number]">Confirmed</span>) Active Problem 09/05/2016 [facility] Proteus<sup>1</sup> Active Problem 09/05/2016 Problem added by Discern Expert. [facility] RA (<span ID="[id number]">Confirmed</span>) Active Problem 09/05/2016 [facility] Chronic obstructive pulmonary disease, unspecified COPD type Active Diagnosis 02/02/2018 Jose Rojas Trochanteric bursitis of right hip Active Problem 02/02/2018 Jose Rojas Chronic respiratory failure with hypoxia Active Problem 02/02/2018 Jose Rojas Other manager terminal drug therapy Active Diagnosis 02/02/2018 Jose Rojas Osteopenia Active Problem 02/02/2018 Jose Rojas Rheumatoid arthritis 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 factor Active Diagnosis 02/02/2018 Jose Rojas Age-related osteoporosis without current pathological fracture Active Diagnosis 02/02/2018 Jose Rojas ANEMIA, UNSPECIFIED Active [facility] Medications Medication Details Route Status Patient Instructions Ordering Provider Order Date Source Leflunomide 1 tablet Orally Active 20 MG Orally Once a day Rojas 06/06/2017 Jose Rojas Insulin, Aspart, Human 4 unit, SUB-Q, TID-Before Meals, 0 Refill(s) Active 09/02/2016 [facility] Furosemide 40 MG Oral Tablet 80 mg=2 tab, PO, Q12H, 0 Refill(s) Active 09/02/2016 [facility] diltiazem 30 mg oral tablet 30 mg=1 tab, PO, Q8H, 0 Refill(s) Active 09/02/2016 [facility] Budesonide 0.16 MG/ACTUAT / formoterol fumarate 0.0045 MG/ACTUAT Metered Dose Inhaler 2 inhalation, INHALATION, BID, 0 Refill(s) Active 09/02/2016 [facility] Albuterol 0.833 MG/ML / Ipratropium Firth 0.167 MG/ML Inhalant Solution [DuoNeb] 3 mL, NEB, PRN, PRN Respiratory Protocol, 0 Refill(s) Active 09/02/2016 [facility] predniSONE 20 mg oral tablet 20 mg=1 tab, PO, Daily, 0 Refill(s) Active 09/02/2016 [facility] insulin detemir 100 units/mL subcutaneous solution 25 unit, SUB-Q, Daily, 0 Refill(s) Active 09/02/2016 [facility] potassium chloride 40 mEq, 2 tab, Route: PO, Drug form: ERTAB, ONCE, Dosing Weight 90, kg, Start date: 09/02/16 7:24:00 CDT, Stop date: 09/02/16 7:24:00 CDTNotes: (Same as: K-Dur 20) "Do Not Crush" With food and full glass of water Inactive 09/02/2016 [facility] Acetazolamide 250 mg, Route: IVP, Drug form: PDR/INJ, BID, Dosing Weight 90, kg, Start date: 09/01/16 17:00:00 CDT, Duration: 30 day, Stop date: 10/01/16 9:00:00 CDTNotes: (Same as: Diamox) No Longer Active 09/01/2016 [facility] Magnesium Sulfate 1 gm, 100 mL, Route: IVPB, Drug form: INJ, PRN, Dosing Weight 90, kg, PRN Abnormal Lab Result, For NON-ICU Patients Only., Start date: 08/28/16 8:14:00 CDT, Duration: 30 day, Stop date: 09/27/16 8:13:00 CDTNotes: WASTE: F/P - Sink; E - Municipal Trash Bin No Longer Active 08/28/2016 [facility] Calcium Gluconate 2 gm, 20 mL, Route: IVPB, PRN, Dosing Weight 90, kg, PRN Abnormal Lab Result, For NON-ICU Patients Only., Start date: 08/28/16 8:14:00 CDT, Duration: 30 day, Stop date: 09/27/16 8:13:00 CDTNotes: WASTE: F/P - Sink; E - Municipal Trash Bin No Longer Active 08/28/2016 [facility] Magnesium Oxide 800 mg, 2 tab, Route: PO, Drug form: TAB, PRN, Dosing Weight 90, kg, PRN Abnormal Lab Result, For NON-ICU Patients Only., Start date: 08/28/16 8:14:00 CDT, Duration: 30 day, Stop date: 09/27/16 8:13:00 CDTNotes: (Same as: Mag-Ox 400) Magnesium oxide [id number] elemental magnesium Dose=____mg magnesium oxide (___mg elemental magnesium) No Longer Active 08/28/2016 [facility] potassium chloride 10 mEq, 100 mL, Route: IVPB, Drug form: INJ, PRN, Dosing Weight 90, kg, PRN Abnormal Lab Result, For NON-ICU Patients Only, Start date: 08/28/16 8:14:00 CDT, Duration: 30 day, Stop date: 09/27/16 8:13:00 CDTNotes: Infuse at a rate of 10 mEq/hr. (Same as: KCL) No Longer Active 08/28/2016 [facility] potassium phosphate + sodium chloride 0.9% INJ 250 mL 30 mmol, 10 mL, Route: IVPB, PRN, Dosing Weight 90, kg, PRN Abnormal Lab Result, For NON-ICU Patients Only., Start date: 08/28/16 8:14:00 CDT, Duration: 30 day, Stop date: 09/27/16 8:13:00 CDTNotes: (Same as: K Phosphate.) 1 mMol phoshate has 1.47 mEq potassium Infuse over 4 hours No Longer Active 08/28/2016 [facility] sodium phosphate + D5W 250 mL 15 mmol, 5 mL, Route: IVPB, PRN, Dosing Weight 90, kg, PRN Abnormal Lab Result, For NON-ICU Patients Only., Start date: 08/28/16 8:14:00 CDT, Duration: 30 day, Stop date: 09/27/16 8:13:00 CDT No Longer Active 08/28/2016 [facility] potassium phosphate-sodium phosphate 250 mg-280 mg-160 mg oral powder for reconstitution 2 pkt, Route: PO, Drug Form: PDR/REC, Dosing Weight 90, kg, PRN, PRN Abnormal Lab Result, For NON-ICU Patients Only, Start date: 08/28/16 8:14:00 CDT, Duration: 30 day, Stop date: 09/27/16 8:13:00 CDTNotes: (Same as: Phos-NaK) Each 1.5 gm pkt has 250mg phosphorous. Mix w/2.5oz water and stir. No Longer Active 08/28/2016 [facility] Merrem 500 mg, Route: IVPB, Drug form: PDR/INJ, ABXQ8H, Dosing Weight 90, kg, CrCL >=50ml/min, Extended infusion, infuse over 3 hours, Start date: 08/27/16 10:00:00 CDT, Duration: 10 day, Stop date: 09/06/16 2:00:00 CDT, ABX Indication: PneumoniaNotes: Same as Merrem MEDICATION WASTE Product Size: 500 mg Product Wasted: ___ mg No Longer Active 08/27/2016 [facility] Diltiazem 30 mg, 1 tab, Route: PO, Drug form: TAB, Q8H, Dosing Weight 90, kg, Start date: 08/27/16 0:00:00 CDT, Duration: 30 day, Stop date: 09/25/16 16:00:00 CDTNotes: (Same as: Cardizem) Before meals No Longer Active 08/27/2016 [facility] Furosemide 40 MG Oral Tablet 80 mg, 2 tab, Route: PO, Drug form: TAB, Q12H, Dosing Weight 90, kg, Start date: 08/26/16 21:00:00 CDT, Duration: 30 day, Stop date: 09/25/16 9:00:00 CDTNotes: (Same as: Lasix) May cause GI upset. Give with food or milk. No Longer Active 08/27/2016 [facility] Diltiazem 125 mg, 25 mL, Rate: Titrate, Start Dose: 5 mg/hr, Titration: 5 mg/hr every hour, Goal(s): Maintain HR Notes: (Same as: Cardizem) No Longer Active 08/26/2016 [facility] Zofran 4 mg, 2 mL, Route: IV, Drug form: INJ, Q6H, Dosing Weight 90, kg, PRN Nausea & Vomiting, Start date: 08/26/16 6:27:00 CDT, Duration: 30 day, Stop date: 09/25/16 6:26:00 CDTNotes: (Same as: Zofran) MEDICATION WASTE Product Size: 4 mg Product Wasted: ___ mg No Longer Active 08/26/2016 [facility] Lactulose 667 MG/ML Oral Solution 10 gm, 15 mL, Route: PO, Drug form: SYRP, BID, Dosing Weight 90, kg, Priority: STAT, Start date: 08/24/16 13:28:00 CDT, Duration: 30 day, Stop date: 09/23/16 9:00:00 CDTNotes: (Same as:Chronulac) No Longer Active 08/24/2016 [facility] Lasix 80 mg, 8 mL, Route: IV, Drug form: INJ, Q8H, Dosing Weight 90, kg, Start date: 08/23/16 16:00:00 CDT, Duration: 30 day, Stop date: 09/22/16 8:00:00 CDTNotes: (Same as: Lasix) MEDICATION WASTE Product Size: 40 mg Product Wasted: ___ mg No Longer Active 08/23/2016 [facility] Prednisone 20 mg, 1 tab, Route: PO, Drug form: TAB, Daily, Dosing Weight 90, kg, Start date: 08/22/16 9:00:00 CDT, Duration: 30 day, Stop date: 09/20/16 9:00:00 CDTNotes: Take with food. No Longer Active 08/22/2016 [facility] Acetylcysteine 200 MG/ML Inhalant Solution 400 mg, 2 mL, Route: NEB, Drug Form: SOLN, Dosing Weight 90, kg, RBID, Start date: 08/19/16 9:30:00 CDT, Stop date: 09/18/16 8:00:00 CDT No Longer Active 08/19/2016 [facility] budesonide-formoterol 160 mcg-4.5 mcg/inh inhalation aerosol with adapter 2 inhalation, Route: INHALATION, Drug Form: AERO/A, BID, Start date: 08/19/16 9:00:00 CDT, Duration: 30 day, Stop date: 09/17/16 17:00:00 CDTNotes: (Same as: Symbicort) WASTE: Aerosol - Return to Pharmacy No Longer Active 08/19/2016 [facility] Budesonide 0.5 mg, 2 mL, Route: NEB, Drug form: SUSP, RBID, Dosing Weight 90, kg, Start date: 08/18/16 8:37:00 CDT, Duration: 30 day, Stop date: 09/17/16 8:00:00 CDTNotes: (Same As: Pulmicort) No Longer Active 08/18/2016 [facility] ertapenem 500 mg, Route: IVPB, [id number], Dosing Weight 90, kg, Start date: 08/17/16 22:00:00 CDT, Duration: 7 day, Stop date: 08/23/16 22:00:00 CDT, ABX Indication: Urinary Tract InfectionNotes: (Same as: INVanz) Refrigerate. NOT COMPATIBLE WITH D5W. Stable in refrigerator for 24 hours MEDICATION WASTE Product Size: 1000 mg Product Wasted: ___ mg No Longer Active 08/18/2016 [facility] meropenem 500 mg, Route: IVPB, ABXQ8H, Dosing Weight 90, kg, CrCL=26 -49 ml/min, Extended infusion, infuse over 3 hours, Start date: 08/17/16 9:00:00 CDT, Duration: 7 day, Stop date: 08/24/16 1:00:00 CDT, ABX In dication: Urinary Tract InfectionNotes: Same as Merrem MEDICATION WASTE Product Size: 500 mg Product Wasted: _0__ mg Inactive 08/17/2016 [facility] sterile water Route: IV, Drug Form: INJ, Daily, Start date: 08/17/16 9:00:00 CDT, Duration: 30 day, Stop date: 09/15/16 9:00:00 CDTNotes: For reconstitution of drugs only Inactive 08/17/2016 [facility] Solu-Medrol 40 mg, 1 mL, Route: IVP, Drug form: INJ, Q12H, Dosing Weight 90, kg, Start date: 08/17/16 9:00:00 CDT, Duration: 30 day, Stop date: 09/15/16 21:00:00 CDTNotes: (Same as:Solu-MEDROL, A-Methapred) No Longer Active 08/17/2016 [facility] Acetazolamide 250 mg, Route: IVP, Drug form: PDR/INJ, Daily, Dosing Weight 90, kg, Start date: 08/17/16 9:00:00 CDT, Duration: 30 day, Stop date: 09/15/16 9:00:00 CDTNotes: (Same as: Diamox) No Longer Active 08/17/2016 [facility] heparin 5,000 unit, 1 mL, Route: SUB-Q, Drug form: INJ, Q12H, Dosing Weight 90, kg, Start date: 08/16/16 21:00:00 CDT, Duration: 30 day, Stop date: 09/15/16 9:00:00 CDTNotes: porcine heparin No Longer Active 08/17/2016 [facility] Lasix 20 mg, 2 mL, Route: IVP, Drug form: INJ, Daily, Dosing Weight 90, kg, Start date: 08/16/16 9:29:00 CDT, Duration: 30 day, Stop date: 09/15/16 9:00:00 CDTNotes: (Same as: Lasix) No Longer Active 08/16/2016 [facility] d50 syringe 25 gm, 50 mL, Route: INJ, Drug Form: INJ, Dosing Weight 90, kg, ONCE, Start date: 08/13/16 19:56:00 CDT, Stop date: 08/13/16 19:56:00 CDT Inactive 08/14/2016 [facility] Insulin regular 5 unit, 0.05 mL, Route: IV, Drug form: INJ, ONCE, Dosing Weight 90, kg, Start date: 08/13/16 19:55:00 CDT, Stop date: 08/13/16 19:55:00 CDTNotes: (Same as: Humulin R and NovoLIN R) WASTE: F/P - Black; E - Municipal Trash Bin (Do not shake) Inactive 08/14/2016 [facility] Albuterol 0.83 MG/ML Inhalant Solution 2.49 mg, 3 mL, Route: INHALATION, Drug form: SOLN, PRN, Dosing Weight 90, kg, PRN Respiratory Protocol, Start date: 08/13/16 16:03:00 CDT, Duration: 30 day, Stop date: 09/12/16 16:02:00 CDTNotes: SEE RT DOCUMENTATION (Same as: Proventil) No Longer Active 08/13/2016 [facility] Kayexalate 30 gm, 120 mL, Route: PO, Drug form: SUSP, ONCE, Dosing Weight 90, kg, Priority: STAT, Start date: 08/13/16 15:35:00 CDT, Stop date: 08/13/16 15:35:00 CDTNotes: (sodium polystyrene sulfonate 15 gm/60 ml TIMOTHY) Shake well before use. (Same as: Kayexalate, SPS) Inactive 08/13/2016 [facility] pantoprazole 40 mg, 1 tab, Route: PO, Drug form: ECTAB, BID, Dosing Weight 90, kg, Start date: 08/13/16 9:00:00 CDT, Duration: 30 day, Stop date: 09/11/16 17:00:00 CDTNotes: Tablet should not be chewed or crushed. (Same as: Protonix) No Longer Active 08/13/2016 [facility] Protonix 40 mg, Route: IVP, Drug form: INJ, BID, Dosing Weight 90, kg, Start date: 08/13/16 9:00:00 CDT, Duration: 30 day, Stop date: 09/11/16 17:00:00 CDTNotes: For IV push reconstitute with 10 ml 0.9% sodium c hloride and push over 2 minutes. (Same as: Protonix) Inactive 08/13/2016 [facility] Sucralfate 100 MG/ML Oral Suspension [Carafate] 1 [...] As: Vishal jung) No Longer Active 08/13/2016 [facility] NovoLog 4 unit, 0.04 mL, Route: SUB-Q, [...] days from Date No Longer Active 08/12/2016 [facility] Insulin, Aspart, Human 15 unit, 0.15 mL, [...] days from Date No Longer Active 08/11/2016 [facility] Lorazepam 0.25 mg, 0.5 tab, Route: PO, Drug form: TAB, Q8H, Dosing Weight 90, kg, PRN Anxiety, Start date: 08/10/16 20:54:00 CDT, Stop date: 09/09/16 20:53:00 CDTNotes: (Same as: Ativan) No Longer Active 08/11/2016 [facility] Albuterol 0.83 MG/ML Inhalant Solution 2.49 mg, 3 mL, Route: INHALATION, Drug form: SOLN, RQ4H, Dosing Weight 90, kg, Start date: 08/10/16 19:00:00 CDT, Duration: 30 day, Stop date: 09/09/16 15:00:00 CDTNotes: SEE RT DOCUMENTATION (Same as: Proventil) No Longer Active 08/11/2016 [facility] Solu-Medrol 40 mg, 1 mL, Route: IVP, Drug form: INJ, Q8H, Dosing Weight 90, kg, Priority: STAT, Start date: 08/10/16 17:13:00 CDT, Duration: 30 day, Stop date: 09/09/16 16:00:00 CDTNotes: (Same as:Solu-MEDROL, A -Methapred) No Longer Active 08/10/2016 [facility] Protonix 40 mg, 1 tab, Route: PO, Drug form: ECTAB, Before Dinner, Dosing Weight 90, kg, Start date: 08/10/16 16:30:00 CDT, Duration: 30 day, Stop date: 09/08/16 16:30:00 CDTNotes: Tablet should not be chewed or crushed. (Same as: Protonix) No Longer Active 08/10/2016 [facility] Sodium Chloride 0.154 MEQ/ML Injectable Solution 1,000 mL, Rate: 25 ml/hr, Infuse over: 40 hr, Route: IV, Dosing Weight 90 kg, Total Volume: 1,000, Start date: 08/10/16 11:57:00 CDT, Duration: 30 day, Stop date: 09/09/16 11:56:00 CDT Inactive 08/10/2016 [facility] tiotropium 0.018 MG/ACTUAT Inhalant Powder [Spiriva] 18 microgram, 1 inhalation, Route: INHALATION, Drug form: CAP, Daily, Dosing Weight 90, kg, Start date: 08/10/16 9:00:00 CDT, Duration: 30 day, Stop date: 10/08/16 9:00:00 CDTNotes: (Same As: Spiriva). No Longer Active 08/10/2016 [facility] Diovan 160 mg, 1 tab, Route: PO, Drug form: TAB, Daily, Dosing Weight 90, kg, Start date: 08/10/16 9:00:00 CDT, Duration: 30 day, Stop date: 09/08/16 9:00:00 CDTNotes: Same as Diovan No Longer Active 08/10/2016 [facility] Brovana 15 microgram neb Brovana 15 microgram neb, 15 microgram, 2 mL, Drug form: MISC, Route: NEB, BID, 08/10/16 9:00:00 CDT, Stop date: 08/18/16 20:00:00 CDT No Longer Active 08/10/2016 [facility] 24 HR Metoprolol Tartrate 100 MG Extended Release Tablet [Toprol] 100 mg, 1 tab, Route: PO, Drug form: ERTAB, Daily, Start date: 08/10/16 9:00:00 CDT, Duration: 30 day, Stop date: 10/08/16 9:00:00 CDTNotes: (Same as: Toprol XL) May split tab, but do not crush. No Longer Active 08/10/2016 [facility] insulin detemir 25 unit, 0.25 mL, Route: SUB-Q, Drug form: SOLN, Daily, Start date: 08/10/16 9:00:00 CDT, Duration: 30 day, Stop date: 10/08/16 9:00:00 CDTNotes: Same as Levemir Do not hold insulin without contactin g prescriber WASTE: F/P - Black; E - Municipal Trash Bin "single patient use only" No Longer Active 08/10/2016 [facility] 3 ML Insulin Glargine 100 UNT/ML Prefilled Syringe [Lantus] 20 unit, Route: SUB-Q, Drug form: SOLN, Daily, Dosing Weight 90, kg, Start date: 08/10/16 9:00:00 CDT, Duration: 30 day, Stop date: 09/08/16 9:00:00 CDT No Longer Active 08/10/2016 [facility] Doxazosin 2 mg, 2 tab, Route: PO, Drug form: TAB, Daily, Dosing Weight 90, kg, Start date: 08/10/16 9:00:00 CDT, Duration: 30 day, Stop date: 10/08/16 9:00:00 CDTNotes: (Same as: Cardura) No Longer Active 08/10/2016 [facility] Budesonide 0.25 MG/ML Inhalant Solution 0.5 mg, 2 mL, Route: NEB, Drug form: SUSP, BID, Dosing Weight 90, kg, Start date: 08/10/16 9:00:00 CDT, Stop date: 08/18/16 20:00:00 CDTNotes: (Same As: Pulmicort) No Longer Active 08/10/2016 [facility] Vitamin B 12 1,500 microgram, 3 tab, Route: PO, Drug form: TAB, Daily, Dosing Weight 90, kg, Start date: 08/10/16 9:00:00 CDT, Duration: 30 day, Stop date: 10/08/16 9:00:00 CDTNotes: (Same As: Vitamin B12) No Longer Active 08/10/2016 [facility] Brovana 15 microgram, 2 mL, Route: NEB, Drug form: SOLN, BID, Dosing Weight 90, kg, Start date: 08/10/16 9:00:00 CDT, Duration: 30 day, Stop date: 09/08/16 17:00:00 CDT Inactive 08/10/2016 [facility] Amlodipine 10 mg, 2 tab, Route: PO, Drug form: TAB, Daily, Dosing Weight 90, kg, Start date: 08/10/16 9:00:00 CDT, Duration: 30 day, Stop date: 09/08/16 9:00:00 CDTNotes: (Same as: Norvasc) No Longer Active 08/10/2016 [facility] Leflunomide 20mg Leflunomide 20mg, 1 tab, Drug form: MISC, Route: PO, Daily, 08/10/16 9:00:00 CDT, Duration: 30 day, Stop date: 10/08/16 9:00:00 CDT No Longer Active 08/10/2016 [facility] leflunomide 20 mg, Route: PO, Drug form: TAB, Daily, Dosing Weight 90, kg, Start date: 08/10/16 9:00:00 CDT, Duration: 30 day, Stop date: 09/08/16 9:00:00 CDT Inactive 08/10/2016 [facility] Albuterol 0.833 MG/ML / Ipratropium Firth 0.167 MG/ML Inhalant Solution [DuoNeb] 3 ml, Route: NEB, Drug Form: SOLN, Dosing Weight 90, kg, PRN, PRN Respiratory Protocol, Start date: 08/10/16 1:19:00 CDT, Duration: 30 day, Stop date: 10/09/16 1:18:00 CDTNotes: (Same as: Duoneb) No Longer Active 08/10/2016 [facility] Lasix 20 mg, 2 mL, Route: IVP, Drug form: INJ, ONCE, Dosing Weight 90, kg, Start date: 08/10/16 1:19:00 CDT, Stop date: 08/10/16 1:19:00 CDTNotes: (Same as: Lasix) Inactive 08/10/2016 [facility] potassium chloride 40 mEq, 2 tab, Route: PO, Drug form: ERTAB, ONCE, Dosing Weight 90, kg, Start date: 08/09/16 21:31:00 CDT, Stop date: 08/09/16 21:31:00 CDTNotes: (Same as: K-Dur 20) "Do Not Crush" With food and full glass of water Inactive 08/10/2016 [facility] Protonix 40 mg, 1 tab, Route: PO, Drug form: ECTAB, Bedtime, Dosing Weight 90, kg, Start date: 08/09/16 21:00:00 CDT, Duration: 30 day, Stop date: 09/07/16 21:00:00 CDTNotes: Tablet should not be chewed or crushed. (Same as: Protonix) No Longer Active 08/10/2016 [facility] Crestor 10 mg, 2 tab, Route: PO, Drug form: TAB, Bedtime, Dosing Weight 90, kg, Start date: 08/09/16 21:00:00 CDT, Duration: 30 day, Stop date: 10/07/16 21:00:00 CDTNotes: Same as Crestor No Longer Active 08/10/2016 [facility] Lasix 20 mg, 2 mL, Route: IVP, Drug form: INJ, Daily, Dosing Weight 90, kg, Start date: 08/09/16 20:54:00 CDT, Stop date: 09/08/16 23:00:00 CDTNotes: (Same as: Lasix) No Longer Active 08/10/2016 [facility] Insulin, Aspart, Human 4 unit, 0.04 mL, [...] days from Date No Longer Active 08/10/2016 [facility] Glucagon 1 mg, Route: IM, Drug form: PDR/INJ, PRN, Dosing Weight 90, kg, PRN Blood Glucose Results, Start date: 08/09/16 19:50:00 CDT, Duration: 30 day, Stop date: 10/08/16 19:49:00 CDT No Longer Active 08/10/2016 [facility] Dextrose 50% Syringe 12.5 gm, 25 mL, Route: IVP, Drug Form: INJ, Dosing Weight 90, kg, PRN, PRN Blood Glucose Results, Start date: 08/09/16 19:50:00 CDT, Duration: 30 day, Stop date: 10/08/16 19:49:00 CDT No Longer Active 08/10/2016 [facility] Ipratropium Firth 0.2 MG/ML Inhalant Solution 500 microgram, 2.5 mL, Route: NEB, Drug form: SOLN, QID, Dosing Weight 90, kg, PRN Wheezing, Start date: 08/09/16 19:08:00 CDT, Duration: 30 day, Stop date: 10/08/16 19:07:00 CDTNotes: SEE RT DOCUMENTATION (Same as:Atrovent) No Longer Active 08/10/2016 [facility] Bisacodyl 10 mg, 2 tab, Route: PO, Drug form: ECTAB, Daily, Dosing Weight 90, kg, PRN Constipation, Start date: 08/09/16 19:08:00 CDT, Duration: 30 day, Stop date: 08/18/17 19:07:00 CDTNotes: (Same As: Dulcolax, Correctol) (Do Not Crush) "Do Not Crush" No Longer Active 08/10/2016 [facility] pantoprazole 40 MG Enteric Coated Tablet [Protonix] 40 mg=1 tab, PO, Bedtime, 0 Refill(s) Active 08/09/2016 [facility] Acetylcysteine 200 MG/ML Inhalant Solution 0.8 gm=4 mL, NEB, BID, 0 Refill(s) No Longer Active 08/09/2016 [facility] valsartan 160 MG Oral Tablet [Diovan] 160 mg=1 tab, PO, Daily, 0 Refill(s) No Longer Active 08/09/2016 [facility] Hydrochlorothiazide 12.5 MG Oral Capsule [Microzide] 12.5 mg=1 cap, PO, Daily, 0 Refill(s) No Longer Active 08/09/2016 [facility] leflunomide 20 mg oral tablet 20 mg=1 tab, PO, Daily, 0 Refill(s) No Longer Active 08/09/2016 [facility] 3 ML Insulin Glargine 100 UNT/ML Prefilled Syringe [Lantus] 20 unit, SUB-Q, Daily, 0 Refill(s) No Longer Active 08/09/2016 [facility] Ipratropium Firth 0.2 MG/ML Inhalant Solution 500 microgram=2.5 mL, NEB, QID, PRN Wheezing, 0 Refill(s) Active 08/09/2016 [facility] pantoprazole 40 mg oral granule =1 Pack, PO, Bedtime, # 30 ea, 0 Refill(s) Inactive 08/09/2016 [facility] Humalog 100 units/mL 1 unit, SUB-Q, Daily, 0 Refill(s) No Longer Active 08/09/2016 [facility] Budesonide 0.25 MG/ML Inhalant Solution 0.5 mg=2 mL, NEB, BID, 0 Refill(s) No Longer Active 08/09/2016 [facility] bisacodyl 5 mg oral enteric coated tablet 10 mg=2 tab, PO, Daily, PRN Constipation, 0 Refill(s) Active 08/09/2016 [facility] arformoterol 0.0075 MG/ML Inhalant Solution [Brovana] 15 microgram=2 mL, NEB, BID, # 60 ea, 0 Refill(s) No Longer Active 08/09/2016 [facility] Rosuvastatin calcium 10 MG Oral Tablet [Crestor] 10 mg=1 tab, PO, Bedtime, 0 Refill(s) Active 08/09/2016 [facility] Saccharomyces boulardii lyo 250 MG Oral Capsule [Florastor] 250 mg=1 cap, PO, Daily, PRN for loose stool, 0 Refill(s) No Longer Active 08/09/2016 [facility] metoprolol 100 mg oral tablet, extended release 100 mg=1 tab, PO, Daily, 0 Refill(s) Active 08/09/2016 [facility] cyanocobalamin 500 mcg sublingual tablet 500 microgram=1 tab, SL, Daily, 0 Refill(s) Inactive 08/09/2016 [facility] cyanocobalamin 1000 mcg sublingual tablet 1,500 microgram=1.5 tab, SL, Daily, 0 Refill(s) Active 08/09/2016 [facility] tiotropium 0.018 MG/ACTUAT Inhalant Powder [Spiriva] 18 microgram=1 cap, INHALATION, Daily, 0 Refill(s) Active 08/09/2016 [facility] doxazosin 2 mg oral tablet 2 mg=1 tab, PO, Daily, 0 Refill(s) Active 08/09/2016 [facility] amLODIPine 10 mg oral tablet 10 mg=1 tab, PO, Daily, 0 Refill(s) No Longer Active 08/09/2016 [facility] Saline Flush 0.9% 10 ml, Route: IVP, Drug Form: INJ, Dosing Weight 86.364, kg, PRN, PRN Line Flush, Start date: 08/09/16 16:54:00 CDT, Duration: 30 day, Stop date: 10/08/16 16:53:00 CDTNotes: (Same as: BD Posiflush) No Longer Active 08/09/2016 [facility] Acetaminophen 325 MG / Hydrocodone Bitartrate 5 MG Oral Tablet 1 tab, Route: PO, Drug Form: TAB, Dosing Weight 86.364, kg, Q4H, PRN Pain Score 4-6, Start date: 08/09/16 16:54:00 CDT, Duration: 30 day, Stop date: 10/08/16 16:53:00 CDTNotes: (Same as: Wallace 325/5) Do not exceed 4gm/day of acetaminophen. No Longer Active 08/09/2016 [facility] sodium chloride 0.9% INJ 250 mL 250 mL, Rate: Pourer Bull Ladle for use with blood product administration., Dosing Weight 86.364, kg, Route: IV, Total Volume: 250, Priority: Routine, Start Date: 08/09/16 16:05:00 CDT, Duration: 30 day, Stop date: 09/08/16 16:04:00 CDT, Replace Every: 24 hr No Longer Active 08/09/2016 [facility] Aranesp (Albumin Free) 1 ml Injection Active 300 MCG/ML Injection Pateros Jose Rojas Multivitamins 1 Tablet Orally Active Orally Once a day Pateros Jose Rojas Crestor 1 tablet Orally Active 10 MG Orally Once a day Rojas Jose Rojas Spiriva HandiHaler 1 capsule by mouth Inhalation Active 18 MCG Inhalation Once a day Rojas Jose Rojas Vitamin B12 1 tablet Orally Active 100 MCG Orally Once a day Rojas Jose Rojas Rosuvastatin Calcium [...] as directed Subcutaneous Active 100 UNIT/ML Subcutaneous Pateros Jose Rojas Humalog as directed Subcutaneous Active [...] Orally Once a day Rojas Jose Rojas Budesonide-Formoterol Fumarate 2 puffs Inhalation Active 0.25- 2ml Inhalation Twice a day Rojas Jose Rojas HydrALAZINE HCl 1 tablet with food Orally Active 25 MG Orally Three times a day Rojas Jose Rojas Advair Diskus 1 puff Inhalation Active 100-50 MCG/DOSE Inhalation every 12 hrs Rojaskehinde Rojas Baby Aspirin 1 tablet Orally Active 81 MG Orally Once a day Crystal Rojas Doxazosin Mesylate 1 tablet Orally Active 4 MG Orally Once a day Rojaskehinde Rojas Eliquis as directed Orally Active 2.5 MG Orally Crystal Rojas Ferrous Sulfate as directed Orally Active 325 MG Orally twice a day Crystal Rojas Allergies, Adverse Reactions, Alerts Substance Category Reaction Severity Reaction type Status Date Reported Comments Source sulfa Adverse Reaction hives and swelling Adverse Reaction Active 01/16/2018 Jose Rojas penicillin Adverse Reaction hives and swelling Adverse Reaction Active 01/16/2018 Jose Rojas enbrel Adverse Reaction rash Adverse Reaction Active 01/16/2018 Jose Rojas vioxx other anti-inflammatories Adverse Reaction not effective Adverse Reaction Active 01/16/2018 Jose Rojas Methotrexate Adverse Reaction not effective Adverse Reaction Active 01/16/2018 Joes Rojas penicillins Assertion Drug allergy Active [facility] sulfa drugs Assertion Drug allergy Active [facility] Immunizations Immunization Date Given Site Status Last [...] should be multiplied by the estimated BMI. [facility] CHEM PANEL Potassium Lvl 3.0 meq/L 3.5 - 5.1 09/02/2016 Result Comment: Critical Result(s) called to yumiko burciaga at 09/02/2016 05:06 by . Read back OK. [facility] CHEM PANEL Chloride Lvl 91 meq/L 95 - 109 09/02/2016 [facility] CHEM PANEL CO2 >45 mEq/L 24 - 32 09/02/2016 Result Comment: Critical Result(s) called to yumiko burciaga at 09/02/2016 05:06 by hp. Read back OK. [facility] CHEM PANEL Calcium Lvl 8.1 mg/dL 8.5 - 10.5 09/02/2016 [facility] CHEM PANEL Creatinine Lvl 1.50 mg/dL 0.50 - 1.40 09/02/2016 [facility] CHEM PANEL Sodium Lvl 143 meq/L 135 - 145 09/02/2016 [facility] CHEM PANEL BUN 76 mg/dL 7 - 22 09/02/2016 [facility] CHEM PANEL Glucose Lvl 94 mg/dL 70 - 99 09/02/2016 [facility] HEMATOLOGY MPV 9.5 fL 7.4 - 10.4 09/02/2016 [facility] HEMATOLOGY Platelet 128 K/CMM 133 - 450 09/02/2016 [facility] HEMATOLOGY RDW 14.8 % 11.5 - 14.5 09/02/2016 [facility] HEMATOLOGY MCHC 32.3 g/dL 32.0 - 36.0 09/02/2016 [facility] MCH 29.8 pg 27.0 - 31.0 09/02/2016 [facility] MCV 92.1 fL 80.0 - 98.0 09/02/2016 [facility] HEMATOLOGY Hct 26.1 % 36.0 - 48.0 09/02/2016 [facility] HEMATOLOGY Hgb 8.5 g/dL 12.0 - 16.0 09/02/2016 [facility] HEMATOLOGY RBC 2.84 M/CMM 4.20 - 5.40 09/02/2016 [facility] HEMATOLOGY WBC 5.8 K/CMM 3.7 - 10.4 09/02/2016 [facility] ELECTROLYTES CO2 >45 mEq/L 24 - 32 [...] should be multiplied by the estimated BMI. [facility] ELECTROLYTES Calcium Lvl 8.5 mg/dL 8.5 - 10.5 09/01/2016 [facility] ELECTROLYTES Chloride Lvl 91 meq/L 95 - 109 09/01/2016 [facility] ELECTROLYTES Potassium Lvl 3.5 meq/L 3.5 - 5.1 09/01/2016 [facility] ELECTROLYTES Sodium Lvl 143 meq/L 135 - 145 09/01/2016 [facility] ELECTROLYTES Creatinine Lvl 1.50 mg/dL 0.50 - 1.40 09/01/2016 [facility] ELECTROLYTES BUN 74 mg/dL 7 - 22 09/01/2016 [facility] ELECTROLYTES Glucose Lvl 100 mg/dL 70 - 99 09/01/2016 [facility] MPV 9.6 fL 7.4 - 10.4 09/01/2016 [facility] RBC 2.88 M/CMM 4.20 - 5.40 09/01/2016 [facility] Hct 26.6 % 36.0 - 48.0 09/01/2016 [facility] Hgb 8.5 g/dL 12.0 - 16.0 09/01/2016 [facility] MCHC 32.1 g/dL 32.0 - 36.0 09/01/2016 [facility] MCH 29.6 pg 27.0 - 31.0 09/01/2016 [facility] MCV 92.3 fL 80.0 - 98.0 09/01/2016 [facility] RDW 14.8 % 11.5 - 14.5 09/01/2016 [facility] Platelet 129 K/CMM 133 - 450 09/01/2016 [facility] WBC 5.5 K/CMM 3.7 - 10.4 09/01/2016 [facility] Segs-Bands # 3.9 K/CMM 1.5 - 8.1 09/01/2016 [facility] Basophils 0.3 % 0.0 - 1.0 09/01/2016 [facility] Lymphocytes # 0.9 K/CMM 1.0 - 5.5 09/01/2016 [facility] HEMATOLOGY Segs 71.8 % 45.0 - 75.0 09/01/2016 [facility] HEMATOLOGY Eosinophils 2.4 % 0.0 - 4.0 09/01/2016 [facility] HEMATOLOGY Monocytes 8.2 % 2.0 - 12.0 09/01/2016 [facility] HEMATOLOGY Monocytes # 0.4 K/CMM 0.0 - 0.8 09/01/2016 [facility] HEMATOLOGY Lymphocytes 17.3 % 20.0 - 40.0 09/01/2016 [facility] HEMATOLOGY Eosinophils # 0.1 K/CMM 0.0 - 0.5 09/01/2016 [facility] CHEM PANEL eGFR 37 mL/min/1.73m2 08/29/2016 Result [...] should be multiplied by the estimated BMI. [facility] CHEM PANEL Chloride Lvl 91 meq/L 95 - 109 08/29/2016 [facility] CHEM PANEL Potassium Lvl 3.8 meq/L 3.5 - 5.1 08/29/2016 [facility] CHEM PANEL Calcium Lvl 8.2 mg/dL 8.5 - 10.5 08/29/2016 [facility] CHEM PANEL Creatinine Lvl 1.40 mg/dL 0.50 - 1.40 08/29/2016 [facility] CHEM PANEL Sodium Lvl 141 meq/L 135 - 145 08/29/2016 [facility] CHEM PANEL Glucose Lvl 170 mg/dL 70 - 99 08/29/2016 [facility] CHEM PANEL BUN 60 mg/dL 7 - 22 08/29/2016 [facility] CHEM PANEL CO2 >45 mEq/L 24 - 32 08/29/2016 Result Comment: Critical Result(s) called to Tiesha Curry at 08/29/2016 12:40 by Nilda Allred. Read back OK. [facility] CHEM PANEL Magnesium Lvl 2.0 mg/dL 1.8 - 2.4 08/29/2016 [facility] HEMATOLOGY RDW 14.7 % 11.5 - 14.5 08/28/2016 [facility] HEMATOLOGY MPV 11.2 fL 7.4 - 10.4 08/28/2016 [facility] HEMATOLOGY Platelet 95 K/CMM 133 - 450 08/28/2016 [facility] HEMATOLOGY RBC 2.84 M/CMM 4.20 - 5.40 08/28/2016 [facility] HEMATOLOGY MCHC 31.4 g/dL 32.0 - 36.0 08/28/2016 [facility] MCH 29.5 pg 27.0 - 31.0 08/28/2016 [facility] HEMATOLOGY Hgb 8.4 g/dL 12.0 - 16.0 08/28/2016 [facility] HEMATOLOGY MCV 94.1 fL 80.0 - 98.0 08/28/2016 [facility] HEMATOLOGY Hct 26.7 % 36.0 - 48.0 08/28/2016 [facility] HEMATOLOGY WBC 7.9 K/CMM 3.7 - 10.4 08/28/2016 [facility] HEMATOLOGY Eosinophils 1.5 % 0.0 - 4.0 08/28/2016 [facility] HEMATOLOGY Basophils 0.4 % 0.0 - 1.0 08/28/2016 [facility] HEMATOLOGY Monocytes 9.6 % 2.0 - 12.0 08/28/2016 [facility] HEMATOLOGY Monocytes # 0.8 K/CMM 0.0 - 0.8 08/28/2016 [facility] HEMATOLOGY Lymphocytes # 0.8 K/CMM 1.0 - 5.5 08/28/2016 [facility] HEMATOLOGY Segs-Bands # 6.2 K/CMM 1.5 - 8.1 08/28/2016 [facility] HEMATOLOGY Eosinophils # 0.1 K/CMM 0.0 - 0.5 08/28/2016 [facility] HEMATOLOGY Segs 78.1 % 45.0 - 75.0 08/28/2016 [facility] HEMATOLOGY Lymphocytes 10.4 % 20.0 - 40.0 08/28/2016 [facility] HEMATOLOGY Lymphocytes 5.8 % 20.0 - 40.0 08/27/2016 [facility] HEMATOLOGY Segs 85.1 % 45.0 - 75.0 08/27/2016 [facility] HEMATOLOGY Segs-Bands # 11.9 K/CMM 1.5 - 8.1 08/27/2016 [facility] HEMATOLOGY Monocytes # 1.1 K/CMM 0.0 - 0.8 08/27/2016 [facility] HEMATOLOGY Lymphocytes # 0.8 K/CMM 1.0 - 5.5 08/27/2016 [facility] HEMATOLOGY Basophils 0.2 % 0.0 - 1.0 08/27/2016 [facility] HEMATOLOGY Eosinophils 0.8 % 0.0 - 4.0 08/27/2016 [facility] HEMATOLOGY Monocytes 8.1 % 2.0 - 12.0 08/27/2016 [facility] HEMATOLOGY Eosinophils # 0.1 K/CMM 0.0 - 0.5 08/27/2016 [facility] HEMATOLOGY Heparin Ab(CESARIO) Negative (08/27/16 5:27 AM) Negative 08/27/2016 [facility] HEMATOLOGY Pos CO Value 0.448 08/27/2016 [facility] HEMATOLOGY Pat Od Value 0.072 08/27/2016 [facility] CARDIAC ENZYMES Total CK 41 unit/L 12 - 191 08/26/2016 [facility] CARDIAC ENZYMES Troponin-I 0.23 ng/mL 0.00 - 0.40 08/26/2016 [facility] CHEM PANEL Phosphorus 3.8 mg/dL 2.5 - 4.5 08/24/2016 [facility] CHEM PANEL Magnesium Lvl 2.2 mg/dL 1.8 - 2.4 08/24/2016 [facility] CHEM PANEL Alk Phos 41 unit/L 39 - 136 08/24/2016 [facility] CHEM PANEL AST 17 unit/L 0 - 37 08/24/2016 [facility] CHEM PANEL ALT 23 unit/L 0 - 65 08/24/2016 [facility] CHEM PANEL A/G Ratio 0.9 0.7 - 1.6 08/24/2016 [facility] CHEM PANEL Globulin 2.8 g/dL 2.7 - 4.2 08/24/2016 [facility] CHEM PANEL Bili Total 0.4 mg/dL 0.2 - 1.3 08/24/2016 [facility] CHEM PANEL Total Protein 5.4 g/dL 6.4 - 8.4 08/24/2016 [facility] CHEM PANEL Albumin Lvl 2.6 g/dL 3.5 - 5.0 08/24/2016 [facility] CHEM PANEL B/C Ratio 41 6 - 25 08/24/2016 [facility] CHEM PANEL AGAP 5.2 meq/L 10.0 - 20.0 08/24/2016 [facility] CHEM PANEL Ammonia 34.0 umol/L <=45.0 uMol/L 08/24/2016 [facility] HEMATOLOGY Stomatocyte Moderate *ABN* (08/24/16 4:00 PM) None Seen 08/24/2016 [facility] HEMATOLOGY Hypochrom 1+ (08/24/16 4:00 PM) None Seen 08/24/2016 [facility] HEMATOLOGY Plt Morph Clumped (08/24/16 4:00 PM) 08/24/2016 [facility] Chest wo contrast CT Chest wo contrast [...] prominent mediastinal lymph nodes are nonspecific. SL: [id number] 08/23/2016 - - Read by: Boogie Maldonado MD Dictated Date/time: 08/23/16 13:07 Electronically Signed by: Boogie Maldonado MD 08/23/16 13:19 FINAL REPORT [facility] Chest 1view DX Chest 1view DX PROCEDURE: [...] pulmonary edema. Acute infiltrates not excluded. SL: [id number] 08/23/2016 - - Read by: Zeferino Montero MD Dictated Date/time: 08/23/16 10:05 Electronically Signed by: Zeferino Montero MD 08/23/16 10:07 FINAL REPORT [facility] ELECTROLYTES AGAP 6.3 meq/L 10.0 - 20.0 08/22/2016 [facility] CHEM PANEL Magnesium Lvl 2.3 mg/dL 1.8 - 2.4 08/19/2016 [facility] ELECTROLYTES AGAP 7.8 meq/L 10.0 - 20.0 08/19/2016 [facility] Chest 1view DX Chest 1view DX Patient Name: JAMES BLANCHARD : 1940; Age: 75 years y/o Female MR: [id number] * CHEST, portable, 1 view HISTORY: Hypoxia. COMPARISON: 08/13/2016. Studies of 08/10/2016 and 02/24/2007 were reviewed. IMPRESSION: 1. Slightly improved aeration in the lung bases, otherwise, no significant change the prior study. 2. Mild to moderate cardiomegaly and mild pulmonary vascular redistribution, probable mild congestive changes. 3. Mild bibasilar atelectasis and probable very small pleural effusions. 4. The regional skeleton is unremarkable. SL: [id number] 08/18/2016 - - Read by: Jesus Paulino MD Dictated Date/time: 08/18/16 08:56 Electronically Signed by: Jesus Paulino MD 08/18/16 08:58 FINAL REPORT [facility] CHEM PANEL Phosphorus 3.2 mg/dL 2.5 - 4.5 08/16/2016 [facility] CARDIAC ENZYMES BNP 244 pg/mL <=100 pg/mL 08/15/2016 [facility] URINE CHEM U Sodium 6 meq/L 08/15/2016 [facility] URINE CHEM U Urea 638 mg/dL 08/15/2016 [facility] URINE CHEM U Prot/Creat 1.6 08/15/2016 [facility] URINE CHEM U Eos None Seen (08/14/16 9:08 PM) None Seen 08/15/2016 [facility] URINE CHEM U Creatinine 52.00 mg/dL 08/15/2016 [facility] URINE CHEM U Protein 83.0 mg/dL 08/15/2016 [facility] Retroperitoneal Complete US Retroperitoneal Complete US BILATERAL [...] other significant ultrasound abnormalities of the kidneys. [id number] 08/13/2016 - - Read by: Fred Saab MD Dictated Date/time: 08/13/16 15:54 Electronically Signed by: Fred Saab MD 08/13/16 15:57 FINAL REPORT [facility] Chest 1view DX Chest 1view DX Portable chest: The cardiac silhouette is enlarged. The pulmonary vasculature appears normal. There are stable nonspecific interstitial changes in the lungs and left suprahilar subsegmental atelectasis or scarring, unchanged from the recent exams. There is mild right basilar subsegmental atelectasis or fluid. There are no other significant pleural abnormalities. There is no other significant change. [id number] 08/13/2016 - - Read by: Fred Saab MD Dictated Date/time: 08/13/16 07:36 Electronically Signed by: Fred Saab MD 08/13/16 07:37 FINAL REPORT [facility] URINE AND STOOL UA Leuk Est Negative (08/12/16 8:55 PM) Negative 08/13/2016 [facility] URINE AND STOOL UA Urobilinogen 0.2 EU/dL 0.1 - 1.0 08/13/2016 [facility] URINE AND STOOL UA Nitrite Negative (08/12/16 8:55 PM) Negative 08/13/2016 [facility] URINE AND STOOL UA Blood Small *ABN* (08/12/16 8:55 PM) Negative 08/13/2016 [facility] URINE AND STOOL UA Bili Negative *NA* (08/12/16 8:55 PM) Negative 08/13/2016 [facility] URINE AND STOOL UA Glucose Negative (08/12/16 8:55 PM) Negative 08/13/2016 [facility] URINE AND STOOL UA Protein 100 mg/dL Negative mg/dL 08/13/2016 [facility] URINE AND STOOL UA pH 6.0 5.0 - 8.0 08/13/2016 [facility] URINE AND STOOL UA Spec Grav 1.020 <=1.030 08/13/2016 [facility] URINE AND STOOL UA Ketones Negative *NA* (08/12/16 8:55 PM) Negative 08/13/2016 [facility] URINE AND STOOL UA Color Yellow *NA* (08/12/16 8:55 PM) Yellow 08/13/2016 [facility] URINE AND STOOL UA Turbidity Clear (08/12/16 8:55 PM) Clear 08/13/2016 [facility] CHEM PANEL Phosphorus 3.4 mg/dL 2.5 - 4.5 08/12/2016 [facility] HEMATOLOGY Baso Stipplin Moderate *ABN* (08/12/16 9:49 AM) None Seen 08/12/2016 [facility] HEMATOLOGY Stomatocyte Moderate *ABN* (08/12/16 9:49 AM) None Seen 08/12/2016 [facility] HEMATOLOGY Anisocyte 1+ *ABN* (08/12/16 9:49 AM) None Seen 08/12/2016 [facility] HEMATOLOGY Plt Morph Normal (08/12/16 9:49 AM) 08/12/2016 [facility] HEMATOLOGY Hypochrom 1+ (08/12/16 9:49 AM) None Seen 08/12/2016 [facility] CARDIAC ENZYMES Troponin-I 0.03 ng/mL 0.00 - 0.40 08/12/2016 [facility] CARDIAC ENZYMES CK MB 2.0 ng/mL 0.5 - 3.6 08/12/2016 [facility] Chest 1view DX Chest 1view DX Study: [...] IMPRESSION: Stable exam of the chest SL: [id number] 08/12/2016 - - Read by: Michelet Padgett MD Dictated Date/time: 08/12/16 09:57 Electronically Signed by: Michelet Padgett MD 08/12/16 09:58 FINAL REPORT [facility] URINE AND STOOL Occult Bld Stl Negative (08/11/16 3:14 PM) Negative 08/11/2016 [facility] CHEM PANEL Globulin 3.5 g/dL 2.7 - 4.2 08/11/2016 [facility] CHEM PANEL Total Protein 5.9 g/dL 6.4 - 8.4 08/11/2016 [facility] CHEM PANEL Albumin Lvl 2.4 g/dL 3.5 - 5.0 08/11/2016 [facility] CHEM PANEL Bili Total 0.4 mg/dL 0.2 - 1.3 08/11/2016 [facility] CHEM PANEL Alk Phos 50 unit/L 39 - 136 08/11/2016 [facility] CHEM PANEL AST 13 unit/L 0 - 37 08/11/2016 [facility] CHEM PANEL A/G Ratio 0.7 0.7 - 1.6 08/11/2016 [facility] CHEM PANEL ALT 13 unit/L 0 - 65 08/11/2016 [facility] CHEM PANEL B/C Ratio 25 6 - 25 08/11/2016 [facility] HEMATOLOGY PT 14.3 s 12.0 - 14.7 08/11/2016 [facility] HEMATOLOGY PTT 41.0 s 22.9 - 35.8 08/11/2016 [facility] HEMATOLOGY INR 1.09 0.85 - 1.17 08/11/2016 [facility] Chest 1view DX Chest 1view DX Chest 1view DX 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 COMPARISON: 619 FINDINGS/IMPRESSION: Limited AP [...] MARY: LIZY-ALTA 08/10/2016 - - Read by: Robyb Magdaleno MD Dictated Date/time: 08/10/16 17:54 Electronically Signed by: Robby Magdaleno MD 08/10/16 17:56 FINAL REPORT [facility] ANEMIA STUDY UIBC 231 ug/dl 110 - 370 08/10/2016 [facility] ANEMIA STUDY % Satur Fe 13 % 12 - 57 08/10/2016 [facility] ANEMIA STUDY Iron 34 ug/dl 30 - 160 08/10/2016 [facility] ANEMIA STUDY TIBC 265 ug/dl 228 - 428 08/10/2016 [facility] ANEMIA STUDY Ferritin Lvl 334 ng/mL 5 - 204 08/10/2016 [facility] BLOOD BANK RESULTS RBC product Product available 1 (08/09/16 4:05 PM) 08/09/2016 Result Comment: 08/09/2016 16:55 [id number] KLS notified Lisseth 08/09/2016 16:55 [facility] BLOOD BANK RESULTS ABO/Rh B POS 08/09/2016 [facility] BLOOD BANK RESULTS Antibody Scrn Negative (08/09/16 2:03 PM) 08/09/2016 [facility] CARDIAC ENZYMES CK MB Index 1.7 0.0 - 2.5 08/09/2016 [facility] CARDIAC ENZYMES BNP 198 pg/mL <=100 pg/mL 08/09/2016 [facility] CARDIAC ENZYMES CK MB 1.0 ng/mL 0.5 - 3.6 08/09/2016 [facility] CARDIAC ENZYMES Troponin-I 0.03 ng/mL 0.00 - 0.40 08/09/2016 [facility] CARDIAC ENZYMES Total CK 58 unit/L 12 - 191 08/09/2016 [facility] CHEM PANEL Lipase Lvl 60 unit/L 73 - 393 08/09/2016 [facility] CHEM PANEL Albumin Lvl 2.8 g/dL 3.5 - 5.0 08/09/2016 [facility] CHEM PANEL AST 14 unit/L 0 - 37 08/09/2016 [facility] CHEM PANEL Bili Total 0.2 mg/dL 0.2 - 1.3 08/09/2016 [facility] CHEM PANEL Alk Phos 55 unit/L 39 - 136 08/09/2016 [facility] CHEM PANEL Total Protein 6.3 g/dL 6.4 - 8.4 08/09/2016 [facility] CHEM PANEL ALT 12 unit/L 0 - 65 08/09/2016 [facility] CHEM PANEL A/G Ratio 0.8 0.7 - 1.6 08/09/2016 [facility] CHEM PANEL Globulin 3.5 g/dL 2.7 - 4.2 08/09/2016 [facility] CHEM PANEL B/C Ratio 24 6 - 25 08/09/2016 [facility] HEMATOLOGY INR 0.98 0.85 - 1.17 08/09/2016 [facility] HEMATOLOGY PT 13.2 s 12.0 - 14.7 08/09/2016 [facility] URINE AND STOOL UA Urobilinogen <=1.0 mg/dL 0.1 - 1.0 08/09/2016 [facility] URINE AND STOOL UA Color Ltyellow 08/09/2016 [facility] URINE AND STOOL UA Sq Epi Occasional /LPF Few /LPF 08/09/2016 [facility] URINE AND STOOL UA RBC 3 /HPF 0 - 2 08/09/2016 [facility] URINE AND STOOL UA WBC 1 /HPF 0 - 5 08/09/2016 [facility] URINE AND STOOL UA Hyal Cast 4 /LPF 0 - 2 08/09/2016 [facility] URINE AND STOOL UA Bacteria Occasional /HPF None Seen /HPF 08/09/2016 [facility] URINE AND STOOL UA Leuk Est Negative (08/09/16 2:03 PM) Negative 08/09/2016 [facility] URINE AND STOOL UA Nitrite Negative (08/09/16 2:03 PM) Negative 08/09/2016 [facility] URINE AND STOOL UA Ketones Negative mg/dL Negative mg/dL 08/09/2016 [facility] URINE AND STOOL UA Blood Negative (08/09/16 2:03 PM) Negative 08/09/2016 [facility] URINE AND STOOL UA Bili Negative *NA* (08/09/16 2:03 PM) Negative 08/09/2016 [facility] URINE AND STOOL UA Glucose Negative mg/dL Negative mg/dL 08/09/2016 [facility] URINE AND STOOL UA Protein 100 mg/dL Negative mg/dL 08/09/2016 [facility] URINE AND STOOL UA Turbidity Clear (08/09/16 2:03 PM) Clear 08/09/2016 [facility] URINE AND STOOL UA Spec Grav 1.010 <=1.030 08/09/2016 [facility] URINE AND STOOL UA pH 6.0 5.0 - 8.0 08/09/2016 [facility] Chest 1view DX Chest 1view DX Chest [...] wires project over the patient's chest. SL: [id number] 08/09/2016 - - Read by: Robby Magdaleno MD Dictated Date/time: 08/09/16 14:27 Electronically Signed by: Robby Magdaleno MD 08/09/16 14:29 FINAL REPORT [facility] Vital Signs Vital Sign Value Date Comments Source Weight 155.1 01/16/2018 [facility] Height 63 01/16/2018 [facility] Temperature Oral (F) 98.0 F 01/16/2018 [facility] Heart Rate 74 01/16/2018 [facility] Diastolic (mm Hg) 40 01/16/2018 [facility] Systolic (mm Hg) 110 01/16/2018 [facility] Weight 155 06/06/2017 [facility] Height 63 06/06/2017 [facility] Temperature Oral (F) 98.1 F 06/06/2017 [facility] Heart Rate 72 06/06/2017 [facility] Diastolic (mm Hg) 68 06/06/2017 [facility] Systolic (mm Hg) 130 06/06/2017 [facility] Temperature Oral (F) 97.7 F 09/02/2016 [facility] Respitory Rate 17 09/02/2016 [facility] Heart Rate 78 09/02/2016 [facility] Systolic (mm Hg) 118 09/02/2016 [facility] Diastolic (mm Hg) 57 09/02/2016 [facility] Respitory Rate 17 09/02/2016 [facility] Temperature Oral (F) 98.1 F 09/02/2016 [facility] Heart Rate 70 09/02/2016 [facility] Systolic (mm Hg) 134 09/02/2016 [facility] Diastolic (mm Hg) 62 09/02/2016 [facility] Respitory Rate 18 09/02/2016 [facility] Temperature Oral (F) 97.9 F 09/02/2016 [facility] Heart Rate 70 09/02/2016 [facility] Systolic (mm Hg) 129 09/02/2016 [facility] Diastolic (mm Hg) 59 09/02/2016 [facility] BMI Calculated 34.06 08/09/2016 [facility] Weight 90 08/09/2016 [facility] Height 162.56 cm 08/09/2016 [facility] Weight 86.364 08/09/2016 [facility] BMI Calculated 32.68 08/09/2016 [facility] Height 162.56 cm 08/09/2016 [facility] Encounters Location Location Details Encounter Type Encounter Number Reason For Visit Attending Provider ADM Date DC Date Status Source [facility] Inpatient [id number] Priyanka Mcdonalddaniele 08/09/2016 09/02/2016 [facility] Procedures Procedure Code Date Perfomer Comments Source section [id number] [facility] Cholecystectomy [id number] [facility] Procedure on knee<sup>1</sup> [id number] Total knee replacement 2009 [facility]
--- NOTE | 2018-04-26 08:45 | Diagnostic Imaging Report ---
CT BRAIN WO HISTORY: Fall COMPARISON: None. Technique: Noncontrast axial scans were obtained from skull base to the vertex. Coronal and sagittal reconstructions obtained from the axial data. One or more of the following dose reduction techniques were used: Automated exposure control, adjustment of the mA and/or kV according to patient size, and/or utilization of iterative reconstruction technique. Beam hardening artifacts obscure some details. DISCUSSION: Scalp/Skull: No calvarial fracture Brain sulci: Mildly prominent. Ventricles: Compensatory dilatation. Extra-axial spaces: No masses or fluid collections. Carotid siphon calcifications are present. Parenchyma: Mild bilateral deep white matter hypodensity is likely chronic microvascular ischemic change. There is an old left thalamic lacunar infarct. Otherwise, no masses, hemorrhage, or large vascular territory acute infarct. Dural sinuses: No abnormal densities. Sellar/Suprasellar region: Intact. Skull base: Intact. Incidental findings: Both ocular lenses are thinned. IMPRESSION: 1. No acute intracranial abnormalities. 2. Mild supratentorial chronic microvascular ischemic change. Mild generalized cerebral volume loss. 3. Old left thalamic lacunar infarct. Signed by: Dr. Adelfo Howard M.D. on 04/26/2018 8:42 AM
--- NOTE | 2018-04-26 08:55 | Diagnostic Imaging Report ---
CT MAXIO FAC/PARANAS WO HISTORY: Fall COMPARISON: Concurrent head CT TECHNIQUE: Axial CT images through the face were obtained without contrast. Coronal/sagittal reformations were created. One or more of the following dose reduction techniques were used: Automated exposure control, adjustment of the mA and/or kV according to patient size, and/or utilization of iterative reconstruction technique. DISCUSSION: Mild left periorbital and premaxillary subcutaneous edema/swelling is present. There is a mildly displaced, mildly comminuted fracture of the left lamina papyracea. The fracture involves the lower left lacrimal fossa. The fracture may involve the left fovea ethmoidalis/cribriform plate. There is associated hemorrhagic opacification of the left frontonasal recess and left ethmoid air cells. Subtle deformity of the bilateral nasal bones are age indeterminate. Otherwise, no acute fractures identified. The orbits are otherwise intact. Both ocular lenses are thinned. Intraorbital contents are otherwise grossly unremarkable. Advanced atlantoaxial arthrosis is present. Mild to moderate multilevel spondylosis is most prominent at C4-C5. Grade 1 anterolisthesis of C3 on C4 is due to prominent right-sided facet arthrosis. The paranasal sinuses are otherwise clear. Please refer to concurrent head CT for intracranial findings. Prominent bilateral carotid bulb calcifications are present. IMPRESSION: 1. Mildly displaced, mildly comminuted fracture of the left lamina papyracea involves the lower left lacrimal fossa. The fracture may involve the left fovea ethmoidalis/cribriform plate. 2. Age indeterminate, subtle deformity of the bilateral nasal bones. 3. No other acute osseous abnormalities in the face. Signed by: Dr. Adelfo Howard M.D. on 04/26/2018 8:52 AM
[2018-04-26 10:53] VITALS: BP 135/49
== END 2018-04-26 10:56 | disposition home or self-care (01) ==
LOC: ER 07:30
DX: S00.83XA Contusion of other part of head, initial encounter (principal); S02.19XA Other fracture of base of skull, initial encounter for closed fracture; S00.12XA Contusion of left eyelid and periocular area, initial encounter; W07.XXXA Fall from chair, initial encounter; Y92.008 Other place in unspecified non-institutional (private) residence as the place of occurrence of the external cause
CPT/HCPCS: 70450; 70486; 99284

== ENCOUNTER 2018-06-01 07:15 | Emergency (ER) | payer MEDICARE, BC ==
[~2018-06-01] VITALS: Ht 162.6 cm; Wt 65.8 kg
--- NOTE | 2018-06-01 10:02 | Diagnostic Imaging Report ---
EXAM: FOOT LEFT COMPLETE DATE: 06/01/2018 7:43 AM INDICATION: Painful lateral foot COMPARISON: None FINDINGS: 3 views of the left foot show no displaced fracture, destructive lesion or dislocation. There is marked degenerative change at the first tarsal metatarsal joint. A plantar calcaneal enthesophyte is noted. Soft tissues unremarkable, with suggested mild edema about the ankle and dorsum of the foot.. IMPRESSION: No acute bony abnormality. Advanced degenerative change at the first tarsal metatarsal joint. Signed by: Dr. Yakov King M.D. on 06/01/2018 9:58 AM
== END 2018-06-01 10:53 | disposition home or self-care (01) ==
LOC: ER 07:15
DX: M25.572 Pain in left ankle and joints of left foot (principal); M10.072 Idiopathic gout, left ankle and foot; R26.2 Difficulty in walking, not elsewhere classified; I10 Essential (primary) hypertension; E11.9 Type 2 diabetes mellitus without complications; J44.9 Chronic obstructive pulmonary disease, unspecified; I50.9 Heart failure, unspecified; I48.91 Unspecified atrial fibrillation
CPT/HCPCS: 99283